=== PATIENT | male | born 1950 | race Hispanic/Latino ===

== ENCOUNTER 2017-01-07 20:58 | Inpatient (IN) | payer MEDICAID ==
[~2017-01-07] VITALS: Ht 177.8 cm; Wt 89.4 kg
[~2017-01-07 20:58] MED LIST: ASPIRIN81 MG ORAL; LISINOPRIL20 MG ORAL; MILK OF MA400 MG/51 ORAL; MYLANTA30 M1 GT; PROTONIX40 M2 PO; TYLENOL325 MG ORAL; ZOCOR40 MG ORAL; ZOFRAN4 M1 ORAL
--- NOTE | 2017-01-07 21:03 | Emergency Room Report ---
History of Present Illness General Source: Patient, EMS Present Illness HPI Patient is a 66-year-old male brought in by ambulance after increased chest pain and difficulty breathing. Patient was noted to have prior history of CHF as well as pacemaker placement. Patient was sent from [facility]. The patient was noted to have prior history hypertension. He had been nauseated and vomiting. Allergies: Coded Allergies: LACTOSE (Verified Allergy, Unknown, 08/30/15) METHOTREXATE (Verified Allergy, Unknown, 08/30/15) NSAIDS (NON-STEROIDAL ANTI-INFLAMMA (Unverified Allergy, Unknown, 11/14/15) Patient History Past Medical History: see triage record Reviewed Nursing Documentation: PMH: Agreed, PSxH: Agreed Nursing Documentation-PMH Hx Cardiac Problems: Yes Hx Hypertension: Yes Hx Diabetes: Yes Hx Cancer: No Hx Gastrointestinal Problems: Yes Hx Neurological Problems: No Review of Systems All Other Systems: negative except mentioned in HPI Physical Exam Sp02 EP Interpretation: reviewed, normal General Appearance: normal inspection, well appearing, no apparent distress, alert, GCS 15 Head: atraumatic ENT: normal ENT inspection, hearing grossly normal, normal voice Neck: normal inspection, full range of motion, supple, no bony tend Respiratory: normal inspection, lungs clear, normal breath sounds, no respiratory distress, no retraction, no wheezing Cardiovascular #1: regular rate, rhythm, no edema Gastrointestinal: normal inspection, normal bowel sounds, non tender, soft, no guarding, no hernia Genitourinary: no CVA tenderness Musculoskeletal: normal inspection, back normal, normal range of motion Neurologic: normal inspection, alert, responsive, speech normal Psychiatric: normal inspection, judgement/insight normal, mood/affect normal Skin: normal inspection, normal color, no rash Medical Decision Making Diagnostic Impression: Primary Impression: Congestive heart failure ER Course Patient presented for chest pain.Differential diagnosis included but was not limited to acute coronary syndrome, pulmonary embolism, pneumonia, aortic dissection, shingles, pneumothorax, aortic dissection, esophageal rupture, pericarditis. Because of complexity of patient's case laboratory testing and imaging studies were ordered.The patient was given IV Lasix. He is given nitroglycerin for shortness of breath. Patient noted have improvement in his oxygen saturation. Patient was discussed with Dr. durbin for inpatient management. Laboratory studies showed elevated BNP peptide. Patient was noted to have negative troponin Labs Test 01/07/17 21:15 White Blood Count 13.0 K/UL (4.8-10.8) Red Blood Count 4.10 M/UL (4.70-6.10) Hemoglobin 11.3 G/DL (14.2-18.0) Hematocrit 37.1 % (42.0-52.0) Mean Corpuscular Volume 91 FL (80-99) Mean Corpuscular Hemoglobin 27.7 PG (27.0-31.0) Mean Corpuscular Hemoglobin Concent 30.6 G/DL (32.0-36.0) Red Cell Distribution Width 15.4 % (11.6-14.8) Platelet Count 277 K/UL (150-450) Mean Platelet Volume 5.9 FL (6.5-10.1) Neutrophils (%) (Auto) 84.0 % (45.0-75.0) Lymphocytes (%) (Auto) 9.1 % (20.0-45.0) Monocytes (%) (Auto) 4.4 % (1.0-10.0) Eosinophils (%) (Auto) 1.5 % (0.0-3.0) Basophils (%) (Auto) 0.9 % (0.0-2.0) Sodium Level 135 mEQ/L (135-145) Potassium Level 4.3 mEQ/L (3.4-4.9) Chloride Level 93 mEQ/L (98-107) Carbon Dioxide Level 26 mEQ/L (20-30) Anion Gap 16 (5-15) Blood Urea Nitrogen 9 mg/dL (7-23) Creatinine 0.8 mg/dL (0.7-1.2) Estimat Glomerular Filtration Rate > 60 mL/min (>60) Glucose Level 191 mg/dL (74-106) Calcium Level 9.2 mg/dL (8.6-10.2) Total Bilirubin 0.7 mg/dL (0.0-1.2) Aspartate Amino Transf (AST/SGOT) 16 U/L (5-40) Alanine Aminotransferase (ALT/SGPT) 9 U/L (3-41) Alkaline Phosphatase 112 U/L (40-129) Total Creatine Kinase 65 U/L (38-174) Creatine Kinase MB 2.6 ng/mL (< 6.7) Creatine Kinase MB Relative Index 4.0 Troponin I < 0.30 ng/mL (<=0.30) Pro-B-Type Natriuretic Peptide 6297 pg/mL (0-125) Total Protein 8.2 g/dL (6.6-8.7) Albumin 3.6 g/dL (3.5-5.2) Globulin 4.6 g/dL Albumin/Globulin Ratio 0.7 (1.0-2.7) EKG Diagnostic Results Rate: normal - 72 Rhythm: other - paced ST Segments: no acute changes Rhythm Strip Diag. Results EP Interpretation: yes Rhythm: no PVC's, no ectopy, other - paced rhythm Chest X-Ray Diagnostic Results EP Interpretation: Yes Findings: no effusion, no pneumothorax, other - vascular congestion, fluid in fissure Number of Views: 1 Status: improved Disposition: ADMITTED INPATIENT Condition: Serious Sam Saavedra Jan 07, 2017 21:03
[2017-01-07 21:25] LABS: BASOPHILS % (AUTO) 0.9 % (0.0-2.0); EOSINOPHILS % (AUTO) 1.5 % (0.0-3.0); LYMPHOCYTES % (AUTO) 9.1 % (20.0-45.0); MEAN CORPUSCULAR HEMOGLOBIN 27.7 PG (27.0-31.0); MEAN CORPUSCULAR HGB CONC 30.6 G/DL (32.0-36.0); MEAN CORPUSCULAR VOLUME 91 FL (80-99); MEAN PLATELET VOLUME 5.9 FL (6.5-10.1); MONOCYTES % (AUTO) 4.4 % (1.0-10.0); PLATELET COUNT 277 K/UL (150-450); RED CELL DISTRIBUTION WIDTH 15.4 % (11.6-14.8)
[2017-01-07 21:43] LABS: ALANINE AMINOTRANSFERASE 9 U/L (3-41); ALBUMIN/GLOBULIN RATIO 0.7 (1.0-2.7); ASPARTATE AMINO TRANSFERASE 16 U/L (5-40); CALCIUM 9.2 mg/dL (8.6-10.2); CARBON DIOXIDE 26 mEQ/L (20-30); CHLORIDE 93 mEQ/L (98-107); CREATININE 0.8 mg/dL (0.7-1.2); GLOMERULAR FILTRATION RATE > 60 mL/min (>60); HEMOLYSIS 7; POTASSIUM 4.3 mEQ/L (3.4-4.9); SODIUM 135 mEQ/L (135-145); TOTAL PROTEIN 8.2 g/dL (6.6-8.7); TROPONIN I < 0.30 ng/mL (<=0.30)
[2017-01-07 21:44] LABS: ANION GAP 16 (5-15)
[2017-01-07 21:54] LABS: CKMB 2.6 ng/mL (< 6.7)
[2017-01-07] MEDS ORDERED: Nitroglycerin Subl 0.4mg tab (Bottle Of 25) SL PRN (23:00)
[2017-01-07 23:10] VITALS: BP 151/104
[2017-01-08] VITALS (7 sets, daily range): BP systolic 113–148; BP diastolic 52–97
[2017-01-08] MEDS ORDERED: DULCOLAX10 MG RC (00:03)
[2017-01-08] MEDS ORDERED: ATORVASTATIN CA80 MG ORAL (00:03)
[2017-01-08] MEDS ORDERED: COLACE100 MG ORAL (00:03)
[2017-01-08] MEDS ORDERED: LISINOPRIL40 MG ORAL (00:03)
[2017-01-08] MEDS ORDERED: PLAVIX75 MG ORAL (00:06)
[2017-01-08] MEDS ORDERED: TRAMADOL HCL50 MG ORAL (00:06)
[2017-01-08] MEDS ORDERED: Enalaprilat 2.5mg/2ml Inj IV PRN (00:15)
[2017-01-08] MEDS ORDERED: Nitroglycerin Subl 0.4mg tab (Bottle Of 25) SL PRN (00:15)
[2017-01-08] MEDS ORDERED: Ketorolac 30mg Inj IV PRN (00:15)
[2017-01-08] MEDS ORDERED: Miralax 17gm pkt ORAL PRN (00:15)
[2017-01-08] MEDS ORDERED: DuoNeb 0.5-3(2.5)mg/3ml neb HHN PRN (00:15)
[2017-01-08] MEDS ORDERED: Diltiazem 25mg/5ml IV PRN (00:15)
[2017-01-08] MEDS ORDERED: NORCO 5-325 TA1 EAC1 ORAL (01:38)
[2017-01-08] MEDS ORDERED: NITROGLYCERIN0.4 MG SL (01:38)
[2017-01-08] MEDS ORDERED: VITAMIN D35000 UNI2 PO (01:44)
[2017-01-08] MEDS ORDERED: METOPROLOL TART25 MG ORAL (01:44)
[2017-01-08] MEDS ORDERED: NOVOLOG100 UNITS1 (01:44)
[2017-01-08] MEDS: NovoLOG Insulin Flexpen SUBQ SCH ×4 (06:42→22:28)
[2017-01-08 07:26] LABS: TROPONIN I < 0.30 ng/mL (<=0.30)
[2017-01-08] MEDS: Lisinopril 20mg tab ORAL SCH (09:16)
[2017-01-08] MEDS: Aspirin Baby 81mg ORAL SCH (09:16)
[2017-01-08] MEDS: Heparin 5000 units/ml inj SUBQ SCH ×2 (09:18→22:28)
--- NOTE | 2017-01-08 12:00 | Diagnostic Imaging Report ---
Indication: SOB Technique: One view of the chest Comparison: 08/29/2015 Findings: Better inspiration currently. Again demonstrated is diffuse bilateral interstitial disease, left greater than right. No focal airspace consolidation. Heart size borderline enlarged. Left chest pacemaker is again demonstrated. Impression: Bilateral left greater than right diffuse interstitial disease. Suspect on the basis of pulmonary edema. However, similarity to prior study raises the possibility that there could be a significant chronic component. Correlation with clinical findings is recommended. This agrees with the preliminary interpretation provided by the emergency room physician
--- NOTE | 2017-01-08 12:24 | History and Physical ---
History of Present Illness General Date patient seen: Jan 08, 2017 Reason for Hospitalization: Chest Pain Present Illness HPI 66-year-old male with hx of DM,CHF, pacemaker, severe debilitating rheumatoid arthritis, bed bound prison resident. brought in by ambulance with CC of chest pain and difficulty breathing. He was diagnosed to have acute exacerbation of CHF and respiratory insufficiency and admitted for further management. Allergies: Coded Allergies: LACTOSE (Verified Allergy, Unknown, 08/30/15) METHOTREXATE (Verified Allergy, Unknown, 08/30/15) NSAIDS (NON-STEROIDAL ANTI-INFLAMMA (Unverified Allergy, Unknown, 11/14/15) Medication History Scheduled Al Hydroxide/mg Hydroxide (Mag-Al Liquid), 30 ML GT Q6HR, (Reported) Aspirin* (Aspirin*), 81 MG ORAL DAILY, (Reported) Atorvastatin Calcium* (Lipitor*), 80 MG ORAL BEDTIME, (Reported) Cholecalciferol (Vitamin D3) (Vitamin D3), 5,000 UNIT PO DAILY, (Reported) Clopidogrel Bisulfate* (Plavix*), 75 MG ORAL DAILY, (Reported) Docusate Sodium* (Colace*), 100 MG ORAL DAILY, (Reported) Lisinopril (Lisinopril*), 20 MG ORAL DAILY, (Reported) Metoprolol Tartrate* (Metoprolol Tartrate*), 25 MG ORAL EVERY 12 HOURS, ( Reported) Pantoprazole Sodium (Protonix), 40 MG PO DAILY, (Reported) Simvastatin (Zocor), 40 MG ORAL BEDTIME, (Reported) Scheduled PRN Acetaminophen (Tylenol), 650 MG ORAL Q4HR PRN for For Pain, (Reported) Bisacodyl (Dulcolax), 10 MG RC for Constipation, (Reported) Hydrocodone Bit/Acetaminophen 5-325* (Bland 5-325 Tablet*), 2 TAB ORAL Q8HR PRN for For Pain, (Reported) Magnesium Hydroxide* (Milk Of Magnesia*), 30 ML ORAL QHS PRN for Constipation, ( Reported) Ondansetron (Zofran), 4 MG ORAL Q4HR PRN for Nausea & Vomiting, (Reported) Tramadol Hcl* (Ultram*), 50 MG ORAL Q6H PRN for For Pain, (Reported) Miscellaneous Medications Insulin Aspart (Novolog Flexpen), (Reported) Nitroglycerin (Nitroglycerin), 0.4 MG SL, (Reported) Discontinued Medications Lisinopril* (Lisinopril*), 40 MG ORAL DAILY, (Reported) Discontinued Reason: Medication dose changed Patient History Healthcare decision maker Resuscitation status Full Code Advanced Directive on File No Past Medical/Surgical History Past Medical/Surgical History: (1) Congestive heart failure (2) Diabetes mellitus (3) Arrhythmia Review of Systems All Other Systems: negative except mentioned in HPI Physical Exam General Appearance: WD/WN, no apparent distress Lines, tubes and drains: peripheral, central line HEENT: normocephalic, atraumatic Neck: non-tender, normal alignment Respiratory/Chest: chest wall non-tender, lungs clear Cardiovascular/Chest: normal peripheral pulses, normal rate Abdomen: normal bowel sounds, hyperactive bowel sounds Extremities: normal range of motion, non-tender Skin Exam: normal pigmentation 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 Last 24 Hour Vital Signs Date Time Temp Pulse Resp B/P Pulse Ox O2 Delivery O2 Flow Rate FiO2 01/08/17 11:22 97.8 86 20 115/57 99 Room Air 01/08/17 09:16 148/97 01/08/17 08:00 77 01/08/17 07:58 98.9 87 20 148/97 98 Room Air 01/08/17 06:34 87 16 Room Air 01/08/17 04:00 97.9 77 20 113/52 95 Room Air 01/08/17 04:00 75 01/08/17 00:30 98.1 75 20 134/80 96 Room Air 01/08/17 00:30 98.1 75 20 134/80 96 Room Air 01/08/17 00:00 97.2 75 20 139/85 95 Room Air 01/07/17 23:10 98.4 85 16 151/104 100 Room Air 01/07/17 23:08 151/104 01/07/17 21:00 85 15 Room Air 01/07/17 20:58 98.2 81 16 171/94 97 Room Air Intake and Output 01/07/17 01/08/17 19:00 07:00 Output Total 2100 ml Balance -2100 ml Output Urine Total 2100 ml Laboratory Tests Test 01/07/17 21:15 01/08/17 05:50 White Blood Count 13.0 K/UL (4.8-10.8) H Red Blood Count 4.10 M/UL (4.70-6.10) L Hemoglobin 11.3 G/DL (14.2-18.0) L Hematocrit 37.1 % (42.0-52.0) L Mean Corpuscular Volume 91 FL (80-99) Mean Corpuscular Hemoglobin 27.7 PG (27.0-31.0) Mean Corpuscular Hemoglobin Concent 30.6 G/DL (32.0-36.0) L Red Cell Distribution Width 15.4 % (11.6-14.8) H Platelet Count 277 K/UL (150-450) Mean Platelet Volume 5.9 FL (6.5-10.1) L Neutrophils (%) (Auto) 84.0 % (45.0-75.0) H Lymphocytes (%) (Auto) 9.1 % (20.0-45.0) L Monocytes (%) (Auto) 4.4 % (1.0-10.0) Eosinophils (%) (Auto) 1.5 % (0.0-3.0) Basophils (%) (Auto) 0.9 % (0.0-2.0) Sodium Level 135 mEQ/L (135-145) Potassium Level 4.3 mEQ/L (3.4-4.9) Chloride Level 93 mEQ/L (98-107) L Carbon Dioxide Level 26 mEQ/L (20-30) Anion Gap 16 (5-15) H Blood Urea Nitrogen 9 mg/dL (7-23) Creatinine 0.8 mg/dL (0.7-1.2) Estimat Glomerular Filtration Rate > 60 mL/min (>60) Glucose Level 191 mg/dL (74-106) H Calcium Level 9.2 mg/dL (8.6-10.2) Total Bilirubin 0.7 mg/dL (0.0-1.2) Aspartate Amino Transf (AST/SGOT) 16 U/L (5-40) Alanine Aminotransferase (ALT/SGPT) 9 U/L (3-41) Alkaline Phosphatase 112 U/L (40-129) Total Creatine Kinase 65 U/L (38-174) Creatine Kinase MB 2.6 ng/mL (< 6.7) Creatine Kinase MB Relative Index 4.0 Troponin I < 0.30 ng/mL (<=0.30) < 0.30 ng/mL (<=0.30) Pro-B-Type Natriuretic Peptide 6297 pg/mL (0-125) H Total Protein 8.2 g/dL (6.6-8.7) Albumin 3.6 g/dL (3.5-5.2) Globulin 4.6 g/dL Albumin/Globulin Ratio 0.7 (1.0-2.7) L Height (Feet): 5 Height (Inches): 10.00 Weight (Pounds): 197 Medications Current Medications Medications (Trade) Dose Ordered Sig/Paola Route PRN Reason Start Time Stop Time Status Last Admin Dose Admin Acetaminophen (Tylenol) 650 mg Q4H PRN ORAL FEVER 01/08/17 00:15 02/07/17 00:14 Acetaminophen (Tylenol) 650 mg Q4HR PRN ORAL For Pain 01/08/17 00:15 02/07/17 00:14 Albuterol/ Ipratropium (DuoNeb 0.5-3(2.5)mg/3ml) 3 ml EVERY 4 HOURS PRN HHN Shortness of Breath 01/08/17 00:15 01/13/17 00:14 Aspirin (ASA) 162 mg DAILY ORAL 01/08/17 09:00 02/07/17 08:59 01/08/17 09:16 Clopidogrel Bisulfate (Plavix) 75 mg DAILY ORAL 01/08/17 09:00 02/07/17 08:59 01/08/17 09:16 Dextrose (Dextrose 50%) STAT PRN IV Hypoglycemia 01/08/17 03:45 02/07/17 03:44 Diltiazem HCl (Cardizem) 10 mg EVERY HOUR PRN IV heart rate more than 120, 01/08/17 00:15 02/07/17 00:14 Enalaprilat (Vasotec) 2.5 mg EVERY 6 HOURS PRN IV sbp more than 160 01/08/17 00:15 02/07/17 00:14 Heparin Sodium (Porcine) (Heparin 5000 units/ml) 5,000 units EVERY 12 HOURS SUBQ 01/08/17 09:00 02/07/17 08:59 01/08/17 09:18 Insulin Aspart (NovoLOG) BEFORE MEALS AND HS SUBQ 01/08/17 06:30 02/07/17 06:29 01/08/17 11:40 Ketorolac Tromethamine (Toradol 30mg) 30 mg Q6HR PRN IV moderate pain ( 4-6) 01/08/17 00:15 01/13/17 00:14 Lisinopril (Prinivil) 20 mg DAILY ORAL 01/08/17 09:00 02/07/17 08:59 01/08/17 09:16 Morphine Sulfate (Morphine Sulfate) 2 mg EVERY 4 HOURS PRN IVP severe Pain (Pain Scale 7-10) 01/08/17 00:15 01/15/17 00:14 Nitroglycerin (Ntg) 0.4 mg every 5 minutes PRN SL Prn Chest Pain 01/08/17 00:15 02/07/17 00:14 Ondansetron HCl (Zofran) 4 mg Q6H PRN IVP Nausea & Vomiting 01/08/17 00:15 02/07/17 00:14 01/08/17 09:18 Pantoprazole (Protonix) 40 mg DAILY ORAL 01/08/17 09:00 02/07/17 08:59 01/08/17 09:16 Polyethylene Glycol (Miralax) 17 gm DAILYPRN PRN ORAL Constipation 01/08/17 00:15 02/07/17 00:14 Temazepam (Restoril) 15 mg HSPRN PRN ORAL Insomnia 01/08/17 00:15 01/15/17 00:14 Assessment/Plan Problem List: (1) Acute on chronic heart failure ICD Codes: I50.9 - Heart failure, unspecified SNOMED: 846907761 (2) S/P CABG (coronary artery bypass graft) ICD Codes: Z95.1 - Presence of aortocoronary bypass graft SNOMED: 875740093, 306996069 (3) Limited mobility ICD Codes: Z74.09 - Other reduced mobility SNOMED: 1589742 (4) Diabetes mellitus ICD Codes: E11.9 - Type 2 diabetes mellitus without complications SNOMED: 29295215 Assessment/Plan diuretics check sputum f/u on increased WBC check electrolytes. KEKE CHE Jan 08, 2017 12:24
[2017-01-08 12:40] LABS: APPEARANCE,URINE CLEAR; KETONES,URINE NEGATIVE (NEGATIVE); LEUKOCYTE ESTERASE ,URINE 1+ (NEGATIVE); NITRITE,URINE NEGATIVE (NEGATIVE); PH,URINE 8 (4.5-8.0); PROTEIN,URINE 2+ (NEGATIVE); UROBILINOGEN,URINE 1 MG/DL (0.0-1.0)
[2017-01-08 13:11] LABS: BACTERIA,URINE FEW /HPF; SQUAMOUS EPITHELIAL CELL,UR OCCASIONAL /LPF (NONE/OCC)
[2017-01-08] MEDS: Morphine Sulfate 2mg/ml Inj IVP PRN ×2 (16:11→22:24)
--- NOTE | 2017-01-08 23:08 | Cardiology Report ---
APPROVED REPORT EKG Measurement Heart [id number] NM [id number] [id number] Demand ventricular pacing Abnormal ECG
[2017-01-09] VITALS (7 sets, daily range): BP systolic 104–126; BP diastolic 61–87
[2017-01-09] MEDS: Morphine Sulfate 2mg/ml Inj IVP PRN ×5 (03:07→22:45)
[2017-01-09] MEDS: NovoLOG Insulin Flexpen SUBQ SCH ×4 (06:30→20:39)
[2017-01-09 06:42] LABS: INR 1.2 (0.9-1.1); PROTHROMBIN TIME 12.3 SEC (9.30-11.50)
[2017-01-09 06:51] LABS: TROPONIN I < 0.30 ng/mL (<=0.30)
[2017-01-09 06:53] LABS: ALANINE AMINOTRANSFERASE 11 U/L (3-41); ALBUMIN/GLOBULIN RATIO 0.8 (1.0-2.7); ANION GAP 19 (5-15); ASPARTATE AMINO TRANSFERASE 20 U/L (5-40); CALCIUM 8.8 mg/dL (8.6-10.2); CARBON DIOXIDE 25 mEQ/L (20-30); CHLORIDE 92 mEQ/L (98-107); CHOLESTEROL 114 mg/dL (< 200); CHOLESTEROL/HDL RATIO 2.2 (3.3-4.4); CREATININE 0.9 mg/dL (0.7-1.2); CRP QUANT 6.8 mg/dL (< 0.5); GLOMERULAR FILTRATION RATE > 60 mL/min (>60); HEMOLYSIS 0; LDL CHOLESTEROL (CALC.) 43 mg/dL (60-99); POTASSIUM 3.8 mEQ/L (3.4-4.9); SODIUM 136 mEQ/L (135-145); TOTAL PROTEIN 7.8 g/dL (6.6-8.7)
[2017-01-09 06:57] LABS: BASOPHILS % (AUTO) 1.1 % (0.0-2.0); EOSINOPHILS % (AUTO) 3.8 % (0.0-3.0); LYMPHOCYTES % (AUTO) 14.4 % (20.0-45.0); MEAN CORPUSCULAR HEMOGLOBIN 27.9 PG (27.0-31.0); MEAN CORPUSCULAR HGB CONC 31.7 G/DL (32.0-36.0); MEAN CORPUSCULAR VOLUME 88 FL (80-99); MEAN PLATELET VOLUME 5.8 FL (6.5-10.1); MONOCYTES % (AUTO) 12.7 % (1.0-10.0); PLATELET COUNT 322 K/UL (150-450); RED BLOOD COUNT 4.04 M/UL (4.70-6.10); RED CELL DISTRIBUTION WIDTH 15.2 % (11.6-14.8); WHITE BLOOD COUNT 6.3 K/UL (4.8-10.8)
[2017-01-09 06:59] LABS: THYROID STIMULATING HORMONE 0.254 uIU/mL (0.300-4.500)
[2017-01-09] MEDS: Heparin 5000 units/ml inj SUBQ SCH ×2 (08:23→20:39)
[2017-01-09] MEDS: Lisinopril 20mg tab ORAL SCH (08:24)
[2017-01-09] MEDS: Aspirin Baby 81mg ORAL SCH (08:25)
--- NOTE | 2017-01-09 11:05 | Cardiology Report ---
APPROVED REPORT EXAM: Two-dimensional and M-mode echocardiogram with Doppler and color Doppler. INDICATION LV function M-Mode DIMENSIONS IVSd1.3 (0.7-1.1cm)Left Atrium (MM)4.2 (1.6-4.0cm) LVDd5.7 (3.5-5.6cm)Aortic Root3.6 (2.0-3.7cm) PWd1.4 (0.7-1.1cm)Aortic Cusp Exc.2.1 (1.5-2.0cm) LVDs4.5 (2.5-4.0cm) PWs1.6 cm Technically difficult study due to poor acoustical windows. Left ventricular enlargement. Global left ventricular hypokinesis. Mid to distal segments and apical akinesis. Left ventricular ejection fraction estimated to be 25 %. Study quality precludes accurate assessment of regional wall motion. Mild left ventricular hypertrophy. Anterior Echo-free space, may be due to pericardial fat or effusion. Mild left atrial enlargement. Right cardiac chamber sizes are within normal limits. Focal aortic valve sclerosis with adequate cusp excursion. Thickened mitral valve leaflets with normal excursion. Mitral annulus and aortic root calcification. Pulmonic valve not well visualized. Normal tricuspid valve structure. IVC at normal size with physiologic collapse. Pacemaker wire present in the right side chambers. A color flow and spectral Doppler study was performed and revealed: Mild aortic regurgitation. Mild mitral regurgitation. Mitral diastolic velocities suggest reduced left ventricular relaxation c/w mild LV diastolic dysfunction. Mild tricuspid regurgitation. Tricuspid systolic velocities suggests peak right ventricular systolic pressure of 42 mmHg, consistent with mild pulmonary hypertension. Trace pulmonic regurgitation present.
--- NOTE | 2017-01-09 14:50 | Diagnostic Imaging Report ---
Indication: DYSPNEA Technique: One view of the chest Comparison: 01/07/2017 Findings: Interim partial clearing of previously demonstrated interstitial edema, only minimal residual. Left chest pacemaker, inferior vena cava filter are demonstrated. The heart is borderline enlarged. Pleural spaces are clear Impression: Improved interstitial edema, with minimal residual, over 2 days
--- NOTE | 2017-01-09 15:28 | Pulmonology Progress Note ---
Assessment/Plan Problems: (1) Acute on chronic heart failure (2) S/P CABG (coronary artery bypass graft) (3) Limited mobility (4) Diabetes mellitus Assessment/Plan add antibioitics because of purulent sputum awaiting cardiology evaluation check echo Subjective ROS Limited/Unobtainable: No Interval Events: still coughing Respiratory: Reports: shortness of breath, sputum Allergies: Coded Allergies: LACTOSE (Verified Allergy, Unknown, 08/30/15) METHOTREXATE (Verified Allergy, Unknown, 08/30/15) NSAIDS (NON-STEROIDAL ANTI-INFLAMMA (Unverified Allergy, Unknown, 11/14/15) Objective Last 24 Hour Vital Signs Date Time Temp Pulse Resp B/P Pulse Ox O2 Delivery O2 Flow Rate FiO2 01/09/17 13:36 98.2 01/09/17 12:00 97.5 82 17 125/61 98 Room Air 01/09/17 11:52 101 01/09/17 08:24 126/67 01/09/17 08:00 97.5 89 18 125/87 96 Room Air 01/09/17 07:44 93 01/09/17 06:54 90 18 Room Air 01/09/17 05:36 98.2 93 20 122/72 97 Room Air 01/09/17 04:00 86 01/09/17 04:00 98.0 93 20 122/73 96 Room Air 01/09/17 00:21 98.0 87 20 126/61 96 Room Air 01/09/17 00:00 100 01/08/17 20:00 77 01/08/17 20:00 98.4 81 20 128/75 94 Room Air 01/08/17 19:43 75 20 Room Air 01/08/17 16:00 76 01/08/17 16:00 99.1 77 21 131/67 90 Room Air Intake and Output 01/08/17 01/09/17 19:00 07:00 Intake Total 75 ml 240 ml Output Total 300 ml 300 ml Balance -225 ml -60 ml Intake Oral 75 ml 240 ml Output Urine Total 300 ml 300 ml General Appearance: WD/WN HEENT: normocephalic, anicteric Respiratory/Chest: chest wall non-tender, normal breath sounds Cardiovascular: normal peripheral pulses, normal rate Abdomen: normal bowel sounds, soft, non tender, no organomegaly Laboratory Tests 01/09/17 06:00: White Blood Count 6.3#, Red Blood Count 4.04L, Hemoglobin 11.3L, Hematocrit 35.5L, Mean Corpuscular Volume 88, Mean Corpuscular Hemoglobin 27.9, Mean Corpuscular Hemoglobin Concent 31.7L, Red Cell Distribution Width 15.2H, Platelet Count 322, Mean Platelet Volume 5.8L, Neutrophils (%) (Auto) 68.0, Lymphocytes (%) (Auto) 14.4L, Monocytes (%) (Auto) 12.7H, Eosinophils (%) (Auto ) 3.8H, Basophils (%) (Auto) 1.1, Prothrombin Time 12.3H, Prothromb Time International Ratio 1.2H, Activated Partial Thromboplast Time 45H, Sodium Level 136, Potassium Level 3.8, Chloride Level 92L, Carbon Dioxide Level 25, Anion Gap 19H, Blood Urea Nitrogen 13, Creatinine 0.9, Estimat Glomerular Filtration Rate > 60, Glucose Level 92#, Calcium Level 8.8, Total Bilirubin 0.6, Aspartate Amino Transf (AST/SGOT) 20, Alanine Aminotransferase (ALT/SGPT) 11, Alkaline Phosphatase 101, Troponin I < 0.30, C-Reactive Protein, Quantitative 6.8H, Pro-B -Type Natriuretic Peptide 3172H, Total Protein 7.8, Albumin 3.5, Globulin 4.3, Albumin/Globulin Ratio 0.8L, Triglycerides Level 96, Cholesterol Level 114, LDL Cholesterol 43L, HDL Cholesterol 52, Cholesterol/HDL Ratio 2.2L, Thyroid Stimulating Hormone (TSH) 0.254L Current Medications Medications (Trade) Dose Ordered Sig/Paola Route PRN Reason Start Time Stop Time Status Last Admin Dose Admin Acetaminophen (Tylenol) 650 mg Q4H PRN ORAL FEVER 01/08/17 00:15 02/07/17 00:14 Acetaminophen (Tylenol) 650 mg Q4HR PRN ORAL For Pain 01/08/17 00:15 02/07/17 00:14 Albuterol/ Ipratropium (DuoNeb 0.5-3(2.5)mg/3ml) 3 ml EVERY 4 HOURS PRN HHN Shortness of Breath 01/08/17 00:15 01/13/17 00:14 Aspirin (ASA) 162 mg DAILY ORAL 01/08/17 09:00 5/5/17 08:59 01/09/17 08:25 Clopidogrel Bisulfate (Plavix) 75 mg DAILY ORAL 01/08/17 09:00 02/07/17 08:59 01/09/17 08:21 Dextrose (Dextrose 50%) STAT PRN IV Hypoglycemia 01/08/17 03:45 02/07/17 03:44 Diltiazem HCl (Cardizem) 10 mg EVERY HOUR PRN IV heart rate more than 120, 01/08/17 00:15 02/07/17 00:14 Enalaprilat (Vasotec) 2.5 mg EVERY 6 HOURS PRN IV sbp more than 160 01/08/17 00:15 02/07/17 00:14 Furosemide (Lasix) 20 mg EVERY 12 HOURS IV 01/08/17 21:00 02/07/17 20:59 01/09/17 08:24 Heparin Sodium (Porcine) (Heparin 5000 units/ml) 5,000 units EVERY 12 HOURS SUBQ 01/08/17 09:00 02/07/17 08:59 01/09/17 08:23 Insulin Aspart (NovoLOG) BEFORE MEALS AND HS SUBQ 01/08/17 06:30 02/07/17 06:29 01/08/17 22:28 Lisinopril (Prinivil) 20 mg DAILY ORAL 01/08/17 09:00 02/07/17 08:59 01/09/17 08:24 Morphine Sulfate (Morphine Sulfate) 2 mg EVERY 4 HOURS PRN IVP severe Pain (Pain Scale 7-10) 01/08/17 00:15 01/15/17 00:14 01/09/17 13:06 Nitroglycerin (Ntg) 0.4 mg every 5 minutes PRN SL Prn Chest Pain 01/08/17 00:15 02/07/17 00:14 Ondansetron HCl (Zofran) 4 mg Q6H PRN IVP Nausea & Vomiting 01/08/17 00:15 02/07/17 00:14 01/08/17 22:24 Pantoprazole (Protonix) 40 mg DAILY ORAL 01/08/17 09:00 02/07/17 08:59 01/09/17 08:21 Polyethylene Glycol (Miralax) 17 gm DAILYPRN PRN ORAL Constipation 01/08/17 00:15 02/07/17 00:14 Temazepam (Restoril) 15 mg HSPRN PRN ORAL Insomnia 01/08/17 00:15 01/15/17 00:14 KEKE CHE Jan 09, 2017 15:28
[2017-01-09] MEDS ORDERED: Promethazine/Codeine 5ml UD ORAL PRN (15:30)
[2017-01-09] MEDS: Piperacillin/Tazobactam 3.375 GM in NS 110 ML IVPB SCH (16:42)
--- NOTE | 2017-01-09 17:32 | Cardiology Progress Note ---
Assessment/Plan Assessment/Plan chest pain acute systolic heart failrue icm cad s/p pci to lad adn cx with cad in rca not yet treated bradycardia s/p PPM, DVT s/p IVC filter in 2010, HTN, HLD, DM2, PUD w/ prior UGIB nto abn trop ekg paced cxr chf imporoving conteinu rxn for chf dapt will need to fu at [facility] for pci of rca if has any abn cariac enzyme and clinical sx of acs for his rca disease : Mid RCA was noted to have 60% to 70% stenosis. Distal RCA was noted to have 80% stenosis. The posterolateral segment was noted to have 90% stenosis. [id number] Objective Last 24 Hour Vital Signs Date Time Temp Pulse Resp B/P Pulse Ox O2 Delivery O2 Flow Rate FiO2 01/09/17 16:00 96.9 83 19 104/67 100 Room Air 01/09/17 13:36 98.2 01/09/17 12:00 97.5 82 17 125/61 98 Room Air 01/09/17 11:52 101 01/09/17 08:24 126/67 01/09/17 08:00 97.5 89 18 125/87 96 Room Air 01/09/17 07:44 93 01/09/17 06:54 90 18 Room Air 01/09/17 05:36 98.2 93 20 122/72 97 Room Air 01/09/17 04:00 86 01/09/17 04:00 98.0 93 20 122/73 96 Room Air 01/09/17 00:21 98.0 87 20 126/61 96 Room Air 01/09/17 00:00 100 01/08/17 20:00 77 01/08/17 20:00 98.4 81 20 128/75 94 Room Air 01/08/17 19:43 75 20 Room Air Intake and Output 01/08/17 01/09/17 19:00 07:00 Intake Total 75 ml 240 ml Output Total 300 ml 300 ml Balance -225 ml -60 ml Intake Oral 75 ml 240 ml Output Urine Total 300 ml 300 ml Laboratory Tests Test 01/09/17 06:00 White Blood Count 6.3 K/UL (4.8-10.8) # Red Blood Count 4.04 M/UL (4.70-6.10) L Hemoglobin 11.3 G/DL (14.2-18.0) L Hematocrit 35.5 % (42.0-52.0) L Mean Corpuscular Volume 88 FL (80-99) Mean Corpuscular Hemoglobin 27.9 PG (27.0-31.0) Mean Corpuscular Hemoglobin Concent 31.7 G/DL (32.0-36.0) L Red Cell Distribution Width 15.2 % (11.6-14.8) H Platelet Count 322 K/UL (150-450) Mean Platelet Volume 5.8 FL (6.5-10.1) L Neutrophils (%) (Auto) 68.0 % (45.0-75.0) Lymphocytes (%) (Auto) 14.4 % (20.0-45.0) L Monocytes (%) (Auto) 12.7 % (1.0-10.0) H Eosinophils (%) (Auto) 3.8 % (0.0-3.0) H Basophils (%) (Auto) 1.1 % (0.0-2.0) Prothrombin Time 12.3 SEC (9.30-11.50) H Prothromb Time International Ratio 1.2 (0.9-1.1) H Activated Partial Thromboplast Time 45 SEC (23-33) H Sodium Level 136 mEQ/L (135-145) Potassium Level 3.8 mEQ/L (3.4-4.9) Chloride Level 92 mEQ/L (98-107) L Carbon Dioxide Level 25 mEQ/L (20-30) Anion Gap 19 (5-15) H Blood Urea Nitrogen 13 mg/dL (7-23) Creatinine 0.9 mg/dL (0.7-1.2) Estimat Glomerular Filtration Rate > 60 mL/min (>60) Glucose Level 92 mg/dL (74-106) # Calcium Level 8.8 mg/dL (8.6-10.2) Total Bilirubin 0.6 mg/dL (0.0-1.2) Aspartate Amino Transf (AST/SGOT) 20 U/L (5-40) Alanine Aminotransferase (ALT/SGPT) 11 U/L (3-41) Alkaline Phosphatase 101 U/L (40-129) Troponin I < 0.30 ng/mL (<=0.30) C-Reactive Protein, Quantitative 6.8 mg/dL (< 0.5) H Pro-B-Type Natriuretic Peptide 3172 pg/mL (0-125) H Total Protein 7.8 g/dL (6.6-8.7) Albumin 3.5 g/dL (3.5-5.2) Globulin 4.3 g/dL Albumin/Globulin Ratio 0.8 (1.0-2.7) L Triglycerides Level 96 mg/dL (< 150) Cholesterol Level 114 mg/dL (< 200) LDL Cholesterol 43 mg/dL (60-99) L HDL Cholesterol 52 mg/dL (> 60) Cholesterol/HDL Ratio 2.2 (3.3-4.4) L Thyroid Stimulating Hormone (TSH) 0.254 uIU/mL (0.300-4.500) LEONARD CHING Jan 09, 2017 17:32
[2017-01-09] MEDS: Atorvastatin 80mg tab ORAL SCH (20:36)
--- NOTE | 2017-01-09 23:47 | Consultation ---
DATE OF CONSULTATION: 01/09/2017 CARDIOLOGY CONSULTATION CONSULTING PHYSICIAN: Pierre Zuñiga M.D. REFERRING PHYSICIAN: Pretty Sweet M.D. REASON FOR EVALUATION: Management of chest pain and shortness of breath. HISTORY OF PRESENT ILLNESS: This is an elderly gentleman, who is a resident of convalescent facility. The patient presented to the hospital because of coughing and sputum production and subsequent development of chest pain. He was initially taken to a different hospital, where he was evaluated and subsequently transferred to [facility] for further care because of insurance reasons. He tells me that he has had coughing and shortness of breath for few weeks and subsequent episodes of pain in the center of the chest that radiates to the left shoulder and this one has lasted approximately one hour. So, he was taken to as mentioned where he had evaluation and subsequently was noted to have low sodium of 126 and a white count of 13.4 with hemoglobin 9.7 and platelet count of 208,000. He was subsequently transferred to [facility]. He does not have any chest pain at the present time. He does not have any PND. No orthopnea. He does not walk. He gets around with a wheelchair, some palpitations, no dizziness or lightheadedness on standing. PAST MEDICAL HISTORY: Positive for history of coronary artery disease, status post ST-elevation myocardial infarction in 2006, which he did not have PCI or the bradycardia status post permanent pacemaker implantation, deep venous thrombosis status post IVC filter in 2010, high blood pressure, hyperlipidemia, diabetes mellitus, peptic ulcer with prior upper gastrointestinal bleeding with recent hospitalization at [facility] with ejection fraction dropping from 65% previously down to 35%. The nuclear perfusion imaging showed 22% reversible defect. Heart catheterization showed an extensive three vessel coronary disease with 100% mid LAD, 90% first diagonal, 95% proximal circumflex, 90% distal RCA. He was not felt to be operative candidate. He underwent multistage PCI with RODERICK x3 in the left anterior descending on December , he underwent PCI with ablation and drug-eluting stent placement x2 to the circumflex artery on 12/09/2016. His right coronary artery was not intervened, to be evaluated and treated in the future depending on his symptoms. [facility] a [facility] at the present time. FAMILY HISTORY: Stomach cancer in his mother and stroke in his father. SOCIAL HISTORY: He has never smoked. Does not have any smokeless tobacco use. He does not drink alcoholic beverages. He lives in a convalescent facility. MEDICATIONS: His medications unfortunately are not completely clear what he was getting although at [facility] it was documented in the last month that he was given Zofran 4 mg every 4 hours as needed, Lipitor 80 mg at bedtime, Toprol-XL 25 mg, Plavix 75 mg, Atrovent inhaler, insulin sliding scale, lisinopril 40 mg daily, [place] on a p.r.n. basis, tramadol on p.r.n. basis, aspirin 81 mg, magnesium, and Protonix 40 mg daily as well. REVIEW OF SYSTEMS: Gastrointestinal: He does not have nausea, vomiting, diarrhea, or constipation. Genitourinary: Negative. Pulmonary: Positive for coughing or wheezing. Constitutional: Negative. Neurological: Negative. PHYSICAL EXAMINATION: GENERAL: Shows to be obese middle-aged male, in no apparent respiratory distress. NECK: Supple. LUNGS: There are crackles noted on the left side of the lungs and the right side appear to be clear. CARDIAC: Regular rate and rhythm. No heaves, thrills, or gallops noted. ABDOMEN: Soft and nontender. Positive bowel sounds. EXTREMITIES: There is no clubbing, cyanosis, nor is there any significant edema. NEUROLOGIC: He is awake, alert, responsive, and in no apparent respiratory distress. LABORATORY DATA: White count 13,000 down to 6.3, hemoglobin 11.3, and platelet count of 322,000. Three sets of cardiac enzymes here have been negative. ProBNP 3100. Sodium 136, potassium 3.8, chloride 92, bicarbonate 25, BUN 13, creatinine 0.9, and glucose of 92. CRP is 6.8. Total cholesterol is 114 with a LDL of 43 and HDL of 52. TSH is 0.254. INR is 1.2 and PTT of 45. The urinalysis shows 2 to 4 RBCs. IMAGING STUDIES: The patient had a chest x-ray that showed improved interstitial edema with minimal residual over two days and an echocardiogram that was performed showed ejection fraction of 25% and technically difficult study with mild mitral and aortic regurgitation, mild diastolic relaxation abnormalities, and pulmonary artery systolic pressure in the 40s and pacemaker wire on the right side. The patient's EKG shows sinus rhythm with ventricular pacing. ASSESSMENT: 1. Chest pain. 2. Acute systolic heart failure. 3. Ischemic cardiomyopathy, chronic. 4. Coronary artery disease status post percutaneous coronary intervention to left anterior descending and circumflex with coronary artery disease involving the right coronary artery not yet treated. 5. Bradycardia status post permanent pacemaker implantation. 6. Deep venous thrombosis. 7. History of status post inferior vena cava in 2010. 8. Hypertension. 9. Hyperlipidemia. 10. Diabetes mellitus. 11. Peptic ulcer disease with history of gastrointestinal bleed. PLAN: Dr. Sweet, this patient was seen in cardiac consultation. The patient appears to be doing well at the present time. His chest x-ray shows improvement of his congestive heart failure findings compared to prior based on testing that was performed earlier. He is feeling better. He does have a cough but not significant sputum production. He describes it as white so likely related to acute congestive heart failure. His symptoms with coughing and shortness of breath apparently started way before the episode of chest pain that he sustained and that chest pain lasted for one hour. He did not have any nitroglycerin to relieve. He does not have any evidence of cardiac enzyme abnormality. I would continue treatment for the congestive heart failure, at the present time should be back on his dual antiplatelet therapy. We will need to follow up at [facility] for his PCI to the right coronary artery. If any abnormality of cardiac enzyme or clinical symptoms of acute coronary syndromes for his right coronary disease that have showed a mid lesion of 60% to 70% with distal RCA noted to have 80% stenosis in the posterolateral segment was noted to have 90% stenosis during his cardiac catheterization in November 2016. I will follow the patient along with you. Pierre Zuñiga M.D. DR: Gerard JOB#: [id number] CC:
[2017-01-10] MEDS: Piperacillin/Tazobactam 3.375 GM in NS 110 ML IVPB SCH ×3 (00:51→16:12)
[2017-01-10] MEDS: Morphine Sulfate 2mg/ml Inj IVP PRN ×4 (02:51→16:42)
[2017-01-10 04:00] VITALS: BP 110/63
[2017-01-10] MEDS: NovoLOG Insulin Flexpen SUBQ SCH ×4 (06:30→21:41)
[2017-01-10 06:43] LABS: TROPONIN I < 0.30 ng/mL (<=0.30)
[2017-01-10 08:00] VITALS: BP 108/58
[2017-01-10] MEDS: Aspirin Baby 81mg ORAL SCH (08:28)
[2017-01-10] MEDS: Lisinopril 20mg tab ORAL SCH (08:29)
[2017-01-10] MEDS: Heparin 5000 units/ml inj SUBQ SCH ×2 (08:31→21:39)
[2017-01-10 12:00] VITALS: BP 116/63
[2017-01-10 16:00] VITALS: BP 108/61
[2017-01-10] MEDS: Miralax 17gm pkt ORAL SCH (16:12)
[2017-01-10 19:00] VITALS: BP 125/68
[2017-01-10] MEDS ORDERED: Fleet's Enema 133ml RECTAL PRN ×2 (20:30→21:30)
--- NOTE | 2017-01-10 20:32 | Pulmonology Progress Note ---
Assessment/Plan Problems: (1) Intractable abdominal pain (2) Acute on chronic heart failure (3) S/P CABG (coronary artery bypass graft) (4) Limited mobility (5) Diabetes mellitus Assessment/Plan add antibioitics because of purulent sputum ( improving) cardiology evaluation appreciated npo abdominal US Subjective ROS Limited/Unobtainable: No Interval Events: c/o abdominal pain, dyspnea better Allergies: Coded Allergies: LACTOSE (Verified Allergy, Unknown, 08/30/15) METHOTREXATE (Verified Allergy, Unknown, 08/30/15) NSAIDS (NON-STEROIDAL ANTI-INFLAMMA (Unverified Allergy, Unknown, 11/14/15) Objective Last 24 Hour Vital Signs Date Time Temp Pulse Resp B/P Pulse Ox O2 Delivery O2 Flow Rate FiO2 01/10/17 19:52 Room Air 01/10/17 19:51 Room Air 01/10/17 16:00 80 01/10/17 16:00 97.7 74 20 108/61 94 Room Air 01/10/17 15:22 Room Air 01/10/17 15:22 Room Air 01/10/17 13:10 97.9 01/10/17 12:00 78 01/10/17 12:00 98.1 76 20 116/63 97 Room Air 01/10/17 11:17 Room Air 01/10/17 11:17 Room Air 01/10/17 08:29 80 108/58 01/10/17 08:29 108/58 01/10/17 08:21 80 01/10/17 08:00 97.5 80 26 108/58 93 01/10/17 07:23 Room Air 01/10/17 07:23 Room Air 01/10/17 04:00 97.9 67 18 110/63 96 Room Air 01/10/17 04:00 73 01/10/17 03:05 Room Air 01/10/17 03:05 Room Air 01/10/17 00:00 74 01/09/17 23:42 92 18 96 Room Air 01/09/17 23:39 91 18 96 Room Air Intake and Output 01/09/17 01/10/17 19:00 07:00 Intake Total 655.0 ml 295.0 ml Output Total 650 ml Balance 655.0 ml -355.0 ml Intake Oral 600 ml 240 ml IV Total 55.0 ml 55.0 ml Output Urine Total 650 ml # Voids 3 3 General Appearance: WD/WN HEENT: normocephalic, atraumatic Respiratory/Chest: chest wall non-tender, lungs clear Cardiovascular: normal peripheral pulses, normal rate Abdomen: normal bowel sounds, soft, non tender Neurologic/Psychiatric: founder and chief executive officer II-XII grossly normal, no motor/sensory deficits Microbiology Date/Time Source Procedure Growth Status 01/07/17 23:55 Nasal Aspirate MRSA Culture - Final Staphylococcus Aureus - Mrsa Complete 01/07/17 23:55 Rectal Mucosa VRE Culture - Final NO VANCOMYCIN RESISTANT ENTEROCOCCUS ... Complete Laboratory Tests 01/10/17 05:10: Troponin I < 0.30 Current Medications Medications (Trade) Dose Ordered Sig/Paola Route PRN Reason Start Time Stop Time Status Last Admin Dose Admin Acetaminophen (Tylenol) 650 mg Q4H PRN ORAL FEVER 01/08/17 00:15 02/07/17 00:14 Acetaminophen (Tylenol) 650 mg Q4HR PRN ORAL For Pain 01/08/17 00:15 02/07/17 00:14 Albuterol/ Ipratropium (DuoNeb 0.5-3(2.5)mg/3ml) 3 ml EVERY 4 HOURS PRN HHN Shortness of Breath 01/08/17 00:15 01/13/17 00:14 Aspirin (ASA) 162 mg DAILY ORAL 01/08/17 09:00 02/07/17 08:59 01/10/17 08:28 Atorvastatin Calcium (Lipitor) 80 mg BEDTIME ORAL 01/09/17 21:00 02/08/17 20:59 01/09/17 20:36 Clopidogrel Bisulfate (Plavix) 75 mg DAILY ORAL 01/08/17 09:00 02/07/17 08:59 01/10/17 08:28 Dextrose (Dextrose 50%) STAT PRN IV Hypoglycemia 01/08/17 03:45 02/07/17 03:44 Diltiazem HCl (Cardizem) 10 mg EVERY HOUR PRN IV heart rate more than 120, 01/08/17 00:15 02/07/17 00:14 Enalaprilat (Vasotec) 2.5 mg EVERY 6 HOURS PRN IV sbp more than 160 01/08/17 00:15 02/07/17 00:14 Furosemide (Lasix) 20 mg EVERY 12 HOURS IV 01/08/17 21:00 02/07/17 20:59 01/10/17 08:28 Heparin Sodium (Porcine) (Heparin 5000 units/ml) 5,000 units EVERY 12 HOURS SUBQ 01/08/17 09:00 02/07/17 08:59 01/10/17 08:31 Insulin Aspart (NovoLOG) BEFORE MEALS AND HS SUBQ 01/08/17 06:30 02/07/17 06:29 01/10/17 16:14 Lisinopril (Prinivil) 20 mg DAILY ORAL 01/08/17 09:00 02/07/17 08:59 01/10/17 08:29 Metoprolol Succinate (Toprol XL) 25 mg DAILY ORAL 01/10/17 09:00 02/09/17 08:59 01/10/17 08:29 Morphine Sulfate (Morphine Sulfate) 2 mg EVERY 4 HOURS PRN IVP severe Pain (Pain Scale 7-10) 01/08/17 00:15 01/15/17 00:14 01/10/17 16:42 Nitroglycerin (Ntg) 0.4 mg every 5 minutes PRN SL Prn Chest Pain 01/08/17 00:15 02/07/17 00:14 Ondansetron HCl (Zofran) 4 mg Q6H PRN IVP Nausea & Vomiting 01/08/17 00:15 02/07/17 00:14 01/08/17 22:24 Pantoprazole (Protonix) 40 mg DAILY ORAL 01/08/17 09:00 02/07/17 08:59 01/10/17 08:28 Piperacillin Sod/ Tazobactam Sod/ Sodium Chloride (Zosyn/Sodium Chloride) 110 ml @ 27.5 mls/hr Q8HR@0100,0900,1700 IVPB 01/09/17 17:00 01/16/17 16:59 01/10/17 16:12 Polyethylene Glycol (Miralax) 17 gm DAILY ORAL 01/10/17 16:00 02/09/17 15:59 01/10/17 16:12 Polyethylene Glycol (Miralax) 17 gm DAILYPRN PRN ORAL Constipation 01/08/17 00:15 02/07/17 00:14 Promethazine HCl/ Codeine 5 ml 5 ml Q4H PRN ORAL For Cough 01/09/17 15:30 02/08/17 15:29 Sodium Chloride (0.45% NS 1000ml) 1,000 ml @ 50 mls/hr Q20H IV 01/10/17 21:00 02/09/17 20:59 Sodium Phosphate 133 ml 133 ml PRN PRN RECTAL Constipation 01/10/17 20:30 02/09/17 20:29 UNV Temazepam (Restoril) 15 mg HSPRN PRN ORAL Insomnia 01/08/17 00:15 01/15/17 00:14 KEKE CHE Jan 10, 2017 20:32
[2017-01-10] MEDS: Atorvastatin 80mg tab ORAL SCH (21:37)
[2017-01-11] VITALS: BP 122/64
[2017-01-11] MEDS: Piperacillin/Tazobactam 3.375 GM in NS 110 ML IVPB SCH ×2 (01:22→10:00)
[2017-01-11] MEDS: Morphine Sulfate 2mg/ml Inj IVP PRN ×4 (01:43→14:38)
[2017-01-11 04:00] VITALS: BP 136/75
[2017-01-11] MEDS: NovoLOG Insulin Flexpen SUBQ SCH ×2 (06:35→11:30)
[2017-01-11 07:35] LABS: BASOPHILS % (AUTO) 0.4 % (0.0-2.0); EOSINOPHILS % (AUTO) 0.5 % (0.0-3.0); LYMPHOCYTES % (AUTO) 10.7 % (20.0-45.0); MEAN CORPUSCULAR HEMOGLOBIN 27.6 PG (27.0-31.0); MEAN CORPUSCULAR HGB CONC 31.5 G/DL (32.0-36.0); MEAN CORPUSCULAR VOLUME 87 FL (80-99); MEAN PLATELET VOLUME 5.6 FL (6.5-10.1); NEUTROPHILS % (AUTO) 81.4 % (45.0-75.0); PLATELET COUNT 340 K/UL (150-450); RED BLOOD COUNT 3.99 M/UL (4.70-6.10); RED CELL DISTRIBUTION WIDTH 15.1 % (11.6-14.8); WHITE BLOOD COUNT 13.7 K/UL (4.8-10.8)
[2017-01-11 07:56] LABS: ALANINE AMINOTRANSFERASE 17 U/L (3-41); ALBUMIN/GLOBULIN RATIO 0.8 (1.0-2.7); ANION GAP 16 (5-15); ASPARTATE AMINO TRANSFERASE 24 U/L (5-40); CALCIUM 8.3 mg/dL (8.6-10.2); CARBON DIOXIDE 26 mEQ/L (20-30); CHLORIDE 95 mEQ/L (98-107); CREATININE 0.9 mg/dL (0.7-1.2); CRP QUANT 5.7 mg/dL (< 0.5); GLOMERULAR FILTRATION RATE > 60 mL/min (>60); HEMOLYSIS 0; MAGNESIUM 2.2 mg/dL (1.7-2.5); PHOSPHORUS 4.2 mg/dL (2.5-4.8); POTASSIUM 3.6 mEQ/L (3.4-4.9); SODIUM 137 mEQ/L (135-145); TOTAL PROTEIN 7.6 g/dL (6.6-8.7)
[2017-01-11 07:57] VITALS: BP 119/64
[2017-01-11] MEDS: Lisinopril 20mg tab ORAL SCH (08:48)
[2017-01-11] MEDS: Miralax 17gm pkt ORAL SCH (08:48)
[2017-01-11] MEDS: Aspirin Baby 81mg ORAL SCH (08:48)
[2017-01-11] MEDS: Heparin 5000 units/ml inj SUBQ SCH (08:50)
[2017-01-11 09:08] LABS: ERYTHROCYTE SEDIMENTATION RATE 110 MM/HR (0-20)
--- NOTE | 2017-01-11 11:42 | Diagnostic Imaging Report ---
Indication: Abdominal pain Technique: Ultrasound of the abdomen. Comparison: 08/29/15 Findings: Pancreas is not well-visualized. Liver measures 18.6 cm and demonstrates normal echogenicity. No focal liver lesions are identified. Visualized portions of the main portal vein and the hepatic veins are grossly unremarkable although incompletely evaluated. Gallstones are present. Gallbladder wall thickness is within normal limits. Sonographic Myers's is negative. Common bile duct measures 4 mm. Bilateral kidneys demonstrate normal echogenicity. No focal renal lesions are seen. There is no hydronephrosis. No echogenic renal stones are identified. The spleen is normal in size and echogenicity. The visualized aorta is normal in caliber. IVC is not well seen. Impression: Cholelithiasis without sonographic evidence of acute cholecystitis. Clinical correlation recommended.
[2017-01-11 12:10] VITALS: BP 117/69
--- NOTE | 2017-01-11 12:46 | Pulmonology Progress Note ---
Assessment/Plan Problems: (1) Intractable abdominal pain (2) Acute on chronic heart failure (3) S/P CABG (coronary artery bypass graft) (4) Limited mobility (5) Diabetes mellitus Assessment/Plan antibioitics because of purulent sputum ( improving) cardiology evaluation appreciated start on laxative abdominal US reviewed dc home Subjective ROS Limited/Unobtainable: No Interval Events: abdominal pain better, constipated Allergies: Coded Allergies: LACTOSE (Verified Allergy, Unknown, 08/30/15) METHOTREXATE (Verified Allergy, Unknown, 08/30/15) NSAIDS (NON-STEROIDAL ANTI-INFLAMMA (Unverified Allergy, Unknown, 11/14/15) Objective Last 24 Hour Vital Signs Date Time Temp Pulse Resp B/P Pulse Ox O2 Delivery O2 Flow Rate FiO2 01/11/17 12:10 97.0 69 20 117/69 97 Room Air 01/11/17 10:28 97.7 01/11/17 08:48 80 119/64 01/11/17 08:48 119/64 01/11/17 08:00 82 01/11/17 07:57 97.7 80 18 119/64 98 Room Air 01/11/17 04:00 98.0 85 24 136/75 98 Room Air 01/11/17 04:00 82 01/11/17 03:15 Room Air 01/11/17 03:15 Room Air 01/11/17 00:00 92 01/11/17 00:00 98.0 93 20 122/64 96 Room Air 01/10/17 23:07 Room Air 01/10/17 23:07 Room Air 01/10/17 20:00 83 01/10/17 19:52 Room Air 01/10/17 19:51 Room Air 01/10/17 19:00 97.5 74 20 125/68 96 Room Air 01/10/17 16:00 80 01/10/17 16:00 97.7 74 20 108/61 94 Room Air 01/10/17 15:22 Room Air 01/10/17 15:22 Room Air Intake and Output 01/10/17 01/11/17 19:00 07:00 Intake Total 165.0 ml 605.0 ml Output Total 600 ml 700 ml Balance -435.0 ml -95.0 ml IV Total 165.0 ml 605.0 ml Output Urine Total 600 ml 700 ml # Voids 2 # Bowel Movements 6 3 General Appearance: WD/WN HEENT: normocephalic, atraumatic Respiratory/Chest: chest wall non-tender, lungs clear Cardiovascular: normal peripheral pulses, normal rate Abdomen: normal bowel sounds, soft, non tender Genitourinary: normal external genitalia Extremities: no cyanosis Skin: no rash, no lesions Laboratory Tests 01/10/17 19:59: Stool Occult Blood Negative 01/11/17 06:20: White Blood Count 13.7H, Red Blood Count 3.99L, Hemoglobin 11.0L, Hematocrit 34.9L, Mean Corpuscular Volume 87, Mean Corpuscular Hemoglobin 27.6, Mean Corpuscular Hemoglobin Concent 31.5L, Red Cell Distribution Width 15.1H, Platelet Count 340, Mean Platelet Volume 5.6L, Neutrophils (%) (Auto) 81.4H, Lymphocytes (%) (Auto) 10.7L, Monocytes (%) (Auto) 7.0, Eosinophils (%) (Auto) 0.5, Basophils (%) (Auto) 0.4, Erythrocyte Sedimentation Rate 110H, Sodium Level 137, Potassium Level 3.6, Chloride Level 95L, Carbon Dioxide Level 26, Anion Gap 16H, Blood Urea Nitrogen 19, Creatinine 0.9, Estimat Glomerular Filtration Rate > 60, Glucose Level 118H, Calcium Level 8.3L, Phosphorus Level 4.2, Magnesium Level 2.2, Total Bilirubin 0.5, Aspartate Amino Transf (AST/SGOT ) 24, Alanine Aminotransferase (ALT/SGPT) 17, Alkaline Phosphatase 88, C- Reactive Protein, Quantitative 5.7H, Total Protein 7.6, Albumin 3.4L, Globulin 4.2, Albumin/Globulin Ratio 0.8L Current Medications Medications (Trade) Dose Ordered Sig/Paola Route PRN Reason Start Time Stop Time Status Last Admin Dose Admin Acetaminophen (Tylenol) 650 mg Q4H PRN ORAL FEVER 01/08/17 00:15 02/07/17 00:14 Acetaminophen (Tylenol) 650 mg Q4HR PRN ORAL For Pain 01/08/17 00:15 02/07/17 00:14 Albuterol/ Ipratropium (DuoNeb 0.5-3(2.5)mg/3ml) 3 ml EVERY 4 HOURS PRN HHN Shortness of Breath 01/08/17 00:15 01/13/17 00:14 Aspirin (ASA) 162 mg DAILY ORAL 01/08/17 09:00 02/07/17 08:59 01/11/17 08:48 Atorvastatin Calcium (Lipitor) 80 mg BEDTIME ORAL 01/09/17 21:00 02/08/17 20:59 01/10/17 21:37 Clopidogrel Bisulfate (Plavix) 75 mg DAILY ORAL 01/08/17 09:00 02/07/17 08:59 01/11/17 08:48 Dextrose (Dextrose 50%) STAT PRN IV Hypoglycemia 01/08/17 03:45 02/07/17 03:44 Diltiazem HCl (Cardizem) 10 mg EVERY HOUR PRN IV heart rate more than 120, 01/08/17 00:15 02/07/17 00:14 Enalaprilat (Vasotec) 2.5 mg EVERY 6 HOURS PRN IV sbp more than 160 01/08/17 00:15 02/07/17 00:14 Furosemide (Lasix) 20 mg EVERY 12 HOURS IV 01/08/17 21:00 02/07/17 20:59 01/11/17 09:58 Heparin Sodium (Porcine) (Heparin 5000 units/ml) 5,000 units EVERY 12 HOURS SUBQ 01/08/17 09:00 02/07/17 08:59 01/11/17 08:50 Insulin Aspart (NovoLOG) BEFORE MEALS AND HS SUBQ 01/08/17 06:30 02/07/17 06:29 01/11/17 06:35 Lisinopril (Prinivil) 20 mg DAILY ORAL 01/08/17 09:00 02/07/17 08:59 01/11/17 08:48 Metoprolol Succinate (Toprol XL) 25 mg DAILY ORAL 01/10/17 09:00 02/09/17 08:59 01/11/17 08:48 Morphine Sulfate (Morphine Sulfate) 2 mg EVERY 4 HOURS PRN IVP severe Pain (Pain Scale 7-10) 01/08/17 00:15 01/15/17 00:14 01/11/17 09:58 Nitroglycerin (Ntg) 0.4 mg every 5 minutes PRN SL Prn Chest Pain 01/08/17 00:15 02/07/17 00:14 Ondansetron HCl (Zofran) 4 mg Q6H PRN IVP Nausea & Vomiting 01/08/17 00:15 02/07/17 00:14 01/08/17 22:24 Pantoprazole (Protonix) 40 mg DAILY ORAL 01/08/17 09:00 02/07/17 08:59 01/11/17 08:48 Piperacillin Sod/ Tazobactam Sod/ Sodium Chloride (Zosyn/Sodium Chloride) 110 ml @ 27.5 mls/hr Q8HR@0100,0900,1700 IVPB 01/09/17 17:00 01/16/17 16:59 01/11/17 10:00 Polyethylene Glycol (Miralax) 17 gm DAILYPRN PRN ORAL Constipation 01/08/17 00:15 02/07/17 00:14 Polyethylene Glycol 17 gm 17 gm DAILY ORAL 01/10/17 16:00 02/09/17 15:59 01/11/17 08:48 Promethazine HCl/ Codeine 5 ml 5 ml Q4H PRN ORAL For Cough 01/09/17 15:30 02/08/17 15:29 Sodium Chloride (0.45% NS 1000ml) 1,000 ml @ 50 mls/hr Q20H IV 01/10/17 21:00 02/09/17 20:59 01/10/17 21:37 Sodium Phosphate (Fleet's Sodium Phosl Enema) 133 ml DAILYPRN PRN RECTAL Constipation 01/10/17 21:30 02/09/17 21:29 01/10/17 21:41 Temazepam (Restoril) 15 mg HSPRN PRN ORAL Insomnia 01/08/17 00:15 01/15/17 00:14 KEKE CHE Jan 11, 2017 12:46
[2017-01-11] MEDS ORDERED: Sorbitol Solution UD 30ml ORAL ONE (14:00)
[2017-01-11] MEDS ORDERED: AUGMENTIN 875-1 EAC1 ORAL (14:14)
[2017-01-11] MEDS ORDERED: MIRALAX17 G2 ORAL (14:15)
[2017-01-11] MEDS ORDERED: SENNA8.6 M2 PO (14:16)
[2017-01-11 16:00] VITALS: BP 104/57
[2017-01-11] MEDS ORDERED: 1/2 NS 1000ml IV ONE (17:18)
[2017-01-13] MEDS ORDERED: LASIX20 M1 ORAL (13:33)
--- NOTE | 2017-01-13 13:44 | Discharge Summary ---
Discharge Summary Hospital Course Date of Admission Jan 07, 2017 at 22:18 Date of Discharge Jan 11, 2017 at 17:30 Admitting Diagnosis congestive heart failure HPI Salvatore Davenport is a 66 year old male who was admitted on Jan 07, 2017 at 22:18 for Congestive Heart Failure Hospital Course dc summary #[id number] Discharge Medications New Medications: Furosemide* (Lasix*) 20 Mg Tablet 20 MG ORAL DAILY, #30 TAB Continued Medications: Acetaminophen (Tylenol) 325 Mg Tab 650 MG ORAL Q4HR PRN for For Pain, #30 TAB 0 Refills Al Hydroxide/mg Hydroxide (Mag-Al Liquid) 30 Ml Susp 30 ML GT Q6HR Amoxicillin/Potassium Clav 875-125* (Augmentin 875-125 Tablet*) 1 Each Tablet 1 TAB ORAL TWICE A DAY for 3 Days, TAB Aspirin* (Aspirin*) 81 Mg Tab.chew 81 MG ORAL DAILY, TAB Atorvastatin Calcium* (Lipitor*) 80 Mg Tablet 80 MG ORAL BEDTIME, TAB Bisacodyl (Dulcolax) 10 Mg Supp.rect 10 MG RC PRN for Constipation, SUPP Cholecalciferol (Vitamin D3) (Vitamin D3) 5,000 Unit Tablet 5000 UNIT PO DAILY, TAB Clopidogrel Bisulfate* (Plavix*) 75 Mg Tablet 75 MG ORAL DAILY, TAB Docusate Sodium* (Colace*) 100 Mg Capsule 100 MG ORAL DAILY, CAP Hydrocodone Bit/Acetaminophen 5-325* ([place] 5-325 Tablet*) 1 Each Tablet 2 TAB ORAL Q8HR PRN for For Pain, TAB Insulin Aspart (Novolog Flexpen) 100 Unit/1 Ml Insuln.pen Lisinopril (Lisinopril*) 20 Mg Tablet 20 MG ORAL DAILY, TAB Magnesium Hydroxide* (Milk Of Magnesia*) 400 Mg/5 Ml Oral.susp 30 ML ORAL QHS PRN for Constipation, ML Metoprolol Tartrate* (Metoprolol Tartrate*) 25 Mg Tablet 25 MG ORAL EVERY 12 HOURS, TAB Nitroglycerin (Nitroglycerin) 0.4 Mg Tab.subl 0.4 MG SL, TAB Ondansetron (Zofran) 4 Mg Tab 4 MG ORAL Q4HR PRN for Nausea & Vomiting, TAB Pantoprazole Sodium (Protonix) 40 Mg Suspdr.pkt 40 MG PO DAILY, PKT Polyethylene Glycol 3350* (Miralax*) 17 Gm Powd.pack 17 GM ORAL DAILY, PACKET Sennosides (Senna) 8.6 Mg Tablet 8.6 MG PO DAILY, TAB Tramadol Hcl* (Ultram*) 50 Mg Tablet 50 MG ORAL Q6H PRN for For Pain, #30 TAB 0 Refills Discharge Condition Upon Discharge: stable Discharge Disposition Patient was discharged to SNF/Subacute Facility(03) Discharge Diagnoses: Discharge Instructions Discharge Instructions Special Instructions I have been assigned to complete a D/C Summary on this account. I was not involved in the patient management Darlin Woodward NP ([place]) Jan 13, 2017 13:44
--- NOTE | 2017-01-14 00:18 | Discharge Summary 2 SIG ---
DATE OF ADMISSION: 01/07/2017 DATE OF DISCHARGE: 01/11/2017 REASON FOR ADMISSION: 66-year-old male, resident of [facility], presented with chest pain and difficulty breathing. The patient had a prior history of congestive heart failure as well as a pacemaker. The patient had an underlying history of hypertension, diabetes, as well as percutaneous transluminal coronary angioplasty and coronary artery disease. Workup in the emergency room revealed leukocytosis, white blood count -13; and mild anemia with hemoglobin -11.3 and hematocrit - 37.1. Troponin was negative. Electrolytes were stable. LFTs were stable. ProBNP - 6237. EKG revealed paced rhythm with heart rate of 72. No acute changes. Chest x-ray initially revealed bilateral, left greater than right diffuse interstitial disease. ADMITTING DIAGNOSES: 1. Chest pain 2. Rule out acute coronary syndrome. 3. Acute on chronic congestive heart failure 4. Pacemaker. HOSPITAL STAY: The patient was admitted to telemetry floor. The patient was started on diuretic. Intake and output, renal parameters, and electrolytes were closely monitored. Pro BNP and chest x-ray were trending. Echocardiogram revealed ejection fraction of 25% and right ventricular systolic pressure of 42 consistent with mild pulmonary hypertension as well as evidence of mild mitral regurgitation. The patient had a known history of chronic cardiomyopathy. Pro BNP trending down from 6297 to 3172. Followup chest x-ray revealed improvement in vascular congestion. The patient was started initially on empiric antibiotics due to the purulent sputum and leukocytosis. Sputum culture revealed Morganella and Strep group G. Continue antibiotics for additional 3 days at the facility. Cardiology consult was requested. Cardiology seen the patient. With serial troponin being negative and no ischemic changes of EKG, the patient was ruled out for acute myocardial infarction. Per Cardiology, the patient had chronic ischemic cardiomyopathy and has a coronary artery disease, status post percutaneous coronary intervention to left anterior descending and circumflex. The patient also has a coronary artery disease involving right coronary artery, not yet treated. According to fishing tackle repairer, chest pain only lasted for hour, and all symptoms of cough and shortness of breath started before the episodes of chest pain. He did not have any nitroglycerin to take to relieve the pain. Belt And Link Assembly Supervisor recommended continue medical treatment of congestive heart failure and place him back on dual antiplatelet therapy, such as aspirin and Plavix. The patient needs to follow up at [facility] for percutaneous coronary intervention for right coronary artery. The patient noted in November 2016 during cardiac catheterization to have severe stenosis in right coronary artery which require percutaneous coronary intervention to be done soon. Lipid panel was checked and was stable. Abdominal ultrasound was done due to intractable abdominal pain. It revealed cholelithiasis, but no evidence of acute cholecystitis. GI prophylaxis provided. Stool OB negative. The patient was stable to be discharged. DISCHARGE DIAGNOSES: 1. Chest pain likely related to congestive heart failure exacerbation. 2. Acute on chronic systolic congestive heart failure. 3. Chronic ischemic cardiomyopathy. 4. Coronary artery disease with history of percutaneous transluminal coronary angioplasty. 5. Diabetes mellitus. 6. Mild pulmonary hypertension. 7. Bradycardia, status post permanent pacemaker. 8. Hyperlipidemia. 9. Hypertension. 10. Diabetes. 11. History of deep venous thrombosis with IVC filter placement in 2010. 12. Peptic ulcer disease with a history of gastrointestinal bleeding. 13. Cholelithiasis. DISCHARGE MEDICATIONS: See medication reconciliation list. Lasix changed to oral daily, continue beta-ilya and SILVER inhibitor for congestive heart failure, continue dual antiplatelet therapy and statin, continue antibiotics for 2 more days. DISCHARGE INSTRUCTIONS: The patient was discharged to senior care facility. Follow up with medical doctor at the facility. Noted low TSH. The patient has no known history of thyroid disease. Please recheck thyroid panel as outpatient in 3 weeks. Pretty Sweet M.D. I have been assigned to dictate discharge summary on this account and I was not involved in the patient's management. Darlin Woodward (Vanchtein) N.PSherri DR: APPLE JOB#: [id number] CC: SABINO
== END 2017-01-11 17:30 | DRG 194 ==
LOC: EDBD 20:58 → EMR 21:28 → 2E 22:18 → EDBEDREQ 22:47 → 2E 23:44
DX: I50.23 Acute on chronic systolic (congestive) heart failure (principal); I27.2 Other secondary pulmonary hypertension; Z95.0 Presence of cardiac pacemaker; M06.9 Rheumatoid arthritis, unspecified; I25.5 Ischemic cardiomyopathy; I25.10 Atherosclerotic heart disease of native coronary artery without angina pectoris; Z95.5 Presence of coronary angioplasty implant and graft; E11.9 Type 2 diabetes mellitus without complications; Z86.718 Personal history of other venous thrombosis and embolism; K27.9 Peptic ulcer, site unspecified, unspecified as acute or chronic, without hemorrhage or perforation; K80.20 Calculus of gallbladder without cholecystitis without obstruction; E78.5 Hyperlipidemia, unspecified; I10 Essential (primary) hypertension; I25.2 Old myocardial infarction; Z79.02 Long term (current) use of antithrombotics/antiplatelets; Z79.4 Long term (current) use of insulin; I34.0 Nonrheumatic mitral (valve) insufficiency
CPT/HCPCS: 36415; 71010; 76700; 80053; 80061; 81001; 82270; 82550; 82553; 82962; 83735; 83880; 84100; 84443; 84484; 85025; 85610; 85651; 85730; 86140; 87070; 87081; 87181; 87205; 93005; 93306; 94664; J1815; J2405

== ENCOUNTER 2017-03-04 00:52 | Inpatient (IN) | payer MEDICAID ==
[2017-03-04] VITALS (8 sets, daily range): BP systolic 104–139; BP diastolic 43–90
[~2017-03-04] VITALS: Ht 175.3 cm; Wt 88.9 kg
[~2017-03-04 00:52] MED LIST changes: +ATORVASTATIN CA80 MG ORAL; +AUGMENTIN 875-1 EAC1 ORAL; +COLACE100 MG ORAL; +DULCOLAX10 MG RC; +LASIX20 M1 ORAL; +LISINOPRIL40 MG ORAL; +METOPROLOL TART25 MG ORAL; +MIRALAX17 G2 ORAL; +NITROGLYCERIN0.4 MG SL; +NORCO 5-325 TA1 EAC1 ORAL; +NOVOLOG100 UNITS1; +PLAVIX75 MG ORAL; +SENNA8.6 M2 PO; +TRAMADOL HCL50 MG ORAL; +VITAMIN D35000 UNI2 PO
--- NOTE | 2017-03-04 00:56 | Emergency Room Report ---
History of Present Illness General Source: Patient, Medical Record, EMS Present Illness HPI 67YOM BIBEMS From [facility] with chest pain for 2 days. Radiating to left shoulder. No assoc fever/chills, cough, SOB. Got Nitro from EMS. Took ASA and Plavix today. Has NOT followed up at [facility] for PCI of RCA (see below) since last admission. Recent admission 01/07 to 01/11 for chest pain. DC with dual antiplatelet therapy, aspirin and plavix. Echocardiogram revealed EF 25% and right ventricular systolic pressure of 42 consistent with mild pulmonary hypertension as well as evidence of mild mitral regurgitation. Sputum culture revealed Morganella and Strep group G. Continue antibiotics for additional 3 days at the facility. Per Cardiology consult - acute systolic heart failure; known CAD s/p PCI to LAD; known CAD to RCA not treated - Ischemic cardiomyopahty - Had bradycardia, s/p pacemaker - DVT s/p IVC filter 2010 PMHx: HTN, HLD, DM2, PUD Rec was followup at [facility] for cath and possibly PCI of RCA Per cath: "Mid RCA was noted to have 60% to 70% stenosis. Distal RCA was noted to have 80% stenosis. The posterolateral segment was noted to have 90% stenosis. " Allergies: Coded Allergies: LACTOSE (Verified Allergy, Unknown, 08/30/15) METHOTREXATE (Verified Allergy, Unknown, 08/30/15) NSAIDS (NON-STEROIDAL ANTI-INFLAMMA (Unverified Allergy, Unknown, 11/14/15) Patient History Past Medical History: other - see HPI Past Surgical History: other - See HPI Pertinent Family History: none Social History: Denies: alcohol use, drug use, smoking Immunizations: UTD Reviewed Nursing Documentation: PMH: Agreed, PSxH: Agreed Nursing Documentation-PMH Hx Cardiac Problems: Yes Hx Hypertension: Yes Hx Pacemaker: Yes - A-fib; V-paced Hx Diabetes: Yes Hx Cancer: No Hx Gastrointestinal Problems: Yes Hx Neurological Problems: Yes Hx Cerebrovascular Accident: Yes - Right sided hemiparesis Hx Peripheral Neuropathy: Yes - diabetic peripheral neuropathy Hx Neurologic Surgery: No Review of Systems All Other Systems: negative except mentioned in HPI Physical Exam Sp02 EP Interpretation: reviewed, abnormal General Appearance: normal inspection, well appearing, alert, GCS 15, non-toxic , mild distress Head: normocephalic, atraumatic Eyes: bilateral eye EOMI, bilateral eye PERRL ENT: normal ENT inspection, hearing grossly normal, normal voice Neck: normal inspection, full range of motion, supple, no bony tend Respiratory: normal inspection, lungs clear, normal breath sounds, no respiratory distress, no retraction, no wheezing Cardiovascular #1: regular rate, rhythm, no edema Gastrointestinal: normal inspection, normal bowel sounds, non tender, soft, no guarding, no hernia Genitourinary: no CVA tenderness Musculoskeletal: normal inspection, back normal, normal range of motion, Naida' s Sign negative Neurologic: normal inspection, alert, oriented x3, responsive, change booth attendant III-XII nml as tested, motor strength/tone normal, speech normal Psychiatric: normal inspection, judgement/insight normal, mood/affect normal Skin: normal inspection, normal color, no rash Medical Decision Making Medicare Attestation I Dipak Robles MD hereby attest that the medical record entry for date of service, 09/09/16 accurately reflects signatures/notations that I made in my capacity as MD when I treated/diagnosed the above listed Medicare beneficiary. I attest that this information is true, accurate and complete to the best of my knowledge. I understand that any falsification, omission, or concealment of material fact may subject me to administrative, civil, or criminal liability. This patient warrants hospital admission for extreme of age and has a condition that cannot be treated as outpatient. Diagnostic Impression: Primary Impression: Chest pain Qualified Codes: R07.9 - Chest pain, unspecified ER Course Chest pain - VSS. Afebrile. - ECG is Ventricular paced. No acute changes vs previous. - Troponin 0. - No associated cough, SOB, fever/chills or leuks to suggest PNA - Elevated pro-BNP but O2 sat 100%, no acute respir distress. Known CHF. IV Lasix given in ED - Additional 1 SL nitro given in ED with resolution of pain - Known RCA stenosis. Known CAD or LAD with Plavix/ASA. Known poor EF. - Tele admission to Dr Sweet for ACS rule out at 3am. EKG Diagnostic Results Rate: other - Ventricular paced ST Segments: no acute changes ASA given to the pt in ED: No Rhythm Strip Diag. Results EP Interpretation: yes Rate: 63 Rhythm: NSR, other - Multiple PVCs Chest X-Ray Diagnostic Results EP Interpretation: Yes Findings: other - bilateral pulm congestion. + pacemaker Number of Views: 1 Status: improved Disposition: ADMITTED INPATIENT Condition: Serious DIPAK ROBLES M.D. March 04, 2017 00:56
[2017-03-04] MEDS ORDERED: MINERAL OIL EN133 ML RC (01:09)
[2017-03-04] MEDS ORDERED: SENNA8.6 M2 PO ×2 (01:09→04:21)
[2017-03-04 01:19] LABS: BASOPHILS % (AUTO) 1.1 % (0.0-2.0); EOSINOPHILS % (AUTO) 4.2 % (0.0-3.0); LYMPHOCYTES % (AUTO) 27.7 % (20.0-45.0); MEAN CORPUSCULAR HEMOGLOBIN 27.3 PG (27.0-31.0); MEAN CORPUSCULAR HGB CONC 32.1 G/DL (32.0-36.0); MEAN CORPUSCULAR VOLUME 85 FL (80-99); MEAN PLATELET VOLUME 6.3 FL (6.5-10.1); MONOCYTES % (AUTO) 8.6 % (1.0-10.0); NEUTROPHILS % (AUTO) 58.4 % (45.0-75.0); PLATELET COUNT 285 K/UL (150-450); RED BLOOD COUNT 4.31 M/UL (4.70-6.10); WHITE BLOOD COUNT 7.1 K/UL (4.8-10.8)
[2017-03-04 01:34] LABS: ALANINE AMINOTRANSFERASE 13 U/L (3-41); ALBUMIN/GLOBULIN RATIO 0.8 (1.0-2.7); ANION GAP 14 (5-15); ASPARTATE AMINO TRANSFERASE 18 U/L (5-40); CALCIUM 9.2 mg/dL (8.6-10.2); CARBON DIOXIDE 26 mEQ/L (20-30); CHLORIDE 98 mEQ/L (98-107); GLOMERULAR FILTRATION RATE > 60 mL/min (>60); HEMOLYSIS 5; POTASSIUM 4.3 mEQ/L (3.4-4.9); SODIUM 138 mEQ/L (135-145); TOTAL PROTEIN 8.1 g/dL (6.6-8.7)
[2017-03-04 01:54] LABS: TROPONIN I < 0.30 ng/mL (<=0.30)
[2017-03-04 02:04] LABS: CKMB 2.1 ng/mL (< 6.7)
[2017-03-04] MEDS ORDERED: Nitroglycerin Subl 0.4mg tab (Bottle Of 25) SL PRN ×3 (02:30→19:30)
[2017-03-04] MEDS ORDERED: MILK OF MA400 MG/51 ORAL (04:12)
[2017-03-04] MEDS ORDERED: HYDROCODON-ACE1 EA16 ORAL (04:21)
[2017-03-04] MEDS ORDERED: NITROGLYCERIN0.4 MG SL (04:21)
[2017-03-04] MEDS ORDERED: HYDROCODON-ACE1 EA13 ORAL (04:21)
[2017-03-04] MEDS ORDERED: VITAMIN D1000 UNI1 ORAL (04:24)
[2017-03-04] MEDS ORDERED: DuoNeb 0.5-3(2.5)mg/3ml neb HHN PRN (07:15)
[2017-03-04] MEDS ORDERED: Enalaprilat 2.5mg/2ml Inj IV PRN (07:15)
[2017-03-04] MEDS ORDERED: Miralax 17gm pkt ORAL PRN (07:15)
[2017-03-04] MEDS ORDERED: traMADol 50mg tab ORAL PRN (07:15)
[2017-03-04] MEDS ORDERED: Diltiazem 25mg/5ml IV PRN (07:15)
[2017-03-04] MEDS: Heparin 5000 units/ml inj SUBQ SCH ×2 (08:36→21:14)
[2017-03-04] MEDS: Morphine Sulfate 2mg/ml Inj IVP PRN ×4 (08:38→22:35)
[2017-03-04] MEDS ORDERED: Metoprolol 25mg tab ORAL SCH (09:00)
[2017-03-04] MEDS ORDERED: Lisinopril 20mg tab ORAL SCH (09:00)
[2017-03-04 09:21] LABS: TROPONIN I < 0.30 ng/mL (<=0.30)
--- NOTE | 2017-03-04 11:50 | Diagnostic Imaging Report ---
Indication: Chest pain Technique: One view of the chest Comparison: 01/09/2017 Findings: Generalized mild interstitial prominence persists. There is some scarring or atelectasis in the right midlung, versus thickening of the minor fissure. The heart is borderline enlarged. Aorta is tortuous calcified and ectatic. There is a left chest bifocal pacemaker. There is an inferior vena cava filter Impression: Generalized mild interstitial prominence, may be chronic or may indicate mild interstitial congestion. Correlate with clinical findings Borderline cardiomegaly Other findings as noted
--- NOTE | 2017-03-04 12:36 | History and Physical ---
History of Present Illness General Date patient seen: March 04, 2017 Reason for Hospitalization: Chest Pain Present Illness HPI 66-year-old male with hx of DM,CHF, pacemaker, severe debilitating rheumatoid arthritis, bed bound longterm resident. brought in by ambulance with CC of chest pain and difficulty breathing. He has multiple general complains, including abdominal pain, chest pain. He answers to every question about any type of complains with "yes". Allergies: Coded Allergies: LACTOSE (Verified Allergy, Unknown, 08/30/15) METHOTREXATE (Verified Allergy, Unknown, 08/30/15) NSAIDS (NON-STEROIDAL ANTI-INFLAMMA (Unverified Allergy, Unknown, 11/14/15) Medication History Scheduled Aspirin* (Aspirin*), 81 MG ORAL DAILY, (Reported) Atorvastatin Calcium* (Lipitor*), 80 MG ORAL BEDTIME, (Reported) Cholecalciferol (Vitamin D3) (Vitamin D3), 5,000 UNIT PO DAILY, (Reported) Clopidogrel Bisulfate* (Plavix*), 75 MG ORAL DAILY, (Reported) Docusate Sodium* (Colace*), 100 MG ORAL DAILY, (Reported) Lisinopril (Lisinopril*), 20 MG ORAL DAILY, (Reported) Metoprolol Tartrate* (Metoprolol Tartrate*), 25 MG ORAL EVERY 12 HOURS, ( Reported) Pantoprazole Sodium (Protonix), 40 MG PO DAILY, (Reported) Sennosides (Senna), 17.2 MG PO QHS, (Reported) Scheduled PRN Acetaminophen (Tylenol), 650 MG ORAL Q4HR PRN for For Pain, (Reported) Bisacodyl (Dulcolax), 10 MG RC for Constipation, (Reported) Hydrocodone Bit/Acetaminophen 10-325* (Hydrocodon-Acetaminophn 10-325*), 1 TAB ORAL Q8H PRN for Moderate Pain (Pain Scale 4-6), (Reported) Hydrocodone/Acetaminophen 7.5-325* (Hydrocodon-Acetaminoph 7.5-325*), 2 TAB ORAL Q8H PRN for Severe Pain (Pain Scale 7-10), (Reported) Magnesium Hydroxide* (Milk Of Magnesia*), 30 ML ORAL QHS PRN for Constipation, ( Reported) Mineral Oil (Mineral Oil Enema), 133 ML RC for Constipation, (Reported) Ondansetron (Zofran), 4 MG ORAL Q4HR PRN for Nausea & Vomiting, (Reported) Tramadol Hcl* (Ultram*), 50 MG ORAL Q6H PRN for For Pain, (Reported) Miscellaneous Medications Nitroglycerin (Nitroglycerin), 0.4 MG SL, (Reported) Discontinued Medications Al Hydroxide/mg Hydroxide (Mag-Al Liquid), 30 ML GT Q6HR, (Reported) Discontinued Reason: Pt stopped taking med Amoxicillin/Potassium Clav 875-125* (Augmentin 875-125 Tablet*), 1 TAB ORAL TWICE A DAY, (Reported) Discontinued Reason: Therapy completed Cholecalciferol (Vitamin D3)* (Vitamin D*), 5,000 UNIT ORAL DAILY, (Reported) Discontinued Reason: Medication dose changed Furosemide* (Lasix*), 20 MG ORAL DAILY Discontinued Reason: Pt stopped taking med Hydrocodone Bit/Acetaminophen 5-325* ([place] 5-325 Tablet*), 2 TAB ORAL Q8HR PRN for For Pain, (Reported) Discontinued Reason: Medication dose changed Insulin Aspart (Novolog Flexpen), (Reported) Discontinued Reason: MD discontinued med Magnesium Hydroxide* (Milk Of Magnesia*), 30 ML ORAL QHS PRN for Constipation, ( Reported) Discontinued Reason: Medication dose changed Nitroglycerin (Nitroglycerin), 0.4 MG SL, (Reported) Discontinued Reason: Medication dose changed Polyethylene Glycol 3350* (Miralax*), 17 GM ORAL DAILY, (Reported) Discontinued Reason: MD discontinued med Sennosides (Senna), 8.6 MG PO DAILY, (Reported) Discontinued Reason: Medication dose changed Sennosides (Senna), Unknown Dose PO, (Reported) Discontinued Reason: Medication dose changed Patient History Healthcare decision maker Resuscitation status Full Code Advanced Directive on File Past Medical/Surgical History Past Medical/Surgical History: (1) S/P CABG (coronary artery bypass graft) (2) Diabetes mellitus Review of Systems All Other Systems: negative except mentioned in HPI Physical Exam General Appearance: WD/WN, no apparent distress Lines, tubes and drains: peripheral, central line HEENT: normocephalic, atraumatic Neck: non-tender, normal alignment Respiratory/Chest: chest wall non-tender, lungs clear Breasts: no masses Cardiovascular/Chest: normal peripheral pulses Abdomen: normal bowel sounds, non tender Last 24 Hour Vital Signs Date Time Temp Pulse Resp B/P Pulse Ox O2 Delivery O2 Flow Rate FiO2 03/04/17 11:58 97.2 74 18 118/61 98 Room Air 03/04/17 09:45 74 18 Room Air 21 03/04/17 08:33 139/76 03/04/17 08:32 69 139/76 03/04/17 08:20 97.0 69 18 139/76 98 Room Air 03/04/17 04:42 108/68 03/04/17 04:42 97.5 58 19 104/43 97 Room Air 03/04/17 04:00 80 03/04/17 03:33 97.5 67 18 119/90 100 Room Air 03/04/17 03:12 97.5 67 18 119/90 100 Room Air 03/04/17 02:52 143/73 03/04/17 01:22 67 18 Room Air 03/04/17 01:22 97.5 67 18 123/69 100 Room Air 03/04/17 00:53 97.5 87 18 151/86 100 Room Air Intake and Output 03/03/17 03/04/17 19:00 07:00 Intake Total 0 ml Output Total 1320 ml Balance -1320 ml Intake Oral 0 ml Output Urine Total 1320 ml # Voids 3 Laboratory Tests Test 03/04/17 01:00 03/04/17 08:35 White Blood Count 7.1 K/UL (4.8-10.8) Red Blood Count 4.31 M/UL (4.70-6.10) L Hemoglobin 11.8 G/DL (14.2-18.0) L Hematocrit 36.6 % (42.0-52.0) L Mean Corpuscular Volume 85 FL (80-99) Mean Corpuscular Hemoglobin 27.3 PG (27.0-31.0) Mean Corpuscular Hemoglobin Concent 32.1 G/DL (32.0-36.0) Red Cell Distribution Width 14.0 % (11.6-14.8) Platelet Count 285 K/UL (150-450) Mean Platelet Volume 6.3 FL (6.5-10.1) L Neutrophils (%) (Auto) 58.4 % (45.0-75.0) Lymphocytes (%) (Auto) 27.7 % (20.0-45.0) Monocytes (%) (Auto) 8.6 % (1.0-10.0) Eosinophils (%) (Auto) 4.2 % (0.0-3.0) H Basophils (%) (Auto) 1.1 % (0.0-2.0) Sodium Level 138 mEQ/L (135-145) Potassium Level 4.3 mEQ/L (3.4-4.9) Chloride Level 98 mEQ/L (98-107) Carbon Dioxide Level 26 mEQ/L (20-30) Anion Gap 14 (5-15) Blood Urea Nitrogen 14 mg/dL (7-23) Creatinine 1.0 mg/dL (0.7-1.2) Estimat Glomerular Filtration Rate > 60 mL/min (>60) Glucose Level 152 mg/dL (74-106) H Calcium Level 9.2 mg/dL (8.6-10.2) Total Bilirubin 0.4 mg/dL (0.0-1.2) Aspartate Amino Transf (AST/SGOT) 18 U/L (5-40) Alanine Aminotransferase (ALT/SGPT) 13 U/L (3-41) Alkaline Phosphatase 93 U/L (40-129) Total Creatine Kinase 62 U/L (38-174) Creatine Kinase MB 2.1 ng/mL (< 6.7) Creatine Kinase MB Relative Index 3.3 Troponin I < 0.30 ng/mL (<=0.30) < 0.30 ng/mL (<=0.30) Pro-B-Type Natriuretic Peptide 3489 pg/mL (0-125) H Total Protein 8.1 g/dL (6.6-8.7) Albumin 3.7 g/dL (3.5-5.2) Globulin 4.4 g/dL Albumin/Globulin Ratio 0.8 (1.0-2.7) L Height (Feet): 5 Height (Inches): 9.00 Weight (Pounds): 196 Medications Current Medications Medications (Trade) Dose Ordered Sig/Paola Route PRN Reason Start Time Stop Time Status Last Admin Dose Admin Acetaminophen (Tylenol) 650 mg Q4HR PRN ORAL Mild Pain / T>100.5F 03/04/17 07:15 04/03/17 07:14 Albuterol/ Ipratropium (DuoNeb 0.5-3(2.5)mg/3ml) 3 ml Q4H PRN HHN Shortness of Breath 03/04/17 07:15 03/09/17 07:14 Atorvastatin Calcium (Lipitor) 80 mg BEDTIME ORAL 03/04/17 21:00 04/03/17 20:59 Clopidogrel Bisulfate (Plavix) 75 mg DAILY ORAL 03/04/17 09:00 04/03/17 08:59 03/04/17 08:33 Diltiazem HCl (Cardizem) 10 mg EVERY HOUR PRN IV HR>120 BPM 03/04/17 07:15 04/03/17 07:14 Enalaprilat (Vasotec) 2.5 mg Q6H PRN IV sbp more than 160 03/04/17 07:15 04/03/17 07:14 Heparin Sodium (Porcine) (Heparin 5000 units/ml) 5,000 units EVERY 12 HOURS SUBQ 03/04/17 09:00 04/03/17 08:59 03/04/17 08:36 Lisinopril (Prinivil) 20 mg DAILY ORAL 03/04/17 09:00 04/03/17 08:59 03/04/17 08:33 Metoprolol Tartrate (Lopressor) 25 mg EVERY 12 HOURS ORAL 03/04/17 09:00 04/03/17 08:59 03/04/17 08:32 Morphine Sulfate (Morphine Sulfate) 2 mg Q4H PRN IVP Severe Pain (Pain Scale 7-10) 03/04/17 07:15 03/11/17 07:14 03/04/17 08:38 Nitroglycerin (Ntg) 0.4 mg Q5MIN X 3 DOSES PRN SL Prn Chest Pain 03/04/17 07:15 04/03/17 07:14 Ondansetron HCl (Zofran) 4 mg Q6H PRN IVP Nausea & Vomiting 03/04/17 07:15 04/03/17 07:14 Pantoprazole (Protonix) 40 mg DAILY ORAL 03/04/17 09:00 04/03/17 08:59 03/04/17 08:34 Polyethylene Glycol (Miralax) 17 gm DAILYPRN PRN ORAL Constipation 03/04/17 07:15 04/03/17 07:14 Temazepam (Restoril) 15 mg HSPRN PRN ORAL Insomnia 03/04/17 21:00 03/11/17 20:59 Tramadol HCl (Ultram) 50 mg Q6H PRN ORAL Moderate Pain (Pain Scale 4-6) 03/04/17 07:15 03/11/17 07:14 Assessment/Plan Problem List: (1) Acute coronary syndrome ICD Codes: I24.9 - Acute ischemic heart disease, unspecified SNOMED: 303589047 (2) Coronary heart disease ICD Codes: I25.10 - Atherosclerotic heart disease of [place] coronary artery without angina pectoris SNOMED: 99176249 (3) Diabetes mellitus ICD Codes: E11.9 - Type 2 diabetes mellitus without complications SNOMED: 79151597 (4) S/P CABG (coronary artery bypass graft) ICD Codes: Z95.1 - Presence of aortocoronary bypass graft SNOMED: 650667147, 958999367 (5) Pacemaker ICD Codes: Z95.0 - Presence of cardiac pacemaker SNOMED: 285843134, 725261737 Assessment/Plan serial ekg, troponing, echo cardio to see sliding scale, insulin KEKE CHE March 04, 2017 12:36
[2017-03-04] MEDS: NovoLOG Insulin Flexpen SUBQ SCH ×2 (16:30→21:14)
--- NOTE | 2017-03-04 19:27 | Cardiology Progress Note ---
Assessment/Plan Assessment/Plan cp cad chf icm htn pacer hx repeat trop adn ekg ntp acie diuretic dapt bb statin [id number] Subjective Cardiovascular: Reports: chest pain, edema, irregular heart rate, lightheadedness, no symptoms, other, palpitations, syncope Objective Last 24 Hour Vital Signs Date Time Temp Pulse Resp B/P Pulse Ox O2 Delivery O2 Flow Rate FiO2 03/04/17 16:00 70 03/04/17 15:45 97.0 68 18 127/64 99 Room Air 03/04/17 12:00 70 03/04/17 11:58 97.2 74 18 118/61 98 Room Air 03/04/17 09:45 74 18 Room Air 21 03/04/17 08:33 139/76 03/04/17 08:32 69 139/76 03/04/17 08:20 97.0 69 18 139/76 98 Room Air 03/04/17 08:00 67 03/04/17 04:42 108/68 03/04/17 04:42 97.5 58 19 104/43 97 Room Air 03/04/17 04:00 80 03/04/17 03:33 97.5 67 18 119/90 100 Room Air 03/04/17 03:12 97.5 67 18 119/90 100 Room Air 03/04/17 02:52 143/73 03/04/17 01:22 67 18 Room Air 03/04/17 01:22 97.5 67 18 123/69 100 Room Air 03/04/17 00:53 97.5 87 18 151/86 100 Room Air Intake and Output 03/03/17 03/04/17 19:00 07:00 Intake Total 0 ml Output Total 1320 ml Balance -1320 ml Intake Oral 0 ml Output Urine Total 1320 ml # Voids 3 Laboratory Tests Test 03/04/17 01:00 03/04/17 08:35 White Blood Count 7.1 K/UL (4.8-10.8) Red Blood Count 4.31 M/UL (4.70-6.10) L Hemoglobin 11.8 G/DL (14.2-18.0) L Hematocrit 36.6 % (42.0-52.0) L Mean Corpuscular Volume 85 FL (80-99) Mean Corpuscular Hemoglobin 27.3 PG (27.0-31.0) Mean Corpuscular Hemoglobin Concent 32.1 G/DL (32.0-36.0) Red Cell Distribution Width 14.0 % (11.6-14.8) Platelet Count 285 K/UL (150-450) Mean Platelet Volume 6.3 FL (6.5-10.1) L Neutrophils (%) (Auto) 58.4 % (45.0-75.0) Lymphocytes (%) (Auto) 27.7 % (20.0-45.0) Monocytes (%) (Auto) 8.6 % (1.0-10.0) Eosinophils (%) (Auto) 4.2 % (0.0-3.0) H Basophils (%) (Auto) 1.1 % (0.0-2.0) Sodium Level 138 mEQ/L (135-145) Potassium Level 4.3 mEQ/L (3.4-4.9) Chloride Level 98 mEQ/L (98-107) Carbon Dioxide Level 26 mEQ/L (20-30) Anion Gap 14 (5-15) Blood Urea Nitrogen 14 mg/dL (7-23) Creatinine 1.0 mg/dL (0.7-1.2) Estimat Glomerular Filtration Rate > 60 mL/min (>60) Glucose Level 152 mg/dL (74-106) H Calcium Level 9.2 mg/dL (8.6-10.2) Total Bilirubin 0.4 mg/dL (0.0-1.2) Aspartate Amino Transf (AST/SGOT) 18 U/L (5-40) Alanine Aminotransferase (ALT/SGPT) 13 U/L (3-41) Alkaline Phosphatase 93 U/L (40-129) Total Creatine Kinase 62 U/L (38-174) Creatine Kinase MB 2.1 ng/mL (< 6.7) Creatine Kinase MB Relative Index 3.3 Troponin I < 0.30 ng/mL (<=0.30) < 0.30 ng/mL (<=0.30) Pro-B-Type Natriuretic Peptide 3489 pg/mL (0-125) H Total Protein 8.1 g/dL (6.6-8.7) Albumin 3.7 g/dL (3.5-5.2) Globulin 4.4 g/dL Albumin/Globulin Ratio 0.8 (1.0-2.7) LEONARD DHALIWAL March 04, 2017 19:27
[2017-03-04] MEDS: Atorvastatin 80mg tab ORAL SCH (21:11)
[2017-03-04] MEDS: Metoprolol Tartrate 12.5mg TAB ORAL SCH (21:16)
[2017-03-05 03:52] VITALS: BP 124/79
--- NOTE | 2017-03-05 04:30 | Consultation ---
DATE OF CONSULTATION: 03/04/2017 CARDIOLOGY CONSULTATION CONSULTING PHYSICIAN: Pierre Zuñiga M.D. REFERRING PHYSICIAN: Pretty Sweet M.D. REASON FOR REFERRAL: Chest pain and shortness of breath. HISTORY OF PRESENT ILLNESS: The patient is a 67-year-old gentleman with a history of multiple medical problems, who presented to the hospital because of chest pain and shortness of breath and heaviness in the left side of the chest radiating to the left shoulder. He had it yesterday. He has had it a few days ago and he had it again today, pain is intermittent in nature. He presented to the [facility]. He took some nitroglycerin and improved initially and the pain has been ongoing since prior to admission. He has had a similar hospitalization back in January and ruled out for myocardial infarction as he is ruled out for myocardial infarction again at this time. He does have PND, orthopnea, and dyspnea on exertion. No dizziness, but occasional palpitations. PAST MEDICAL HISTORY: Extensive and documented in my previous notes as having ST elevation myocardial infarction in 2006, did not have PCI, has a history of tachycardia, status post permanent pacemaker, deep venous thrombosis, status post IVC filter in 2010, hypertension, hyperlipidemia, diabetes mellitus, peptic ulcer, prior upper gastrointestinal bleeding with recent hospitalization at [facility], showing ejection fraction dropping from 55% to 35%, with 22% reversible defect, had a cardiac catheterization that showed extensive 100%, mid LAD 90%, first diagonal 95%, proximal RCA 90%, and distal LAD . He underwent multistaged PCI in the LAD region in December. He underwent PCI with drug-eluting stent placement to the circumflex in December of 2016 and right coronary artery and evaluated, which will be treated in the future depending on his symptoms. He is a resident at convalescent facility. FAMILY HISTORY: Stomach cancer in his mother. Stroke in his father. SOCIAL HISTORY: He never smoked. Does not have any smokeless tobacco. He does not drink alcoholic beverages. He lives in a convalescent facility. REVIEW OF SYSTEMS: Gastrointestinal: He has had some nausea and some constipation. Genitourinary: Negative. Pulmonary: Occasional coughing and wheezing. Constitutional: Negative. Neurological: Negative. PHYSICAL EXAMINATION: GENERAL: Shows to be elderly gentleman, in no respiratory distress. HEENT: Unremarkable. NECK: Supple. No jugular venous distention. LUNGS: Clear to auscultation and percussion. CARDIAC: S1 is normal. S2 is normal. Regular rate and rhythm. No heaves, thrills, or gallops noted. ABDOMEN: Soft and nontender. Positive bowel sounds. EXTREMITIES: Without cyanosis or edema. LABORATORY AND DIAGNOSTIC DATA: Troponins are negative on two separate occasions. Sodium 138, potassium 4.3, chloride 98, bicarbonate 26, BUN 14, chloride 1.0, and glucose of 152. His liver function tests are all normal. ProBNP currently 489, down from January peak of 6200. His coags, INR 1.2. His white count is 7.1, hemoglobin 11.8, and platelet count of 285,000. His chest x-ray performed in the emergency room shows cardiomegaly, interstitial prominence. His electrocardiogram performed showed left bundle-branch conduction defect, pacing artifact is not noted. Trial EKG shows sinus rhythm with clear evidence of atrial pacing with a widened QRS complex related to the pacing artifact. ASSESSMENT: 1. Atypical chest pain. 2. Congestive heart failure. 3. Cardiomyopathy. 4. Coronary artery disease, status post multiple percutaneous coronary interventions. PLAN: Dr. Sweet, this patient was seen in cardiac consultation. The patient does have a right coronary artery that was previously in the future. His two sets of cardiac enzymes so far are negative. He should be continued with diuretics and he should be on afterload reduction. Beta-blockers, dual antiplatelet therapy, and statins for the time being as well as diuretics. Further enzymes and EKGs will be ordered and based on those results, further recommendation will be made. Pierre Zuñiga M.D. DR: CHAVEZ JOB#: [id number] CC:
[2017-03-05] MEDS: Morphine Sulfate 2mg/ml Inj IVP PRN ×4 (04:48→22:32)
[2017-03-05] MEDS: Nitroglycerin 2% oint pkt TOPIC SCH ×3 (05:43→17:12)
[2017-03-05] MEDS: NovoLOG Insulin Flexpen SUBQ SCH ×4 (05:47→21:25)
[2017-03-05 06:18] LABS: BASOPHILS % (AUTO) 0.6 % (0.0-2.0); LYMPHOCYTES % (AUTO) 28.4 % (20.0-45.0); MEAN CORPUSCULAR HEMOGLOBIN 27.7 PG (27.0-31.0); MEAN CORPUSCULAR HGB CONC 32.5 G/DL (32.0-36.0); MEAN CORPUSCULAR VOLUME 85 FL (80-99); MEAN PLATELET VOLUME 6.7 FL (6.5-10.1); MONOCYTES % (AUTO) 7.2 % (1.0-10.0); NEUTROPHILS % (AUTO) 60.8 % (45.0-75.0); PLATELET COUNT 274 K/UL (150-450); RED BLOOD COUNT 4.38 M/UL (4.70-6.10); RED CELL DISTRIBUTION WIDTH 14.1 % (11.6-14.8); WHITE BLOOD COUNT 8.1 K/UL (4.8-10.8)
[2017-03-05 06:29] LABS: INR 1.1 (0.9-1.1); PROTHROMBIN TIME 11.4 SEC (9.30-11.50)
[2017-03-05 06:31] LABS: TROPONIN I < 0.30 ng/mL (<=0.30)
[2017-03-05 06:35] LABS: CRP QUANT 0.9 mg/dL (< 0.5)
[2017-03-05 06:39] LABS: THYROID STIMULATING HORMONE 0.438 uIU/mL (0.300-4.500)
[2017-03-05 08:08] VITALS: BP 116/66
[2017-03-05] MEDS: Metoprolol Tartrate 12.5mg TAB ORAL SCH ×2 (09:44→21:00)
[2017-03-05] MEDS: Aspirin Baby 81mg ORAL SCH (09:45)
[2017-03-05] MEDS: Lisinopril 10mg tab ORAL SCH (09:45)
[2017-03-05] MEDS: Heparin 5000 units/ml inj SUBQ SCH ×2 (09:48→21:26)
[2017-03-05 11:28] VITALS: BP 111/60
--- NOTE | 2017-03-05 11:59 | Pulmonology Progress Note ---
Assessment/Plan Problems: (1) Acute coronary syndrome (2) Coronary heart disease (3) Diabetes mellitus (4) S/P CABG (coronary artery bypass graft) (5) Pacemaker Assessment/Plan check enzymes symptomatic treatment awaiting cardio recommendation Subjective ROS Limited/Unobtainable: No Constitutional: Reports: no symptoms Respiratory: Reports: no symptoms Allergies: Coded Allergies: LACTOSE (Verified Allergy, Unknown, 08/30/15) METHOTREXATE (Verified Allergy, Unknown, 08/30/15) NSAIDS (NON-STEROIDAL ANTI-INFLAMMA (Unverified Allergy, Unknown, 11/14/15) Objective Last 24 Hour Vital Signs Date Time Temp Pulse Resp B/P Pulse Ox O2 Delivery O2 Flow Rate FiO2 03/05/17 11:28 98.1 73 20 111/60 99 Room Air 03/05/17 09:45 116/66 03/05/17 09:44 76 116/66 03/05/17 08:08 97.9 76 20 116/66 98 Room Air 03/05/17 08:00 79 03/05/17 07:36 77 18 Room Air 21 03/05/17 05:43 124/79 03/05/17 04:00 74 03/05/17 03:52 98.3 80 19 124/79 98 Room Air 03/05/17 00:00 70 03/04/17 23:58 98.7 78 20 122/75 95 Room Air 03/04/17 21:16 70 127/64 03/04/17 20:00 70 03/04/17 20:00 98.8 72 19 119/69 99 Room Air 03/04/17 19:30 70 18 Room Air 21 03/04/17 16:00 70 03/04/17 15:45 97.0 68 18 127/64 99 Room Air 03/04/17 12:00 70 03/04/17 11:58 97.2 74 18 118/61 98 Room Air Intake and Output 03/04/17 03/05/17 19:00 07:00 Intake Total 360 ml Output Total 400 ml 1000 ml Balance -40 ml -1000 ml Intake Oral 360 ml Output Urine Total 400 ml 1000 ml Objective no new complains General Appearance: WD/WN HEENT: normocephalic, atraumatic Respiratory/Chest: chest wall non-tender, lungs clear Cardiovascular: normal peripheral pulses, normal rate Abdomen: normal bowel sounds, soft, non tender Genitourinary: normal external genitalia Laboratory Tests 03/05/17 05:10: White Blood Count 8.1, Red Blood Count 4.38L, Hemoglobin 12.1L, Hematocrit 37.3L , Mean Corpuscular Volume 85, Mean Corpuscular Hemoglobin 27.7, Mean Corpuscular Hemoglobin Concent 32.5, Red Cell Distribution Width 14.1, Platelet Count 274, Mean Platelet Volume 6.7, Neutrophils (%) (Auto) 60.8, Lymphocytes (% ) (Auto) 28.4, Monocytes (%) (Auto) 7.2, Eosinophils (%) (Auto) 3.0, Basophils ( %) (Auto) 0.6, Prothrombin Time 11.4, Prothromb Time International Ratio 1.1, Activated Partial Thromboplast Time 45H, Troponin I < 0.30, C-Reactive Protein, Quantitative 0.9H, Triglycerides Level 105, Cholesterol Level 120, LDL Cholesterol 40L, HDL Cholesterol 59, Cholesterol/HDL Ratio 2.0L, Thyroid Stimulating Hormone (TSH) 0.438 Current Medications Medications (Trade) Dose Ordered Sig/Paola Route PRN Reason Start Time Stop Time Status Last Admin Dose Admin Acetaminophen (Tylenol) 650 mg Q4HR PRN ORAL Mild Pain / T>100.5F 03/04/17 07:15 04/03/17 07:14 Albuterol/ Ipratropium (DuoNeb 0.5-3(2.5)mg/3ml) 3 ml Q4H PRN HHN Shortness of Breath 03/04/17 07:15 03/09/17 07:14 Aspirin (ASA) 81 mg DAILY ORAL 03/05/17 09:00 04/04/17 08:59 03/05/17 09:45 Atorvastatin Calcium (Lipitor) 80 mg BEDTIME ORAL 03/04/17 21:00 04/03/17 20:59 03/04/17 21:11 Clopidogrel Bisulfate (Plavix) 75 mg DAILY ORAL 03/05/17 09:00 04/04/17 08:59 03/05/17 09:45 Dextrose (Dextrose 50%) STAT PRN IV Hypoglycemia 03/04/17 12:45 04/03/17 12:44 Diltiazem HCl (Cardizem) 10 mg EVERY HOUR PRN IV HR>120 BPM 03/04/17 07:15 04/03/17 07:14 Enalaprilat (Vasotec) 2.5 mg Q6H PRN IV sbp more than 160 03/04/17 07:15 04/03/17 07:14 Furosemide (Lasix) 20 mg EVERY 12 HOURS IV 03/04/17 21:00 04/03/17 20:59 03/05/17 09:46 Heparin Sodium (Porcine) (Heparin 5000 units/ml) 5,000 units EVERY 12 HOURS SUBQ 03/04/17 09:00 04/03/17 08:59 03/05/17 09:48 Insulin Aspart (NovoLOG) BEFORE MEALS AND HS SUBQ 03/04/17 16:30 04/03/17 16:29 03/04/17 21:14 Lisinopril (Zestril) 10 mg DAILY ORAL 03/05/17 09:00 04/04/17 08:59 03/05/17 09:45 Metoprolol Tartrate (Lopressor) 12.5 mg Q12HR ORAL 03/04/17 21:00 04/03/17 20:59 03/05/17 09:44 Morphine Sulfate (Morphine Sulfate) 2 mg Q4H PRN IVP Severe Pain (Pain Scale 7-10) 03/04/17 07:15 03/11/17 07:14 03/05/17 09:56 Nitroglycerin (Nitro-Bid) 0.5 inch TID@0600,1200,1800 TOPIC 03/05/17 06:00 04/04/17 05:59 03/05/17 05:43 Nitroglycerin (Ntg) 0.4 mg Q5MIN X 3 DOSES PRN SL CHEST PAIN 03/04/17 19:30 04/03/17 19:29 Ondansetron HCl (Zofran) 4 mg Q6H PRN IVP Nausea & Vomiting 03/04/17 07:15 04/03/17 07:14 Pantoprazole (Protonix) 40 mg DAILY ORAL 03/04/17 09:00 04/03/17 08:59 03/05/17 09:43 Polyethylene Glycol (Miralax) 17 gm DAILYPRN PRN ORAL Constipation 03/04/17 07:15 04/03/17 07:14 03/05/17 09:47 Temazepam (Restoril) 15 mg HSPRN PRN ORAL Insomnia 03/04/17 21:00 03/11/17 20:59 Tramadol HCl (Ultram) 50 mg Q6H PRN ORAL Moderate Pain (Pain Scale 4-6) 03/04/17 07:15 03/11/17 07:14 KEKE CHE March 05, 2017 11:59
[2017-03-05 15:24] VITALS: BP 102/57
--- NOTE | 2017-03-05 15:56 | Cardiology Report ---
APPROVED REPORT EXAM: Two-dimensional and M-mode echocardiogram with Doppler and color Doppler. INDICATION Left Ventricular Function M-Mode DIMENSIONS IVSd1.1 (0.7-1.1cm)Left Atrium (MM)3.4 (1.6-4.0cm) LVDd6.6 (3.5-5.6cm)Aortic Root2.9 (2.0-3.7cm) PWd0.8 (0.7-1.1cm)Aortic Cusp Exc.2.0 (1.5-2.0cm) LVDs6.1 (2.5-4.0cm) PWs1.2 cm Mild left ventricular enlargement. Global left ventricular hypokinesis. Apical akinesis. No evidence of ventricular hypertrophy. Anterior Echo-free space, may be due to pericardial fat or effusion. All other cardiac chamber sizes are within normal limits. Mild focal aortic valve sclerosis with adequate cusp excursion. Mildly thickened mitral valve leaflets with normal excursion. Mild mitral annulus and aortic root calcification. Normal pulmonic valve structure. Normal tricuspid valve structure. IVC dilated at 2.0 cm with physiologic collapse. A color flow and spectral Doppler study was performed and revealed: Mild aortic regurgitation. Mild to moderate mitral regurgitation. Mitral diastolic velocities suggest reduced left ventricular relaxation (Grade I). Mild tricuspid regurgitation. Tricuspid systolic velocities suggests peak right ventricular systolic pressure of 38 mmHg, consistent with mild pulmonary hypertension. No pulmonic regurgitation present.
--- NOTE | 2017-03-05 16:56 | Cardiology Report ---
APPROVED REPORT EKG Measurement Heart [id number] VT P92 [id number] Abnormal ECG Electronic pacemaker
[2017-03-05 20:00] VITALS: BP 97/57
--- NOTE | 2017-03-05 20:35 | Cardiology Progress Note ---
Assessment/Plan Assessment/Plan 1. Atypical chest pain. 2. Congestive heart failure. 3. Cardiomyopathy. 4. Coronary artery disease, status post multiple percutaneous coronary interventions. 5. Hx opf ppi repeat trop adn ekg all normal echo normla wall motion ntp acie diuretic dapt bb statin since all trop and ekg neg despite prolong pain will not prusuit at this time Objective Last 24 Hour Vital Signs Date Time Temp Pulse Resp B/P Pulse Ox O2 Delivery O2 Flow Rate FiO2 03/05/17 19:53 71 18 Room Air 21 03/05/17 17:12 102/57 03/05/17 16:00 72 03/05/17 15:24 97.7 68 18 102/57 97 Room Air 03/05/17 12:00 75 03/05/17 11:54 111/60 03/05/17 11:28 98.1 73 20 111/60 99 Room Air 03/05/17 09:45 116/66 03/05/17 09:44 76 116/66 03/05/17 08:08 97.9 76 20 116/66 98 Room Air 03/05/17 08:00 79 03/05/17 07:36 77 18 Room Air 21 03/05/17 05:43 124/79 03/05/17 04:00 74 03/05/17 03:52 98.3 80 19 124/79 98 Room Air 03/05/17 00:00 70 03/04/17 23:58 98.7 78 20 122/75 95 Room Air 03/04/17 21:16 70 127/64 Intake and Output 03/04/17 03/05/17 19:00 07:00 Intake Total 360 ml Output Total 400 ml 1000 ml Balance -40 ml -1000 ml Intake Oral 360 ml Output Urine Total 400 ml 1000 ml Laboratory Tests Test 03/05/17 05:10 White Blood Count 8.1 K/UL (4.8-10.8) Red Blood Count 4.38 M/UL (4.70-6.10) L Hemoglobin 12.1 G/DL (14.2-18.0) L Hematocrit 37.3 % (42.0-52.0) L Mean Corpuscular Volume 85 FL (80-99) Mean Corpuscular Hemoglobin 27.7 PG (27.0-31.0) Mean Corpuscular Hemoglobin Concent 32.5 G/DL (32.0-36.0) Red Cell Distribution Width 14.1 % (11.6-14.8) Platelet Count 274 K/UL (150-450) Mean Platelet Volume 6.7 FL (6.5-10.1) Neutrophils (%) (Auto) 60.8 % (45.0-75.0) Lymphocytes (%) (Auto) 28.4 % (20.0-45.0) Monocytes (%) (Auto) 7.2 % (1.0-10.0) Eosinophils (%) (Auto) 3.0 % (0.0-3.0) Basophils (%) (Auto) 0.6 % (0.0-2.0) Prothrombin Time 11.4 SEC (9.30-11.50) Prothromb Time International Ratio 1.1 (0.9-1.1) Activated Partial Thromboplast Time 45 SEC (23-33) H Troponin I < 0.30 ng/mL (<=0.30) C-Reactive Protein, Quantitative 0.9 mg/dL (< 0.5) H Triglycerides Level 105 mg/dL (< 150) Cholesterol Level 120 mg/dL (< 200) LDL Cholesterol 40 mg/dL (60-99) L HDL Cholesterol 59 mg/dL (> 60) Cholesterol/HDL Ratio 2.0 (3.3-4.4) L Thyroid Stimulating Hormone (TSH) 0.438 uIU/mL (0.300-4.500) LEONARD CHING March 05, 2017 20:35
[2017-03-05] MEDS: Atorvastatin 80mg tab ORAL SCH (21:23)
[2017-03-06] VITALS: BP 107/59
[2017-03-06] MEDS: Morphine Sulfate 2mg/ml Inj IVP PRN ×4 (02:47→15:59)
[2017-03-06 04:00] VITALS: BP 113/98
[2017-03-06] MEDS: Nitroglycerin 2% oint pkt TOPIC SCH ×2 (05:28→11:50)
[2017-03-06] MEDS: NovoLOG Insulin Flexpen SUBQ SCH ×2 (05:29→11:30)
[2017-03-06 08:00] VITALS: BP 103/62
[2017-03-06] MEDS: Aspirin Baby 81mg ORAL SCH (08:30)
[2017-03-06] MEDS: Metoprolol Tartrate 12.5mg TAB ORAL SCH (08:30)
[2017-03-06] MEDS: Lisinopril 10mg tab ORAL SCH (08:31)
[2017-03-06] MEDS: Heparin 5000 units/ml inj SUBQ SCH (08:35)
[2017-03-06 09:06] LABS: TROPONIN I < 0.30 ng/mL (<=0.30)
[2017-03-06 12:00] VITALS: BP 125/69
--- NOTE | 2017-03-06 13:04 | Pulmonology Progress Note ---
Assessment/Plan Problems: (1) Acute coronary syndrome (2) Coronary heart disease (3) Diabetes mellitus (4) S/P CABG (coronary artery bypass graft) (5) Pacemaker Assessment/Plan cardio note reviewed symptomatic treatment [facility] Subjective ROS Limited/Unobtainable: No Constitutional: Reports: no symptoms HEENT: Repors: no symptoms Respiratory: Reports: no symptoms Cardiovascular: Reports: no symptoms Allergies: Coded Allergies: LACTOSE (Verified Allergy, Unknown, 08/30/15) METHOTREXATE (Verified Allergy, Unknown, 08/30/15) NSAIDS (NON-STEROIDAL ANTI-INFLAMMA (Unverified Allergy, Unknown, 11/14/15) Objective Last 24 Hour Vital Signs Date Time Temp Pulse Resp B/P Pulse Ox O2 Delivery O2 Flow Rate FiO2 03/06/17 12:00 97.5 78 18 125/69 96 Room Air 03/06/17 11:50 125/69 03/06/17 08:31 103/62 03/06/17 08:30 75 103/62 03/06/17 08:00 97.2 75 18 103/62 95 Room Air 03/06/17 08:00 82 03/06/17 07:56 77 18 Room Air 03/06/17 05:28 113/98 03/06/17 04:00 97.9 76 20 113/98 98 Room Air 03/06/17 04:00 70 03/06/17 00:00 73 03/06/17 00:00 97.7 77 19 107/59 99 Room Air 03/05/17 21:00 75 97/57 03/05/17 20:00 72 03/05/17 20:00 97.9 75 20 97/57 99 Room Air 03/05/17 19:53 71 18 Room Air 21 03/05/17 17:12 102/57 03/05/17 16:00 72 03/05/17 15:24 97.7 68 18 102/57 97 Room Air Intake and Output 03/05/17 03/06/17 19:00 07:00 Intake Total 730 ml Output Total 650 ml 300 ml Balance 80 ml -300 ml Intake Oral 730 ml Output Urine Total 650 ml 300 ml # Bowel Movements 1 Objective no new complains General Appearance: WD/WN Respiratory/Chest: chest wall non-tender, lungs clear Cardiovascular: normal peripheral pulses, normal rate Abdomen: normal bowel sounds, soft, non tender Genitourinary: normal external genitalia Extremities: no clubbing Neurologic/Psychiatric: blender / cook II-XII grossly normal Microbiology Date/Time Source Procedure Growth Status 03/04/17 01:32 Rectum VRE Culture - Final NO VANCOMYCIN RESISTANT ENTEROCOCCUS ... Complete Laboratory Tests 03/06/17 07:00: Troponin I < 0.30 Current Medications Medications (Trade) Dose Ordered Sig/Paola Route PRN Reason Start Time Stop Time Status Last Admin Dose Admin Acetaminophen (Tylenol) 650 mg Q4HR PRN ORAL Mild Pain / T>100.5F 03/04/17 07:15 04/03/17 07:14 Albuterol/ Ipratropium (DuoNeb 0.5-3(2.5)mg/3ml) 3 ml Q4H PRN HHN Shortness of Breath 03/04/17 07:15 03/09/17 07:14 Aspirin (ASA) 81 mg DAILY ORAL 03/05/17 09:00 04/04/17 08:59 03/06/17 08:30 Atorvastatin Calcium (Lipitor) 80 mg BEDTIME ORAL 03/04/17 21:00 04/03/17 20:59 03/05/17 21:23 Clopidogrel Bisulfate (Plavix) 75 mg DAILY ORAL 03/05/17 09:00 04/04/17 08:59 03/06/17 08:30 Dextrose (Dextrose 50%) STAT PRN IV Hypoglycemia 03/04/17 12:45 04/03/17 12:44 Diltiazem HCl (Cardizem) 10 mg EVERY HOUR PRN IV HR>120 BPM 03/04/17 07:15 04/03/17 07:14 Enalaprilat (Vasotec) 2.5 mg Q6H PRN IV sbp more than 160 03/04/17 07:15 04/03/17 07:14 Furosemide (Lasix) 40 mg DAILY ORAL 03/06/17 09:00 04/05/17 08:59 03/06/17 08:30 Heparin Sodium (Porcine) (Heparin 5000 units/ml) 5,000 units EVERY 12 HOURS SUBQ 03/04/17 09:00 04/03/17 08:59 03/06/17 08:35 Insulin Aspart (NovoLOG) BEFORE MEALS AND HS SUBQ 03/04/17 16:30 04/03/17 16:29 03/05/17 21:25 Lisinopril (Zestril) 10 mg DAILY ORAL 03/05/17 09:00 04/04/17 08:59 03/06/17 08:31 Metoprolol Tartrate (Lopressor) 12.5 mg Q12HR ORAL 03/04/17 21:00 04/03/17 20:59 03/06/17 08:30 Morphine Sulfate (Morphine Sulfate) 2 mg Q4H PRN IVP Severe Pain (Pain Scale 7-10) 03/04/17 07:15 03/11/17 07:14 03/06/17 11:50 Nitroglycerin (Nitro-Bid) 0.5 inch TID@0600,1200,1800 TOPIC 03/05/17 06:00 04/04/17 05:59 03/06/17 11:50 Nitroglycerin (Ntg) 0.4 mg Q5MIN X 3 DOSES PRN SL CHEST PAIN 03/04/17 19:30 04/03/17 19:29 Ondansetron HCl (Zofran) 4 mg Q6H PRN IVP Nausea & Vomiting 03/04/17 07:15 04/03/17 07:14 Pantoprazole (Protonix) 40 mg DAILY ORAL 03/04/17 09:00 04/03/17 08:59 03/06/17 08:30 Polyethylene Glycol (Miralax) 17 gm DAILYPRN PRN ORAL Constipation 03/04/17 07:15 04/03/17 07:14 03/05/17 09:47 Temazepam (Restoril) 15 mg HSPRN PRN ORAL Insomnia 03/04/17 21:00 03/11/17 20:59 Tramadol HCl (Ultram) 50 mg Q6H PRN ORAL Moderate Pain (Pain Scale 4-6) 03/04/17 07:15 03/11/17 07:14 KEKE CHE Mar 06, 2017 13:04
[2017-03-06 16:00] VITALS: BP 113/69
--- NOTE | 2017-03-07 11:39 | Discharge Summary ---
Discharge Summary Hospital Course Date of Admission March 04, 2017 at 02:36 Date of Discharge Mar 06, 2017 at 17:55 Admitting Diagnosis CHEST PAIN HPI Salvatore Davenport is a 67 year old male who was admitted on March 04, 2017 at 02:36 for Chest Pain Hospital Course [id number] Discharge Discharge Disposition Patient was discharged to [facility] (04) Discharge Diagnoses: Bibiana Pressley NP Mar 07, 2017 11:39
--- NOTE | 2017-03-08 00:31 | Discharge Summary 2 SIG ---
DATE OF ADMISSION: 03/04/2017 DATE OF DISCHARGE: 03/06/2017 [facility] DIRECTOR: Pierre Zuñiga M.D. BRIEF HOSPITAL COURSE: The patient is a 67-year-old male with history of diabetes, CHF, pacemaker, and severe debilitating rheumatoid arthritis, bed-bound, half-way resident, was brought in by the ambulance due to chest pain and difficulty breathing. On evaluation at ED, EKG was ventricularly paced. Troponin was negative. ProBNP was elevated and was given IV Lasix and sublingual nitroglycerin. The patient has a known right coronary artery stenosis and known CAD with poor ejection fraction. The patient was admitted to telemetry for further cardiac evaluation. Chest x-ray done showed pacemaker and bilateral pulmonary congestion. The patient was seen by Dr. Zuñiga. Cardiac enzymes have been negative. He was continued on diuretics, beta-blockers, and statins. Repeat troponin and EKGs were normal. Echocardiogram showed normal wall motion. Due to troponin being negative and EKG negative, despite prolonged pain, we will not pursue further evaluation at this time. The patient was given symptomatic treatment and was discharged back to half-way. FINAL DIAGNOSES: 1. Coronary artery disease. 2. Diabetes mellitus. 3. Status post coronary artery bypass graft. 4. Pacemaker. 5. Cardiomyopathy 6. Acute on chronic systolic congestive heart failure. 7. Hyperlipidemia. 8. Hypertension. Pretty Sweet M.D. I have been assigned to dictate discharge summary on this account and I was not involved in the patient's management. Bibiana Pressley N.P. DR: Dione JOB#: [id number] CC:
== END 2017-03-06 17:55 | DRG 194 ==
LOC: ENRESERVDT → ENRESERVTM → EDBD 00:52 → EMR 00:58 → 2E 02:36 → EDBEDREQ 02:48
DX: I50.23 Acute on chronic systolic (congestive) heart failure (principal); I27.2 Other secondary pulmonary hypertension; I42.9 Cardiomyopathy, unspecified; Z95.1 Presence of aortocoronary bypass graft; Z95.0 Presence of cardiac pacemaker; M06.9 Rheumatoid arthritis, unspecified; E11.9 Type 2 diabetes mellitus without complications; E78.5 Hyperlipidemia, unspecified; Z86.718 Personal history of other venous thrombosis and embolism; I25.10 Atherosclerotic heart disease of native coronary artery without angina pectoris; Z74.01 Bed confinement status; I10 Essential (primary) hypertension; I25.2 Old myocardial infarction
CPT/HCPCS: 36415; 71010; 80053; 80061; 82550; 82553; 82962; 83880; 84443; 84484; 85025; 85610; 85730; 86140; 87081; 93005; 93306; 94664; J1815

== ENCOUNTER 2017-09-25 16:35 | Inpatient (IN) | payer MEDICAID ==
[~2017-09-25] VITALS: Ht 177.8 cm; Wt 89.8 kg
[~2017-09-25 16:35] MED LIST changes: +HYDROCODON-ACE1 EA13 ORAL; +HYDROCODON-ACE1 EA16 ORAL; +MINERAL OIL EN133 ML RC; +VITAMIN D1000 UNI1 ORAL
[2017-09-25 16:40] VITALS: BP 157/71
[2017-09-25 17:36] VITALS: BP 132/77
[2017-09-25 17:42] LABS: BASOPHILS % (AUTO) 0.8 % (0.0-2.0); EOSINOPHILS % (AUTO) 2.4 % (0.0-3.0); HEMATOCRIT 40.1 % (42.0-52.0); HEMOGLOBIN 12.4 G/DL (14.2-18.0); LYMPHOCYTES % (AUTO) 19.8 % (20.0-45.0); MEAN CORPUSCULAR VOLUME 92 FL (80-99); MONOCYTES % (AUTO) 6.3 % (1.0-10.0); NEUTROPHILS % (AUTO) 70.7 % (45.0-75.0); PLATELET COUNT 229 K/UL (150-450); RED BLOOD COUNT 4.34 M/UL (4.70-6.10); RED CELL DISTRIBUTION WIDTH 13.3 % (11.6-14.8); WHITE BLOOD COUNT 7.9 K/UL (4.8-10.8)
[2017-09-25] MEDS ORDERED: HYDROCODON-ACE1 EA15 ORAL (17:54)
[2017-09-25] MEDS ORDERED: TRAMADOL HCL50 MG ORAL (17:54)
[2017-09-25] MEDS ORDERED: GLUCAGON HCL1 MG IJ (17:54)
[2017-09-25] MEDS ORDERED: IPRATROPIU0.2 MG/1 M HHN (17:54)
[2017-09-25] MEDS ORDERED: PANTOPRAZOLE SO40 MG ORAL (17:54)
[2017-09-25 17:58] LABS: ANION GAP 7 mmol/L (5-15); BLOOD UREA NITROGEN 16 mg/dL (7-18); CALCIUM 7.7 MG/DL (8.5-10.1); CARBON DIOXIDE 30 MMOL/L (21-32); CHLORIDE 100 MMOL/L (98-107); CREATININE 0.9 MG/DL (0.55-1.30); POTASSIUM 3.5 MMOL/L (3.5-5.1); SODIUM 137 MMOL/L (136-145)
[2017-09-25 18:13] LABS: ALANINE AMINOTRANSFERASE 17 U/L (12-78); ALBUMIN 3.4 G/DL (3.4-5.0); ALBUMIN/GLOBULIN RATIO 0.8 (1.0-2.7); ALKALINE PHOSPHATASE 104 U/L (46-116); ASPARTATE AMINO TRANSFERASE 22 U/L (15-37); BILIRUBIN,TOTAL 0.6 MG/DL (0.2-1.0); CKMB 2.4 NG/ML (0.0-3.6); CREATINE KINASE 64 U/L (26-308)
[2017-09-25 18:49] VITALS: BP 133/72
[2017-09-25 19:15] VITALS: BP 175/94
[2017-09-25 21:15] VITALS: BP 118/65
[2017-09-25] MEDS ORDERED: Morphine Sulfate 4mg/ml Inj IVP ONE (21:30)
--- NOTE | 2017-09-25 21:41 | Emergency Room Report ---
History of Present Illness General Chief Complaint: Chest Pain Source: Patient Present Illness HPI 67-year-old male presents to ED complaining of chest pain. Per EMS chest pain started approximately 90 minutes ago at rest. Patient resides in intermediate. Patient was given aspirin and nitroglycerin and states chest pain is resolved. Patient was initially pressure-like, midsternal, nonradiating, 8/10. Denies any shortness of breath. Denies cough. Denies fevers chills. No other aggravating factors. Denies any other associated symptoms Allergies: Coded Allergies: LACTOSE (Verified Allergy, Unknown, 08/30/15) METHOTREXATE (Verified Allergy, Unknown, 08/30/15) NSAIDS (NON-STEROIDAL ANTI-INFLAMMA (Unverified Allergy, Unknown, 11/14/15) Patient History Past Medical History: DM, HTN, CVA/TIA Past Surgical History: pacemaker Pertinent Family History: none Social History: Denies: smoking, alcohol use, drug use Immunizations: UTD Reviewed Nursing Documentation: PMH: Agreed, PSxH: Agreed Nursing Documentation-PMH Hx Cardiac Problems: Yes - STEMI 2006, Hx Hypertension: Yes Hx Pacemaker: Yes - 12/15/2015 s/p bradycardia Hx Diabetes: Yes Hx Cancer: No Hx Gastrointestinal Problems: Yes Hx Neurological Problems: Yes Hx Cerebrovascular Accident: Yes - Rt. side weakness, Hemiparesis, Hemiplegia Hx Peripheral Neuropathy: Yes - diabetic peripheral neuropathy, Chronic pain syndrom Hx Neurologic Surgery: No Review of Systems All Other Systems: negative except mentioned in HPI Physical Exam Vital Signs Date Time Temp Pulse Resp B/P (MAP) Pulse Ox O2 Delivery O2 Flow Rate FiO2 09/25/17 16:32 96.8 94 20 153/90 97 Room Air 2.0 Sp02 EP Interpretation: reviewed, normal General Appearance: no apparent distress, alert, GCS 15, non-toxic Head: normocephalic, atraumatic Eyes: bilateral eye normal inspection, bilateral eye PERRL ENT: hearing grossly normal, normal pharynx, no angioedema, normal voice Neck: full range of motion, supple/symm/no masses Respiratory: chest non-tender, lungs clear, normal breath sounds, speaking full sentences Cardiovascular #1: regular rate, rhythm, no edema Cardiovascular #2: 2+ carotid (R), 2+ carotid (L), 2+ radial (R), 2+ radial (L) , 2+ dorsalis pedis (R), 2+ dorsalis pedis (L) Gastrointestinal: normal bowel sounds, non tender, soft, non-distended, no guarding, no rebound Rectal: deferred Genitourinary: normal inspection, no CVA tenderness Musculoskeletal: back normal, gait/station normal, normal range of motion, non- tender Neurologic: alert, oriented x3, responsive, motor strength/tone normal, sensory intact, speech normal Psychiatric: judgement/insight normal, memory normal, mood/affect normal, no suicidal/homicidal ideation Reflexes: 3+ bicep (R), 3+ bicep (L), 3+ tricep (R), 3+ tricep (L), 3+ knee (R) , 3+ knee (L) Skin: normal color, no rash, warm/dry, well hydrated Lymphatic: no adenopathy Medical Decision Making Diagnostic Impression: Primary Impression: Acute coronary syndrome Additional Impressions: Pulmonary congestion Pacemaker ER Course Hospital Course 67-year-old male presents ED complaining of chest pain. Resolved after aspirin and nitroglycerin Differential diagnoses include: NV/unstable angina, contusion, muscle strain, PTX, rib fracture Clinical course Patient placed on stretcher. on cat operator. After initial history and physical I ordered labs, EKG, chest x-ray, morphine labs reviewed- no leukocytosis, hemoglobin/hematocrit stable, elect lites okay, troponin x1 negative, BNP elevated EKG-ventricular paced rhythm, PVCs, no acute ischemic changes Chest x-ray- cardiomegaly, coronary congestion Case discussed with PMD Dr Iris Herzog and he agreed to accept the patient to his service for further care and support I. I feel this is a highly complex case requiring extensive working including EKG/Rhythm strip, Xray/CT/US, Blood/urine lab work, repeat exams while in ED, and administration of strong opiates/narcotics for pain control, admission to hospital or close patient follow up. Diagnosis - ACS, pulmonary congestion, pacemaker admitted to telemetry in serious condition Labs Test 09/25/17 17:30 White Blood Count 7.9 K/UL (4.8-10.8) Red Blood Count 4.34 M/UL (4.70-6.10) Hemoglobin 12.4 G/DL (14.2-18.0) Hematocrit 40.1 % (42.0-52.0) Mean Corpuscular Volume 92 FL (80-99) Mean Corpuscular Hemoglobin 28.6 PG (27.0-31.0) Mean Corpuscular Hemoglobin Concent 30.9 G/DL (32.0-36.0) Red Cell Distribution Width 13.3 % (11.6-14.8) Platelet Count 229 K/UL (150-450) Mean Platelet Volume 5.8 FL (6.5-10.1) Neutrophils (%) (Auto) 70.7 % (45.0-75.0) Lymphocytes (%) (Auto) 19.8 % (20.0-45.0) Monocytes (%) (Auto) 6.3 % (1.0-10.0) Eosinophils (%) (Auto) 2.4 % (0.0-3.0) Basophils (%) (Auto) 0.8 % (0.0-2.0) Sodium Level 137 MMOL/L (136-145) Potassium Level 3.5 MMOL/L (3.5-5.1) Chloride Level 100 MMOL/L (98-107) Carbon Dioxide Level 30 MMOL/L (21-32) Anion Gap 7 mmol/L (5-15) Blood Urea Nitrogen 16 mg/dL (7-18) Creatinine 0.9 MG/DL (0.55-1.30) Estimat Glomerular Filtration Rate > 60 mL/min (>60) Glucose Level 170 MG/DL (74-106) Calcium Level 7.7 MG/DL (8.5-10.1) Total Bilirubin 0.6 MG/DL (0.2-1.0) Aspartate Amino Transf (AST/SGOT) 22 U/L (15-37) Alanine Aminotransferase (ALT/SGPT) 17 U/L (12-78) Alkaline Phosphatase 104 U/L (46-116) Total Creatine Kinase 64 U/L (26-308) Creatine Kinase MB 2.4 NG/ML (0.0-3.6) Creatine Kinase MB Relative Index 3.7 Troponin I 0.019 ng/mL (0.000-0.056) Pro-B-Type Natriuretic Peptide 4671 pg/mL (0-125) Total Protein 7.7 G/DL (6.4-8.2) Albumin 3.4 G/DL (3.4-5.0) Globulin 4.3 g/dL Albumin/Globulin Ratio 0.8 (1.0-2.7) EKG Diagnostic Results Rate: normal Rhythm: other - ventrcular paced ST Segments: other ASA given to the pt in ED: No - given by ems Rhythm Strip Diag. Results EP Interpretation: yes Rhythm: no ectopy Chest X-Ray Diagnostic Results Chest X-Ray Diagnostic Results : Chest X-Ray Ordered: Yes # of Views/Limited/Complete: 1 View Indication: Chest Pain EP Interpretation: Yes Interpretation: no consolidation, no pneumothorax, no acute cardiopulmonary disease, other - cardiomegaly. pulmonary congestion Impression: Other - chf Electronically Signed by: Electronically signed by Bhaskar Mendez MD Last Vital Signs Date Time Temp Pulse Resp B/P (MAP) Pulse Ox O2 Delivery O2 Flow Rate FiO2 09/25/17 19:15 97.5 63 10 175/94 100 Nasal Cannula 2.0 Status: improved Disposition: ADMITTED INPATIENT Condition: Serious Referrals: IRIS HERZOG (PCP) BHASKAR MENDEZ M.D. Sep 25, 2017 21:41
[2017-09-25] MEDS ORDERED: Milk of Magnesia 30ml Ud ORAL PRN (22:30)
[2017-09-25] MEDS ORDERED: Albuterol/Ipratropium 3ml neb HHN SCH (23:00)
[2017-09-25] MEDS ORDERED: Albuterol/Ipratropium 3ml neb HHN PRN (23:15)
[2017-09-26] MEDS: Nitroglycerin 2% oint pkt TOPIC SCH ×5 (00:44→23:48)
[2017-09-26 00:53] VITALS: BP 142/77
[2017-09-26 00:55] LABS: APPEARANCE,URINE CLEAR; BILIRUBIN, URINE NEGATIVE (NEGATIVE); GLUCOSE, URINE (UA) NEGATIVE (NEGATIVE); KETONES,URINE NEGATIVE (NEGATIVE); LEUKOCYTE ESTERASE ,URINE NEGATIVE (NEGATIVE); NITRITE,URINE NEGATIVE (NEGATIVE); PH,URINE 6.5 (4.5-8.0); PROTEIN,URINE NEGATIVE (NEGATIVE); UROBILINOGEN,URINE NORMAL MG/DL (0.0-1.0)
[2017-09-26 01:06] LABS: COLOR,URINE YELLOW
[2017-09-26 04:27] VITALS: BP 118/64
[2017-09-26] MEDS: HYDROcodone/Acetamin 10/325 tab ORAL PRN ×3 (04:42→21:07)
--- NOTE | 2017-09-26 05:46 | History and Physical Report ---
DATE OF ADMISSION: 09/25/2017 NOTE: INCOMPLETE DICTATION REASON FOR ADMISSION: This is a 67-year-old patient complaining of unstable angina. HISTORY OF PRESENT ILLNESS: The patient is a resident of an extended care facility where he has been in stable condition. Over the last several months, he is known to have chronic medical syndrome, but has been stable on current medication. One day prior to the present admission, he developed chest pain and shortness of breath. He came to to [facility] ER where he was assessed Ignacio Worley M.D. DR: INNA JOB#: [id number] CC:
[2017-09-26] MEDS: NovoLOG Insulin Flexpen SUBQ SCH ×5 (06:11→20:47)
[2017-09-26 08:00] VITALS: BP 115/54
[2017-09-26] MEDS: Metoprolol Tartrate 50mg tab ORAL SCH ×2 (08:00→11:53)
[2017-09-26 08:19] LABS: BASOPHILS % (AUTO) 0.8 % (0.0-2.0); EOSINOPHILS % (AUTO) 3.8 % (0.0-3.0); HEMATOCRIT 35.6 % (42.0-52.0); HEMOGLOBIN 11.7 G/DL (14.2-18.0); LYMPHOCYTES % (AUTO) 26.9 % (20.0-45.0); MEAN CORPUSCULAR VOLUME 92 FL (80-99); MONOCYTES % (AUTO) 6.4 % (1.0-10.0); NEUTROPHILS % (AUTO) 62.1 % (45.0-75.0); PLATELET COUNT 234 K/UL (150-450); RED BLOOD COUNT 3.88 M/UL (4.70-6.10); RED CELL DISTRIBUTION WIDTH 13.3 % (11.6-14.8); WHITE BLOOD COUNT 6.4 K/UL (4.8-10.8)
[2017-09-26] MEDS ORDERED: Enoxaparin Sodium 300mg/3ml vial SUBQ SCH (08:30)
[2017-09-26 08:47] LABS: ALANINE AMINOTRANSFERASE 16 U/L (12-78); ANION GAP 7 mmol/L (5-15); ASPARTATE AMINO TRANSFERASE 21 U/L (15-37); BLOOD UREA NITROGEN 13 mg/dL (7-18); CALCIUM 7.5 MG/DL (8.5-10.1); CARBON DIOXIDE 29 MMOL/L (21-32); CHLORIDE 104 MMOL/L (98-107); CHOLESTEROL 117 MG/DL (< 200); CREATININE 0.8 MG/DL (0.55-1.30); HDL CHOLESTEROL 59 MG/DL (40-60); POTASSIUM 3.8 MMOL/L (3.5-5.1); SODIUM 140 MMOL/L (136-145); TRIGLYCERIDES 64 MG/DL (30-150)
[2017-09-26] MEDS: Docusate 100mg cap ORAL SCH (09:44)
[2017-09-26] MEDS: Aspirin Baby 81mg ORAL SCH (09:44)
[2017-09-26] MEDS: Enoxaparin Sodium 300mg/3ml vial SUBQ SCH ×2 (09:47→20:46)
--- NOTE | 2017-09-26 11:02 | History and Physical Report ---
DATE OF ADMISSION: 09/25/2017 NOTE: Poor Audio REASON FOR ADMISSION: This is one of the several admissions to [facility] of this 67-year-old patient because of unstable angina. HISTORY OF PRESENT ILLNESS: The patient is a resident of a [facility] facility where he has been in stable condition for the last several months. He is known to have several chronic medical syndrome, but has been stable on his current medication. One day prior to the present admission, he had progressively increased shortness of breath, palpitation, and he was transferred to [facility] ER where he was suspected to have unstable angina. The patient was transferred to cardiac observation unit and was admitted. He is known to have hyperlipidemia for the last 5 years and diabetes mellitus for the last 10 years and coronary artery disease for the last 3 years. PAST MEDICAL HISTORY: The patient had several episodes of in the past for which he was admitted to this and other hospital. The patient noted to have coronary artery disease for which he is taking aspirin 81 mg daily and atorvastatin 10 mg daily. He for which he is taking ondansetron. He has diabetes mellitus type 2 for which he is taking sliding scale aspart insulin associated with metformin and Januvia. [place] 10/325 mg every 12 hours p.r.n. ALLERGIES: No known drug allergies. MEDICATIONS: FAMILY HISTORY: Noncontributory and by the patient. SOCIAL HISTORY: He is single. He was born in [place] and has been on SSI for many years. Prior to the appearance of his total disability, he was not on job. He smokes one pack a day for the last 15 years. He denied drinking. He denied the use of illicit drugs. REVIEW OF SYSTEMS: CARDIOVASCULAR: The patient has intermittent chest pain related to exertion. He has no palpitation. No dizziness. PULMONARY: The patient denies chronic cough, chronic wheezing, and chronic expectoration. GASTROINTESTINAL: His appetite is moderate. His weight is stable. He has no dysphagia or dyspepsia. No bowel movement disorder. GENITOURINARY: The patient denied dysuria stress incontinence. Nocturia is 2 to 3. JOINTS: The patient denies any pain, swelling, stiffness, cold extremities, photosensitivity, dry eyes, or alopecia. CENTRAL NERVOUS SYSTEM: His sleep is of good quality and no numbness, tingling, or seizure disorder, and has no headache. PHYSICAL EXAMINATION: VITAL SIGNS: Blood pressure is 118/65, pulse is 66, respirations were 15, and temperature 97.6. HEENT: Eyes were normal. Pupils were round, equal, and reacting to light. Sclerae were white. Conjunctivae were pink. Extraocular movements were normal. Temporal arteries were palpable bilaterally. There was bilateral temporal wasting. Visual pompa to confrontation were normal. Neglect sign was negative. ENT, mucous membranes were not dehydrated. Auditory canals were clear and tympanic membranes could not be visualized. Nasal cavity was not congested. Nasal septum was intact. Soft palate was free of ulceration. Pharynx was clear from exudate . Uvula jenifer to phonation. Tongue was moist, midline, and normally papillated. NECK: Supple. There was no goiter. No mass. No lymphadenopathy. There was no JVD. No bruit. Carotid upstroke was 2+. LUNGS: Clear. HEART: PMI was in the fourth left intercostal space in midclavicular line. There was normal S1 and normal S2. There was no murmur. No arrhythmia. No S3. No S4. No pericardial rub. ABDOMEN: Soft, nontender without organomegaly. There were no masses palpable. Normal bowel sounds without bruits. There was no guarding. No rebound tenderness. No ascites. No hernia. No CVA tenderness. Liver span was 8 cm, mostly nontender. EXTREMITIES: There were no cyanosis, clubbing, or edema. Extremities were warm. NEUROLOGICAL: Reflexes in biceps, triceps, and brachioradialis were symmetric and equal. Patellar retinacula were symmetric and equal. Plantar were in flexion. Cranial nerves from II through XII were symmetric and equal. Cerebellar function, gait, [id number] and rapid alternating movements were not performed by the patient. There was no tremor. No nystagmus. No extrapyramidal rigidity. Sensory exam to pinprick, cotton touch, and position are grossly normal. Motor strength was 5/5 against resistance in upper and lower extremities in proximal and distal muscles. LABORATORY DATA: Hemoglobin is 12.4, hematocrit 40.1, MCV of 92, WBC of 4.3, and platelets 239. His BUN and creatinine is 16 and 0.9 respectively. Sodium was 137, potassium 3.5, chloride 100, and CO2 is 20. His calcium was 7.7. SGOT and SGPT were normal . Troponin was 0.019. ProBNP was 4631. Albumin was 3.4. Total protein was 7.7. IMPRESSION AND PLAN: The patient had unstable angina multiple times. Cardiology consult was called to assist in the management of this case. Repeat laboratory tests will be done in the morning. Ignacio Worley M.D. DR: INNA JOB#: [id number] CC:
[2017-09-26 12:00] VITALS: BP 146/77
--- NOTE | 2017-09-26 13:05 | Cardiology Report ---
APPROVED REPORT EXAM: Two-dimensional and M-mode echocardiogram with Doppler and color Doppler. INDICATION Chest Pain M-Mode DIMENSIONS IVSd1.6 (0.7-1.1cm)Left Atrium (MM)3.8 (1.6-4.0cm) LVDd5.5 (3.5-5.6cm)Aortic Root3.9 (2.0-3.7cm) PWd1.4 (0.7-1.1cm)Aortic Cusp Exc.2.2 (1.5-2.0cm) IVSs1.9 cm LVDs5.0 (2.5-4.0cm) PWs1.6 cm Global left ventricular hypokinesis with [place] akinesis. Mild LV enlargement. Left ventricular ejection fraction estimated to be 20-25 %. No evidence of left ventricular hypertrophy. Possible echo density at the LV apex, cannot r/o LV thrombus No evidence of pericardial effusion. Left atrial enlargement. Right cardiac chamber sizes are within normal limits. Focal aortic valve sclerosis with adequate cusp excursion. Thickened mitral valve leaflets with normal excursion. Mitral annulus and aortic root calcification. Normal pulmonic valve structure. Normal tricuspid valve structure. IVC at 1.6 cm with physiologic collapse . Pacemaker wire present in the right side chambers. A color flow and spectral Doppler study was performed and revealed: Mild aortic regurgitation. Mild mitral regurgitation. Mitral inflow velocities indicates possible pseudo normalization pattern implying moderately elevated left atrial pressure (Grade II ). Mild tricuspid regurgitation. Tricuspid systolic velocities suggests peak right ventricular systolic pressure of 37 mmHg. No Pulmonic regurgitation present.
[2017-09-26 16:00] VITALS: BP 124/63
--- NOTE | 2017-09-26 16:02 | Diagnostic Imaging Report ---
Indication: Chest pain Technique: XRAY Chest 1v Comparison: 03/04/2017 Findings: Borderline cardiomegaly with interstitial opacification and streaky bilateral airspace opacities. No large pleural effusion. No pneumothorax. No acute osseous abnormality seen. Left-sided pacemaker unchanged in position. Impression: Borderline cardiomegaly with bilateral interstitial opacification/edema.
[2017-09-26 20:00] VITALS: BP 117/67
[2017-09-26] MEDS: Atorvastatin 80mg tab ORAL SCH (20:45)
[2017-09-27] VITALS: BP 106/57
--- NOTE | 2017-09-27 05:00 | Progress Note ---
DATE: 09/26/2017 NOTE: POOR AUDIO QUALITY SUBJECTIVE: The patient is awake, alert, afebrile, and hemodynamically stable. His chest pain resolved. His last chest pain was eight hours ago. PHYSICAL EXAMINATION: VITAL SIGNS: Blood pressure is 124/63, his pulse is 55, respirations 20, and temperature 97.5. HEENT: Eyes were normal. ENT, mucous membranes were moist and intact. NECK: Supple with no JVD without lymph nodes. LUNGS: Clear. HEART: Normal sounds with regular beat. There is no S3, S4, or pericardial rub. ABDOMEN: Soft and nontender with normal bowel sounds. EXTREMITIES: Warm without cyanosis, clubbing, or edema. LABORATORY AND DIAGNOSTIC DATA: His hemoglobin is 11.7, hematocrit 35.6 with MCV of 92, WBC of 6.4, and platelets 234,000. His BUN and creatinine are 13 and 0.8 respectively. Sodium is 140, potassium 3.8, chloride 104, and CO2 is 29. His glucose is 99. His A1c is 6.2. His calcium is 7.5. SGOT and SGPT are normal. His last set of troponin was 0.019, 0.028, and 0.024, all of them are negative. His lipid panel showed a total cholesterol of 117, LDL of 53, HDL of 59, and triglyceride of 64. Thyroid function tests are normal. His urinalysis was clean. His chest x-ray showed borderline cardiomegaly with bilateral interstitial opacities. His 2D echo revealed left ventricular ejection fraction of 20 to 25%, , left ventricular hypertrophy. The patient has a possibility of LV thrombus. Color flow Doppler study was performed and revealed bilateral regurgitation elevated grade 2 tricuspid velocity suggests right ventricular pressure of 37. IMPRESSION AND PLAN: The patient has negative troponin. A 2D echo, which has been chronic now for several years. telecom sales consultant was called to assist in the management of this case. However, the patient is now asymptomatic with normal sleep. No shortness of breath, palpitation, or dizziness. Repeat laboratory tests will be done in the morning. Ignacio Worley M.D. DR: LYNDA JOB#: [id number] CC:
[2017-09-27] MEDS: HYDROcodone/Acetamin 10/325 tab ORAL PRN ×3 (06:00→22:03)
[2017-09-27] MEDS: Nitroglycerin 2% oint pkt TOPIC SCH ×4 (06:00→23:12)
[2017-09-27] MEDS: NovoLOG Insulin Flexpen SUBQ SCH ×4 (06:00→21:00)
[2017-09-27 08:00] VITALS: BP 134/67
[2017-09-27] MEDS: Metoprolol Tartrate 50mg tab ORAL SCH ×2 (08:41→22:04)
[2017-09-27] MEDS: Aspirin Baby 81mg ORAL SCH (08:42)
[2017-09-27] MEDS: Docusate 100mg cap ORAL SCH (08:43)
[2017-09-27] MEDS: Enoxaparin Sodium 300mg/3ml vial SUBQ SCH ×2 (08:50→22:02)
[2017-09-27 10:38] LABS: BASOPHILS % (AUTO) 0.7 % (0.0-2.0); EOSINOPHILS % (AUTO) 3.5 % (0.0-3.0); HEMATOCRIT 33.9 % (42.0-52.0); HEMOGLOBIN 11.1 G/DL (14.2-18.0); LYMPHOCYTES % (AUTO) 22.1 % (20.0-45.0); MEAN CORPUSCULAR VOLUME 93 FL (80-99); MONOCYTES % (AUTO) 7.4 % (1.0-10.0); NEUTROPHILS % (AUTO) 66.2 % (45.0-75.0); PLATELET COUNT 211 K/UL (150-450); RED BLOOD COUNT 3.66 M/UL (4.70-6.10); RED CELL DISTRIBUTION WIDTH 13.5 % (11.6-14.8)
[2017-09-27 10:46] LABS: ANION GAP 7 mmol/L (5-15); BLOOD UREA NITROGEN 19 mg/dL (7-18); CALCIUM 7.6 MG/DL (8.5-10.1); CARBON DIOXIDE 29 MMOL/L (21-32); CHLORIDE 102 MMOL/L (98-107); CREATININE 0.9 MG/DL (0.55-1.30); POTASSIUM 3.6 MMOL/L (3.5-5.1); SODIUM 138 MMOL/L (136-145)
[2017-09-27 12:00] VITALS: BP 111/61
[2017-09-27 16:00] VITALS: BP 130/69
[2017-09-27] MEDS ORDERED: NS 500ML ONE (17:38)
[2017-09-27 20:00] VITALS: BP 137/74
[2017-09-27] MEDS: Atorvastatin 80mg tab ORAL SCH (22:05)
[2017-09-28] VITALS: BP 130/79
[2017-09-28 04:00] VITALS: BP 99/56
[2017-09-28] MEDS: Nitroglycerin 2% oint pkt TOPIC SCH ×2 (05:51→12:26)
[2017-09-28] MEDS: HYDROcodone/Acetamin 10/325 tab ORAL PRN ×2 (05:53→14:25)
[2017-09-28] MEDS: NovoLOG Insulin Flexpen SUBQ SCH ×3 (06:30→16:30)
[2017-09-28 08:00] VITALS: BP 142/77
[2017-09-28] MEDS: Aspirin Baby 81mg ORAL SCH (09:53)
[2017-09-28] MEDS: Metoprolol Tartrate 50mg tab ORAL SCH (09:54)
[2017-09-28] MEDS: Docusate 100mg cap ORAL SCH (09:54)
[2017-09-28] MEDS: Enoxaparin Sodium 300mg/3ml vial SUBQ SCH (09:58)
[2017-09-28 12:00] VITALS: BP 102/52
[2017-09-28 16:00] VITALS: BP 134/76
--- NOTE | 2017-09-29 01:00 | Progress Note ---
DATE: 09/27/2017 SUBJECTIVE: The patient is awake, alert, afebrile, and hemodynamically stable. He denied any chest pain, shortness of breath, palpitations, or dizziness. PHYSICAL EXAMINATION: VITAL SIGNS: Blood pressure 137/74, his pulse is 76, respirations 18, and temperature 98.1. HEENT: Eyes were normal. ENT, mucous membranes were moist and intact. NECK: Supple with no JVD without lymph nodes. LUNGS: Clear. HEART: Normal sounds with regular beats. ABDOMEN: Soft and nontender with normal bowel sounds. EXTREMITIES: Warm without cyanosis, clubbing, or edema. LABORATORY DATA: Hemoglobin is 11.1, hematocrit 33.9 with MCV of 93, WBC of 8.0 and platelets are 211. His BUN and creatinine is 19 and 0.9 respectively. His sodium is 138, potassium 3.6, chloride 102, and CO2 is 23. His glucose is 176. His troponin is 0.024. IMPRESSION AND PLAN: The patient did not have myocardial injury and probably did not have unstable angina. He has an uncontrolled diabetes mellitus. He refused to get any insulin injection and diet. I have discussed the case with the patient including the benefits and risks of his management and he does not seem to be convincing. In any event, the patient will be discharged back to the extended care facility in the morning. Ignacio Worley M.D. DR: INNA JOB#: [id number] CC:
--- NOTE | 2017-10-02 13:24 | Discharge Summary ---
Discharge Summary Hospital Course Date of Admission Sep 25, 2017 at 17:35 Date of Discharge Sep 28, 2017 at 18:30 Admitting Diagnosis ACS RUSTY Davenport is a 67 year old male who was admitted on Sep 25, 2017 at 17:35 for Acute Coronary Syndrome Hospital Course dc summary #[id number] Discharge Medications Continued Medications: Acetaminophen (Tylenol) 325 Mg Tab 650 MG ORAL Q8HR PRN for For Pain, #30 TAB 0 Refills Aspirin* (Aspirin*) 81 Mg Tab.chew 81 MG ORAL DAILY, TAB Atorvastatin Calcium* (Lipitor*) 80 Mg Tablet 80 MG ORAL BEDTIME, TAB Clopidogrel Bisulfate* (Plavix*) 75 Mg Tablet 75 MG ORAL DAILY, TAB Docusate Sodium* (Colace*) 100 Mg Capsule 100 MG ORAL DAILY, CAP Glucagon HCl (Glucagon HCl) 1 Mg Vial 1 MG IJ PRN for Hypoglycemia, VIAL Hydrocodone/Acetaminophen 5-325* (Hydrocodone/Acetaminophen 5-325*) 1 Each Tablet 2 TAB ORAL Q8H PRN for For Pain Ipratropium [place] 0.5MG/2.5ML (Ipratropium [place] 0.5MG/2.5ML) 0.2 Mg/1 Ml Solution 0.5 MG HHN Q4HR PRN for Shortness of Breath Magnesium Hydroxide* (Milk Of Magnesia*) 400 Mg/5 Ml Oral.susp 30 ML ORAL QHS PRN for Constipation, ML Metoprolol Tartrate* (Metoprolol Tartrate*) 25 Mg Tablet 25 MG ORAL EVERY 12 HOURS, TAB Nitroglycerin (Nitroglycerin) 0.4 Mg Tab.subl 0.4 MG SL, TAB Ondansetron (Zofran) 4 Mg Tab 4 MG ORAL Q4HR PRN for Nausea & Vomiting, TAB Pantoprazole* (Pantoprazole*) 40 Mg Tablet.dr 40 MG ORAL BEFORE BREAKFAST Tramadol Hcl* (Ultram*) 50 Mg Tablet 50 MG ORAL Q12HR Discharge Discharge Disposition Patient was discharged to SNF/Subacute Facility(03) Discharge Diagnoses: Discharge Instructions Discharge Instructions Special Instructions I have been assigned to complete a D/C Summary on this account. I was not involved in the patient management Darlin Woodward NP (Vanchtein) Oct 02, 2017 13:24
--- NOTE | 2017-10-02 20:15 | Discharge Summary 2 SIG ---
DATE OF ADMISSION: 09/25/2017 DATE OF DISCHARGE: 09/28/2017 REASON FOR ADMISSION: 67-year-old male, [facility] with past medical history of diabetes, hypertension, pacemaker in 2016, STEMI in 2006, CVA with right-sided hemiparesis, chronic pain syndrome, and diabetic neuropathy presented to emergency department with complaint of chest pain. Pain described as pressure-like, midsternal, nonradiating, 8/10 on a scale 1 to 10. He denied shortness of breath. Denied cough , palpitations. No fever. No chills. The patient was given aspirin and nitroglycerin by paramedics with resolution of pain. EKG revealed normal sinus rhythm. No acute ischemic changes. Troponin was negative. Chest x-ray revealed pulmonary congestion and cardiomegaly. No leukocytosis. Stable hemoglobin and hematocrit. Stable electrolytes and renal parameters. Pro BNP elevated -4671. The patient was admitted with diagnosis of chest pain, rule out acute coronary syndrome, pacemaker and diabetes. HOSPITAL COURSE: The patient was admitted to telemetry floor. Serial troponin x4 were negative. EKG revealed sinus rhythm. Therefore, the patient was ruled out for acute myocardial infarction. Echocardiogram revealed ejection fraction of 20% to 25%, right ventricular systolic pressure of 37, that findings were chronic. Medical management for congestive heart failure included beta-ilya. The patient was on aspirin, statin and Plavix. Low-dose of SILVER was considered, but not started due to the low blood pressure. Chest pain was noncardiac.Lipid panel was within normal limits. TSH was stable. Blood sugar was managed with sliding scale of insulin. The patient declined insulin. Hemoglobin A1c -6.2 at goal. N recurrence of chest pain since admission. The patient was stable for discharge to [facility] facility. FOLLOWUP: Follow up with medical doctor at the facility. FINAL DIAGNOSES: 1. Noncardiac chest pain. 2. Pacemaker. 3. History of ST elevation myocardial infarction in 2006. 4. Diabetes mellitus. 5. Pulmonary congestion. DISCHARGE MEDICATIONS: See medication reconciliation list. DISCHARGE INSTRUCTIONS: The patient was discharged to [facility] facility. Follow up with medical doctor at the facility. Ignacio Worley M.D. I have been assigned to dictate discharge summary on this account and I was not involved in the patient's management. Darlin Woodward (Vanchtein) N.PSherri DR: MARCEL JOB#: [id number] CC: SABINO
== END 2017-09-28 18:30 | DRG 198 ==
LOC: EDBD 16:35 → EMR 17:29 → 2E 17:35 → EDBEDREQ 20:56
DX: R07.89 Other chest pain (principal); I25.2 Old myocardial infarction; E11.40 Type 2 diabetes mellitus with diabetic neuropathy, unspecified; I69.351 Hemiplegia and hemiparesis following cerebral infarction affecting right dominant side; E11.65 Type 2 diabetes mellitus with hyperglycemia; E11.9 Type 2 diabetes mellitus without complications; E78.5 Hyperlipidemia, unspecified; Z95.0 Presence of cardiac pacemaker; Z79.4 Long term (current) use of insulin; F17.200 Nicotine dependence, unspecified, uncomplicated; I25.10 Atherosclerotic heart disease of native coronary artery without angina pectoris; Z79.02 Long term (current) use of antithrombotics/antiplatelets; Z91.14 Patient's other noncompliance with medication regimen
CPT/HCPCS: 36415; 71010; 80048; 80053; 80061; 81001; 82550; 82553; 82962; 83036; 83880; 84439; 84443; 84450; 84460; 84484; 85025; 87081; 93005; 93306; 99285; J1815; J2405

== ENCOUNTER 2018-01-17 10:07 | Inpatient (IN) | payer MEDICAID ==
[~2018-01-17] VITALS: Ht 175.3 cm; Wt 90.7 kg
[2018-01-17 09:56] VITALS: BP 129/75
[~2018-01-17 10:07] MED LIST changes: +GLUCAGON HCL1 MG IJ; +HYDROCODON-ACE1 EA15 ORAL; +IPRATROPIU0.2 MG/1 M HHN; +PANTOPRAZOLE SO40 MG ORAL
--- NOTE | 2018-01-17 10:20 | Emergency Room Report ---
History of Present Illness General Chief Complaint: Abdominal Pain Source: Patient, EMS Present Illness HPI Patient presents with vomiting and abdominal pain since last night. He denies fever or chills. He denies dysuria or hematuria. He denies diarrhea. He has no other complaints. Allergies: Coded Allergies: LACTOSE (Verified Allergy, Unknown, 08/30/15) LISINOPRIL (Unverified Allergy, Unknown, 01/17/18) METHOTREXATE (Verified Allergy, Unknown, 08/30/15) NSAIDS (NON-STEROIDAL ANTI-INFLAMMA (Unverified Allergy, Unknown, 11/14/15) Patient History Past Medical History: see triage record, DM, HTN, MT, CAD, CHF, CVA/TIA, other - Rhematoid arthritis Past Surgical History: pacemaker, other - Toe amputations Social History: Denies: smoking, alcohol use, drug use Reviewed Nursing Documentation: PMH: Agreed; PSxH: Agreed Nursing Documentation-PMH Past Medical History: No History, Except For Hx Cardiac Problems: Yes - CHF, PVD, MT, CAD Hx Hypertension: Yes - CKD Hx Pacemaker: Yes Hx Diabetes: Yes Hx Cancer: No Hx Gastrointestinal Problems: Yes Hx Neurological Problems: Yes Hx Cerebrovascular Accident: Yes - right side weakness Hx Peripheral Neuropathy: Yes - diabetic peripheral neuropathy, Chronic pain syndrom Hx Neurologic Surgery: No Review of Systems All Other Systems: negative except mentioned in HPI Physical Exam Vital Signs Date Time Temp Pulse Resp B/P (MAP) Pulse Ox O2 Delivery O2 Flow Rate FiO2 01/17/18 09:50 98.8 81 18 129/75 97 Room Air 98.8 Sp02 EP Interpretation: reviewed, normal General Appearance: no apparent distress, alert, GCS 15, non-toxic Head: normocephalic, atraumatic Eyes: bilateral eye normal inspection, bilateral eye PERRL ENT: hearing grossly normal, normal pharynx, no angioedema, normal voice Neck: full range of motion, supple/symm/no masses Respiratory: chest non-tender, lungs clear, normal breath sounds, no respiratory distress, no retraction, no accessory muscle use, speaking full sentences Cardiovascular #1: regular rate, rhythm, no edema Gastrointestinal: normal bowel sounds, soft, non-distended, no guarding, no rebound, tenderness - TTP mid abdomen and epigastrium Rectal: deferred Musculoskeletal: back normal, non-tender, other - Limited ROM at baseline. Unable to straighten legs. Neurologic: alert, oriented x3, responsive, motor strength/tone normal, sensory intact, speech normal Psychiatric: judgement/insight normal, memory normal, mood/affect normal, no suicidal/homicidal ideation Skin: normal color, no rash, warm/dry, well hydrated Medical Decision Making Diagnostic Impression: Primary Impression: Acute gastritis Additional Impression: Intractable vomiting with nausea ER Course This patient presents with gastritis and intractable vomiting. The patient did improve here in the emergency department but continued to have nausea and vomiting. He was given IV Pepcid and Zofran. He was also given IV fluids. CT of the abdomen and pelvis showed no surgical findings. See official report. He will be admitted for further evaluation and treatment. Laboratory Tests Test 01/17/18 10:10 01/17/18 10:49 White Blood Count 13.1 K/UL (4.8-10.8) H Red Blood Count 4.62 M/UL (4.70-6.10) L Hemoglobin 14.2 G/DL (14.2-18.0) Hematocrit 41.1 % (42.0-52.0) L Mean Corpuscular Volume 89 FL (80-99) Mean Corpuscular Hemoglobin 30.8 PG (27.0-31.0) Mean Corpuscular Hemoglobin Concent 34.6 G/DL (32.0-36.0) Red Cell Distribution Width 13.1 % (11.6-14.8) Platelet Count 263 K/UL (150-450) Mean Platelet Volume 6.2 FL (6.5-10.1) L Neutrophils (%) (Auto) 69.1 % (45.0-75.0) Lymphocytes (%) (Auto) 21.1 % (20.0-45.0) Monocytes (%) (Auto) 6.7 % (1.0-10.0) Eosinophils (%) (Auto) 2.4 % (0.0-3.0) Basophils (%) (Auto) 0.7 % (0.0-2.0) Sodium Level 134 MMOL/L (136-145) L Potassium Level 4.4 MMOL/L (3.5-5.1) Chloride Level 98 MMOL/L (98-107) Carbon Dioxide Level 30 MMOL/L (21-32) Anion Gap 6 mmol/L (5-15) Blood Urea Nitrogen 22 mg/dL (7-18) H Creatinine 1.0 MG/DL (0.55-1.30) Estimate Glomerular Filtration Rate > 60 mL/min (>60) Glucose Level 158 MG/DL (74-106) H Calcium Level 9.6 MG/DL (8.5-10.1) Total Bilirubin 0.6 MG/DL (0.2-1.0) Aspartate Amino Transferase (AST) 27 U/L (15-37) Alanine Aminotransferase (ALT) 33 U/L (12-78) Alkaline Phosphatase 104 U/L (46-116) Troponin I 0.000 ng/mL (0.000-0.056) Total Protein 8.4 G/DL (6.4-8.2) H Albumin 3.6 G/DL (3.4-5.0) Globulin 4.8 g/dL Albumin/Globulin Ratio 0.8 (1.0-2.7) L Lipase 86 U/L (73-393) Urine Color Pale yellow Urine Appearance Clear Urine pH 8 (4.5-8.0) Urine Specific [place] 1.010 (1.005-1.035) Urine Protein Negative (NEGATIVE) Urine Glucose (UA) Negative (NEGATIVE) Urine Ketones Negative (NEGATIVE) Urine Occult Blood Negative (NEGATIVE) Urine Nitrite Negative (NEGATIVE) Urine Bilirubin Negative (NEGATIVE) Urine Urobilinogen Normal MG/DL (0.0-1.0) Urine Leukocyte Esterase Negative (NEGATIVE) CT/MRI/US Diagnostic Results CT/MRI/US Diagnostic Results : Imaging Test Ordered: CT abd/pelvis Impression Mild thickening of the stomach possibly reflective of a gastritis. Correlate clinically. Additional etiologies of gastric thickening including neoplasm not excluded. Endoscopy recommended. No evidence of bowel obstruction or free intraperitoneal air. 5 mm lung nodule in the right lower lobe. Per 2017 Fleischner Society criteria guidelines, no routine imaging follow-up is recommended if patient is considered low risk for lung cancer. If considered high risk, consider follow-up scan in 12 months Coronary artery disease. Pacemaker partially visualized. Degenerative change of the spine and chronic vertebral compression fractures. No acute osseous abnormality. Prostatomegaly. Additional findings as above. The CT scanner at [facility] is accredited by the [employer] and the scans are performed using protocols designed to limit radiation exposure to as low as reasonably achievable to attain images of sufficient resolution adequate for diagnostic evaluation. Last Vital Signs Date Time Temp Pulse Resp B/P (MAP) Pulse Ox O2 Delivery O2 Flow Rate FiO2 01/17/18 09:56 98.8 83 18 129/75 97 Room Air 98.8 Disposition: ADMITTED INPATIENT Condition: Stable EMILY AVITIA D.O. Jan 17, 2018 10:20
[2018-01-17 10:30] LABS: BASOPHILS % (AUTO) 0.7 % (0.0-2.0); EOSINOPHILS % (AUTO) 2.4 % (0.0-3.0); HEMATOCRIT 41.1 % (42.0-52.0); HEMOGLOBIN 14.2 G/DL (14.2-18.0); LYMPHOCYTES % (AUTO) 21.1 % (20.0-45.0); MEAN CORPUSCULAR VOLUME 89 FL (80-99); MONOCYTES % (AUTO) 6.7 % (1.0-10.0); NEUTROPHILS % (AUTO) 69.1 % (45.0-75.0); PLATELET COUNT 263 K/UL (150-450); RED BLOOD COUNT 4.62 M/UL (4.70-6.10); RED CELL DISTRIBUTION WIDTH 13.1 % (11.6-14.8); WHITE BLOOD COUNT 13.1 K/UL (4.8-10.8)
[2018-01-17 10:38] LABS: ANION GAP 6 mmol/L (5-15); BLOOD UREA NITROGEN 22 mg/dL (7-18); CALCIUM 9.6 MG/DL (8.5-10.1); CARBON DIOXIDE 30 MMOL/L (21-32); CHLORIDE 98 MMOL/L (98-107); POTASSIUM 4.4 MMOL/L (3.5-5.1); SODIUM 134 MMOL/L (136-145)
[2018-01-17 10:43] LABS: ALANINE AMINOTRANSFERASE 33 U/L (12-78); ALBUMIN 3.6 G/DL (3.4-5.0); ALBUMIN/GLOBULIN RATIO 0.8 (1.0-2.7); ALKALINE PHOSPHATASE 104 U/L (46-116); ASPARTATE AMINO TRANSFERASE 27 U/L (15-37); BILIRUBIN,TOTAL 0.6 MG/DL (0.2-1.0)
[2018-01-17 11:05] LABS: APPEARANCE,URINE CLEAR; BILIRUBIN, URINE NEGATIVE (NEGATIVE); COLOR,URINE PALE YELLOW; GLUCOSE, URINE (UA) NEGATIVE (NEGATIVE); KETONES,URINE NEGATIVE (NEGATIVE); LEUKOCYTE ESTERASE ,URINE NEGATIVE (NEGATIVE); NITRITE,URINE NEGATIVE (NEGATIVE); PH,URINE 8 (4.5-8.0); PROTEIN,URINE NEGATIVE (NEGATIVE); UROBILINOGEN,URINE NORMAL MG/DL (0.0-1.0)
--- NOTE | 2018-01-17 11:51 | Diagnostic Imaging Report ---
Indication: Dominant pain Technique: CT of the abdomen and pelvis utilizing automated exposure control with intravenous contrast. Venous scanning performed. CT dose: Total DLP 1031.18 mGycm; CTDI vol 17.93 mGy Comparison: 08/29/2015 Findings: Dependent atelectasis noted in the lung bases. There is a 5 mm nodule in the right lower lobe (series 7 image 1). Portions of the pacemaker partially visualized. There are extensive coronary arterial calcifications. Heart size within the upper limits for normal. There is interposition of the colon anterior to the liver. Hepatic contour is smooth. No focal hepatic mass lesion is appreciated on this single phase study. Hepatic veins and portal veins appear patent. Gallbladder normal limits. No appreciable biliary ductal dilatation. Spleen and adrenal glands are unremarkable in appearance. There is mild pancreatic atrophy, possibly related to age. Kidneys enhance symmetrically. There is no urinary tract stone or hydronephrosis bilaterally. The bladder is unremarkable in appearance. Prostate is mildly enlarged. There is no free intraperitoneal air. No evidence of bowel obstruction. There is fluid within the stomach and some thickening of the stomach wall. These findings may suggest a gastritis in the appropriate clinical setting. No additional focal bowel wall thickening is appreciated however evaluation limited without the use of oral contrast. The appendix is not definitively visualized however there are no focal inflammatory changes in the right lower quadrant to suggest an acute appendicitis. Moderate atherosclerotic vascular calcifications of the abdominal aorta and its main branches. No evidence of abdominal aortic aneurysm. There is an infrarenal IVC filter is in place. No pathologically enlarged lymphadenopathy is appreciated. There are chronic vertebral compression deformities. No acute osseous abnormality is appreciated. There are unchanged gluteal soft tissue calcifications. IMPRESSION: Mild thickening of the stomach possibly reflective of a gastritis. Correlate clinically. Additional etiologies of gastric thickening including neoplasm not excluded. Endoscopy recommended. No evidence of bowel obstruction or free intraperitoneal air. 5 mm lung nodule in the right lower lobe. Per 2017 Fleischner Society criteria guidelines, no routine imaging follow-up is recommended if patient is considered low risk for lung cancer. If considered high risk, consider follow-up scan in 12 months Coronary artery disease. Pacemaker partially visualized. Degenerative change of the spine and chronic vertebral compression fractures. No acute osseous abnormality. Prostatomegaly. Additional findings as above. The CT scanner at [facility] is accredited by the [employer] and the scans are performed using protocols designed to limit radiation exposure to as low as reasonably achievable to attain images of sufficient resolution adequate for diagnostic evaluation.
[2018-01-17 12:34] VITALS: BP 134/77
[2018-01-17] MEDS ORDERED: Mylanta II UD 30ml ORAL PRN (14:45)
[2018-01-17] MEDS ORDERED: Nitroglycerin Subl 0.4mg tab SL PRN (14:45)
[2018-01-17] MEDS ORDERED: traMADol 50mg tab ORAL PRN (15:00)
[2018-01-17 15:30] VITALS: BP 134/73
[2018-01-17 15:35] VITALS: BP 127/69
[2018-01-17] MEDS: Morphine Sulfate 4mg/ml Inj IVP PRN ×2 (15:46→20:29)
[2018-01-17] MEDS: NovoLOG Insulin Flexpen SUBQ SCH ×2 (16:58→20:34)
[2018-01-17] MEDS: Heparin 5000 units/ml inj SUBQ SCH (20:33)
[2018-01-17 20:35] VITALS: BP 139/75
--- NOTE | 2018-01-17 21:34 | History and Physical ---
History of Present Illness General Reason for Hospitalization: Abdominal Pain Present Illness Allergies: Coded Allergies: LACTOSE (Verified Allergy, Unknown, 08/30/15) LISINOPRIL (Unverified Allergy, Unknown, 01/17/18) METHOTREXATE (Verified Allergy, Unknown, 08/30/15) NSAIDS (NON-STEROIDAL ANTI-INFLAMMA (Unverified Allergy, Unknown, 11/14/15) Medication History Scheduled Aspirin* (Aspirin*), 81 MG ORAL DAILY, (Reported) Atorvastatin Calcium* (Lipitor*), 80 MG ORAL BEDTIME, (Reported) Clopidogrel Bisulfate* (Plavix*), 75 MG ORAL DAILY, (Reported) Docusate Sodium* (Colace*), 100 MG ORAL DAILY, (Reported) Metoprolol Tartrate* (Metoprolol Tartrate*), 25 MG ORAL EVERY 12 HOURS, ( Reported) Pantoprazole* (Pantoprazole*), 40 MG ORAL BEFORE BREAKFAST, (Reported) Tramadol Hcl* (Ultram*), 50 MG ORAL Q12HR, (Reported) Scheduled PRN Acetaminophen (Tylenol), 650 MG ORAL Q8HR PRN for For Pain, (Reported) Glucagon HCl (Glucagon HCl), 1 MG IJ for Hypoglycemia, (Reported) Hydrocodone/Acetaminophen 5-325* (Hydrocodone/Acetaminophen 5-325*), 2 TAB ORAL Q8H PRN for For Pain, (Reported) Ipratropium [place] 0.5MG/2.5ML (Ipratropium [place] 0.5MG/2.5ML), 0.5 MG HHN Q4HR PRN for Shortness of Breath, (Reported) Magnesium Hydroxide* (Milk Of Magnesia*), 30 ML ORAL QHS PRN for Constipation, ( Reported) Ondansetron (Zofran), 4 MG ORAL Q4HR PRN for Nausea & Vomiting, (Reported) Miscellaneous Medications Nitroglycerin (Nitroglycerin), 0.4 MG SL, (Reported) Patient History Healthcare decision maker Resuscitation status Advanced Directive on File No Physical Exam Last 24 Hour Vital Signs Date Time Temp Pulse Resp B/P (MAP) Pulse Ox O2 Delivery O2 Flow Rate FiO2 01/17/18 20:35 97.0 95 22 139/75 99 Room Air 97.0 01/17/18 15:35 78 11 127/69 92 Room Air 01/17/18 15:35 78 11 127/69 92 Room Air 01/17/18 15:30 98.0 85 20 134/73 100 Room Air 98.0 01/17/18 12:34 74 18 134/77 100 Room Air 01/17/18 09:56 98.8 83 18 129/75 97 Room Air 98.8 01/17/18 09:50 98.8 81 18 129/75 97 Room Air 98.8 Laboratory Tests Test 01/17/18 10:10 01/17/18 10:49 White Blood Count 13.1 K/UL (4.8-10.8) H Red Blood Count 4.62 M/UL (4.70-6.10) L Hemoglobin 14.2 G/DL (14.2-18.0) Hematocrit 41.1 % (42.0-52.0) L Mean Corpuscular Volume 89 FL (80-99) Mean Corpuscular Hemoglobin 30.8 PG (27.0-31.0) Mean Corpuscular Hemoglobin Concent 34.6 G/DL (32.0-36.0) Red Cell Distribution Width 13.1 % (11.6-14.8) Platelet Count 263 K/UL (150-450) Mean Platelet Volume 6.2 FL (6.5-10.1) L Neutrophils (%) (Auto) 69.1 % (45.0-75.0) Lymphocytes (%) (Auto) 21.1 % (20.0-45.0) Monocytes (%) (Auto) 6.7 % (1.0-10.0) Eosinophils (%) (Auto) 2.4 % (0.0-3.0) Basophils (%) (Auto) 0.7 % (0.0-2.0) Sodium Level 134 MMOL/L (136-145) L Potassium Level 4.4 MMOL/L (3.5-5.1) Chloride Level 98 MMOL/L (98-107) Carbon Dioxide Level 30 MMOL/L (21-32) Anion Gap 6 mmol/L (5-15) Blood Urea Nitrogen 22 mg/dL (7-18) H Creatinine 1.0 MG/DL (0.55-1.30) Estimat Glomerular Filtration Rate > 60 mL/min (>60) Glucose Level 158 MG/DL (74-106) H Calcium Level 9.6 MG/DL (8.5-10.1) Total Bilirubin 0.6 MG/DL (0.2-1.0) Aspartate Amino Transf (AST/SGOT) 27 U/L (15-37) Alanine Aminotransferase (ALT/SGPT) 33 U/L (12-78) Alkaline Phosphatase 104 U/L (46-116) Troponin I 0.000 ng/mL (0.000-0.056) Total Protein 8.4 G/DL (6.4-8.2) H Albumin 3.6 G/DL (3.4-5.0) Globulin 4.8 g/dL Albumin/Globulin Ratio 0.8 (1.0-2.7) L Lipase 86 U/L (73-393) Urine Color Pale yellow Urine Appearance Clear Urine pH 8 (4.5-8.0) Urine Specific [place] 1.010 (1.005-1.035) Urine Protein Negative (NEGATIVE) Urine Glucose (UA) Negative (NEGATIVE) Urine Ketones Negative (NEGATIVE) Urine Occult Blood Negative (NEGATIVE) Urine Nitrite Negative (NEGATIVE) Urine Bilirubin Negative (NEGATIVE) Urine Urobilinogen Normal MG/DL (0.0-1.0) Urine Leukocyte Esterase Negative (NEGATIVE) Height (Feet): 5 Height (Inches): 9.00 Weight (Pounds): 200 Medications Current Medications Medications (Trade) Dose Ordered Sig/Paola Route PRN Reason Start Time Stop Time Status Last Admin Dose Admin Acetaminophen (Tylenol) 650 mg Q4H PRN ORAL T>100.5 01/17/18 14:45 02/16/18 14:44 Al Hydroxide/Mg Hydroxide (Mylanta II) 30 ml Q6H PRN ORAL dyspepsia 01/17/18 14:45 02/16/18 14:44 Clopidogrel Bisulfate (Plavix) 75 mg DAILY ORAL 01/18/18 09:00 02/17/18 08:59 Dextrose (Dextrose 50%) 25 ml STAT PRN IV Hypoglycemia 01/17/18 14:45 02/16/18 14:44 Dextrose (Dextrose 50%) 50 ml STAT PRN IV Hypoglycemia 01/17/18 14:45 02/16/18 14:44 Diphenhydramine HCl (Benadryl) 25 mg Q6H PRN ORAL Itching/Pruritis 01/17/18 14:45 02/16/18 14:44 Heparin Sodium (Porcine) (Heparin 5000 units/ml) 5,000 units EVERY 12 HOURS SUBQ 01/17/18 21:00 02/16/18 20:59 01/17/18 20:33 Insulin Aspart (NovoLOG) BEFORE MEALS AND HS SUBQ 01/17/18 16:30 02/16/18 16:29 01/17/18 20:34 Morphine Sulfate (Morphine Sulfate) 2 mg Q4H PRN IVP Severe Pain (Pain Scale 7-10) 01/17/18 14:45 01/24/18 14:44 01/17/18 20:29 Nitroglycerin (Ntg) 0.4 mg Q5MIN X 3 DOSES PRN SL Prn Chest Pain 01/17/18 14:45 02/16/18 14:44 Ondansetron HCl (Zofran) 4 mg Q6H PRN IVP Nausea & Vomiting 01/17/18 14:45 02/16/18 14:44 01/17/18 17:23 Polyethylene Glycol (Miralax) 17 gm HSPRN PRN ORAL Constipation 01/17/18 21:00 02/16/18 20:59 Sodium Chloride 1,000 ml @ 50 mls/hr Q20H IV 01/17/18 15:30 02/16/18 15:29 01/17/18 15:44 Temazepam (Restoril) 15 mg HSPRN PRN ORAL Insomnia 01/17/18 21:00 01/24/18 20:59 Tramadol HCl (Ultram) 50 mg Q12H PRN ORAL Moderate Pain (Pain Scale 4-6) 01/17/18 15:00 01/24/18 14:59 Pretty Sweet MD Jan 17, 2018 21:34
[2018-01-18] VITALS: BP 124/76
[2018-01-18 04:00] VITALS: BP 138/81
[2018-01-18] MEDS: Morphine Sulfate 4mg/ml Inj IVP PRN ×4 (04:05→21:51)
[2018-01-18] MEDS: NovoLOG Insulin Flexpen SUBQ SCH ×4 (06:25→21:00)
--- NOTE | 2018-01-18 07:25 | General Progress Note ---
Assessment/Plan Problem List: (1) Cholelithiasis ICD Codes: K80.20 - Calculus of gallbladder without cholecystitis without obstruction SNOMED: 880653112 (2) Iron deficiency anemia ICD Codes: D50.9 - Iron deficiency anemia, unspecified SNOMED: 28588929 (3) S/P CABG (coronary artery bypass graft) ICD Codes: Z95.1 - Presence of aortocoronary bypass graft SNOMED: 540631564, 601490910 (4) Acute gastritis ICD Codes: K29.00 - Acute gastritis without bleeding SNOMED: 80513004 (5) Intractable vomiting with nausea ICD Codes: R11.2 - Nausea with vomiting, unspecified SNOMED: 721779554 (6) Pacemaker ICD Codes: Z95.0 - Presence of cardiac pacemaker SNOMED: 430682804, 310752314 (7) Coronary heart disease ICD Codes: I25.10 - Atherosclerotic heart disease of [place] coronary artery without angina pectoris SNOMED: 52118407 (8) Diabetes mellitus ICD Codes: E11.9 - Type 2 diabetes mellitus without complications SNOMED: 92380671 Assessment/Plan ppi IV tumor markers EGD in AM reglan DM control Subjective ROS Limited/Unobtainable: Yes Allergies: Coded Allergies: LACTOSE (Verified Allergy, Unknown, 08/30/15) LISINOPRIL (Unverified Allergy, Unknown, 01/17/18) METHOTREXATE (Verified Allergy, Unknown, 08/30/15) NSAIDS (NON-STEROIDAL ANTI-INFLAMMA (Unverified Allergy, Unknown, 11/14/15) Subjective vomiting Objective Last 24 Hour Vital Signs Date Time Temp Pulse Resp B/P (MAP) Pulse Ox O2 Delivery O2 Flow Rate FiO2 01/18/18 04:00 98.1 94 20 138/81 98 98.1 01/18/18 00:00 97.7 86 20 124/76 96 97.7 01/17/18 20:35 97.0 95 22 139/75 99 Room Air 97.0 01/17/18 15:35 78 11 127/69 92 Room Air 01/17/18 15:35 78 11 127/69 92 Room Air 01/17/18 15:30 98.0 85 20 134/73 100 Room Air 98.0 01/17/18 12:34 74 18 134/77 100 Room Air 4/14/18 09:56 98.8 83 18 129/75 97 Room Air 98.8 01/17/18 09:50 98.8 81 18 129/75 97 Room Air 98.8 Intake and Output 01/17/18 01/18/18 19:00 07:00 Intake Total 1000 ml Output Total 500 ml 600 ml Balance 500 ml -600 ml Intake Oral 0 ml IV Total 1000 ml Output Urine Total 500 ml 600 ml # Voids 4 # Bowel Movements 1 Laboratory Tests 01/17/18 10:10: White Blood Count 13.1H, Red Blood Count 4.62L, Hemoglobin 14.2, Hematocrit 41.1L, Mean Corpuscular Volume 89, Mean Corpuscular Hemoglobin 30.8, Mean Corpuscular Hemoglobin Concent 34.6, Red Cell Distribution Width 13.1, Platelet Count 263, Mean Platelet Volume 6.2L, Neutrophils (%) (Auto) 69.1, Lymphocytes ( %) (Auto) 21.1, Monocytes (%) (Auto) 6.7, Eosinophils (%) (Auto) 2.4, Basophils (%) (Auto) 0.7, Sodium Level 134L, Potassium Level 4.4, Chloride Level 98, Carbon Dioxide Level 30, Anion Gap 6, Blood Urea Nitrogen 22H, Creatinine 1.0, Estimat Glomerular Filtration Rate > 60, Glucose Level 158H, Calcium Level 9.6, Total Bilirubin 0.6, Aspartate Amino Transf (AST/SGOT) 27, Alanine Aminotransferase (ALT/SGPT) 33, Alkaline Phosphatase 104, Troponin I 0.000, Total Protein 8.4H, Albumin 3.6, Globulin 4.8, Albumin/Globulin Ratio 0.8L, Lipase 86 01/17/18 10:49: Urine Color Pale yellow, Urine Appearance Clear, Urine pH 8, Urine Specific [place] 1.010, Urine Protein Negative, Urine Glucose (UA) Negative, Urine Ketones Negative, Urine Occult Blood Negative, Urine Nitrite Negative, Urine Bilirubin Negative, Urine Urobilinogen Normal, Urine Leukocyte Esterase Negative Height (Feet): 5 Height (Inches): 9.00 Weight (Pounds): 200 General Appearance: moderate distress EENT: normal ENT inspection Neck: supple Cardiovascular: normal rate Respiratory/Chest: decreased breath sounds Abdomen: normal bowel sounds, non tender, soft Extremities: non-tender ARMINDA MARR Jan 18, 2018 07:25
[2018-01-18 07:39] LABS: BASOPHILS % (AUTO) 0.6 % (0.0-2.0); EOSINOPHILS % (AUTO) 1.8 % (0.0-3.0); HEMATOCRIT 36.7 % (42.0-52.0); HEMOGLOBIN 12.9 G/DL (14.2-18.0); LYMPHOCYTES % (AUTO) 17.6 % (20.0-45.0); MEAN CORPUSCULAR VOLUME 90 FL (80-99); MONOCYTES % (AUTO) 6.8 % (1.0-10.0); NEUTROPHILS % (AUTO) 73.2 % (45.0-75.0); PLATELET COUNT 243 K/UL (150-450); RED BLOOD COUNT 4.09 M/UL (4.70-6.10); WHITE BLOOD COUNT 8.7 K/UL (4.8-10.8)
[2018-01-18 08:01] VITALS: BP 144/69
[2018-01-18 08:23] LABS: ALANINE AMINOTRANSFERASE 35 U/L (12-78); ALBUMIN 3.3 G/DL (3.4-5.0); ALBUMIN/GLOBULIN RATIO 0.7 (1.0-2.7); ALKALINE PHOSPHATASE 97 U/L (46-116); AMYLASE 154 U/L (25-115); ANION GAP 9 mmol/L (5-15); ASPARTATE AMINO TRANSFERASE 28 U/L (15-37); BILIRUBIN,TOTAL 0.7 MG/DL (0.2-1.0); BLOOD UREA NITROGEN 14 mg/dL (7-18); CALCIUM 9.2 MG/DL (8.5-10.1); CARBON DIOXIDE 27 MMOL/L (21-32); CHLORIDE 104 MMOL/L (98-107); CREATININE 0.9 MG/DL (0.55-1.30); POTASSIUM 3.6 MMOL/L (3.5-5.1); SODIUM 140 MMOL/L (136-145)
[2018-01-18] MEDS: Heparin 5000 units/ml inj SUBQ SCH ×2 (08:48→22:00)
[2018-01-18] MEDS: Pantoprazole Inj IVP SCH ×2 (08:48→21:38)
[2018-01-18 11:50] VITALS: BP 151/91
--- NOTE | 2018-01-18 14:17 | Pulmonology Progress Note ---
Assessment/Plan Problems: (1) Acute gastritis (2) Intractable abdominal pain (3) Pacemaker (4) Diabetes mellitus (5) S/P CABG (coronary artery bypass graft) Assessment/Plan less nauseous symptomatic treatment f/u GI recommendations check labs Subjective Interval Events: still nauseous Allergies: Coded Allergies: LACTOSE (Verified Allergy, Unknown, 08/30/15) LISINOPRIL (Unverified Allergy, Unknown, 01/17/18) METHOTREXATE (Verified Allergy, Unknown, 08/30/15) NSAIDS (NON-STEROIDAL ANTI-INFLAMMA (Unverified Allergy, Unknown, 11/14/15) Objective Last 24 Hour Vital Signs Date Time Temp Pulse Resp B/P (MAP) Pulse Ox O2 Delivery O2 Flow Rate FiO2 01/18/18 11:50 96.6 95 20 151/91 99 96.6 01/18/18 08:01 98.2 93 20 144/69 99 98.2 01/18/18 04:00 98.1 94 20 138/81 98 98.1 01/18/18 00:00 97.7 86 20 124/76 96 97.7 01/17/18 20:35 97.0 95 22 139/75 99 Room Air 97.0 01/17/18 15:35 78 11 127/69 92 Room Air 01/17/18 15:35 78 11 127/69 92 Room Air 01/17/18 15:30 98.0 85 20 134/73 100 Room Air 98.0 Intake and Output 01/17/18 01/18/18 19:00 07:00 Intake Total 1000 ml Output Total 500 ml 600 ml Balance 500 ml -600 ml Intake Oral 0 ml IV Total 1000 ml Output Urine Total 500 ml 600 ml # Voids 4 # Bowel Movements 1 General Appearance: WD/WN HEENT: normocephalic, atraumatic Respiratory/Chest: chest wall non-tender, lungs clear Cardiovascular: normal peripheral pulses, regular rhythm Abdomen: normal bowel sounds, soft, non tender Skin: no rash Neurologic/Psychiatric: supervisor whipped topping II-XII grossly normal, no motor/sensory deficits Laboratory Tests 01/18/18 05:30: White Blood Count 8.7, Red Blood Count 4.09L, Hemoglobin 12.9L, Hematocrit 36.7L , Mean Corpuscular Volume 90, Mean Corpuscular Hemoglobin 31.5H, Mean Corpuscular Hemoglobin Concent 35.1, Red Cell Distribution Width 13.0, Platelet Count 243, Mean Platelet Volume 6.1L, Neutrophils (%) (Auto) 73.2, Lymphocytes ( %) (Auto) 17.6L, Monocytes (%) (Auto) 6.8, Eosinophils (%) (Auto) 1.8, Basophils (%) (Auto) 0.6, Prothrombin Time 10.3, Prothromb Time International Ratio 1.0, Activated Partial Thromboplast Time 41H, Sodium Level 140, Potassium Level 3.6, Chloride Level 104, Carbon Dioxide Level 27, Anion Gap 9, Blood Urea Nitrogen 14, Creatinine 0.9, Estimat Glomerular Filtration Rate > 60, Glucose Level 143H, Hemoglobin A1c 7.2H, Calcium Level 9.2, Total Bilirubin 0.7, Aspartate Amino Transf (AST/SGOT) 28, Alanine Aminotransferase (ALT/SGPT) 35, Alkaline Phosphatase 97, Total Protein 8.0, Albumin 3.3L, Globulin 4.7, Albumin/ Globulin Ratio 0.7L, Amylase Level 154H, Lipase 77, Thyroid Stimulating Hormone (TSH) 0.585 Current Medications Medications (Trade) Dose Ordered Sig/Paola Route PRN Reason Start Time Stop Time Status Last Admin Dose Admin Acetaminophen (Tylenol) 650 mg Q4H PRN ORAL T>100.5 01/17/18 14:45 02/16/18 14:44 Al Hydroxide/Mg Hydroxide (Mylanta II) 30 ml Q6H PRN ORAL dyspepsia 01/17/18 14:45 02/16/18 14:44 Clopidogrel Bisulfate (Plavix) 75 mg DAILY ORAL 01/18/18 09:00 02/17/18 08:59 01/18/18 08:48 Dextrose (Dextrose 50%) 25 ml STAT PRN IV Hypoglycemia 01/17/18 14:45 02/16/18 14:44 Dextrose (Dextrose 50%) 50 ml STAT PRN IV Hypoglycemia 01/17/18 14:45 02/16/18 14:44 Diphenhydramine HCl (Benadryl) 25 mg Q6H PRN ORAL Itching/Pruritis 01/17/18 14:45 02/16/18 14:44 Heparin Sodium (Porcine) (Heparin 5000 units/ml) 5,000 units EVERY 12 HOURS SUBQ 01/17/18 21:00 02/16/18 20:59 01/18/18 08:48 Insulin Aspart (NovoLOG) BEFORE MEALS AND HS SUBQ 01/17/18 16:30 02/16/18 16:29 01/18/18 06:25 Metoclopramide HCl (Reglan) 10 mg THREE TIMES A DAY ORAL 01/18/18 09:00 02/17/18 08:59 01/18/18 12:38 Morphine Sulfate (Morphine Sulfate) 2 mg Q4H PRN IVP Severe Pain (Pain Scale 7-10) 01/17/18 14:45 01/24/18 14:44 01/18/18 09:25 Nitroglycerin (Ntg) 0.4 mg Q5MIN X 3 DOSES PRN SL Prn Chest Pain 01/17/18 14:45 02/16/18 14:44 Ondansetron HCl (Zofran) 4 mg Q6H PRN IVP Nausea & Vomiting 01/17/18 14:45 02/16/18 14:44 01/18/18 06:27 Pantoprazole (Protonix) 40 mg EVERY 12 HOURS IVP 01/18/18 09:00 02/17/18 08:59 01/18/18 08:48 Polyethylene Glycol (Miralax) 17 gm HSPRN PRN ORAL Constipation 01/17/18 21:00 02/16/18 20:59 Promethazine HCl 25 mg/Sodium Chloride 56 ml @ 112 mls/hr Q4H PRN IV Refractory N/V 01/18/18 12:00 02/17/18 11:59 Sodium Chloride 1,000 ml @ 50 mls/hr Q20H IV 01/17/18 15:30 02/16/18 15:29 01/18/18 06:35 Temazepam (Restoril) 15 mg HSPRN PRN ORAL Insomnia 01/17/18 21:00 01/24/18 20:59 Tramadol HCl (Ultram) 50 mg Q12H PRN ORAL Moderate Pain (Pain Scale 4-6) 01/17/18 15:00 01/24/18 14:59 Pretty Sweet MD Jan 18, 2018 14:17
[2018-01-18] MEDS: Promethazine HCl 25 MG in NS 55 ML IV PRN ×2 (14:47→21:37)
[2018-01-18 15:46] VITALS: BP 146/78
[2018-01-18 20:00] VITALS: BP 139/77
[2018-01-18] MEDS ORDERED: Tubing IV Secondary IV ONE (22:48)
[2018-01-19] VITALS (11 sets, daily range): BP systolic 95–139; BP diastolic 49–74
[2018-01-19] MEDS: Morphine Sulfate 4mg/ml Inj IVP PRN ×3 (03:18→21:59)
[2018-01-19] MEDS: Miralax 17gm pkt ORAL PRN ×2 (03:18→15:56)
[2018-01-19] MEDS: Promethazine HCl 25 MG in NS 55 ML IV PRN ×2 (03:45→14:01)
[2018-01-19] MEDS: NovoLOG Insulin Flexpen SUBQ SCH ×4 (06:30→21:20)
[2018-01-19 07:34] LABS: ALANINE AMINOTRANSFERASE 54 U/L (12-78); ALBUMIN 3.3 G/DL (3.4-5.0); ALBUMIN/GLOBULIN RATIO 0.8 (1.0-2.7); ALKALINE PHOSPHATASE 99 U/L (46-116); ANION GAP 9 mmol/L (5-15); ASPARTATE AMINO TRANSFERASE 51 U/L (15-37); BILIRUBIN,TOTAL 0.7 MG/DL (0.2-1.0); BLOOD UREA NITROGEN 12 mg/dL (7-18); CARBON DIOXIDE 25 MMOL/L (21-32); CHLORIDE 107 MMOL/L (98-107); CREATININE 0.8 MG/DL (0.55-1.30); SODIUM 141 MMOL/L (136-145)
[2018-01-19 07:43] LABS: BASOPHILS % (AUTO) 0.9 % (0.0-2.0); EOSINOPHILS % (AUTO) 1.4 % (0.0-3.0); HEMATOCRIT 35.9 % (42.0-52.0); HEMOGLOBIN 12.4 G/DL (14.2-18.0); LYMPHOCYTES % (AUTO) 16.3 % (20.0-45.0); MEAN CORPUSCULAR VOLUME 90 FL (80-99); MONOCYTES % (AUTO) 7.2 % (1.0-10.0); NEUTROPHILS % (AUTO) 74.2 % (45.0-75.0); PLATELET COUNT 241 K/UL (150-450); RED BLOOD COUNT 3.99 M/UL (4.70-6.10); RED CELL DISTRIBUTION WIDTH 13.4 % (11.6-14.8); WHITE BLOOD COUNT 8.9 K/UL (4.8-10.8)
[2018-01-19 07:51] LABS: PHOSPHORUS 2.9 MG/DL (2.5-4.9)
[2018-01-19] MEDS: Pantoprazole Inj IVP SCH ×2 (09:08→21:17)
[2018-01-19] MEDS: Heparin 5000 units/ml inj SUBQ SCH ×2 (09:13→21:19)
--- NOTE | 2018-01-19 10:30 | History and Physical Report ---
DATE OF ADMISSION: 01/17/2018 REASON FOR ADMISSION: This is one of multiple admissions to [facility] of this 68-year-old patient because of gastroenteritis. HISTORY OF PRESENT ILLNESS: The patient is a resident of an extended care facility where he has been in stable condition for the last several weeks. Over the last six months, the patient has been admitted to multiple hospitals including [facility] and [facility] for different reasons. The reason for admission at [facility] was his pacemaker was changed from unipolar to bipolar. However, the patient remained in critical condition. He is known to have multiple chronic medical syndrome, but has been stable on current medications until one day prior to the present admission when he developed having umbilical abdominal pain and nausea. He was transferred to [facility] ER and he was admitted. PAST MEDICAL HISTORY: The patient had insertion of pacemaker that was switched to bipolar approximately two months ago. He underwent coronary artery bypass grafting in 2008. 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 MEDICATIONS: The patient is on clopidogrel 75 mg daily. He is on Benadryl 25 mg at bedtime, heparin 1000 units subcutaneously q.12 h., aspart insulin sliding scale, regular insulin, he was on [place] 10/325 mg every four hours p.r.n., and ondansetron 4 mg q.4 h. p.r.n. He is on polyethylene glycol 17 g dissolved in water for motility disorder. ALLERGIES: No known drug allergies. SOCIAL HISTORY: He is single. He was born in [place]. He has been on SSI for many years prior to the appearance of total disability. 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 HABITS: The patient did smoke one pack a day, but he smoked more than 20 years ago. He denies drinking. He denies any use of illicit drugs. FAMILY HISTORY: Noncontributory. REVIEW OF SYSTEMS: CARDIOVASCULAR: The patient denies any chest pain, shortness of breath, palpitations, or dizziness. PULMONARY: The patient denied any cough, wheezing, or expectoration. GASTROINTESTINAL: His appetite is moderate. His weight is stable. He has no dysphagia. No dyspepsia. No bowel movement disorder. However, he did develop nausea and abdominal pain in the last 48 hours. GENITOURINARY: The patient denies dysuria or frequency. His nocturia is 3 to 4. JOINTS: The patient has diffuse articular pain secondary to rheumatoid arthritis, for which he cannot take and methotrexate. LOAN OFFICER: Sleep is of good quality provided he is using benzodiazepine. He has no numbness, tingling, or seizure disorder and has no headaches. PHYSICAL EXAMINATION: VITAL SIGNS: Blood pressure 134/77, pulse is 74, respirations were 18, and temperature 98.8 degrees. HEENT: Eyes were normal. Pupils were round, equal, and reactive to light. Sclerae were white. Conjunctivae were pink. Extraocular movements were normal. Temporal arteries were palpable bilaterally. There was no bilateral temporal wasting. Visual pompa to confrontation were normal. Neglect sign was negative. ENT, mucous membranes were not dehydrated. Auditory canals were clear and tympanic membranes could not be visualized. Nasal cavity was not congested. Nasal septum was intact. Soft palate was free of ulcerations. Pharynx was clear from exudate or tonsillar hypertrophy. Uvula jenifer to phonation. Tongue was moist, midline, and normally papillated. NECK: Supple. There was no goiter. No mass. No lymphadenopathy. No JVD. No bruit. Carotid upstroke was 2+. LUNGS: Clear. HEART: PMI was at fifth left intercostal space in midclavicular line. There was normal S1 and normal S2. There was no murmur. No arrhythmia. No S3. No S4. No pericardial rub. ABDOMEN: Soft and nontender without organomegaly. There were no masses palpable. Normal bowel sounds without bruits. There was no guarding. No rebound tenderness. No ascites. No hernia. No CVA tenderness. Liver span was 8 cm, mostly nontender. EXTREMITIES: No cyanosis, no clubbing, and no edema. Extremities were warm. NEUROLOGICAL: Reflexes in biceps, triceps, and brachioradialis were present. Patellar retinaculum was present. Plantars were in flexion. The cranial nerves from II through XII were symmetric and equal. Cerebellar function, there was no tremor. No nystagmus. No extrapyramidal rigidity. Sensory exam to pinprick, cotton touch, and position are grossly normal. Motor strength was 5/5 against resistance in upper and lower extremities, proximal and distal muscles. LABORATORY AND DIAGNOSTIC DATA: Hemoglobin is 14.2, hematocrit 41.1 with MCV of 89, WBC of 13.1, and platelets are 263,000. His BUN and creatinine are 22 and 1.0 respectively. Sodium is 134, potassium 4.4, chloride 98, and CO2 is 30. His calcium is 9.6. His troponins are not detected. His albumin is 3.3 and his total protein is 8.4. are normal . Abdomen and pelvic ultrasound revealed evidence of bowel obstruction, 5 mm , coronary artery disease with pacemaker, degenerative changes of the spine, prostatomegaly. Pan Cleaner was called to assist in the management of this case. Pulmonary nutrition consultant was called to assist in the management of this case. Ignacio Worley M.D. DR: Javan JOB#: [id number] CC:
--- NOTE | 2018-01-19 10:47 | Diagnostic Imaging Report ---
Indication: Abdominal pain Technique: Curtis-scale and duplex images of the upper abdomen were obtained Comparison: January 11, 2017 Findings: Exam is limited due to patient body habitus, as well as patient experiencing nausea and vomiting during the exam Gallbladder demonstrates gallstones. The gallbladder wall is thickened, measuring 5 mm thick. Sonographic Myers sign is negative. Common bile duct measures 3 mm in diameter. No intrahepatic biliary ductal dilatation. Liver is enlarged. No gross focal abnormality Portal vein and hepatic veins are patent. Pancreas is incompletely visualized due to overlying bowel gas, visualized portions are unremarkable. Spleen is unremarkable. Left kidney measures 11 cm in length. Right kidney measures 10.9 cm length. Both kidneys demonstrate normal echogenicity. There is no hydronephrosis. No focal abnormality . Abdominal aorta is obscured by bowel gas . Impression: Limited exam as described. Note nonvisualization of the abdominal aorta, poor visualization of the pancreas and left hepatic lobe Cholelithiasis. Negative for dilated ducts Hepatomegaly
--- NOTE | 2018-01-19 12:25 | Anethesia Preoperative Eval ---
Anesthesia Pre-op PMH/ROS General Date of Evaluation: Jan 19, 2018 Time of Evaluation: 12:21 Anesthesiologist: Shahana ASA Score: ASA 3 Mallampati Score Class I : Soft palate, uvula, fauces, pillars visible Class II: Soft palate, uvula, fauces visible Class III: Soft palate, base of uvula visible Class IV: Only hard plate visible Mallampati Classification: Class II Surgeon: Shiva Diagnosis: Abdominal pain Surgical Procedure: EGD Anesthesia History: none Family History: no anesthesia problems Allergies: Coded Allergies: LACTOSE (Verified Allergy, Unknown, 08/30/15) LISINOPRIL (Unverified Allergy, Unknown, 01/17/18) METHOTREXATE (Verified Allergy, Unknown, 08/30/15) NSAIDS (NON-STEROIDAL ANTI-INFLAMMA (Unverified Allergy, Unknown, 11/14/15) Past Medical History Cardiovascular: Reports: HTN, arrhythmia - pacer in placer Pulmonary: Denies: asthma, COPD, COLLIN, other Gastrointestinal/Genitourinary: Reports: GERD; Denies: CRI, ESRD, other Neurologic/Psychiatric: Reports: depression/anxiety; Denies: dementia, CVA, TIA, other Endocrine: Denies: DM, hypothyroidism, steroids, other HEENT: Denies: cataract (L), cataract (R), glaucoma, [place] (L), [place] (R), other Hematology/Immune: Reports: anemia Musculoskeletal/Integumentary: Denies: OA, RA, DJD, DDD, edema, other PMH Narrative: as above PSxH Narrative: See H&P Anesthesia Pre-op Phys. Exam Physician Exam Last Vital Signs Date Time Temp Pulse Resp B/P (MAP) Pulse Ox O2 Delivery O2 Flow Rate FiO2 01/19/18 11:48 98.1 82 17 100 Room Air 98.1 Constitutional: NAD Neurologic: CN 2-12 intact Cardiovascular: RRR, no M/R/G Respiratory: CTA Gastrointestinal: S/NT/ND Airway Exam Mallampati Score: Class II MO: limited Neck: stiff ROM: limited Teeth: missing Dentures: no upper, no lower Anesthesia Pre-op A/P Labs Hematology Test 01/19/18 05:25 White Blood Count 8.9 K/UL (4.8-10.8) Red Blood Count 3.99 M/UL (4.70-6.10) L Hemoglobin 12.4 G/DL (14.2-18.0) L Hematocrit 35.9 % (42.0-52.0) L Mean Corpuscular Volume 90 FL (80-99) Mean Corpuscular Hemoglobin 31.2 PG (27.0-31.0) H Mean Corpuscular Hemoglobin Concent 34.7 G/DL (32.0-36.0) Red Cell Distribution Width 13.4 % (11.6-14.8) Platelet Count 241 K/UL (150-450) Mean Platelet Volume 6.2 FL (6.5-10.1) L Neutrophils (%) (Auto) 74.2 % (45.0-75.0) Lymphocytes (%) (Auto) 16.3 % (20.0-45.0) L Monocytes (%) (Auto) 7.2 % (1.0-10.0) Eosinophils (%) (Auto) 1.4 % (0.0-3.0) Basophils (%) (Auto) 0.9 % (0.0-2.0) Erythrocyte Sedimentation Rate 99 MM/HR (0-20) H Chemistry Test 01/19/18 05:25 Sodium Level 141 MMOL/L (136-145) Potassium Level 4.0 MMOL/L (3.5-5.1) Chloride Level 107 MMOL/L (98-107) Carbon Dioxide Level 25 MMOL/L (21-32) Anion Gap 9 mmol/L (5-15) Blood Urea Nitrogen 12 mg/dL (7-18) Creatinine 0.8 MG/DL (0.55-1.30) Estimat Glomerular Filtration Rate > 60 mL/min (>60) Glucose Level 111 MG/DL (74-106) H Calcium Level 9.0 MG/DL (8.5-10.1) Phosphorus Level 2.9 MG/DL (2.5-4.9) Magnesium Level 2.6 MG/DL (1.8-2.4) H Total Bilirubin 0.7 MG/DL (0.2-1.0) Aspartate Amino Transf (AST/SGOT) 51 U/L (15-37) H Alanine Aminotransferase (ALT/SGPT) 54 U/L (12-78) Alkaline Phosphatase 99 U/L (46-116) Total Protein 7.6 G/DL (6.4-8.2) Albumin 3.3 G/DL (3.4-5.0) L Globulin 4.3 g/dL Albumin/Globulin Ratio 0.8 (1.0-2.7) L Risk Assessment & Plan Assessment: ASA 3 Plan: HARLAN PEREZ M.D. Jan 19, 2018 12:24
--- NOTE | 2018-01-19 12:38 | Pre-Procedure Note/Attestation ---
Pre-Procedure Note/Attestation Complete Prior to Procedure Planned Procedure: not applicable Procedure Narrative: EGD Indications for Procedure Pre-Operative Diagnosis: N/V Attestation I attest that I discussed the nature of the procedure; its benefits; risks and complications; and alternatives (and the risks and benefits of such alternatives ), prior to the procedure, with the patient (or the patient's legal unit support representative). I attest that, if there was a reasonable possibility of needing a blood transfusion, the patient (or the patient's legal unit support representative) was given the [facility] standardized written summary, pursuant to the Calvin [place]ah Blood Safety Act ([place] Health and Safety Code # 1645, as amended). I attest that I re-evaluated the patient just prior to the surgery and that there has been no change in the patient's H&P, except as documented below: ARMINDA MARR Jan 19, 2018 12:38
[2018-01-19] MEDS ORDERED: NS 500ML IV ONE (12:51)
--- NOTE | 2018-01-19 13:03 | Endoscopy Procedure Note ---
Endoscopy Procedure Note General Indication for Procedure: VOMITING Procedures Performed: EGD Operative Findings/Diagnosis: GASTRITIS Specimen: yes Pt Tolerated Procedure Well: Yes Estimated Blood Loss: none Anesthesia Anesthesiologist: DESTINY Anesthesia: MAC Inserted Devices Implant(s) used?: No GI Core Measures 50 yrs or older w/o bx or poly: Not Applicable 10yrs. F/U not recommended: Not Applicable ARMINDA MARR Jan 19, 2018 13:03
--- NOTE | 2018-01-19 13:11 | Immediate Post-Op Evaluation ---
Immediate Post-Op Evalulation Immediate Post-Op Evalulation Procedure: EGD with Bx Date of Evaluation: Jan 19, 2018 Time of Evaluation: 13:11 IV Fluids: 300 Blood Products: none Estimated Blood Loss: none Urinary Output: none Blood Pressure Systolic: 121 Blood Pressure Diastolic: 62 Pulse Rate: 78 Respiratory Rate: 20 O2 Sat by Pulse Oximetry: 99 Temperature (Fahrenheit): 97.8 Pain Score (1-10): 1 Nausea: No Vomiting: No Complications nonbe Patient Status: reacts, patent, none HARLAN ROOT M.D. Jan 19, 2018 13:11
--- NOTE | 2018-01-19 15:11 | Pulmonology Progress Note ---
Assessment/Plan Problems: (1) Acute gastritis (2) Intractable abdominal pain (3) Pacemaker (4) Diabetes mellitus (5) S/P CABG (coronary artery bypass graft) Assessment/Plan less nauseous symptomatic treatment f/u GI recommendations check labs dc home when ok with GI Subjective ROS Limited/Unobtainable: No Constitutional: Reports: no symptoms Respiratory: Reports: no symptoms Allergies: Coded Allergies: LACTOSE (Verified Allergy, Unknown, 08/30/15) LISINOPRIL (Unverified Allergy, Unknown, 01/17/18) METHOTREXATE (Verified Allergy, Unknown, 08/30/15) NSAIDS (NON-STEROIDAL ANTI-INFLAMMA (Unverified Allergy, Unknown, 11/14/15) Objective Last 24 Hour Vital Signs Date Time Temp Pulse Resp B/P (MAP) Pulse Ox O2 Delivery O2 Flow Rate FiO2 01/19/18 13:30 98.5 88 22 139/74 99 Nasal Cannula 3.0 98.5 01/19/18 13:16 77 18 125/72 99 Nasal Cannula 3.0 01/19/18 13:11 78 19 118/68 99 Nasal Cannula 3.0 01/19/18 13:11 208.0 78 20 99 01/19/18 13:06 98.2 80 20 121/62 99 Nasal Cannula 3.0 98.2 01/19/18 12:50 97.5 78 18 136/73 97 Room Air 97.5 01/19/18 11:48 98.1 82 17 100 Room Air 98.1 01/19/18 08:15 97.5 78 18 136/73 Room Air 97.5 01/19/18 04:00 97.5 79 16 132/60 91 97.5 01/19/18 00:00 97.7 77 15 132/66 97 97.7 01/18/18 20:00 97.0 83 15 139/77 98 97.0 01/18/18 15:46 96.8 98 20 146/78 100 96.8 Intake and Output 01/18/18 01/19/18 19:00 07:00 Intake Total 656 ml 662 ml Output Total 850 ml 700 ml Balance -194 ml -38 ml IV Total 656 ml 662 ml Output Urine Total 850 ml 700 ml # Bowel Movements 1 1 Objective General Appearance: cachetic HEENT: normocephalic, atraumatic Respiratory/Chest: chest wall non-tender, lungs clear Cardiovascular: normal rate, regular rhythm Abdomen: normal bowel sounds, soft, non tender, non distended Genitourinary: normal external genitalia Extremities: no Microbiology Date/Time Source Procedure Growth Status 01/17/18 13:03 Nasal Nares MRSA Culture - Final NO METHICILLIN RESISTANT STAPH AUREUS... Complete 01/17/18 13:03 Rectum VRE Culture - Final NO VANCOMYCIN RESISTANT ENTEROCOCCUS ... Complete Laboratory Tests 01/19/18 05:25: White Blood Count 8.9, Red Blood Count 3.99L, Hemoglobin 12.4L, Hematocrit 35.9L , Mean Corpuscular Volume 90, Mean Corpuscular Hemoglobin 31.2H, Mean Corpuscular Hemoglobin Concent 34.7, Red Cell Distribution Width 13.4, Platelet Count 241, Mean Platelet Volume 6.2L, Neutrophils (%) (Auto) 74.2, Lymphocytes ( %) (Auto) 16.3L, Monocytes (%) (Auto) 7.2, Eosinophils (%) (Auto) 1.4, Basophils (%) (Auto) 0.9, Erythrocyte Sedimentation Rate 99H, Sodium Level 141, Potassium Level 4.0, Chloride Level 107, Carbon Dioxide Level 25, Anion Gap 9, Blood Urea Nitrogen 12, Creatinine 0.8, Estimat Glomerular Filtration Rate > 60 , Glucose Level 111H, Calcium Level 9.0, Phosphorus Level 2.9, Magnesium Level 2.6H, Total Bilirubin 0.7, Aspartate Amino Transf (AST/SGOT) 51H, Alanine Aminotransferase (ALT/SGPT) 54, Alkaline Phosphatase 99, Total Protein 7.6, Albumin 3.3L, Globulin 4.3, Albumin/Globulin Ratio 0.8L Current Medications Medications (Trade) Dose Ordered Sig/Paola Route PRN Reason Start Time Stop Time Status Last Admin Dose Admin Acetaminophen (Tylenol) 650 mg Q4H PRN ORAL T>100.5 01/17/18 14:45 02/16/18 14:44 Al Hydroxide/Mg Hydroxide (Mylanta II) 30 ml Q6H PRN ORAL dyspepsia 01/17/18 14:45 02/16/18 14:44 Clopidogrel Bisulfate (Plavix) 75 mg DAILY ORAL 01/18/18 09:00 02/17/18 08:59 01/19/18 09:07 Dextrose (Dextrose 50%) 25 ml STAT PRN IV Hypoglycemia 01/17/18 14:45 02/16/18 14:44 Dextrose (Dextrose 50%) 50 ml STAT PRN IV Hypoglycemia 01/17/18 14:45 02/16/18 14:44 Diphenhydramine HCl (Benadryl) 25 mg Q6H PRN ORAL Itching/Pruritis 01/17/18 14:45 02/16/18 14:44 Heparin Sodium (Porcine) (Heparin 5000 units/ml) 5,000 units EVERY 12 HOURS SUBQ 01/17/18 21:00 02/16/18 20:59 01/19/18 09:13 Insulin Aspart (NovoLOG) BEFORE MEALS AND HS SUBQ 01/17/18 16:30 02/16/18 16:29 01/19/18 11:45 Metoclopramide HCl (Reglan) 5 mg EVERY 6 HOURS NG 01/19/18 18:00 02/18/18 17:59 Morphine Sulfate (Morphine Sulfate) 2 mg Q4H PRN IVP Severe Pain (Pain Scale 7-10) 01/17/18 14:45 01/24/18 14:44 01/19/18 03:18 Nitroglycerin (Ntg) 0.4 mg Q5MIN X 3 DOSES PRN SL Prn Chest Pain 01/17/18 14:45 02/16/18 14:44 Ondansetron HCl (Zofran) 4 mg Q6H PRN IVP Nausea & Vomiting 01/17/18 14:45 02/16/18 14:44 01/19/18 09:08 Pantoprazole (Protonix) 40 mg EVERY 12 HOURS IVP 01/18/18 09:00 02/17/18 08:59 01/19/18 09:08 Polyethylene Glycol (Miralax) 17 gm HSPRN PRN ORAL Constipation 01/17/18 21:00 02/16/18 20:59 01/19/18 03:18 Promethazine HCl 25 mg/Sodium Chloride 56 ml @ 112 mls/hr Q4H PRN IV Refractory N/V 01/18/18 12:00 02/17/18 11:59 01/19/18 14:01 Sodium Chloride 1,000 ml @ 50 mls/hr Q20H IV 01/17/18 15:30 02/16/18 15:29 01/19/18 03:53 Temazepam (Restoril) 15 mg HSPRN PRN ORAL Insomnia 01/17/18 21:00 01/24/18 20:59 01/18/18 23:37 Tramadol HCl (Ultram) 50 mg Q12H PRN ORAL Moderate Pain (Pain Scale 4-6) 01/17/18 15:00 01/24/18 14:59 Pretty Sweet MD Jan 19, 2018 15:11
--- NOTE | 2018-01-19 17:15 | Procedure Note ---
DATE OF PROCEDURE: 01/19/2018 SURGEON: Med Shannon M.D. ANESTHESIOLOGIST: Norris Fox M.D. REFERRING PHYSICIAN: Pretty Sweet M.D. PROCEDURE: Upper endoscopy with biopsy. ANESTHESIA: Per Dr. Fox. INSTRUMENT: Olympus adult flexible upper endoscope. INDICATION: Nausea, vomiting, abdominal pain. The procedure, risks, benefits, and possible consequences, including hemorrhage, aspiration, perforation and infection, and alternative treatments, were explained to the patient/legal guardian by Dr. Med Shannon and the patient/legal guardian understood and accepted these risks. DESCRIPTION OF PROCEDURE: After informed consent was obtained and the patient was adequately sedated, Olympus upper endoscope was advanced from mouth into second portion of duodenum and retroflexion was performed in the stomach. The patient had evidence of unusual severe gastritis only in one part of the stomach. It likely seemed that it started from GE junction along the lesser curvature and expanded all the way down to the peripyloric region, only on one side of the stomach. This area was biopsied. There was no active bleeding at this time nor was retained food material in the stomach and no evidence of any severe esophagitis. At this time, the scope was retrieved. The procedure was terminated. SUMMARY OF FINDINGS: Gastritis only in one part of the body along the lesser curvature, status post biopsy, otherwise normal upper endoscopic examination. RECOMMENDATIONS: Follow up biopsies and treat accordingly. I want to thank Dr. Sweet for this kind referral. Med Shannon M.D. DR: Judah JOB#: [id number] CC: Pretty Sweet M.D.; Fax#: [phone]
[2018-01-19] MEDS: Metoclopramide 10mg/10ml Liq NG SCH (17:29)
--- NOTE | 2018-01-19 23:50 | Consultation ---
History of Present Illness General Date patient seen: Jan 18, 2018 Chief Complaint: Abdominal Pain Present Illness HPI the pt with hx of depression and substance use d/o pw anxiety irritable mood. the pt endorses med seeking behavior. the pt has no insight into his medical condition. no si/hi Allergies: Coded Allergies: LACTOSE (Verified Allergy, Unknown, 08/30/15) LISINOPRIL (Unverified Allergy, Unknown, 01/17/18) METHOTREXATE (Verified Allergy, Unknown, 08/30/15) NSAIDS (NON-STEROIDAL ANTI-INFLAMMA (Unverified Allergy, Unknown, 11/14/15) Medication History Scheduled Aspirin* (Aspirin*), 81 MG ORAL DAILY, (Reported) Atorvastatin Calcium* (Lipitor*), 80 MG ORAL BEDTIME, (Reported) Clopidogrel Bisulfate* (Plavix*), 75 MG ORAL DAILY, (Reported) Docusate Sodium* (Colace*), 100 MG ORAL DAILY, (Reported) Metoprolol Tartrate* (Metoprolol Tartrate*), 25 MG ORAL EVERY 12 HOURS, ( Reported) Pantoprazole* (Pantoprazole*), 40 MG ORAL BEFORE BREAKFAST, (Reported) Tramadol Hcl* (Ultram*), 50 MG ORAL Q12HR, (Reported) Scheduled PRN Acetaminophen (Tylenol), 650 MG ORAL Q8HR PRN for For Pain, (Reported) Glucagon HCl (Glucagon HCl), 1 MG IJ for Hypoglycemia, (Reported) Hydrocodone/Acetaminophen 5-325* (Hydrocodone/Acetaminophen 5-325*), 2 TAB ORAL Q8H PRN for For Pain, (Reported) Ipratropium [place] 0.5MG/2.5ML (Ipratropium [place] 0.5MG/2.5ML), 0.5 MG HHN Q4HR PRN for Shortness of Breath, (Reported) Magnesium Hydroxide* (Milk Of Magnesia*), 30 ML ORAL QHS PRN for Constipation, ( Reported) Ondansetron (Zofran), 4 MG ORAL Q4HR PRN for Nausea & Vomiting, (Reported) Miscellaneous Medications Nitroglycerin (Nitroglycerin), 0.4 MG SL, (Reported) Patient History History Provided By: Patient, Medical Record, PMD Healthcare decision maker Resuscitation status Advanced Directive on File No Past Medical/Surgical History Past Medical/Surgical History: (1) Arrhythmia (2) Acute on chronic heart failure (3) Limited mobility (4) Chest pain (5) Pulmonary congestion (6) Acute coronary syndrome (7) Cholelithiasis (8) Diabetes mellitus (9) Coronary heart disease (10) Iron deficiency anemia (11) Pacemaker (12) Intractable abdominal pain (13) Chronic pain (14) Drug-seeking behavior (15) Acute thromboembolism of both tibial veins Review of Systems Psychiatric: Reports: anxiety, depressed feelings, emotional problems Physical Exam General Appearance: no apparent distress, alert Neurologic: oriented x 3, responsive, depressed affect Last 24 Hour Vital Signs Date Time Temp Pulse Resp B/P (MAP) Pulse Ox O2 Delivery O2 Flow Rate FiO2 01/19/18 21:00 89 132/70 01/19/18 20:00 98.4 89 18 95/49 97 Room Air 98.4 01/19/18 16:28 98.6 01/19/18 16:05 98.6 80 18 115/56 98 Room Air 98.6 01/19/18 15:58 98.5 01/19/18 13:30 98.5 88 22 139/74 99 Nasal Cannula 3.0 98.5 01/19/18 13:16 77 18 125/72 99 Nasal Cannula 3.0 01/19/18 13:11 78 19 118/68 99 Nasal Cannula 3.0 01/19/18 13:11 208.0 78 20 99 01/19/18 13:06 98.2 80 20 121/62 99 Nasal Cannula 3.0 98.2 01/19/18 12:50 97.5 78 18 136/73 97 Room Air 97.5 01/19/18 11:48 98.1 82 17 100 Room Air 98.1 01/19/18 08:15 97.5 78 18 136/73 Room Air 97.5 01/19/18 04:00 97.5 79 16 132/60 91 97.5 01/19/18 00:00 97.7 77 15 132/66 97 97.7 Intake and Output 01/18/18 01/19/18 19:00 07:00 Intake Total 656 ml 662 ml Output Total 850 ml 700 ml Balance -194 ml -38 ml IV Total 656 ml 662 ml Output Urine Total 850 ml 700 ml # Bowel Movements 1 1 Laboratory Tests Test 01/19/18 05:25 White Blood Count 8.9 K/UL (4.8-10.8) Red Blood Count 3.99 M/UL (4.70-6.10) L Hemoglobin 12.4 G/DL (14.2-18.0) L Hematocrit 35.9 % (42.0-52.0) L Mean Corpuscular Volume 90 FL (80-99) Mean Corpuscular Hemoglobin 31.2 PG (27.0-31.0) H Mean Corpuscular Hemoglobin Concent 34.7 G/DL (32.0-36.0) Red Cell Distribution Width 13.4 % (11.6-14.8) Platelet Count 241 K/UL (150-450) Mean Platelet Volume 6.2 FL (6.5-10.1) L Neutrophils (%) (Auto) 74.2 % (45.0-75.0) Lymphocytes (%) (Auto) 16.3 % (20.0-45.0) L Monocytes (%) (Auto) 7.2 % (1.0-10.0) Eosinophils (%) (Auto) 1.4 % (0.0-3.0) Basophils (%) (Auto) 0.9 % (0.0-2.0) Erythrocyte Sedimentation Rate 99 MM/HR (0-20) H Sodium Level 141 MMOL/L (136-145) Potassium Level 4.0 MMOL/L (3.5-5.1) Chloride Level 107 MMOL/L (98-107) Carbon Dioxide Level 25 MMOL/L (21-32) Anion Gap 9 mmol/L (5-15) Blood Urea Nitrogen 12 mg/dL (7-18) Creatinine 0.8 MG/DL (0.55-1.30) Estimat Glomerular Filtration Rate > 60 mL/min (>60) Glucose Level 111 MG/DL (74-106) H Calcium Level 9.0 MG/DL (8.5-10.1) Phosphorus Level 2.9 MG/DL (2.5-4.9) Magnesium Level 2.6 MG/DL (1.8-2.4) H Total Bilirubin 0.7 MG/DL (0.2-1.0) Aspartate Amino Transf (AST/SGOT) 51 U/L (15-37) H Alanine Aminotransferase (ALT/SGPT) 54 U/L (12-78) Alkaline Phosphatase 99 U/L (46-116) Total Protein 7.6 G/DL (6.4-8.2) Albumin 3.3 G/DL (3.4-5.0) L Globulin 4.3 g/dL Albumin/Globulin Ratio 0.8 (1.0-2.7) L Height (Feet): 5 Height (Inches): 9.00 Weight (Pounds): 200 Medications Current Medications Medications (Trade) Dose Ordered Sig/[place] Route PRN Reason Start Time Stop Time Status Last Admin Dose Admin Acetaminophen (Tylenol) 650 mg Q4H PRN ORAL T>100.5 01/17/18 14:45 02/16/18 14:44 Al Hydroxide/Mg Hydroxide (Mylanta II) 30 ml Q6H PRN ORAL dyspepsia 01/17/18 14:45 02/16/18 14:44 Clopidogrel Bisulfate (Plavix) 75 mg DAILY ORAL 01/18/18 09:00 02/17/18 08:59 01/19/18 09:07 Dextrose (Dextrose 50%) 25 ml STAT PRN IV Hypoglycemia 01/17/18 14:45 02/16/18 14:44 Dextrose (Dextrose 50%) 50 ml STAT PRN IV Hypoglycemia 01/17/18 14:45 02/16/18 14:44 Diphenhydramine HCl (Benadryl) 25 mg Q6H PRN ORAL Itching/Pruritis 01/17/18 14:45 02/16/18 14:44 Heparin Sodium (Porcine) (Heparin 5000 units/ml) 5,000 units EVERY 12 HOURS SUBQ 01/17/18 21:00 02/16/18 20:59 01/19/18 21:19 Insulin Aspart (NovoLOG) BEFORE MEALS AND HS SUBQ 01/17/18 16:30 02/16/18 16:29 01/19/18 21:20 Metoclopramide HCl (Reglan) 5 mg EVERY 6 HOURS NG 01/19/18 18:00 02/18/18 17:59 01/19/18 17:29 Morphine Sulfate (Morphine Sulfate) 2 mg Q4H PRN IVP Severe Pain (Pain Scale 7-10) 01/17/18 14:45 01/24/18 14:44 01/19/18 21:59 Nitroglycerin (Ntg) 0.4 mg Q5MIN X 3 DOSES PRN SL Prn Chest Pain 01/17/18 14:45 02/16/18 14:44 Ondansetron HCl (Zofran) 4 mg Q6H PRN IVP Nausea & Vomiting 01/17/18 14:45 02/16/18 14:44 01/19/18 15:56 Pantoprazole (Protonix) 40 mg EVERY 12 HOURS IVP 01/18/18 09:00 02/17/18 08:59 01/19/18 21:17 Polyethylene Glycol (Miralax) 17 gm HSPRN PRN ORAL Constipation 01/17/18 21:00 02/16/18 20:59 01/19/18 15:56 Promethazine HCl 25 mg/Sodium Chloride 56 ml @ 112 mls/hr Q4H PRN IV Refractory N/V 01/18/18 12:00 02/17/18 11:59 01/19/18 14:01 Sodium Chloride 1,000 ml @ 50 mls/hr Q20H IV 01/17/18 15:30 02/16/18 15:29 01/19/18 03:53 Temazepam (Restoril) 15 mg HSPRN PRN ORAL Insomnia 01/17/18 21:00 01/24/18 20:59 01/18/18 23:37 Tramadol HCl (Ultram) 50 mg Q12H PRN ORAL Moderate Pain (Pain Scale 4-6) 01/17/18 15:00 01/24/18 14:59 Assessment/Plan Assessment/Plan substance use d/o mdd change to long acting meds Aiyana Mott M.D. Jan 19, 2018 23:50
--- NOTE | 2018-01-19 23:50 | General Progress Note ---
Assessment/Plan Status: stable, progressing Assessment/Plan substance use d/o anxiety d/o cont current meds Subjective Date patient seen: Jan 19, 2018 Neurologic/Psychiatric: Reports: anxiety, depressed, emotional problems Allergies: Coded Allergies: LACTOSE (Verified Allergy, Unknown, 08/30/15) LISINOPRIL (Unverified Allergy, Unknown, 01/17/18) METHOTREXATE (Verified Allergy, Unknown, 08/30/15) NSAIDS (NON-STEROIDAL ANTI-INFLAMMA (Unverified Allergy, Unknown, 11/14/15) Objective Last 24 Hour Vital Signs Date Time Temp Pulse Resp B/P (MAP) Pulse Ox O2 Delivery O2 Flow Rate FiO2 01/19/18 21:00 89 132/70 01/19/18 20:00 98.4 89 18 95/49 97 Room Air 98.4 01/19/18 16:28 98.6 01/19/18 16:05 98.6 80 18 115/56 98 Room Air 98.6 01/19/18 15:58 98.5 01/19/18 13:30 98.5 88 22 139/74 99 Nasal Cannula 3.0 98.5 01/19/18 13:16 77 18 125/72 99 Nasal Cannula 3.0 01/19/18 13:11 78 19 118/68 99 Nasal Cannula 3.0 01/19/18 13:11 208.0 78 20 99 01/19/18 13:06 98.2 80 20 121/62 99 Nasal Cannula 3.0 98.2 01/19/18 12:50 97.5 78 18 136/73 97 Room Air 97.5 01/19/18 11:48 98.1 82 17 100 Room Air 98.1 01/19/18 08:15 97.5 78 18 136/73 Room Air 97.5 01/19/18 04:00 97.5 79 16 132/60 91 97.5 01/19/18 00:00 97.7 77 15 132/66 97 97.7 Intake and Output 01/18/18 01/19/18 19:00 07:00 Intake Total 656 ml 662 ml Output Total 850 ml 700 ml Balance -194 ml -38 ml IV Total 656 ml 662 ml Output Urine Total 850 ml 700 ml # Bowel Movements 1 1 Laboratory Tests 01/19/18 05:25: White Blood Count 8.9, Red Blood Count 3.99L, Hemoglobin 12.4L, Hematocrit 35.9L , Mean Corpuscular Volume 90, Mean Corpuscular Hemoglobin 31.2H, Mean Corpuscular Hemoglobin Concent 34.7, Red Cell Distribution Width 13.4, Platelet Count 241, Mean Platelet Volume 6.2L, Neutrophils (%) (Auto) 74.2, Lymphocytes ( %) (Auto) 16.3L, Monocytes (%) (Auto) 7.2, Eosinophils (%) (Auto) 1.4, Basophils (%) (Auto) 0.9, Erythrocyte Sedimentation Rate 99H, Sodium Level 141, Potassium Level 4.0, Chloride Level 107, Carbon Dioxide Level 25, Anion Gap 9, Blood Urea Nitrogen 12, Creatinine 0.8, Estimat Glomerular Filtration Rate > 60 , Glucose Level 111H, Calcium Level 9.0, Phosphorus Level 2.9, Magnesium Level 2.6H, Total Bilirubin 0.7, Aspartate Amino Transf (AST/SGOT) 51H, Alanine Aminotransferase (ALT/SGPT) 54, Alkaline Phosphatase 99, Total Protein 7.6, Albumin 3.3L, Globulin 4.3, Albumin/Globulin Ratio 0.8L Height (Feet): 5 Height (Inches): 9.00 Weight (Pounds): 200 General Appearance: no apparent distress, alert Neurologic: oriented x 3, responsive, depressed affect Aiyana Mott M.D. Jan 19, 2018 23:50
[2018-01-20] VITALS: BP 141/84
[2018-01-20] MEDS: Metoclopramide 10mg/10ml Liq NG SCH (00:14)
--- NOTE | 2018-01-20 00:45 | Progress Note ---
DATE: 01/19/2018 SUBJECTIVE: The patient is awake alert, afebrile, hemodynamically stable, intermittently hypotensive. PHYSICAL EXAMINATION: VITAL SIGNS: Blood pressure 95/49, his pulse is 89, respirations 18, temperature 98.4. HEENT: Eyes were normal. ENT, mucous membranes were moist and intact. NECK: Supple with no JVD without lymph nodes. LUNGS: Clear. HEART: Normal sounds with regular beats. ABDOMEN: Soft and nontender with normal bowel sounds. EXTREMITIES: Warm without cyanosis, clubbing, or edema. The patient underwent today upper gastrointestinal endoscopy. Procedure was uneventful. The patient tolerated the procedure well. LABORATORY AND DIAGNOSTIC DATA: His hemoglobin is 12.4, hematocrit 35.9 with MCV of 90, WBC 8.9, and platelets is 241. His BUN and creatinine is 12 and 0.8 respectively. His sodium is 141, potassium 4.0, chloride 107, CO2 is 25. His SGOT is 51 and SGPT is 54. His albumin is 3.3 and total protein is 7.6. Imaging studies were done yesterday. His abdomen and pelvic ultrasound revealed negative for common bile duct and positive for the presence of gallstone. CT scan of the abdomen and pelvis did not require any followup imaging study, coronary artery disease and pacemaker was visualized and prostatomegaly. IMPRESSION: upper gastrointestinal endoscopy and biopsy. He is in stable condition. Ignacio Worley M.D. DR: Justice JOB#: [id number] CC:
[2018-01-20 04:00] VITALS: BP 128/69
[2018-01-20] MEDS: Morphine Sulfate 4mg/ml Inj IVP PRN ×4 (04:12→23:37)
[2018-01-20 06:17] LABS: BASOPHILS % (AUTO) 0.3 % (0.0-2.0); EOSINOPHILS % (AUTO) 0.6 % (0.0-3.0); HEMATOCRIT 35.7 % (42.0-52.0); HEMOGLOBIN 12.7 G/DL (14.2-18.0); LYMPHOCYTES % (AUTO) 10.3 % (20.0-45.0); MEAN CORPUSCULAR VOLUME 89 FL (80-99); MONOCYTES % (AUTO) 7.5 % (1.0-10.0); NEUTROPHILS % (AUTO) 81.4 % (45.0-75.0); PLATELET COUNT 248 K/UL (150-450); RED BLOOD COUNT 4.03 M/UL (4.70-6.10); RED CELL DISTRIBUTION WIDTH 12.7 % (11.6-14.8); WHITE BLOOD COUNT 14.2 K/UL (4.8-10.8)
[2018-01-20] MEDS: Metoclopramide 10mg/10ml Liq ORAL SCH ×5 (06:27→23:36)
[2018-01-20] MEDS: NovoLOG Insulin Flexpen SUBQ SCH ×4 (06:28→20:44)
[2018-01-20 06:45] LABS: ANION GAP 9 mmol/L (5-15); BLOOD UREA NITROGEN 9 mg/dL (7-18); CALCIUM 8.5 MG/DL (8.5-10.1); CARBON DIOXIDE 25 MMOL/L (21-32); CHLORIDE 103 MMOL/L (98-107); CREATININE 0.7 MG/DL (0.55-1.30); POTASSIUM 3.3 MMOL/L (3.5-5.1); SODIUM 137 MMOL/L (136-145)
--- NOTE | 2018-01-20 07:51 | 48 Hour Post Anesthesia Eval ---
Post Anesthesia Evaluation Procedure: EGD with Bx Date of Evaluation: Jan 20, 2018 Time of Evaluation: 07:50 Blood Pressure Systolic: 128 0: 74 Pulse Rate: 76 Respiratory Rate: 22 Temperature (Fahrenheit): 97.6 O2 Sat by Pulse Oximetry: 98 Airway: patent Nausea: No Vomiting: No Pain Intensity: 3 Hydration Status: adequate Cardiopulmonary Status: stable Mental Status/LOC: patient returned to baseline Follow-up Care/Observations: n/a Post-Anesthesia Complications: none Follow-up care needed: N/A HARLAN ROOT M.D. Jan 20, 2018 07:51
[2018-01-20 08:00] VITALS: BP 95/49
[2018-01-20] MEDS: Pantoprazole Inj IVP SCH ×2 (08:41→20:44)
[2018-01-20] MEDS: Heparin 5000 units/ml inj SUBQ SCH ×2 (08:43→20:45)
[2018-01-20 12:00] VITALS: BP 116/62
[2018-01-20] MEDS ORDERED: Fleet's Enema 133ml RECTAL ONE (13:50)
--- NOTE | 2018-01-20 14:47 | GI Progress Note ---
Assessment/Plan Problems: (1) Iron deficiency anemia ICD Codes: D50.9 - Iron deficiency anemia, unspecified SNOMED: 16601300 (2) Drug-seeking behavior ICD Codes: Z72.89 - Other problems related to lifestyle SNOMED: 128591570 (3) Chronic pain ICD Codes: G89.29 - Other chronic pain SNOMED: 54832963 Status: stable Status Narrative Discussed with Dr. Shannon. Assessment/Plan SUMMARY OF FINDINGS: Gastritis only in one part of the body along the lesser curvature, status post biopsy, otherwise normal upper endoscopic examination. RECOMMENDATIONS: Follow up biopsies and treat accordingly. ppi IV tumor markers reglan DM control fu KUB fu labs The patient was seen and examined at bedside and all new and available data was reviewed in the patients chart. I agree with the above findings, impression and plan. (Patient seen earlier today. Signature stamp does not reflect patient encounter time.). - Richar Shannon MD Subjective Subjective multiple water BM feels like something stuck in his rectum Objective Last 24 Hour Vital Signs Date Time Temp Pulse Resp B/P (MAP) Pulse Ox O2 Delivery O2 Flow Rate FiO2 01/20/18 12:00 99.1 84 20 116/62 Room Air 99.1 01/20/18 08:00 98.4 89 18 95/49 97 Room Air 98.4 01/20/18 07:51 207.7 76 22 98 01/20/18 04:00 97.9 85 18 128/69 97 Room Air 97.9 01/20/18 00:00 98.2 80 18 141/84 99 Room Air 98.2 01/19/18 21:00 89 132/70 01/19/18 20:00 98.4 89 18 95/49 97 Room Air 98.4 01/19/18 16:28 98.6 01/19/18 16:05 98.6 80 18 115/56 98 Room Air 98.6 01/19/18 15:58 98.5 Intake and Output 01/19/18 01/20/18 19:00 07:00 Intake Total 1490 ml 686 ml Output Total 250 ml 400 ml Balance 1240 ml 286 ml Intake Oral 360 ml 120 ml IV Total 500 ml 566 ml Other 630 ml Output Urine Total 200 ml 400 ml Emesis 50 ml Estimated Blood Loss 0 ml # Voids 6 # Bowel Movements 4 6 Laboratory Tests Test 4/17/18 05:15 White Blood Count 14.2 K/UL (4.8-10.8) #H Red Blood Count 4.03 M/UL (4.70-6.10) L Hemoglobin 12.7 G/DL (14.2-18.0) L Hematocrit 35.7 % (42.0-52.0) L Mean Corpuscular Volume 89 FL (80-99) Mean Corpuscular Hemoglobin 31.6 PG (27.0-31.0) H Mean Corpuscular Hemoglobin Concent 35.7 G/DL (32.0-36.0) Red Cell Distribution Width 12.7 % (11.6-14.8) Platelet Count 248 K/UL (150-450) Mean Platelet Volume 6.0 FL (6.5-10.1) L Neutrophils (%) (Auto) 81.4 % (45.0-75.0) H Lymphocytes (%) (Auto) 10.3 % (20.0-45.0) L Monocytes (%) (Auto) 7.5 % (1.0-10.0) Eosinophils (%) (Auto) 0.6 % (0.0-3.0) Basophils (%) (Auto) 0.3 % (0.0-2.0) Sodium Level 137 MMOL/L (136-145) Potassium Level 3.3 MMOL/L (3.5-5.1) L Chloride Level 103 MMOL/L (98-107) Carbon Dioxide Level 25 MMOL/L (21-32) Anion Gap 9 mmol/L (5-15) Blood Urea Nitrogen 9 mg/dL (7-18) Creatinine 0.7 MG/DL (0.55-1.30) Estimat Glomerular Filtration Rate > 60 mL/min (>60) Glucose Level 117 MG/DL (74-106) H Calcium Level 8.5 MG/DL (8.5-10.1) Height (Feet): 5 Height (Inches): 9.00 Weight (Pounds): 200 General Appearance: WD/WN, no apparent distress, alert Cardiovascular: normal rate Respiratory/Chest: normal breath sounds, no respiratory distress Abdominal Exam: normal bowel sounds, non tender, soft Extremities: non-tender Katina Amanda N.PSherri Jan 20, 2018 14:47 ARMINDA SHANNON Jan 23, 2018 11:52
[2018-01-20 16:00] VITALS: BP 133/78
--- NOTE | 2018-01-20 16:17 | Pulmonology Progress Note ---
Assessment/Plan Problems: (1) Acute gastritis (2) Intractable abdominal pain (3) Pacemaker (4) Diabetes mellitus (5) S/P CABG (coronary artery bypass graft) Assessment/Plan less nauseous symptomatic treatment f/u GI recommendations check labs egd done, showing gastritis. Subjective ROS Limited/Unobtainable: No Constitutional: Reports: no symptoms HEENT: Repors: no symptoms Respiratory: Reports: no symptoms Allergies: Coded Allergies: LACTOSE (Verified Allergy, Unknown, 08/30/15) LISINOPRIL (Unverified Allergy, Unknown, 01/17/18) METHOTREXATE (Verified Allergy, Unknown, 08/30/15) NSAIDS (NON-STEROIDAL ANTI-INFLAMMA (Unverified Allergy, Unknown, 11/14/15) Objective Last 24 Hour Vital Signs Date Time Temp Pulse Resp B/P (MAP) Pulse Ox O2 Delivery O2 Flow Rate FiO2 01/20/18 12:00 99.1 84 20 116/62 Room Air 99.1 01/20/18 08:00 98.4 89 18 95/49 97 Room Air 98.4 01/20/18 07:51 207.7 76 22 98 01/20/18 04:00 97.9 85 18 128/69 97 Room Air 97.9 01/20/18 00:00 98.2 80 18 141/84 99 Room Air 98.2 01/19/18 21:00 89 132/70 01/19/18 20:00 98.4 89 18 95/49 97 Room Air 98.4 01/19/18 16:28 98.6 Intake and Output 01/19/18 01/20/18 19:00 07:00 Intake Total 1490 ml 686 ml Output Total 250 ml 400 ml Balance 1240 ml 286 ml Intake Oral 360 ml 120 ml IV Total 500 ml 566 ml Other 630 ml Output Urine Total 200 ml 400 ml Emesis 50 ml Estimated Blood Loss 0 ml # Voids 6 # Bowel Movements 4 6 Objective General Appearance: cachetic HEENT: normocephalic, atraumatic Respiratory/Chest: chest wall non-tender, lungs clear Cardiovascular: normal rate, regular rhythm Abdomen: normal bowel sounds, soft, non tender, non distended Genitourinary: normal external genitalia Extremities: no Laboratory Tests 01/20/18 05:15: White Blood Count 14.2#H, Red Blood Count 4.03L, Hemoglobin 12.7L, Hematocrit 35.7L, Mean Corpuscular Volume 89, Mean Corpuscular Hemoglobin 31.6H, Mean Corpuscular Hemoglobin Concent 35.7, Red Cell Distribution Width 12.7, Platelet Count 248, Mean Platelet Volume 6.0L, Neutrophils (%) (Auto) 81.4H, Lymphocytes (%) (Auto) 10.3L, Monocytes (%) (Auto) 7.5, Eosinophils (%) (Auto) 0.6, Basophils (%) (Auto) 0.3, Sodium Level 137, Potassium Level 3.3L, Chloride Level 103, Carbon Dioxide Level 25, Anion Gap 9, Blood Urea Nitrogen 9, Creatinine 0.7, Estimat Glomerular Filtration Rate > 60, Glucose Level 117H, Calcium Level 8.5 Current Medications Medications (Trade) Dose Ordered Sig/[place] Route PRN Reason Start Time Stop Time Status Last Admin Dose Admin Acetaminophen (Tylenol) 650 mg Q4H PRN ORAL T>100.5 01/17/18 14:45 02/16/18 14:44 Al Hydroxide/Mg Hydroxide (Mylanta II) 30 ml Q6H PRN ORAL dyspepsia 01/17/18 14:45 02/16/18 14:44 Clopidogrel Bisulfate (Plavix) 75 mg DAILY ORAL 01/18/18 09:00 02/17/18 08:59 01/20/18 08:42 Dextrose (Dextrose 50%) 25 ml STAT PRN IV Hypoglycemia 01/17/18 14:45 02/16/18 14:44 Dextrose (Dextrose 50%) 50 ml STAT PRN IV Hypoglycemia 01/17/18 14:45 02/16/18 14:44 Diphenhydramine HCl (Benadryl) 25 mg Q6H PRN ORAL Itching/Pruritis 01/17/18 14:45 02/16/18 14:44 Heparin Sodium (Porcine) (Heparin 5000 units/ml) 5,000 units EVERY 12 HOURS SUBQ 01/17/18 21:00 02/16/18 20:59 01/20/18 08:43 Insulin Aspart (NovoLOG) BEFORE MEALS AND HS SUBQ 01/17/18 16:30 02/16/18 16:29 01/20/18 11:59 Metoclopramide HCl (Reglan) 5 mg EVERY 6 HOURS ORAL 01/20/18 06:00 02/18/18 17:59 01/20/18 11:56 Morphine Sulfate (Morphine Sulfate) 2 mg Q4H PRN IVP Severe Pain (Pain Scale 7-10) 01/17/18 14:45 01/24/18 14:44 01/20/18 08:42 Nitroglycerin (Ntg) 0.4 mg Q5MIN X 3 DOSES PRN SL Prn Chest Pain 01/17/18 14:45 02/16/18 14:44 Ondansetron HCl (Zofran) 4 mg Q6H PRN IVP Nausea & Vomiting 01/17/18 14:45 02/16/18 14:44 01/19/18 15:56 Pantoprazole (Protonix) 40 mg EVERY 12 HOURS IVP 01/18/18 09:00 02/17/18 08:59 01/20/18 08:41 Polyethylene Glycol (Miralax) 17 gm HSPRN PRN ORAL Constipation 01/17/18 21:00 02/16/18 20:59 01/19/18 15:56 Promethazine HCl 25 mg/Sodium Chloride 56 ml @ 112 mls/hr Q4H PRN IV Refractory N/V 01/18/18 12:00 02/17/18 11:59 01/19/18 14:01 Sodium Chloride 1,000 ml @ 50 mls/hr Q20H IV 01/17/18 15:30 02/16/18 15:29 01/20/18 01:22 Temazepam (Restoril) 15 mg HSPRN PRN ORAL Insomnia 01/17/18 21:00 01/24/18 20:59 01/20/18 01:22 Tramadol HCl (Ultram) 50 mg Q12H PRN ORAL Moderate Pain (Pain Scale 4-6) 01/17/18 15:00 01/24/18 14:59 Pretty Sweet MD Jan 20, 2018 16:17
[2018-01-20 19:44] VITALS: BP 107/60
[2018-01-20] MEDS ORDERED: Promethazine HCl 25 MG in NS 55 ML IV PRN (20:30)
[2018-01-21 00:33] VITALS: BP 100/58
--- NOTE | 2018-01-21 00:45 | Progress Note ---
DATE: 01/20/2018 SUBJECTIVE: The patient is somnolent, but arousable, afebrile and hemodynamically stable. PHYSICAL EXAMINATION: VITAL SIGNS: Blood pressure is 107/68, pulse is 77, respirations of 20, and temperature 97.3 degrees. HEENT: Eyes were normal. ENT, mucous membranes were moist and intact. NECK: Supple with no JVD without lymph nodes. LUNGS: Clear. HEART: Normal sounds with regular beat. ABDOMEN: Soft and nontender with normal bowel sounds. EXTREMITIES: Warm without cyanosis, clubbing, or edema. LABORATORY AND DIAGNOSTIC DATA: Hemoglobin is 12.7, hematocrit 35.7, MCV of 89, WBC of 14.2 and platelets of 248. BUN and creatinine is 9 and 0.7 respectively. Sodium is 137, potassium 3.6, chloride 103, and CO2 is 25. IMPRESSION: The patient is progressively improving in regard to his chest pain and abdominal pain, his diarrhea is resolving, and he has noted tachycardia. Repeat laboratory tests will be done in the morning. . X-ray negative. Ignacio Worley M.D. DR: SUE JOB#: [id number] CC:
[2018-01-21 04:35] VITALS: BP 115/63
[2018-01-21] MEDS: NovoLOG Insulin Flexpen SUBQ SCH ×2 (06:08→11:46)
[2018-01-21] MEDS: Metoclopramide 10mg/10ml Liq ORAL SCH ×2 (06:16→11:51)
[2018-01-21 06:55] LABS: ANION GAP 7 mmol/L (5-15); BLOOD UREA NITROGEN 7 mg/dL (7-18); CALCIUM 8.1 MG/DL (8.5-10.1); CARBON DIOXIDE 27 MMOL/L (21-32); CHLORIDE 105 MMOL/L (98-107); CREATININE 0.8 MG/DL (0.55-1.30); POTASSIUM 3.4 MMOL/L (3.5-5.1); SODIUM 139 MMOL/L (136-145)
[2018-01-21 07:10] LABS: BASOPHILS % (AUTO) 0.6 % (0.0-2.0); EOSINOPHILS % (AUTO) 2.6 % (0.0-3.0); HEMATOCRIT 33.3 % (42.0-52.0); HEMOGLOBIN 11.7 G/DL (14.2-18.0); MEAN CORPUSCULAR VOLUME 89 FL (80-99); MONOCYTES % (AUTO) 7.9 % (1.0-10.0); NEUTROPHILS % (AUTO) 69.9 % (45.0-75.0); PLATELET COUNT 206 K/UL (150-450); RED BLOOD COUNT 3.75 M/UL (4.70-6.10); WHITE BLOOD COUNT 10.3 K/UL (4.8-10.8)
[2018-01-21 08:00] VITALS: BP 105/50
[2018-01-21] MEDS: Morphine Sulfate 4mg/ml Inj IVP PRN (08:09)
[2018-01-21] MEDS: Pantoprazole Inj IVP SCH (09:05)
--- NOTE | 2018-01-21 09:17 | Diagnostic Imaging Report ---
Indication: Abdominal pain Technique: Supine view of the abdomen Comparison: [employer] image from abdomen CT dated 01/17/2018 Findings: Bowel gas pattern is unremarkable. Bowel gas is overall decreased on the previous study There is an inferior vena cava filter noted. Compression fracture deformities of T12 and L5 are also demonstrated on recent CT scan Impression: No acute process. Findings as noted
[2018-01-21] MEDS: Heparin 5000 units/ml inj SUBQ SCH (10:04)
--- NOTE | 2018-01-21 10:44 | GI Progress Note ---
Assessment/Plan Problems: (1) Iron deficiency anemia ICD Codes: D50.9 - Iron deficiency anemia, unspecified SNOMED: 83964976 (2) Drug-seeking behavior ICD Codes: Z72.89 - Other problems related to lifestyle SNOMED: 208340827 (3) Chronic pain ICD Codes: G89.29 - Other chronic pain SNOMED: 77870204 Status: stable Status Narrative Discussed with Dr. Shannon. Assessment/Plan SUMMARY OF FINDINGS: Gastritis only in one part of the body along the lesser curvature, status post biopsy, otherwise normal upper endoscopic examination. KUB negative >> most likely had fecal impaction as noted by multiple amounts of watery diarrhea and large formed BM yesterday RECOMMENDATIONS: Follow up biopsies and treat accordingly. ppi PO tumor markers reglan DM control fu labs dc planning Subjective Subjective had formed BM yesterday feels better Objective Last 24 Hour Vital Signs Date Time Temp Pulse Resp B/P (MAP) Pulse Ox O2 Delivery O2 Flow Rate FiO2 01/21/18 08:00 98.2 82 14 105/50 94 98.2 01/21/18 04:35 98.4 72 20 115/63 96 Room Air 98.4 01/21/18 00:33 98.2 83 20 100/58 93 Room Air 98.2 01/20/18 19:44 97.3 77 20 107/60 96 Room Air 97.3 01/20/18 16:00 97.7 86 18 133/78 100 Room Air 97.7 01/20/18 12:00 99.1 84 20 116/62 Room Air 99.1 Intake and Output 01/20/18 01/21/18 19:00 07:00 Intake Total 650 ml 400 ml Output Total 705 ml 750 ml Balance -55 ml -350 ml IV Total 650 ml 400 ml Output Urine Total 705 ml 750 ml # Voids 3 2 # Bowel Movements 11 1 Laboratory Tests Test 01/21/18 05:30 White Blood Count 10.3 K/UL (4.8-10.8) Red Blood Count 3.75 M/UL (4.70-6.10) L Hemoglobin 11.7 G/DL (14.2-18.0) L Hematocrit 33.3 % (42.0-52.0) L Mean Corpuscular Volume 89 FL (80-99) Mean Corpuscular Hemoglobin 31.1 PG (27.0-31.0) H Mean Corpuscular Hemoglobin Concent 35.1 G/DL (32.0-36.0) Red Cell Distribution Width 13.0 % (11.6-14.8) Platelet Count 206 K/UL (150-450) Mean Platelet Volume 6.0 FL (6.5-10.1) L Neutrophils (%) (Auto) 69.9 % (45.0-75.0) Lymphocytes (%) (Auto) 19.0 % (20.0-45.0) L Monocytes (%) (Auto) 7.9 % (1.0-10.0) Eosinophils (%) (Auto) 2.6 % (0.0-3.0) Basophils (%) (Auto) 0.6 % (0.0-2.0) Sodium Level 139 MMOL/L (136-145) Potassium Level 3.4 MMOL/L (3.5-5.1) L Chloride Level 105 MMOL/L (98-107) Carbon Dioxide Level 27 MMOL/L (21-32) Anion Gap 7 mmol/L (5-15) Blood Urea Nitrogen 7 mg/dL (7-18) Creatinine 0.8 MG/DL (0.55-1.30) Estimat Glomerular Filtration Rate > 60 mL/min (>60) Glucose Level 110 MG/DL (74-106) H Calcium Level 8.1 MG/DL (8.5-10.1) L Microbiology Date/Time Source Procedure Growth Status 01/20/18 14:20 Stool Clostridium difficile Toxin Assay - Final Complete Height (Feet): 5 Height (Inches): 9.00 Weight (Pounds): 200 General Appearance: WD/WN, no apparent distress, alert Cardiovascular: normal rate Respiratory/Chest: normal breath sounds, no respiratory distress Abdominal Exam: normal bowel sounds, non tender, soft Extremities: normal range of motion, non-tender Katina Amanda N.P. Jan 21, 2018 10:44
[2018-01-21 12:00] VITALS: BP 140/68
--- NOTE | 2018-01-21 19:56 | Pulmonology Progress Note ---
Assessment/Plan Problems: (1) Acute gastritis (2) Intractable abdominal pain (3) Pacemaker (4) Diabetes mellitus (5) S/P CABG (coronary artery bypass graft) Assessment/Plan eating better symptomatic treatment f/u GI recommendations check labs egd done, showing gastritis. dc to longterm was seen earlier prior to departure Subjective ROS Limited/Unobtainable: No Constitutional: Reports: no symptoms HEENT: Repors: no symptoms Respiratory: Reports: no symptoms Allergies: Coded Allergies: LACTOSE (Verified Allergy, Unknown, 08/30/15) LISINOPRIL (Unverified Allergy, Unknown, 01/17/18) METHOTREXATE (Verified Allergy, Unknown, 08/30/15) NSAIDS (NON-STEROIDAL ANTI-INFLAMMA (Unverified Allergy, Unknown, 11/14/15) Objective Last 24 Hour Vital Signs Date Time Temp Pulse Resp B/P (MAP) Pulse Ox O2 Delivery O2 Flow Rate FiO2 01/21/18 12:00 97.2 79 21 140/68 95 97.2 01/21/18 08:00 98.2 82 14 105/50 94 98.2 01/21/18 04:35 98.4 72 20 115/63 96 Room Air 98.4 01/21/18 00:33 98.2 83 20 100/58 93 Room Air 98.2 Intake and Output 01/20/18 01/21/18 19:00 07:00 Intake Total 650 ml 400 ml Output Total 705 ml 750 ml Balance -55 ml -350 ml IV Total 650 ml 400 ml Output Urine Total 705 ml 750 ml # Voids 3 2 # Bowel Movements 11 1 Objective General Appearance: cachetic HEENT: normocephalic, atraumatic Respiratory/Chest: chest wall non-tender, lungs clear Cardiovascular: normal rate, regular rhythm Abdomen: normal bowel sounds, soft, non tender, non distended Genitourinary: normal external genitalia Extremities: no Microbiology Date/Time Source Procedure Growth Status 01/20/18 14:20 Stool Clostridium difficile Toxin Assay - Final Complete Laboratory Tests 01/21/18 05:30: White Blood Count 10.3, Red Blood Count 3.75L, Hemoglobin 11.7L, Hematocrit 33.3L, Mean Corpuscular Volume 89, Mean Corpuscular Hemoglobin 31.1H, Mean Corpuscular Hemoglobin Concent 35.1, Red Cell Distribution Width 13.0, Platelet Count 206, Mean Platelet Volume 6.0L, Neutrophils (%) (Auto) 69.9, Lymphocytes ( %) (Auto) 19.0L, Monocytes (%) (Auto) 7.9, Eosinophils (%) (Auto) 2.6, Basophils (%) (Auto) 0.6, Sodium Level 139, Potassium Level 3.4L, Chloride Level 105, Carbon Dioxide Level 27, Anion Gap 7, Blood Urea Nitrogen 7, Creatinine 0.8, Estimat Glomerular Filtration Rate > 60, Glucose Level 110H, Calcium Level 8.1L Pretty Sweet MD Jan 21, 2018 19:56
--- NOTE | 2018-01-21 23:43 | General Progress Note ---
Assessment/Plan Problem List: (1) Cholelithiasis ICD Codes: K80.20 - Calculus of gallbladder without cholecystitis without obstruction SNOMED: 906809257 (2) Diabetes mellitus ICD Codes: E11.9 - Type 2 diabetes mellitus without complications SNOMED: 37006156 (3) Coronary heart disease ICD Codes: I25.10 - Atherosclerotic heart disease of [place] coronary artery without angina pectoris SNOMED: 31350572 (4) Iron deficiency anemia ICD Codes: D50.9 - Iron deficiency anemia, unspecified SNOMED: 55358588 (5) Pacemaker ICD Codes: Z95.0 - Presence of cardiac pacemaker SNOMED: 238850688, 517788118 (6) Intractable abdominal pain ICD Codes: R10.9 - Unspecified abdominal pain SNOMED: 80311885, 457491433 (7) Chronic pain ICD Codes: G89.29 - Other chronic pain SNOMED: 18311839 (8) Drug-seeking behavior ICD Codes: Z72.89 - Other problems related to lifestyle SNOMED: 065445085 (9) Pulmonary congestion Assessment & Plan: mdd education ICD Codes: R09.89 - Other specified symptoms and signs involving the circulatory and respiratory systems SNOMED: 40562532 (10) Arrhythmia ICD Codes: I49.9 - Cardiac arrhythmia, unspecified SNOMED: 36382753 (11) Chest pain ICD Codes: R07.9 - Chest pain, unspecified SNOMED: 96298732 (12) Acute coronary syndrome ICD Codes: I24.9 - Acute ischemic heart disease, unspecified SNOMED: 037967407 (13) Acute on chronic heart failure ICD Codes: I50.9 - Heart failure, unspecified SNOMED: 239802618 (14) Acute thromboembolism of both tibial veins ICD Codes: I82.443 - Acute embolism and thrombosis of tibial vein, bilateral SNOMED: 662817881, 606302393 (15) Limited mobility ICD Codes: Z74.09 - Other reduced mobility SNOMED: 7013633 Assessment/Plan substance use d/o anxiety d/o cont current meds Subjective Date patient seen: Jan 20, 2018 Neurologic/Psychiatric: Reports: anxiety, depressed, emotional problems Allergies: Coded Allergies: LACTOSE (Verified Allergy, Unknown, 08/30/15) LISINOPRIL (Unverified Allergy, Unknown, 01/17/18) METHOTREXATE (Verified Allergy, Unknown, 08/30/15) NSAIDS (NON-STEROIDAL ANTI-INFLAMMA (Unverified Allergy, Unknown, 11/14/15) Objective Last 24 Hour Vital Signs Date Time Temp Pulse Resp B/P (MAP) Pulse Ox O2 Delivery O2 Flow Rate FiO2 01/21/18 12:00 97.2 79 21 140/68 95 97.2 01/21/18 08:00 98.2 82 14 105/50 94 98.2 01/21/18 04:35 98.4 72 20 115/63 96 Room Air 98.4 01/21/18 00:33 98.2 83 20 100/58 93 Room Air 98.2 Intake and Output 01/20/18 01/21/18 19:00 07:00 Intake Total 650 ml 400 ml Output Total 705 ml 750 ml Balance -55 ml -350 ml IV Total 650 ml 400 ml Output Urine Total 705 ml 750 ml # Voids 3 2 # Bowel Movements 11 1 Laboratory Tests 01/21/18 05:30: White Blood Count 10.3, Red Blood Count 3.75L, Hemoglobin 11.7L, Hematocrit 33.3L, Mean Corpuscular Volume 89, Mean Corpuscular Hemoglobin 31.1H, Mean Corpuscular Hemoglobin Concent 35.1, Red Cell Distribution Width 13.0, Platelet Count 206, Mean Platelet Volume 6.0L, Neutrophils (%) (Auto) 69.9, Lymphocytes ( %) (Auto) 19.0L, Monocytes (%) (Auto) 7.9, Eosinophils (%) (Auto) 2.6, Basophils (%) (Auto) 0.6, Sodium Level 139, Potassium Level 3.4L, Chloride Level 105, Carbon Dioxide Level 27, Anion Gap 7, Blood Urea Nitrogen 7, Creatinine 0.8, Estimat Glomerular Filtration Rate > 60, Glucose Level 110H, Calcium Level 8.1L Height (Feet): 5 Height (Inches): 9.00 Weight (Pounds): 200 Aiyana Mott M.D. Jan 21, 2018 23:43
--- NOTE | 2018-01-21 23:43 | General Progress Note ---
Assessment/Plan Problem List: (1) Cholelithiasis ICD Codes: K80.20 - Calculus of gallbladder without cholecystitis without obstruction SNOMED: 563412790 (2) Diabetes mellitus ICD Codes: E11.9 - Type 2 diabetes mellitus without complications SNOMED: 58319646 (3) Coronary heart disease ICD Codes: I25.10 - Atherosclerotic heart disease of [place] coronary artery without angina pectoris SNOMED: 68547399 (4) Iron deficiency anemia ICD Codes: D50.9 - Iron deficiency anemia, unspecified SNOMED: 86098104 (5) Pacemaker ICD Codes: Z95.0 - Presence of cardiac pacemaker SNOMED: 411509985, 175464060 (6) Intractable abdominal pain ICD Codes: R10.9 - Unspecified abdominal pain SNOMED: 98128706, 968841005 (7) Chronic pain ICD Codes: G89.29 - Other chronic pain SNOMED: 64151117 (8) Drug-seeking behavior ICD Codes: Z72.89 - Other problems related to lifestyle SNOMED: 033675356 (9) Pulmonary congestion Assessment & Plan: mdd education ICD Codes: R09.89 - Other specified symptoms and signs involving the circulatory and respiratory systems SNOMED: 20858076 (10) Arrhythmia ICD Codes: I49.9 - Cardiac arrhythmia, unspecified SNOMED: 82239055 (11) Chest pain ICD Codes: R07.9 - Chest pain, unspecified SNOMED: 23473258 (12) Acute coronary syndrome ICD Codes: I24.9 - Acute ischemic heart disease, unspecified SNOMED: 976842829 (13) Acute on chronic heart failure ICD Codes: I50.9 - Heart failure, unspecified SNOMED: 926952056 (14) Acute thromboembolism of both tibial veins ICD Codes: I82.443 - Acute embolism and thrombosis of tibial vein, bilateral SNOMED: 875767529, 759509558 (15) Limited mobility ICD Codes: Z74.09 - Other reduced mobility SNOMED: 1309569 Status: stable, progressing Assessment/Plan substance use d/o anxiety d/o cont current meds Subjective Date patient seen: Jan 21, 2018 Neurologic/Psychiatric: Reports: anxiety, depressed, emotional problems Allergies: Coded Allergies: LACTOSE (Verified Allergy, Unknown, 08/30/15) LISINOPRIL (Unverified Allergy, Unknown, 01/17/18) METHOTREXATE (Verified Allergy, Unknown, 08/30/15) NSAIDS (NON-STEROIDAL ANTI-INFLAMMA (Unverified Allergy, Unknown, 11/14/15) Objective Last 24 Hour Vital Signs Date Time Temp Pulse Resp B/P (MAP) Pulse Ox O2 Delivery O2 Flow Rate FiO2 01/21/18 12:00 97.2 79 21 140/68 95 97.2 01/21/18 08:00 98.2 82 14 105/50 94 98.2 01/21/18 04:35 98.4 72 20 115/63 96 Room Air 98.4 01/21/18 00:33 98.2 83 20 100/58 93 Room Air 98.2 Intake and Output 01/20/18 01/21/18 19:00 07:00 Intake Total 650 ml 400 ml Output Total 705 ml 750 ml Balance -55 ml -350 ml IV Total 650 ml 400 ml Output Urine Total 705 ml 750 ml # Voids 3 2 # Bowel Movements 11 1 Laboratory Tests 01/21/18 05:30: White Blood Count 10.3, Red Blood Count 3.75L, Hemoglobin 11.7L, Hematocrit 33.3L, Mean Corpuscular Volume 89, Mean Corpuscular Hemoglobin 31.1H, Mean Corpuscular Hemoglobin Concent 35.1, Red Cell Distribution Width 13.0, Platelet Count 206, Mean Platelet Volume 6.0L, Neutrophils (%) (Auto) 69.9, Lymphocytes ( %) (Auto) 19.0L, Monocytes (%) (Auto) 7.9, Eosinophils (%) (Auto) 2.6, Basophils (%) (Auto) 0.6, Sodium Level 139, Potassium Level 3.4L, Chloride Level 105, Carbon Dioxide Level 27, Anion Gap 7, Blood Urea Nitrogen 7, Creatinine 0.8, Estimat Glomerular Filtration Rate > 60, Glucose Level 110H, Calcium Level 8.1L Height (Feet): 5 Height (Inches): 9.00 Weight (Pounds): 200 Aiyana Mott M.D. Jan 21, 2018 23:43
--- NOTE | 2018-01-22 14:26 | Discharge Summary ---
Discharge Summary Hospital Course Date of Admission Jan 17, 2018 at 13:20 Date of Discharge Jan 21, 2018 at 15:02 Admitting Diagnosis Gastritis/intractable vomiting RUSTY Davenport is a 68 year old male who was admitted on Jan 17, 2018 at 13:20 for Gastritis,Intractable Vomiting Hospital Course [id number] Discharge Discharge Disposition Patient was discharged to SNF/Subacute Facility(03) Bibiana Pressley NP Jan 22, 2018 14:25
--- NOTE | 2018-01-23 00:08 | Diagnostic Imaging Report ---
APPROVED REPORT CPT Code: 42095 Present Symptoms Lower Extremity Pain: Bilateral RIGHT LEG: Venous imaging reveals acute thrombus in one of the paired posterior tibial vein. Imaging also reveals patency of the common femoral, popliteal and calf veins (anterior tibial and peroneal tibial). Greater saphenous vein also within normal limits. LEFT LEG: Venous imaging reveals acute thrombus in one of the paired posterior tibial vein. Imaging also reveals patency of the common femoral, popliteal and calf veins (anterior tibial and peroneal tibial). Greater saphenous vein also within normal limits. FRANCO Alberto notified of abnormal results at 16:44 hours.
--- NOTE | 2018-01-23 03:30 | Discharge Summary 2 SIG ---
DATE OF ADMISSION: 01/17/2018 DATE OF DISCHARGE: 01/21/2018 CONSULTANTS: 1. Aiyana Mott M.D. 2. Med Shannon M.D. 3. Ignacio Worley M.D. BRIEF HOSPITAL COURSE: The patient is a 68-year-old male, who is a resident of an extended care facility where he has been in stable condition over the last several weeks. Over the past 6 months, he was admitted to multiple hospitals including [facility] and [facility] for different reasons. His [facility] admission was secondary to change in his pacemaker from a unipolar to a bipolar pacemaker. He is known to have multiple chronic medical syndrome, but has been stable on current medications until 1 day prior to admission when he developed umbilical abdominal pain and nausea. He has medical history of high blood pressure, hyperlipidemia, diabetes mellitus, narcotic dependency, and had a pacemaker, which was switched to bipolar leads 2 months ago. On evaluation at ED, blood work showed leukocytosis. WBC was 13. He had intractable vomiting in the emergency department. He continued to have nausea and vomiting. He was given Pepcid and Zofran. He was started on IV fluids. CT of the abdomen and pelvis showed no surgical findings. There was mild thickening of the stomach possibly reflective of gastritis. Troponin was negative. Urinalysis was negative. He was then admitted for evaluation of acute gastritis with nausea and vomiting. He was followed by GI and underwent esophagogastroduodenoscopy on 01/19/2018. Findings showed gastritis in one part of the body of the stomach along the lesser curvature. The patient was with anxiety and irritable mood and endorsed med seeking behavior. He had no significant insight into his medical condition. He was diagnosed to have substance use disorder. He was given morphine p.r.n. pain. He was placed on proton pump inhibitors and Reglan. KUB done was negative. Most likely had fecal impaction. He was given bowel regimen with Fleet enema. He had a big bowel movement. C. difficile was negative. He was eventually discharged back to half-way. FINAL DIAGNOSES: 1. Acute gastritis. 2. Pacemaker. 3. Diabetes mellitus. 4. Status post coronary artery bypass graft. 5. Major depressive disorder. 6. Substance use disorder. 7. Anxiety disorder. 8. Drug-seeking behavior. 9. Iron deficiency anemia. 10. Fecal impaction. 11. Hypokalemia. DISPOSITION: The patient was discharged to [facility]. DISCHARGE MEDICATIONS: Refer to medication list. Pretty Sweet M.D. I have been assigned to dictate discharge summary on this account and I was not involved in the patient's management. Bibiana Pressley N.P. DR: ENMANUEL JOB#: [id number] CC: SABINO
== END 2018-01-21 15:02 | DRG 241 ==
LOC: EDBD 10:07 → EMR 10:48 → 4W 13:20 → EDBEDREQ 14:19 → 4W 01-20 09:58
PROC: 0DB68ZX Excision of Stomach, Via Natural or Artificial Opening Endoscopic, Diagnostic (ICD-10-PCS; principal; 2018-01-19 12:55)
DX: K29.00 Acute gastritis without bleeding (principal); I82.443 Acute embolism and thrombosis of tibial vein, bilateral; E11.9 Type 2 diabetes mellitus without complications; D50.9 Iron deficiency anemia, unspecified; F32.9 Major depressive disorder, single episode, unspecified; E87.6 Hypokalemia; F41.8 Other specified anxiety disorders; G89.29 Other chronic pain; I25.10 Atherosclerotic heart disease of native coronary artery without angina pectoris; K80.20 Calculus of gallbladder without cholecystitis without obstruction; M06.9 Rheumatoid arthritis, unspecified; R11.2 Nausea with vomiting, unspecified; Z95.1 Presence of aortocoronary bypass graft; Z95.0 Presence of cardiac pacemaker; R10.9 Unspecified abdominal pain; Z88.6 Allergy status to analgesic agent; Z88.8 Allergy status to other drugs, medicaments and biological substances; Z87.891 Personal history of nicotine dependence; Z76.5 Malingerer [conscious simulation]; I49.9 Cardiac arrhythmia, unspecified; K56.41 Fecal impaction
CPT/HCPCS: 36415; 74018; 74177; 76700; 80048; 80053; 81003; 82150; 82962; 83036; 83690; 83735; 84100; 84443; 84484; 85025; 85610; 85651; 85730; 87081; 87324; 93970; 94003; 94150; 99285; J1815; J2405

== ENCOUNTER 2018-01-23 16:13 | Emergency (ER) | payer MEDICAID ==
[~2018-01-23] VITALS: Ht 177.8 cm; Wt 79.4 kg
[2018-01-23 16:27] VITALS: BP 141/71
[2018-01-23 17:28] LABS: APPEARANCE,URINE CLEAR; BILIRUBIN, URINE NEGATIVE (NEGATIVE); COLOR,URINE PALE YELLOW; GLUCOSE, URINE (UA) NEGATIVE (NEGATIVE); KETONES,URINE NEGATIVE (NEGATIVE); LEUKOCYTE ESTERASE ,URINE 3+ (NEGATIVE); NITRITE,URINE NEGATIVE (NEGATIVE); PH,URINE 8 (4.5-8.0); PROTEIN,URINE 2+ (NEGATIVE); UROBILINOGEN,URINE NORMAL MG/DL (0.0-1.0)
[2018-01-23 17:33] LABS: ANION GAP 11 mmol/L (5-15); BLOOD UREA NITROGEN 5 mg/dL (7-18); CALCIUM 9.1 MG/DL (8.5-10.1); CARBON DIOXIDE 27 MMOL/L (21-32); CHLORIDE 104 MMOL/L (98-107); CREATININE 0.7 MG/DL (0.55-1.30); POTASSIUM 3.7 MMOL/L (3.5-5.1); SODIUM 142 MMOL/L (136-145)
[2018-01-23 17:37] LABS: ALANINE AMINOTRANSFERASE 30 U/L (12-78); ALBUMIN 3.3 G/DL (3.4-5.0); ALBUMIN/GLOBULIN RATIO 0.7 (1.0-2.7); ALKALINE PHOSPHATASE 82 U/L (46-116); ASPARTATE AMINO TRANSFERASE 37 U/L (15-37); BILIRUBIN,TOTAL 0.7 MG/DL (0.2-1.0)
--- NOTE | 2018-01-23 17:37 | Emergency Room Report ---
History of Present Illness General Chief Complaint: Nausea, Vomiting, and Diarrhea Source: Patient Present Illness HPI 68-year-old male presents ED for evaluation. Patient brought in by EMS from senior care. Patient c/o abdominal pain with vomiting and diarrhea. Pain is sharp, 8 out of 10, nonradiating. Denies chest pain or shortness of breath. Denies fevers or chills. Per nursing staff patient was recently admitted here and discharged 2 days ago for similar complaint. No other aggravating relieving factors. Denies any other associated symptoms Allergies: Coded Allergies: LACTOSE (Verified Allergy, Unknown, 08/30/15) LISINOPRIL (Unverified Allergy, Unknown, 01/17/18) METHOTREXATE (Verified Allergy, Unknown, 08/30/15) NSAIDS (NON-STEROIDAL ANTI-INFLAMMA (Unverified Allergy, Unknown, 11/14/15) Patient History Past Medical History: DM, [place], CHF, CVA/TIA, renal disease Past Surgical History: pacemaker Pertinent Family History: none Social History: Denies: smoking, alcohol use, drug use Immunizations: UTD Reviewed Nursing Documentation: PMH: Agreed; PSxH: Agreed Nursing Documentation-PMH Hx Cardiac Problems: Yes - CHF, PVD, [place], CAD Hx Hypertension: Yes - CKD Hx Pacemaker: Yes Hx Diabetes: Yes Hx Cancer: No Hx Gastrointestinal Problems: Yes Hx Neurological Problems: Yes Hx Cerebrovascular Accident: Yes - right side weakness Hx Peripheral Neuropathy: Yes - diabetic peripheral neuropathy, Chronic pain syndrom Hx Neurologic Surgery: No Review of Systems All Other Systems: negative except mentioned in HPI Physical Exam Vital Signs Date Time Temp Pulse Resp B/P (MAP) Pulse Ox O2 Delivery O2 Flow Rate FiO2 01/23/18 16:14 98.2 84 20 141/71 97 Room Air 98.2 Sp02 EP Interpretation: reviewed, normal General Appearance: no apparent distress, alert, GCS 15, non-toxic Head: normocephalic, atraumatic Eyes: bilateral eye normal inspection, bilateral eye PERRL ENT: hearing grossly normal, normal pharynx, no angioedema, normal voice Neck: full range of motion, supple/symm/no masses Respiratory: chest non-tender, lungs clear, normal breath sounds, speaking full sentences Cardiovascular #1: regular rate, rhythm, no edema Cardiovascular #2: 2+ carotid (R), 2+ carotid (L), 2+ radial (R), 2+ radial (L) , 2+ dorsalis pedis (R), 2+ dorsalis pedis (L) Gastrointestinal: normal bowel sounds, soft, non-distended, no guarding, no rebound, tenderness Rectal: deferred Genitourinary: normal inspection, no CVA tenderness Musculoskeletal: back normal, gait/station normal, normal range of motion, non- tender Neurologic: alert, oriented x3, responsive, motor strength/tone normal, sensory intact, speech normal Psychiatric: judgement/insight normal, memory normal, mood/affect normal, no suicidal/homicidal ideation Reflexes: 3+ bicep (R), 3+ bicep (L), 3+ tricep (R), 3+ tricep (L), 3+ knee (R) , 3+ knee (L) Skin: normal color, no rash, warm/dry, well hydrated Lymphatic: no adenopathy Medical Decision Making Diagnostic Impression: Primary Impression: Gastroenteritis Additional Impression: Drug-seeking behavior ER Course Hospital Course 68-year-old M presents to ED with cramping abdominal pain with vomiting, diarrhea differential diagnosis: gastritis, SBO, cholecystits, gastroenteritis Clinical course Patient placed on stretcher. On quality assurance monitor final. After initial history and physical I ordered labs, IV fluids, Zofran and pepcid Labs - minimal leukocytosis, electrolytes ok, LFTs normal Reviewed EMR. Patient was discharged 2 days ago for similar presentation. Patient had GI evaluation with endoscopy which showed some evidence of gastritis. C. difficile negative. Patient showed behavior of opioid dependence during hospital course I spoke to PMD Dr. Worley; he agrees that patient does not require admission and can be likely safely discharged to SNF I feel this is a highly complex case requiring extensive working including EKG/ Rhythm strip, Xray/CT/US, Blood/urine lab work, repeat exams while in ED, and administration of strong opiates/narcotics for pain control, admission to hospital or close patient follow up. Diagnosis - gastroenteritis, drug-seeking behavior Stable and discharged to SNF. Followup with PMD. Return to ED if symptoms recur or worsen Labs Test 01/23/18 17:05 White Blood Count 11.5 K/UL (4.8-10.8) Red Blood Count 4.15 M/UL (4.70-6.10) Hemoglobin 12.7 G/DL (14.2-18.0) Hematocrit 36.4 % (42.0-52.0) Mean Corpuscular Volume 88 FL (80-99) Mean Corpuscular Hemoglobin 30.6 PG (27.0-31.0) Mean Corpuscular Hemoglobin Concent 34.9 G/DL (32.0-36.0) Red Cell Distribution Width 13.2 % (11.6-14.8) Platelet Count 279 K/UL (150-450) Mean Platelet Volume 5.4 FL (6.5-10.1) Neutrophils (%) (Auto) 70.2 % (45.0-75.0) Lymphocytes (%) (Auto) 19.6 % (20.0-45.0) Monocytes (%) (Auto) 7.3 % (1.0-10.0) Eosinophils (%) (Auto) 2.0 % (0.0-3.0) Basophils (%) (Auto) 1.0 % (0.0-2.0) Urine Color Pale yellow Urine Appearance Clear Urine pH 8 (4.5-8.0) Urine Specific [place] 1.010 (1.005-1.035) Urine Protein 2+ (NEGATIVE) Urine Glucose (UA) Negative (NEGATIVE) Urine Ketones Negative (NEGATIVE) Urine Occult Blood 4+ (NEGATIVE) Urine Nitrite Negative (NEGATIVE) Urine Bilirubin Negative (NEGATIVE) Urine Urobilinogen Normal MG/DL (0.0-1.0) Urine Leukocyte Esterase 3+ (NEGATIVE) Urine RBC 5-10 /HPF (0 - 0) Urine WBC 2-4 /HPF (0 - 0) Urine Squamous Epithelial Cells None /LPF (NONE/OCC) Urine Bacteria Few /HPF (NONE) Sodium Level 142 MMOL/L (136-145) Potassium Level 3.7 MMOL/L (3.5-5.1) Chloride Level 104 MMOL/L (98-107) Carbon Dioxide Level 27 MMOL/L (21-32) Anion Gap 11 mmol/L (5-15) Blood Urea Nitrogen 5 mg/dL (7-18) Creatinine 0.7 MG/DL (0.55-1.30) Estimat Glomerular Filtration Rate > 60 mL/min (>60) Glucose Level 143 MG/DL (74-106) Calcium Level 9.1 MG/DL (8.5-10.1) Total Bilirubin 0.7 MG/DL (0.2-1.0) Aspartate Amino Transf (AST/SGOT) 37 U/L (15-37) Alanine Aminotransferase (ALT/SGPT) 30 U/L (12-78) Alkaline Phosphatase 82 U/L (46-116) Total Protein 8.0 G/DL (6.4-8.2) Albumin 3.3 G/DL (3.4-5.0) Globulin 4.7 g/dL Albumin/Globulin Ratio 0.7 (1.0-2.7) Lipase 90 U/L (73-393) Last Vital Signs Date Time Temp Pulse Resp B/P (MAP) Pulse Ox O2 Delivery O2 Flow Rate FiO2 01/23/18 16:27 98.2 20 141/71 97 Room Air 98.2 01/23/18 16:14 84 Status: improved Disposition: XFER SNF Condition: Stable Referrals: Ignacio Worley MD (PCP) Bhaskar Mendez MD Jan 23, 2018 17:37
[2018-01-23 17:40] LABS: HEMATOCRIT 36.4 % (42.0-52.0); HEMOGLOBIN 12.7 G/DL (14.2-18.0); LYMPHOCYTES % (AUTO) 19.6 % (20.0-45.0); MEAN CORPUSCULAR VOLUME 88 FL (80-99); MONOCYTES % (AUTO) 7.3 % (1.0-10.0); NEUTROPHILS % (AUTO) 70.2 % (45.0-75.0); PLATELET COUNT 279 K/UL (150-450); RED BLOOD COUNT 4.15 M/UL (4.70-6.10); RED CELL DISTRIBUTION WIDTH 13.2 % (11.6-14.8); WHITE BLOOD COUNT 11.5 K/UL (4.8-10.8)
[2018-01-23 18:04] VITALS: BP 131/57
[2018-01-23] MEDS ORDERED: Morphine Sulfate 4mg/ml Inj IVP ONE (18:30)
[2018-01-23 20:00] VITALS: BP 125/78
[2018-01-23 22:40] VITALS: BP 142/71
[2018-01-24 00:40] VITALS: BP 121/53
== END 2018-01-24 00:43 ==
LOC: EDBD 16:13 → EMR 16:53
DX: K52.9 Noninfective gastroenteritis and colitis, unspecified (principal); Z76.5 Malingerer [conscious simulation]; I12.9 Hypertensive chronic kidney disease with stage 1 through stage 4 chronic kidney disease, or unspecified chronic kidney disease; N18.9 Chronic kidney disease, unspecified; E11.42 Type 2 diabetes mellitus with diabetic polyneuropathy; Z95.0 Presence of cardiac pacemaker; I25.10 Atherosclerotic heart disease of native coronary artery without angina pectoris; I25.2 Old myocardial infarction; I69.351 Hemiplegia and hemiparesis following cerebral infarction affecting right dominant side; I13.0 Hypertensive heart and chronic kidney disease with heart failure and stage 1 through stage 4 chronic kidney disease, or unspecified chronic kidney disease; I50.9 Heart failure, unspecified; Z88.6 Allergy status to analgesic agent; Z88.8 Allergy status to other drugs, medicaments and biological substances
CPT/HCPCS: 36415; 80053; 81003; 83690; 85025; 96374; 96375; 99284; J2270; J2405; S0028

== ENCOUNTER 2018-02-23 14:34 | Inpatient (IN) | payer MEDICAID ==
[~2018-02-23] VITALS: Ht 177.8 cm; Wt 87.6 kg
[~2018-02-23 14:34] MED LIST changes: -GLUCAGON HCL1 MG IJ; +GLUCAGON HCL1 MG IM
[2018-02-23] MEDS ORDERED: BISACODYL5 MG RECTAL (14:45)
[2018-02-23] MEDS ORDERED: CARAFATE1 G1 ORAL (14:45)
[2018-02-23] MEDS ORDERED: NORCO 5-325 TA1 EACH ORAL ×2 (14:45→20:28)
[2018-02-23] MEDS ORDERED: ALUM-MAG HYDRO360 ML PO ×2 (14:45→20:28)
[2018-02-23] MEDS ORDERED: SENNA8.6 M2 PO ×2 (14:45→20:28)
[2018-02-23] MEDS ORDERED: ENEMA133 M1 RC (14:45)
[2018-02-23] MEDS ORDERED: PROTONIX40 MG ORAL (14:45)
[2018-02-23] MEDS ORDERED: MULTIVITAMINS1 EAC2 ORAL (14:45)
[2018-02-23 14:59] VITALS: BP 160/95
[2018-02-23] MEDS ORDERED: Isovue-300 100ml vial INJ PRN (15:00)
[2018-02-23] MEDS ORDERED: Morphine Sulfate 4mg/ml Inj IVP ONE (15:00)
[2018-02-23] MEDS ORDERED: Sodium Chloride 500ML 500 ML IV ONE (15:00)
[2018-02-23 15:49] LABS: APPEARANCE,URINE SLIGHTLY CLOUDY; BILIRUBIN, URINE NEGATIVE (NEGATIVE); COLOR,URINE PALE YELLOW; GLUCOSE, URINE (UA) NEGATIVE (NEGATIVE); KETONES,URINE NEGATIVE (NEGATIVE); LEUKOCYTE ESTERASE ,URINE NEGATIVE (NEGATIVE); NITRITE,URINE NEGATIVE (NEGATIVE); PH,URINE 8 (4.5-8.0); PROTEIN,URINE 1+ (NEGATIVE); UROBILINOGEN,URINE NORMAL MG/DL (0.0-1.0)
[2018-02-23 16:28] LABS: BASOPHILS % (AUTO) 0.7 % (0.0-2.0); EOSINOPHILS % (AUTO) 1.5 % (0.0-3.0); HEMATOCRIT 37.9 % (42.0-52.0); HEMOGLOBIN 12.4 G/DL (14.2-18.0); LYMPHOCYTES % (AUTO) 15.6 % (20.0-45.0); MEAN CORPUSCULAR VOLUME 89 FL (80-99); MONOCYTES % (AUTO) 7.5 % (1.0-10.0); NEUTROPHILS % (AUTO) 74.7 % (45.0-75.0); PLATELET COUNT 343 K/UL (150-450); RED BLOOD COUNT 4.25 M/UL (4.70-6.10); RED CELL DISTRIBUTION WIDTH 12.4 % (11.6-14.8); WHITE BLOOD COUNT 9.7 K/UL (4.8-10.8)
[2018-02-23] MEDS ORDERED: Aspirin Baby 81mg ORAL ONE (16:30)
[2018-02-23 16:33] LABS: ANION GAP 8 mmol/L (5-15); BLOOD UREA NITROGEN 9 mg/dL (7-18); CALCIUM 8.8 MG/DL (8.5-10.1); CARBON DIOXIDE 29 MMOL/L (21-32); CHLORIDE 101 MMOL/L (98-107); CREATININE 0.8 MG/DL (0.55-1.30); POTASSIUM 3.2 MMOL/L (3.5-5.1); SODIUM 138 MMOL/L (136-145)
[2018-02-23 16:38] LABS: ALANINE AMINOTRANSFERASE 24 U/L (12-78); ALBUMIN 3.2 G/DL (3.4-5.0); ALBUMIN/GLOBULIN RATIO 0.7 (1.0-2.7); ALKALINE PHOSPHATASE 87 U/L (46-116); ASPARTATE AMINO TRANSFERASE 22 U/L (15-37); BILIRUBIN,TOTAL 0.7 MG/DL (0.2-1.0)
--- NOTE | 2018-02-23 18:17 | Emergency Room Report ---
History of Present Illness General Chief Complaint: Abdominal Pain Source: Patient, EMS Present Illness HPI This patient complains of allover abdominal pain and nausea for the past 3 days. He denies vomiting. He denies fever or chills. He denies chest pain or shortness of breath. He denies dysuria or hematuria. He denies diarrhea. He has no other complaints. Allergies: Coded Allergies: LACTOSE (Verified Allergy, Unknown, 08/30/15) LISINOPRIL (Unverified Allergy, Unknown, 01/17/18) METHOTREXATE (Verified Allergy, Unknown, 08/30/15) NSAIDS (NON-STEROIDAL ANTI-INFLAMMA (Unverified Allergy, Unknown, 11/14/15) Patient History Past Medical History: see triage record, DM, HTN, ND, CAD, CHF Past Surgical History: CABG, pacemaker Social History: Denies: smoking, alcohol use, drug use Reviewed Nursing Documentation: PMH: Agreed; PSxH: Agreed Nursing Documentation-PMH Hx Cardiac Problems: Yes - CHF, PVD, ND, CAD Hx Hypertension: Yes - CKD Hx Pacemaker: Yes Hx Diabetes: Yes Hx Cancer: No Hx Gastrointestinal Problems: Yes Hx Neurological Problems: Yes Hx Cerebrovascular Accident: Yes - right side weakness Hx Peripheral Neuropathy: Yes - diabetic peripheral neuropathy, Chronic pain syndrom Hx Neurologic Surgery: No Review of Systems All Other Systems: negative except mentioned in HPI Physical Exam Vital Signs Date Time Temp Pulse Resp B/P (MAP) Pulse Ox O2 Delivery O2 Flow Rate FiO2 02/23/18 14:29 97.4 85 20 160/95 99 Nasal Cannula 2.0 97.3 Sp02 EP Interpretation: reviewed, normal General Appearance: no apparent distress, alert, GCS 15, non-toxic Head: normocephalic, atraumatic Eyes: bilateral eye normal inspection, bilateral eye PERRL ENT: hearing grossly normal, normal pharynx, no angioedema, normal voice Neck: full range of motion, supple/symm/no masses Respiratory: chest non-tender, lungs clear, normal breath sounds, speaking full sentences Cardiovascular #1: regular rate, rhythm, no edema Gastrointestinal: normal bowel sounds, soft, non-distended, no guarding, no rebound, tenderness - mild ttp epigastrium Rectal: deferred Musculoskeletal: back normal, gait/station normal, normal range of motion, non- tender Neurologic: alert, oriented x3, responsive, motor strength/tone normal, sensory intact, speech normal Psychiatric: judgement/insight normal, memory normal, mood/affect normal, no suicidal/homicidal ideation Skin: normal color, no rash, warm/dry, well hydrated Medical Decision Making Diagnostic Impression: Primary Impression: NSTEMI (non-ST elevated myocardial infarction) ER Course This patient was found to have an elevated troponin. He has known extensive coronary artery disease. This patient has an NSTEMI. He did have stable vital signs in the emergency department. However given his chronic medical conditions and extensive cardiac history, I felt that this patient could deteriorate rapidly. He is admitted to the ICU step down. This patient is critically ill. This patient required complex medical decision- making, aggressive intervention, extensive laboratory workup and monitoring. Critical care time: 40 minutes. Laboratory Tests Test 02/23/18 15:26 White Blood Count 9.7 K/UL (4.8-10.8) Red Blood Count 4.25 M/UL (4.70-6.10) L Hemoglobin 12.4 G/DL (14.2-18.0) L Hematocrit 37.9 % (42.0-52.0) L Mean Corpuscular Volume 89 FL (80-99) Mean Corpuscular Hemoglobin 29.1 PG (27.0-31.0) Mean Corpuscular Hemoglobin Concent 32.6 G/DL (32.0-36.0) Red Cell Distribution Width 12.4 % (11.6-14.8) Platelet Count 343 K/UL (150-450) Mean Platelet Volume 6.0 FL (6.5-10.1) L Neutrophils (%) (Auto) 74.7 % (45.0-75.0) Lymphocytes (%) (Auto) 15.6 % (20.0-45.0) L Monocytes (%) (Auto) 7.5 % (1.0-10.0) Eosinophils (%) (Auto) 1.5 % (0.0-3.0) Basophils (%) (Auto) 0.7 % (0.0-2.0) Prothrombin Time 10.9 SEC (9.30-11.50) Prothrombin Time INR 1.0 (0.9-1.1) PTT 41 SEC (23-33) H Urine Color Pale yellow Urine Appearance Slightly cloudy Urine pH 8 (4.5-8.0) Urine Specific [place] 1.010 (1.005-1.035) Urine Protein 1+ (NEGATIVE) H Urine Glucose (UA) Negative (NEGATIVE) Urine Ketones Negative (NEGATIVE) Urine Occult Blood Negative (NEGATIVE) Urine Nitrite Negative (NEGATIVE) Urine Bilirubin Negative (NEGATIVE) Urine Urobilinogen Normal MG/DL (0.0-1.0) Urine Leukocyte Esterase Negative (NEGATIVE) Urine RBC 0-2 /HPF (0 - 0) H Urine WBC 0-2 /HPF (0 - 0) Urine Squamous Epithelial Cells None /LPF (NONE/OCC) Urine Amorphous Sediment Moderate /LPF (NONE) H Urine Bacteria Few /HPF (NONE) Sodium Level 138 MMOL/L (136-145) Potassium Level 3.2 MMOL/L (3.5-5.1) L Chloride Level 101 MMOL/L (98-107) Carbon Dioxide Level 29 MMOL/L (21-32) Anion Gap 8 mmol/L (5-15) Blood Urea Nitrogen 9 mg/dL (7-18) Creatinine 0.8 MG/DL (0.55-1.30) Estimate Glomerular Filtration Rate > 60 mL/min (>60) Glucose Level 154 MG/DL (74-106) H Calcium Level 8.8 MG/DL (8.5-10.1) Total Bilirubin 0.7 MG/DL (0.2-1.0) Aspartate Amino Transferase (AST) 22 U/L (15-37) Alanine Aminotransferase (ALT) 24 U/L (12-78) Alkaline Phosphatase 87 U/L (46-116) Troponin I 0.184 ng/mL (0.000-0.056) Total Protein 8.0 G/DL (6.4-8.2) Albumin 3.2 G/DL (3.4-5.0) L Globulin 4.8 g/dL Albumin/Globulin Ratio 0.7 (1.0-2.7) L Lipase 64 U/L (73-393) L EKG Diagnostic Results Rate: normal Rhythm: other - Paced ST Segments: no acute changes Rhythm Strip Diag. Results EP Interpretation: yes Rate: 80 Rhythm: no PVC's, no ectopy, other - Paced Chest X-Ray Diagnostic Results Chest X-Ray Diagnostic Results : Chest X-Ray Ordered: Yes # of Views/Limited/Complete: 1 View Indication: Other - abd pain EP Interpretation: Yes Interpretation: other - Diffuse patchy opacities Impression: Other - pulmonary edema CT/MRI/US Diagnostic Results CT/MRI/US Diagnostic Results : Imaging Test Ordered: US Abdomen Impression cholelithiasis Last Vital Signs Date Time Temp Pulse Resp B/P (MAP) Pulse Ox O2 Delivery O2 Flow Rate FiO2 02/23/18 15:33 97.3 02/23/18 14:59 20 160/95 99 Nasal Cannula 2.0 02/23/18 14:29 85 Disposition: ADMITTED INPATIENT Condition: Critical Referrals: Ignacio Worley MD (PCP) EMILY AVITIA D.O. February 23, 2018 18:17
[2018-02-23 18:40] VITALS: BP 157/93
[2018-02-23 20:00] VITALS: BP 149/97
[2018-02-23] MEDS ORDERED: ZOFRAN ODT8 MG ORAL (20:28)
[2018-02-23] MEDS ORDERED: ACETAMINOPHEN325 M1 ORAL (20:28)
[2018-02-23] MEDS ORDERED: MULTIVITAMINS1 EA13 ORAL (20:28)
[2018-02-23] MEDS ORDERED: DULCOLAX10 MG RC (20:28)
[2018-02-23] MEDS ORDERED: Miralax 17gm pkt ORAL PRN (21:30)
[2018-02-23] MEDS ORDERED: Metoclopramide 10mg/2ml Inj IVP PRN (21:30)
[2018-02-23] MEDS ORDERED: LORazepam Inj 2mg/ml 1ml IV PRN (21:30)
[2018-02-23] MEDS ORDERED: Promethazine HCl 12.5 MG in NS 55 ML IV PRN (21:30)
[2018-02-23] MEDS ORDERED: Mylanta II UD 30ml ORAL PRN (21:30)
[2018-02-23] MEDS ORDERED: Nitroglycerin Subl 0.4mg tab SL PRN (21:30)
[2018-02-23] MEDS ORDERED: Promethazine HCl 25 MG in NS 55 ML IV PRN (21:30)
[2018-02-23] MEDS ORDERED: Metoprolol 25mg tab ORAL SCH (21:31)
[2018-02-23] MEDS ORDERED: Norco 5mg/325mg tab ORAL PRN ×2 (22:00)
[2018-02-23] MEDS: D5 1/2NS 1,000 ML IV SCH (23:19)
[2018-02-24] VITALS: BP 144/93
[2018-02-24] MEDS: Norco 5mg/325mg tab ORAL PRN ×4 (00:12→23:41)
--- NOTE | 2018-02-24 01:00 | Consultation ---
DATE OF CONSULTATION: 02/23/2018 CARDIOLOGY CONSULTATION CONSULTING PHYSICIAN: Art George MD. REQUESTING PHYSICIAN: Ignacio Worley M.D. REASON FOR CONSULTATION: Elevated troponin level suggestive of non-ST elevation myocardial infarction. HISTORY OF PRESENT ILLNESS: This is a 68-year-old male, who resides at a [facility] facility. He presented to the emergency room with abdominal pain. He has had previous such presentations, concern was an abnormal troponin level prompting Cardiology consultation. The patient has not complained of chest pain. He is known to have multiple risk factors for accelerated coronary disease, however and has had prior coronary bypass graft surgery in 2008. PAST MEDICAL HISTORY: Permanent pacemaker with [employer] device dual-chamber inserted in 2016, hypertension with hypertensive heart disease, insulin-requiring diabetes mellitus, hyperlipidemia, narcotic analgesic dependency, gastroparesis, coronary artery disease status post CABG in 2008, cerebrovascular disease with history of cerebrovascular accident, peripheral artery disease, chronic kidney disease. MEDICATIONS: Prior to admission, reviewed and reconciled. ALLERGIES: None. SOCIAL HISTORY: He has a 20-pack year smoking history. No alcohol or substance abuse. FAMILY HISTORY: Noncontributory. REVIEW OF SYSTEMS: No chest pain. No leg swelling. No history of blood clotting. No history of seizures. He does have a history of irregular heartbeats and does have a dual-chamber permanent pacemaker implanted in 2016. PHYSICAL EXAMINATION: VITAL SIGNS: Blood pressure 160/95, heart rate 85, respiratory rate 20. HEENT: Conjunctiva pink. Sclerae are anicteric. Oropharynx clear. Mucous membranes moist. NECK: Supple. Jugular venous pressure normal. LUNGS: Clear. CARDIAC: Irregularly irregular rhythm with normal S1. Paradoxically split S2. A 1/6 systolic apical murmur. ABDOMEN: Soft, nontender. No guarding or rebound. EXTREMITIES: Good pulses. No edema. NEUROLOGIC: With minimal left-sided weakness. LABORATORY DATA: White count 9.7, hemoglobin 12.4. Sodium 138, potassium 3.2, bicarbonate 29, BUN 9, creatinine 0.8, glucose 154. Troponin 0.184. Albumin 3.2. EKG reveals AV sequential pacing with ectopic beats. Chest x-ray revealed cardiomegaly with no acute process. IMPRESSION: 1. Acute myocardial infarction. 2. Permanent pacemaker. 3. Hypertensive heart disease with elevated blood pressure. 4. Insulin-requiring diabetes mellitus. 5. Abdominal pain with no signs of acute abdominal pathology at this time. 6. Chronic kidney disease. PLAN: 1. Cardiac monitoring. 2. Serial troponin. 3. Antiplatelet therapy. 4. Topical nitrates. 5. Cautious hydration. 6. Full anticoagulation. 7. Beta-blockade. 8. We will consider myocardial perfusion scan. 9. Depending on clinical course, further recommendations will follow. Art George M.D. DR: Darya JOB#: [id number] CC:
[2018-02-24 04:00] VITALS: BP 150/98
[2018-02-24 04:45] LABS: BASOPHILS % (AUTO) 0.7 % (0.0-2.0); EOSINOPHILS % (AUTO) 1.7 % (0.0-3.0); HEMATOCRIT 34.3 % (42.0-52.0); HEMOGLOBIN 11.7 G/DL (14.2-18.0); LYMPHOCYTES % (AUTO) 18.3 % (20.0-45.0); MEAN CORPUSCULAR VOLUME 89 FL (80-99); MONOCYTES % (AUTO) 6.9 % (1.0-10.0); NEUTROPHILS % (AUTO) 72.4 % (45.0-75.0); PLATELET COUNT 355 K/UL (150-450); RED BLOOD COUNT 3.86 M/UL (4.70-6.10); RED CELL DISTRIBUTION WIDTH 12.7 % (11.6-14.8); WHITE BLOOD COUNT 10.5 K/UL (4.8-10.8)
[2018-02-24 06:14] LABS: ALANINE AMINOTRANSFERASE 19 U/L (12-78); ALBUMIN/GLOBULIN RATIO 0.7 (1.0-2.7); ALKALINE PHOSPHATASE 81 U/L (46-116); AMYLASE 117 U/L (25-115); ANION GAP 10 mmol/L (5-15); ASPARTATE AMINO TRANSFERASE 18 U/L (15-37); BILIRUBIN,TOTAL 0.7 MG/DL (0.2-1.0); BLOOD UREA NITROGEN 10 mg/dL (7-18); CALCIUM 8.4 MG/DL (8.5-10.1); CARBON DIOXIDE 26 MMOL/L (21-32); CHLORIDE 102 MMOL/L (98-107); CHOLESTEROL 177 MG/DL (< 200); CREATININE 0.8 MG/DL (0.55-1.30); HDL CHOLESTEROL 60 MG/DL (40-60); POTASSIUM 3.5 MMOL/L (3.5-5.1); SODIUM 138 MMOL/L (136-145); TRIGLYCERIDES 99 MG/DL (30-150)
[2018-02-24] MEDS: NovoLOG Insulin Flexpen SUBQ SCH ×4 (06:30→21:00)
[2018-02-24] MEDS ORDERED: Metoclopramide 10mg/2ml Inj IVP PRN (07:15)
[2018-02-24 08:00] VITALS: BP 149/93
[2018-02-24 08:03] LABS: BILIRUBIN, URINE NEGATIVE (NEGATIVE); GLUCOSE, URINE (UA) NEGATIVE (NEGATIVE); KETONES,URINE NEGATIVE (NEGATIVE); LEUKOCYTE ESTERASE ,URINE 2+ (NEGATIVE); NITRITE,URINE NEGATIVE (NEGATIVE); PH,URINE 7 (4.5-8.0); PROTEIN,URINE 2+ (NEGATIVE); UROBILINOGEN,URINE NORMAL MG/DL (0.0-1.0)
[2018-02-24 08:04] LABS: APPEARANCE,URINE SLIGHTLY CLOUDY; COLOR,URINE YELLOW
--- NOTE | 2018-02-24 08:57 | Diagnostic Imaging Report ---
Clinical Indication: Abdominal pain, nausea x3 days Technique: No oral contrast utilized, per emergency room physician request IV administration nonionic contrast. Venous phase spiral acquisition obtained through the abdomen and pelvis. Multiplanar reconstructions were generated. Total dose length product 982.11 mGycm. CTDIvol(s) 19.51 mGy. Dose reduction achieved using automated exposure control Comparison: 01/17/2018 Findings: The appendix is not definitely identified, but no findings to suggest acute appendicitis are evident. No evidence of diverticulosis or diverticulitis. No small bowel distention. No free or loculated intraperitoneal air or fluid is evident. There is a small fat-containing left inguinal hernia again demonstrated. The distal esophagus, stomach, duodenum are unremarkable. There is an inferior vena cava filter again demonstrated. The liver, gallbladder, bile ducts are unremarkable. The pancreas is atrophic. The spleen, adrenals, kidneys are unremarkable. No retroperitoneal or mesenteric mass or adenopathy. No pelvic mass or adenopathy. The included lung bases demonstrate extensive reticular interstitial as well as groundglass airspace opacities. The heart is mildly enlarged. There is a pacemaker. Previously demonstrated right lower lobe lung nodule is not visualized, likely not included in the current imaging volume The bones demonstrate degenerative spondylosis changes. There are fairly extensive bilateral buttock injection granulomata demonstrated. There is a vertebra plana burst/compression fracture deformity of the L5 vertebral body again demonstrated. 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 The CT scanner at [facility] is accredited by the [employer] and the scans are performed using protocols designed to limit radiation exposure to as low as reasonably achievable to attain images of sufficient resolution adequate for diagnostic evaluation.
[2018-02-24] MEDS ORDERED: Heparin 5000 units/ml inj SUBQ SCH (09:00)
[2018-02-24] MEDS: Pantoprazole Inj IV SCH (09:00)
[2018-02-24] MEDS: Sucralfate 1gm tab ORAL SCH ×4 (09:00→21:48)
[2018-02-24] MEDS ORDERED: Enoxaparin 100mg Inj SUBQ SCH (09:00)
[2018-02-24] MEDS ORDERED: Docusate 100mg cap ORAL SCH (09:00)
[2018-02-24] MEDS: Aspirin EC 81mg tab ORAL SCH (10:19)
[2018-02-24] MEDS: Metoprolol Tartrate 50mg tab ORAL SCH ×2 (10:19→21:49)
[2018-02-24] MEDS: D5 1/2NS 1,000 ML IV SCH (10:40)
[2018-02-24 12:00] VITALS: BP 149/94
--- NOTE | 2018-02-24 14:48 | GI Initial Consult Note ---
History of Present Illness General Date patient seen: February 24, 2018 Time patient seen: 15:00 Reason for Hospitalization: Abdominal Pain Referring physician: IRIS HERZOG Reason for Consultation: ABDOMINAL PAIN Present Illness HPI HISTORY OF PRESENT ILLNESS: This is a 68-year-old male, who resides at a senior care facility. He presented to the emergency room with abdominal pain. He has had previous such presentations, concern was an abnormal troponin level prompting Cardiology consultation. The patient has not complained of chest pain. He is known to have multiple risk factors for accelerated coronary disease, however and has had prior coronary bypass graft surgery in 2008. GI consulted for abdominal pain. Pt was admitted here recently s/p EGD found with gastritis only in one part of the body along the lesser curvature , status post biopsy, otherwise normal upper endoscopic examination. The patient had fecal impaction at the time which was resolved. He presents today with abdominal pain unknown etiology and elevated troponin levels. CT AP shows no acute abdominal process. Home Meds Reported Medications Ondansetron Odt* (ZOFRAN ODT*) 8 Mg Tab.rapdis, 8 MG ORAL Q8HR PRN for Nausea & Vomiting, #30 TAB 02/23/18 Acetaminophen* (ACETAMINOPHEN 325MG TABLET*) 325 Mg Tablet, 650 MG ORAL Q4H PRN for Mild Pain/Temp > 100.5, TAB 02/23/18 Sennosides (SENNA) 8.6 Mg Tablet, 17.2 MG PO QHS, TAB 02/23/18 Hydrocodone Bit/Acetaminophen 5-325* (NORCO 5-325*) 1 Each Tablet, 2 TAB ORAL Q6H PRN for For Pain, #10 TAB 0 Refills 02/23/18 Mag Hydrox/Al Hydrox/Simeth (ALUM-MAG HYDROXIDE-SIMETH LIQ) 360 Ml Oral.susp, 30 ML PO Q6HR PRN for Abdominal cramps, ML 02/23/18 Multivitamin with Minerals (Multivitamins with Minerals) 1 Each Tablet, 1 TAB ORAL DAILY, TAB 02/23/18 Bisacodyl (DULCOLAX) 10 Mg Supp.rect, 10 MG RC DAILY PRN for Constipation, SUPP 02/23/18 Pantoprazole* (PROTONIX*) 40 Mg Tablet.dr, 40 MG ORAL DAILY, TAB 02/23/18 Hydrocodone Bit/Acetaminophen 5-325* (NORCO 5-325*) 1 Each Tablet, 1 TAB ORAL Q6H PRN for For Pain, #10 TAB 0 Refills 02/23/18 Multivitamins* (MULTIVITAMINS*) 1 Each Tablet, 1 TAB ORAL DAILY, TAB 0 Refills 02/23/18 Na Phos,M-B/Na Phos,Di-Ba (ENEMA) 133 Ml Enema, 133 ML RC PRN for Constipation, EA 02/23/18 Sucralfate* (CARAFATE*) 1 Gm Tablet, 1 GM ORAL FOUR TIMES A DAY, TAB 02/23/18 Glucagon HCl (Glucagon HCl) 1 Mg Vial, 1 MG IM PRN for Hypoglycemia, VIAL 09/25/17 Magnesium Hydroxide* (MILK OF MAGNESIA*) 400 Mg/5 Ml Oral.susp, 30 ML ORAL QHS PRN for Constipation, ML 03/04/17 Metoprolol Tartrate* (METOPROLOL TARTRATE*) 25 Mg Tablet, 25 MG ORAL EVERY 12 HOURS, TAB 01/08/17 Nitroglycerin (NITROGLYCERIN) 0.4 Mg Tab.subl, 0.4 MG SL, TAB 01/08/17 Clopidogrel Bisulfate* (PLAVIX*) 75 Mg Tablet, 75 MG ORAL DAILY, TAB 01/08/17 Docusate Sodium* (COLACE*) 100 Mg Capsule, 100 MG ORAL DAILY, CAP 01/08/17 Discontinued Reported Medications Ipratropium [place] 0.5MG/2.5ML (IPRATROPIUM BROMIDE 0.5MG/2.5ML) 0.2 Mg/1 Ml Solution, 0.5 MG HHN Q4HR PRN for Shortness of Breath 09/25/17 Tramadol Hcl* (ULTRAM*) 50 Mg Tablet, 50 MG ORAL Q12HR 09/25/17 Atorvastatin Calcium* (LIPITOR*) 80 Mg Tablet, 80 MG ORAL BEDTIME, TAB 01/08/17 Aspirin* (ASPIRIN*) 81 Mg Tab.chew, 81 MG ORAL DAILY, TAB 08/29/15 Allergies: Coded Allergies: LACTOSE (Verified Allergy, Unknown, 08/30/15) LISINOPRIL (Unverified Allergy, Unknown, 01/17/18) METHOTREXATE (Verified Allergy, Unknown, 08/30/15) NSAIDS (NON-STEROIDAL ANTI-INFLAMMA (Unverified Allergy, Unknown, 11/14/15) Patient History Limited by: medical condition History Provided By: Medical Record [facility] Narrative PAST MEDICAL HISTORY: The patient had insertion of pacemaker that was switched to bipolar approximately two months ago. He underwent coronary artery bypass grafting in 2008. 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 Social History: Denies: smoking, alcohol use, drug use, other Review of Systems All Other Systems: limited Physical Exam Vital Signs Date Time Temp Pulse Resp B/P (MAP) Pulse Ox O2 Delivery O2 Flow Rate FiO2 02/23/18 14:29 97.4 85 20 160/95 99 Nasal Cannula 2.0 97.3 Sp02 EP Interpretation: reviewed, normal Labs Laboratory Tests Test 02/23/18 15:26 02/24/18 03:40 02/24/18 04:00 02/24/18 05:00 White Blood Count 9.7 K/UL (4.8-10.8) 10.5 K/UL (4.8-10.8) Red Blood Count 4.25 M/UL (4.70-6.10) L 3.86 M/UL (4.70-6.10) L Hemoglobin 12.4 G/DL (14.2-18.0) L 11.7 G/DL (14.2-18.0) L Hematocrit 37.9 % (42.0-52.0) L 34.3 % (42.0-52.0) L Mean Corpuscular Volume 89 FL (80-99) 89 FL (80-99) Mean Corpuscular Hemoglobin 29.1 PG (27.0-31.0) 30.4 PG (27.0-31.0) Mean Corpuscular Hemoglobin Concent 32.6 G/DL (32.0-36.0) 34.2 G/DL (32.0-36.0) Red Cell Distribution Width 12.4 % (11.6-14.8) 12.7 % (11.6-14.8) Platelet Count 343 K/UL (150-450) 355 K/UL (150-450) Mean Platelet Volume 6.0 FL (6.5-10.1) L 6.1 FL (6.5-10.1) L Neutrophils (%) (Auto) 74.7 % (45.0-75.0) 72.4 % (45.0-75.0) Lymphocytes (%) (Auto) 15.6 % (20.0-45.0) L 18.3 % (20.0-45.0) L Monocytes (%) (Auto) 7.5 % (1.0-10.0) 6.9 % (1.0-10.0) Eosinophils (%) (Auto) 1.5 % (0.0-3.0) 1.7 % (0.0-3.0) Basophils (%) (Auto) 0.7 % (0.0-2.0) 0.7 % (0.0-2.0) Prothrombin Time 10.9 SEC (9.30-11.50) Prothromb Time International Ratio 1.0 (0.9-1.1) Activated Partial Thromboplast Time 41 SEC (23-33) H 38 SEC (23-33) H Urine Color Pale yellow Yellow Urine Appearance Slightly cloudy Slightly cloudy Urine pH 8 (4.5-8.0) 7 (4.5-8.0) Urine Specific [place] 1.010 (1.005-1.035) 1.010 (1.005-1.035) Urine Protein 1+ (NEGATIVE) H 2+ (NEGATIVE) H Urine Glucose (UA) Negative (NEGATIVE) Negative (NEGATIVE) Urine Ketones Negative (NEGATIVE) Negative (NEGATIVE) Urine Occult Blood Negative (NEGATIVE) 2+ (NEGATIVE) H Urine Nitrite Negative (NEGATIVE) Negative (NEGATIVE) Urine Bilirubin Negative (NEGATIVE) Negative (NEGATIVE) Urine Urobilinogen Normal MG/DL (0.0-1.0) Normal MG/DL (0.0-1.0) Urine Leukocyte Esterase Negative (NEGATIVE) 2+ (NEGATIVE) H Urine RBC 0-2 /HPF (0 - 0) H 2-4 /HPF (0 - 0) H Urine WBC 0-2 /HPF (0 - 0) 10-15 /HPF (0 - 0) H Urine Squamous Epithelial Cells None /LPF (NONE/OCC) Occasional /LPF Urine Amorphous Sediment Moderate /LPF (NONE) H Urine Bacteria Few /HPF (NONE) Moderate /HPF (NONE) H Sodium Level 138 MMOL/L (136-145) 138 MMOL/L (136-145) Potassium Level 3.2 MMOL/L (3.5-5.1) L 3.5 MMOL/L (3.5-5.1) Chloride Level 101 MMOL/L (98-107) 102 MMOL/L (98-107) Carbon Dioxide Level 29 MMOL/L (21-32) 26 MMOL/L (21-32) Anion Gap 8 mmol/L (5-15) 10 mmol/L (5-15) Blood Urea Nitrogen 9 mg/dL (7-18) 10 mg/dL (7-18) Creatinine 0.8 MG/DL (0.55-1.30) 0.8 MG/DL (0.55-1.30) Estimat Glomerular Filtration Rate > 60 mL/min (>60) > 60 mL/min (>60) Glucose Level 154 MG/DL (74-106) H 146 MG/DL (74-106) H Calcium Level 8.8 MG/DL (8.5-10.1) 8.4 MG/DL (8.5-10.1) L Total Bilirubin 0.7 MG/DL (0.2-1.0) 0.7 MG/DL (0.2-1.0) Aspartate Amino Transf (AST/SGOT) 22 U/L (15-37) 18 U/L (15-37) Alanine Aminotransferase (ALT/SGPT) 24 U/L (12-78) 19 U/L (12-78) Alkaline Phosphatase 87 U/L (46-116) 81 U/L (46-116) Troponin I 0.184 ng/mL (0.000-0.056) 0.561 ng/mL (0.000-0.056) Total Protein 8.0 G/DL (6.4-8.2) 7.6 G/DL (6.4-8.2) Albumin 3.2 G/DL (3.4-5.0) L 3.0 G/DL (3.4-5.0) L Globulin 4.8 g/dL 4.6 g/dL Albumin/Globulin Ratio 0.7 (1.0-2.7) L 0.7 (1.0-2.7) L Lipase 64 U/L (73-393) L 53 U/L (73-393) L Triglycerides Level 99 MG/DL (30-150) Cholesterol Level 177 MG/DL (< 200) LDL Cholesterol 107 mg/dL (<100) H HDL Cholesterol 60 MG/DL (40-60) Cholesterol/HDL Ratio 3.0 (3.3-4.4) L Amylase Level 117 U/L (25-115) H Thyroid Stimulating Hormone (TSH) 0.303 uiU/mL (0.358-3.740) Free Triiodothyronine 2.2 pg/mL (2.3-4.2) L Hemoglobin A1c 6.4 % (4.3-6.0) H Magnesium Level 2.3 MG/DL (1.8-2.4) C-Reactive Protein, Quantitative 2.3 mg/dL (0.00-0.90) H Pro-B-Type Natriuretic Peptide 8811 pg/mL (0-125) H Free Thyroxine 1.46 NG/DL (0.76-1.46) General Appearance: well appearing, no apparent distress, alert Head: normocephalic EENT: PERRL/EOMI, normal ENT inspection Neck: supple Respiratory: normal breath sounds, no respiratory distress Cardiovascular: normal rate Gastrointestinal: normal inspection, non tender, soft, normal bowel sounds, non -distended Rectal: deferred Genitourinary: deferred Musculoskeletal: normal inspection, back normal Neurologic: normal inspection, alert, oriented x3, responsive Psychiatric: normal inspection, judgement/insight normal, memory normal Skin: normal inspection, normal color, no rash, warm/dry, palpation normal, well hydrated Lymphatic: normal inspection, no adenopathy Current Medications Current Medications Medications (Trade) Dose Ordered Sig/Paola Route PRN Reason Start Time Stop Time Status Last Admin Dose Admin Acetaminophen (Tylenol) 650 mg Q4H PRN ORAL Mild Pain/Temp > 100.5 02/23/18 22:00 03/25/18 21:59 Acetaminophen/ Hydrocodone Bitart ([place] 5/325) 1 tab Q6H PRN ORAL Moderate Pain (Pain Scale 4-6) 02/23/18 23:36 03/02/18 23:35 02/24/18 10:35 Acetaminophen/ Hydrocodone Bitart ([place] 5/325) 2 tab Q6H PRN ORAL Severe Pain (Pain Scale 7-10) 02/23/18 23:36 03/02/18 23:35 Al Hydroxide/Mg Hydroxide (Mylanta II) 30 ml Q6H PRN ORAL dyspepsia 02/23/18 21:30 03/25/18 21:29 Aspirin (Ecotrin) 81 mg DAILY ORAL 02/24/18 09:00 03/26/18 08:59 02/24/18 10:19 Clopidogrel Bisulfate (Plavix) 75 mg DAILY ORAL 02/24/18 09:00 03/26/18 08:59 02/24/18 10:20 Dextrose (Dextrose 50%) 25 ml STAT PRN IV Hypoglycemia 02/23/18 22:00 03/25/18 21:59 Dextrose (Dextrose 50%) 50 ml STAT PRN IV Hypoglycemia 02/23/18 22:00 03/25/18 21:59 Dextrose/Sodium Chloride 1,000 ml @ 75 mls/hr [id number] IV 02/23/18 21:22 03/25/18 21:21 02/24/18 10:40 Diphenhydramine HCl (Benadryl) 25 mg Q6H PRN ORAL Itching/Pruritis 02/23/18 21:30 03/25/18 21:29 Docusate Sodium (Colace) 100 mg DAILY ORAL 02/24/18 09:00 03/26/18 08:59 02/24/18 10:20 Enoxaparin Sodium (Lovenox) 90 mg EVERY 12 HOURS SUBQ 02/24/18 09:00 03/26/18 08:59 02/24/18 09:00 Insulin Aspart (NovoLOG) BEFORE MEALS AND HS SUBQ 02/24/18 06:30 03/26/18 06:29 Iopamidol (Isovue-300 100ml) 100 ml NOW PRN INJ Radiology Procedure 02/23/18 15:00 Lorazepam (Ativan 2mg/ml 1ml) 1 mg EVERY 4 HOURS PRN IV agitation 02/23/18 21:30 03/02/18 21:29 Metoclopramide HCl (Reglan) 10 mg Q6H PRN IVP Nausea & Vomiting 02/24/18 07:15 03/26/18 07:14 Metoprolol Tartrate (Lopressor) 50 mg Q12HR ORAL 02/24/18 09:00 03/26/18 08:59 02/24/18 10:19 Nitroglycerin (Ntg) 0.4 mg Q5M X 3 DOSES PRN SL Prn Chest Pain 02/23/18 21:30 03/25/18 21:29 Ondansetron HCl (Zofran) 4 mg Q6H PRN IVP Nausea & Vomiting 02/23/18 21:30 03/25/18 21:29 02/24/18 06:44 Pantoprazole (Protonix) 40 mg DAILY IV 02/24/18 09:00 03/26/18 08:59 02/24/18 09:00 Polyethylene Glycol (Miralax) 17 gm HSPRN PRN ORAL Constipation 02/23/18 21:30 03/25/18 21:29 Sucralfate (Carafate) 1 gm FOUR TIMES A DAY ORAL 02/24/18 09:00 03/26/18 08:59 02/24/18 13:06 Temazepam (Restoril) 15 mg HSPRN PRN ORAL Insomnia 02/23/18 21:30 03/02/18 21:29 GI: Plan Problems: (1) Iron deficiency anemia (2) Intractable abdominal pain (3) S/P CABG (coronary artery bypass graft) Plan Recent EGD 01/19/18 >> Gastritis only in one part of the body along the lesser curvature, status post biopsy, otherwise normal upper endoscopic examination. CT AP reviewed >> No acute abdominal process demonstrated. elevated troponin level iron deficiency RECOMMENDATIONS: fu cardiology recs symptomatic treatment prn transfusions ppi PO bowel regime tumor markers zofran prn, reglan for persistent vomiting DM control fu labs, iron panel Discussed with Dr. Shannon. Thank you for this patient referral, we will follow. The patient was seen and examined at bedside and all new and available data was reviewed in the patients chart. I agree with the above findings, impression and plan. (Patient seen earlier today. Signature stamp does not reflect patient encounter time.). - MD Treasure TabaresTempe St. Luke'S HospitalEmmanuel AIRPLANE CHARTER CLERK February 24, 2018 14:48
[2018-02-24 16:00] VITALS: BP 146/64
--- NOTE | 2018-02-24 16:23 | Cardiology Report ---
APPROVED REPORT EXAM: Two-dimensional and M-mode echocardiogram with Doppler and color Doppler. INDICATION Chest Pain M-Mode DIMENSIONS IVSd0.8 (0.7-1.1cm)Left Atrium (MM)3.9 (1.6-4.0cm) LVDd7.3 (3.5-5.6cm)Aortic Root3.0 (2.0-3.7cm) PWd0.8 (0.7-1.1cm)Aortic Cusp Exc.1.9 (1.5-2.0cm) LVDs6.5 (2.5-4.0cm) PWs0.7 cm Technically difficult study due to poor acoustical windows. Moderate left ventricular enlargement. Akinetic and scarred septum apex and distal lateral wall and mid to distal inferor wall , best motion noted in proximal to mid lateral wall and anterior wall Left ventricular ejection fraction estimated to be 20-25%. No evidence of left ventricular hypertrophy. No evidence of pericardial or pleural effusion. Right cardiac chamber sizes are within normal limits. Mild left atrial enlargement by 2D. Focal aortic valve sclerosis with adequate cusp excursion. Thickened mitral valve leaflets with normal excursion. Mild mitral annulus and aortic root calcification. Pulmonic valve not well visualized. Normal tricuspid valve structure. IVC and subcostal not obtainable. Probable pacemaker wire present in the right side chambers. A color flow and spectral Doppler study was performed and revealed: Trace aortic regurgitation. Moderate to severe mitral regurgitation. Mitral diastolic function not obtainable due to arrhythmia. Mild tricuspid regurgitation. Tricuspid systolic velocities suggests peak right ventricular systolic pressure of 50mmHg Consistent with mild pulmonary hypertension.
[2018-02-24] MEDS: Docusate 100mg cap ORAL SCH (18:00)
[2018-02-24 20:00] VITALS: BP 134/64
[2018-02-24] MEDS: Miralax 17gm pkt ORAL SCH (21:00)
[2018-02-24] MEDS: Enoxaparin Sodium 300mg/3ml vial SUBQ SCH (21:00)
[2018-02-25] VITALS (7 sets, daily range): BP systolic 126–155; BP diastolic 78–89
--- NOTE | 2018-02-25 02:45 | Progress Note ---
DATE: 02/24/2018 CARDIOLOGY PROGRESS NOTE SUBJECTIVE: The patient has no chest pain. He has not complained of shortness of breath. Echocardiogram performed reveals severe left ventricular dysfunction with ejection fraction of 20%, multiple regional wall motion abnormalities, and fcrkcjyw-[id number]-apyqks mitral regurgitation. OBJECTIVE: VITAL SIGNS: Blood pressure 134/64, pulse 81, respiratory rate 23, afebrile. LUNGS: Few rales. CARDIAC: Regular rhythm and rate. Normal S1, S2. A 1/6 systolic murmur at apex. ABDOMEN: Soft. EXTREMITIES: No edema. LABORATORY DATA: White count 10, hemoglobin 11.7. BUN 10, creatinine 0.8. Troponin is 0.561. Pro-natriuretic peptide 8811. IMPRESSION: 1. Acute myocardial infarction. 2. Severe ischemic cardiomyopathy. 3. Acute on chronic systolic congestive heart failure. 4. Favorable lipid panel with LDL 107, HDL 60. 5. Euthyroid state. TSH 0.3. PLAN: 1. Maximize anti-failure and antianginal regimen. 2. No SILVER inhibitors due to allergy. 3. Discontinue IV fluids. 4. Reassess for diuresis. 5. Continue anti-platelet and anti-lipid drugs. Art George M.D. DR: Marcelo JOB#: [id number] CC:
--- NOTE | 2018-02-25 03:46 | History and Physical Report ---
DATE OF ADMISSION: 02/23/2018 NOTE: POOR AUDIO REASON FOR ADMISSION: This is one of several admissions to [facility] of this 68-year-old patient because of acute myocardial injury. HISTORY OF PRESENT ILLNESS: The patient is a resident of an extended care facility where he has been in precarious condition over the last several months. He has chest pain symptomatology over the last several months for which he already had two admissions, one to [facility] and one to this institution over the last 12 weeks. He developed chest pain at rest, retrosternal, pressure type, and became progressively intense and he was transferred to [facility] ER where he was found to have elevated troponin with normal EKG and the patient was admitted to cardiac observation unit. PAST MEDICAL HISTORY AND SURGERIES: The patient underwent coronary artery bypass graft at [facility] in 2008. He had a pacemaker inserted at [facility] in 2015 and several weeks ago, it was switched from monopolar to dual chamber pacemaker. Following that admission, he had another admission to this hospital several weeks ago. Other medical history, he has hypertensive cardiovascular disease and insulin-dependent diabetes mellitus with hyperlipidemia and narcotic analgesic dependency, and gastroesophageal reflux disease associated with gastroparesis. He has a history of cerebrovascular accident, peripheral vascular disease, and chronic renal failure before 2008. MEDICATIONS: mg t.i.d., 100 mg t.i.d., sucralfate 1 g t.i.d. He is on 40 mg daily, clopidogrel 75 mg daily, metoprolol 50 mg q.12 h., aspirin 81 mg daily, before meals and 10/325 q.6 h. p.r.n. He has multiple medications. 150 mg at bedtime, q.6 h. ALLERGIES: No known allergy to medication. FAMILY HISTORY: Noncontributory. SOCIAL HISTORY: He was born in [place], lived in [place] for many years. Prior to the job. HABITS: The patient did smoke, however, he discontinued the smoking several years ago. He denied drinking and he denied use of illicit drugs. REVIEW OF SYSTEMS: CARDIOVASCULAR: The patient has vague amount of chest pain at rest and with exertion of moderate to severe intensity, pressure type. He has shortness of breath on exertion. He has no palpitations, some dizziness. PULMONARY: The patient has chronic cough, chronic wheezing, and chronic expectoration. GASTROINTESTINAL: His appetite is moderate. His weight is stable. He has no dysphagia or dyspepsia. No bowel movement disorder. GENITOURINARY: The patient denies any dysuria, frequency, or incontinence. His nocturia is 3 to 4. JOINTS: The patient denied any pain, swelling, stiffness, cold extremities, photosensitivity, dry eyes, or alopecia. He pain and low back pain. CENTRAL NERVOUS SYSTEM: His sleep is of good quality and . He has no numbness, tingling, or seizure disorder and has no headache. PHYSICAL EXAMINATION: VITAL SIGNS: His blood pressure was 134/64, his pulse is 91, respirations 23, and temperature 97.9 degrees. HEENT: Eyes were normal. His pupils were round, equal, and reactive to light. Sclerae were white. Conjunctivae were pink. Extraocular movements were normal. Temporal arteries were palpable bilaterally. There was no bilateral temporal wasting. Visual pompa to confrontation were normal. Neglect sign was negative. ENT, mucous membranes were not dehydrated. Auditory canals were clear and tympanic membranes could not be visualized. Nasal cavity was not congested. Nasal septum was intact. Soft palate was free of ulcerations. Pharynx was clear from exudate or tonsillar hypertrophy. Uvula jenifer to phonation. Tongue was moist, midline, and normally papillated. NECK: Supple. There was no goiter. No mass. No lymphadenopathy. There was no JVD. No bruits. Carotid upstroke was 2+. LUNGS: Clear. HEART: PMI was in the fourth left intercostal space in midclavicular line. There was normal S1 and normal S2. There was no murmur. No arrhythmia. No S3. No S4. No pericardial rub. ABDOMEN: Soft and nontender without organomegaly. There were no masses palpable. Normal bowel sounds without bruits. There was no guarding. No rebound tenderness. No ascites. No hernia. No CVA tenderness. Liver span was 8 cm, mostly nontender. However, there was severe tenderness on deep palpation of the periumbilical and mid epigastric area. NEUROLOGICAL: Reflexes in biceps, triceps, and brachioradialis were present. Patellar retinaculum were present. Plantars were in extension on the right, flexion on the left. Cranial nerves II through XII were symmetric and equal. Cerebellar function, there was no tremor. No nystagmus. No extrapyramidal rigidity. Sensory exam to pinprick, cotton touch, and position are grossly normal. Motor strength was 5/5 against resistance in upper and lower extremities in proximal and distal muscles. LABORATORY AND DIAGNOSTIC DATA: His hemoglobin was 12.4, hematocrit 37.9 with MCV of 89, WBC of 9.7 and platelets are 343. His BUN and creatinine are 10 and 0.8 respectively, sodium 138, potassium 3.5, chloride 102, CO2 is 26 and his glucose is 146. His A1c was 6.4. Magnesium was 2.3. Troponin was 0.56. His albumin was 2.3, and pro-BNP was 8800. was 2.0 and total protein was 7.6. Urinalysis showed 2 to 4 rbc's and 10 to 15 wbc's per high-power field. There was no findings. dilated and bile ducts were unremarkable. atrophic. interstitial fibrosis of the lungs. IMPRESSION: The patient myocardial infarction with multiple , high blood pressure, hyperlipidemia, chronic obstructive pulmonary disease, diabetes mellitus. Cardiology consult has been ordered to see the patient . The patient currently is on Lovenox and repeat laboratory tests will be done in the morning. Ignacio Worley M.D. DR: SUE JOB#: [id number] CC:
[2018-02-25 04:38] LABS: BASOPHILS % (AUTO) 1.2 % (0.0-2.0); EOSINOPHILS % (AUTO) 3.1 % (0.0-3.0); HEMATOCRIT 33.3 % (42.0-52.0); HEMOGLOBIN 11.3 G/DL (14.2-18.0); LYMPHOCYTES % (AUTO) 13.4 % (20.0-45.0); MEAN CORPUSCULAR VOLUME 89 FL (80-99); MONOCYTES % (AUTO) 5.8 % (1.0-10.0); NEUTROPHILS % (AUTO) 76.5 % (45.0-75.0); PLATELET COUNT 340 K/UL (150-450); RED BLOOD COUNT 3.74 M/UL (4.70-6.10); RED CELL DISTRIBUTION WIDTH 12.5 % (11.6-14.8); WHITE BLOOD COUNT 9.9 K/UL (4.8-10.8)
[2018-02-25 05:00] LABS: % IRON SATURATION 11 % (15-50); IRON 33 ug/dL (50-175); TOTAL IRON BINDING CAPACITY 289 ug/dL (250-450)
[2018-02-25 06:01] LABS: ANION GAP 11 mmol/L (5-15); BLOOD UREA NITROGEN 9 mg/dL (7-18); CALCIUM 8.3 MG/DL (8.5-10.1); CARBON DIOXIDE 25 MMOL/L (21-32); CHLORIDE 102 MMOL/L (98-107); CREATININE 0.7 MG/DL (0.55-1.30); PHOSPHORUS 2.9 MG/DL (2.5-4.9); POTASSIUM 3.6 MMOL/L (3.5-5.1); SODIUM 138 MMOL/L (136-145)
[2018-02-25] MEDS: NovoLOG Insulin Flexpen SUBQ SCH ×4 (06:25→21:24)
[2018-02-25] MEDS: Norco 5mg/325mg tab ORAL PRN ×3 (06:26→21:20)
[2018-02-25] MEDS: Sucralfate 1gm tab ORAL SCH ×4 (08:41→21:24)
[2018-02-25] MEDS: Aspirin EC 81mg tab ORAL SCH (08:41)
[2018-02-25] MEDS: Metoprolol Tartrate 50mg tab ORAL SCH ×2 (08:42→21:21)
[2018-02-25] MEDS: Pantoprazole Inj IV SCH (08:42)
[2018-02-25] MEDS: Docusate 100mg cap ORAL SCH ×3 (08:45→17:41)
[2018-02-25] MEDS: Enoxaparin Sodium 300mg/3ml vial SUBQ SCH ×2 (08:46→21:00)
--- NOTE | 2018-02-25 11:14 | GI Progress Note ---
Assessment/Plan Problems: (1) S/P CABG (coronary artery bypass graft) ICD Codes: Z95.1 - Presence of aortocoronary bypass graft SNOMED: 081963796, 854419758 (2) Iron deficiency anemia ICD Codes: D50.9 - Iron deficiency anemia, unspecified SNOMED: 36250628 (3) Limited mobility ICD Codes: Z74.09 - Other reduced mobility SNOMED: 5067068 (4) Pacemaker ICD Codes: Z95.0 - Presence of cardiac pacemaker SNOMED: 978221981, 274840801 (5) Intractable abdominal pain ICD Codes: R10.9 - Unspecified abdominal pain SNOMED: 09827059, 224980080 Status: unchanged Status Narrative Discussed with Dr. Shannon. Assessment/Plan Recent EGD 01/19/18 >> Gastritis only in one part of the body along the lesser curvature, status post biopsy, otherwise normal upper endoscopic examination. CT AP reviewed >> No acute abdominal process demonstrated. elevated troponin level iron deficiency RECOMMENDATIONS: fu cardiology recs symptomatic treatment prn transfusions ppi PO bowel regime tumor markers zofran prn, reglan for persistent vomiting DM control fu labs, iron panel The patient was seen and examined at bedside and all new and available data was reviewed in the patients chart. I agree with the above findings, impression and plan. (Patient seen earlier today. Signature stamp does not reflect patient encounter time.). - Med Shannon MD Subjective Subjective limited Objective Last 24 Hour Vital Signs Date Time Temp Pulse Resp B/P (MAP) Pulse Ox O2 Delivery O2 Flow Rate FiO2 02/25/18 08:42 155/86 02/25/18 08:42 80 155/86 02/25/18 08:00 82 02/25/18 08:00 97.1 80 16 155/86 100 Room Air 97.1 02/25/18 06:00 98.0 87 18 146/82 96 Nasal Cannula 2.0 98.0 02/25/18 05:11 79 02/25/18 04:00 98.0 87 18 146/82 96 Nasal Cannula 2.0 98.0 02/25/18 00:00 97.7 70 24 150/89 97 Nasal Cannula 2.0 97.7 02/24/18 23:59 81 02/24/18 21:49 81 134/87 02/24/18 20:00 97.9 81 23 134/64 93 Nasal Cannula 2.0 97.9 02/24/18 19:07 81 02/24/18 17:07 98.1 02/24/18 16:08 98.1 02/24/18 16:00 97.7 82 21 146/64 96 Nasal Cannula 2.0 97.7 02/24/18 16:00 79 02/24/18 12:00 98.1 88 20 149/94 88 Nasal Cannula 2.0 98.1 02/24/18 12:00 86 Intake and Output 02/24/18 02/25/18 19:00 07:00 Intake Total 825 ml Output Total 200 ml 300 ml Balance 625 ml -300 ml IV Total 825 ml Output Urine Total 200 ml 300 ml Laboratory Tests Test 02/25/18 03:55 White Blood Count 9.9 K/UL (4.8-10.8) Red Blood Count 3.74 M/UL (4.70-6.10) L Hemoglobin 11.3 G/DL (14.2-18.0) L Hematocrit 33.3 % (42.0-52.0) L Mean Corpuscular Volume 89 FL (80-99) Mean Corpuscular Hemoglobin 30.3 PG (27.0-31.0) Mean Corpuscular Hemoglobin Concent 34.0 G/DL (32.0-36.0) Red Cell Distribution Width 12.5 % (11.6-14.8) Platelet Count 340 K/UL (150-450) Mean Platelet Volume 5.8 FL (6.5-10.1) L Neutrophils (%) (Auto) 76.5 % (45.0-75.0) H Lymphocytes (%) (Auto) 13.4 % (20.0-45.0) L Monocytes (%) (Auto) 5.8 % (1.0-10.0) Eosinophils (%) (Auto) 3.1 % (0.0-3.0) H Basophils (%) (Auto) 1.2 % (0.0-2.0) Sodium Level 138 MMOL/L (136-145) Potassium Level 3.6 MMOL/L (3.5-5.1) Chloride Level 102 MMOL/L (98-107) Carbon Dioxide Level 25 MMOL/L (21-32) Anion Gap 11 mmol/L (5-15) Blood Urea Nitrogen 9 mg/dL (7-18) Creatinine 0.7 MG/DL (0.55-1.30) Estimat Glomerular Filtration Rate > 60 mL/min (>60) Glucose Level 115 MG/DL (74-106) H Calcium Level 8.3 MG/DL (8.5-10.1) L Phosphorus Level 2.9 MG/DL (2.5-4.9) Magnesium Level 2.3 MG/DL (1.8-2.4) Iron Level 33 ug/dL (50-175) L Total Iron Binding Capacity 289 ug/dL (250-450) Percent Iron Saturation 11 % (15-50) L Unsaturated Iron Binding 256 ug/dL (112-346) Ferritin 53 NG/ML (8-388) Troponin I 0.441 ng/mL (0.000-0.056) Height (Feet): 5 Height (Inches): 10.00 Weight (Pounds): 197 General Appearance: WD/WN, no apparent distress, alert Cardiovascular: normal rate Respiratory/Chest: normal breath sounds, no respiratory distress Abdominal Exam: normal bowel sounds, non tender, soft Extremities: non-tender Adriane Amanda NP February 25, 2018 11:14
[2018-02-25] MEDS ORDERED: Metoclopramide 10mg/2ml Inj IVP PRN (11:15)
--- NOTE | 2018-02-25 11:41 | Diagnostic Imaging Report ---
Indication: Abnormal breath sounds Comparison: 09/25/2017 A single view chest radiograph was obtained. Findings: Prominent vascularity demonstrated bilaterally. Low lung volumes noted. There is a pacemaker on the left. Bones are osteopenic. IMPRESSION: Pulmonary edema.
[2018-02-25] MEDS: Metoclopramide 10mg/2ml Inj IVP SCH ×2 (14:09→21:20)
--- NOTE | 2018-02-25 14:59 | Diagnostic Imaging Report ---
Indication:Abdominal pain Technique: Grayscale and duplex Doppler imaging of the abdomen performed. Comparison: None Findings: Gallstones are present. Sonographic Myers's is positive per technologist. The liver, demonstrated part of the pancreas, aorta and IVC, both kidneys, spleen appear unremarkable. Portions of anatomy limited due to bowel gas. There is no biliary ductal dilatation identified. CBD is 5 mm. Doppler evaluation of the main portal vein shows patency. There is no ascites. No hydronephrosis seen. Impression: Cholelithiasis Limited evaluation
--- NOTE | 2018-02-25 17:12 | Cardiology Report ---
APPROVED REPORT EKG Measurement Heart [id number] Abnormal ECG Atrioventricular Sequential Pacemaker
[2018-02-25] MEDS: Iron Sucrose 100 MG in NS 55 ML IV SCH (21:19)
[2018-02-25] MEDS: Miralax 17gm pkt ORAL SCH (21:22)
[2018-02-26] VITALS: BP 144/76
[2018-02-26] MEDS: Norco 5mg/325mg tab ORAL PRN ×4 (02:41→20:07)
[2018-02-26 04:00] VITALS: BP 129/79
--- NOTE | 2018-02-26 04:45 | Progress Note ---
DATE: 02/25/2018 CARDIOLOGY PROGRESS NOTE SUBJECTIVE: The patient was seen and evaluated. No chest pain. No shortness of breath. OBJECTIVE: VITAL SIGNS: Blood pressure 140/80, pulse 84, and respirations 20. LUNGS: Clear. CARDIAC: Regular rhythm and rate. Normal S1, S2 with a fourth heart sound. ABDOMEN: Soft. No edema. LABORATORY DATA: Troponin has decreased to 0.441. Chemistry panel within normal limits. Magnesium 2.3. IMPRESSION: 1. Acute myocardial infarction. 2. Hypertensive heart disease with labile blood pressure. 3. Chronic obstructive pulmonary disease with no active bronchospasm. 4. Acute on chronic diastolic congestive heart failure, improved. PLAN: 1. Discontinue Lovenox. 2. DVT prophylaxis with subcutaneous heparin. 3. Maintain anti-platelet therapy, nitrates, and beta-blockade as well as statin drugs. 4. Conservative management if continued stable course. 5. Follow up chest x-ray. 6. Adjust anti-failure regimen including diuresis based on clinical parameters. Art George M.D. DR: SAMUEL JOB#: [id number] CC:
[2018-02-26] MEDS: Metoclopramide 10mg/2ml Inj IVP SCH ×3 (06:27→22:59)
[2018-02-26] MEDS: NovoLOG Insulin Flexpen SUBQ SCH ×4 (06:30→21:00)
[2018-02-26 08:00] VITALS: BP 144/85
--- NOTE | 2018-02-26 09:45 | Progress Note ---
DATE: 02/25/2018 SUBJECTIVE: The patient is awake, alert, afebrile, and hemodynamically stable. He does not have any chest pain today. PHYSICAL EXAMINATION: VITAL SIGNS: Blood pressure 140/80, his pulse is 84, respirations were 20, and temperature 97.7. HEENT: Eyes were normal. ENT, mucous membranes were moist and intact. NECK: Supple with no JVD without lymph nodes. LUNGS: Clear. There are decreased breath sounds in both bases. HEART: Normal sounds with regular beats. There is no tachycardia at rest. There is no S3, S4, or pericardial rub. ABDOMEN: Soft and nontender with normal bowel sounds. Gastrostomy site is clean. EXTREMITIES: Warm without cyanosis, clubbing, or edema. LABORATORY DATA: No new laboratory data were available at the time of this dictation. IMPRESSION AND PLAN: The patient's chest pain has resolved and he is hemodynamically stable. Repeat laboratory tests will be done in the morning. Ignacio Worley M.D. DR: ANA JOB#: [id number] CC:
[2018-02-26] MEDS: Docusate 100mg cap ORAL SCH ×3 (09:56→17:56)
[2018-02-26] MEDS: Aspirin EC 81mg tab ORAL SCH (09:56)
[2018-02-26] MEDS: Sucralfate 1gm tab ORAL SCH ×4 (09:56→21:03)
[2018-02-26] MEDS: Metoprolol Tartrate 50mg tab ORAL SCH ×2 (09:56→21:04)
[2018-02-26] MEDS: Pantoprazole Inj IV SCH (09:58)
[2018-02-26] MEDS: Heparin 5000 units/ml inj SUBQ SCH ×2 (10:00→21:06)
--- NOTE | 2018-02-26 10:55 | GI Progress Note ---
Assessment/Plan Problems: (1) S/P CABG (coronary artery bypass graft) ICD Codes: Z95.1 - Presence of aortocoronary bypass graft SNOMED: 180343734, 640852133 (2) Iron deficiency anemia ICD Codes: D50.9 - Iron deficiency anemia, unspecified SNOMED: 62873502 (3) Limited mobility ICD Codes: Z74.09 - Other reduced mobility SNOMED: 0335285 (4) Pacemaker ICD Codes: Z95.0 - Presence of cardiac pacemaker SNOMED: 648646284, 136607879 (5) Intractable abdominal pain ICD Codes: R10.9 - Unspecified abdominal pain SNOMED: 16166896, 545174077 Status: stable Status Narrative Discussed with Dr. Shannon. Assessment/Plan Recent EGD 01/19/18 >> Gastritis only in one part of the body along the lesser curvature, status post biopsy, otherwise normal upper endoscopic examination. CT AP reviewed >> No acute abdominal process demonstrated. elevated troponin level iron deficiency tolerating diet abdominal US >> unremarkable RECOMMENDATIONS: fu cardiology recs symptomatic treatment prn transfusions ppi PO bowel regime venofer tumor markers zofran prn, reglan for persistent vomiting DM control fu labs The patient was seen and examined at bedside and all new and available data was reviewed in the patients chart. I agree with the above findings, impression and plan. (Patient seen earlier today. Signature stamp does not reflect patient encounter time.). - Med Shannon MD Subjective Gastrointestinal/Abdominal: Reports: no symptoms Objective Last 24 Hour Vital Signs Date Time Temp Pulse Resp B/P (MAP) Pulse Ox O2 Delivery O2 Flow Rate FiO2 02/26/18 10:29 98.1 02/26/18 09:57 129/79 02/26/18 09:56 77 129/79 02/26/18 04:00 98.1 77 20 129/79 95 Room Air 98.1 02/26/18 03:46 72 02/26/18 00:00 97.4 82 20 144/76 99 Room Air 97.4 02/25/18 23:51 75 02/25/18 21:21 84 140/80 02/25/18 20:00 97.7 84 20 140/80 98 Room Air 97.7 02/25/18 19:08 92 02/25/18 17:40 126/78 02/25/18 16:30 97.1 77 20 126/78 94 Room Air 97.1 02/25/18 15:27 86 02/25/18 13:32 97.2 02/25/18 12:33 97.2 02/25/18 12:32 155/89 02/25/18 12:30 97.2 71 16 155/89 96 Room Air 97.2 02/25/18 11:51 75 Intake and Output 02/25/18 02/26/18 19:00 07:00 Intake Total 400 ml 300 ml Output Total 400 ml 350 ml Balance 0 ml -50 ml Intake Oral 400 ml 240 ml IV Total 60 ml Output Urine Total 400 ml 350 ml Height (Feet): 5 Height (Inches): 10.00 Weight (Pounds): 197 General Appearance: WD/WN, no apparent distress, alert Cardiovascular: normal rate Respiratory/Chest: normal breath sounds, no respiratory distress Abdominal Exam: normal bowel sounds, non tender, soft Extremities: normal range of motion, non-tender Adriane Amanda [employer]TER [employer]PERVISOR February 26, 2018 10:55
[2018-02-26 12:00] VITALS: BP 115/72
[2018-02-26 16:00] VITALS: BP 114/64
[2018-02-26 20:00] VITALS: BP 134/64
[2018-02-26] MEDS: Iron Sucrose 100 MG in NS 55 ML IV SCH (21:03)
[2018-02-26] MEDS: Miralax 17gm pkt ORAL SCH (21:04)
--- NOTE | 2018-02-26 23:45 | Progress Note ---
DATE: 02/26/2018 CARDIOLOGY PROGRESS NOTE SUBJECTIVE: Case was discussed with Dr. Worley, the primary care physician. The patient has no chest pain. He denies shortness of breath. OBJECTIVE: VITAL SIGNS: Blood pressure 114/64, pulse 82, and respiratory rate 20. NECK: Supple. Jugular venous pressure is slightly elevated. LUNGS: With basilar rales. CARDIAC: Regular rhythm rate. Normal S1 and S2. A 1/6 systolic apical murmur. ABDOMEN: Soft. EXTREMITIES: Trace edema. LABORATORY DATA: Laboratories pending. IMPRESSION: 1. Acute myocardial infarction. 2. Ischemic cardiomyopathy. 3. Acute on chronic systolic congestive heart failure. 4. Angiotensin-converting enzyme inhibitor allergy. PLAN: 1. Diuresis. 2. Maximize anti-failure and antianginal regimen. 3. Followup troponin levels. 4. Consider myocardial perfusion scan for assessment of reversible ischemia, although severity of left ventricular dysfunction makes it unlikely that he can be revascularized. Art George M.D. DR: REN JOB#: [id number] CC:
[2018-02-27] VITALS: BP 130/77
[2018-02-27] MEDS: Norco 5mg/325mg tab ORAL PRN ×3 (02:18→18:34)
--- NOTE | 2018-02-27 03:30 | Progress Note ---
DATE: 02/26/2018 NOTE: POOR AUDIO SUBJECTIVE: The patient is awake, alert, afebrile, and hemodynamically stable. He denied any chest pain, shortness of breath, palpitation, or dizziness. PHYSICAL EXAMINATION: VITAL SIGNS: Blood pressure 114/64, his pulse is 96, respirations of 20, and temperature 98.6 degrees. HEENT: Eyes were normal. ENT, mucous membranes were moist and intact. NECK: Supple with no JVD without lymph nodes. LUNGS: Clear. HEART: Normal sounds with regular beats. No S3, S4, or pericardial rub. ABDOMEN: Soft and nontender with normal bowel sounds. Gastrostomy site is clean. EXTREMITIES: Warm without cyanosis, clubbing, or edema. LABORATORY AND DIAGNOSTIC DATA: Hemoglobin 11.3, hematocrit 33.7, MCV of 89, WBC of 9.9, and platelets are 340. His BUN and creatinine are 9 and 0.7, respectively. Sodium is 138, potassium 3.6, chloride 102, and CO2 is 25. His phosphorus is 2.9 and magnesium is 2.3. Calcium is 8.3. Ferritin 63. His troponin I is 0.441. His pro-BNP is not available yet. IMPRESSION AND PLAN: 1. The patient has . He is doing well. . 2. The patient has chronic obstructive pulmonary disease. We will continue with respiratory therapy q.6 h. 3. The patient has cardiovascular disease prevention program. We will continue . 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 The patient developed congestive heart failure , which he seemed to respond well. Repeat laboratory tests will be done in the morning. Ignacio Worley M.D. DR: USE JOB#: [id number] CC:
[2018-02-27 04:00] VITALS: BP 135/84
[2018-02-27] MEDS: Metoclopramide 10mg/2ml Inj IVP SCH ×3 (05:29→21:16)
[2018-02-27 06:00] LABS: BASOPHILS % (AUTO) 0.7 % (0.0-2.0); EOSINOPHILS % (AUTO) 5.1 % (0.0-3.0); HEMATOCRIT 31.8 % (42.0-52.0); HEMOGLOBIN 10.6 G/DL (14.2-18.0); LYMPHOCYTES % (AUTO) 18.4 % (20.0-45.0); MEAN CORPUSCULAR VOLUME 90 FL (80-99); MONOCYTES % (AUTO) 6.8 % (1.0-10.0); NEUTROPHILS % (AUTO) 68.9 % (45.0-75.0); PLATELET COUNT 329 K/UL (150-450); RED BLOOD COUNT 3.55 M/UL (4.70-6.10); RED CELL DISTRIBUTION WIDTH 12.9 % (11.6-14.8); WHITE BLOOD COUNT 9.6 K/UL (4.8-10.8)
[2018-02-27] MEDS: NovoLOG Insulin Flexpen SUBQ SCH ×4 (06:30→21:00)
[2018-02-27 06:34] LABS: ANION GAP 9 mmol/L (5-15); BLOOD UREA NITROGEN 10 mg/dL (7-18); CALCIUM 8.2 MG/DL (8.5-10.1); CARBON DIOXIDE 28 MMOL/L (21-32); CHLORIDE 102 MMOL/L (98-107); CREATININE 0.8 MG/DL (0.55-1.30); POTASSIUM 4.7 MMOL/L (3.5-5.1); SODIUM 139 MMOL/L (136-145)
[2018-02-27 08:00] VITALS: BP 146/82
[2018-02-27] MEDS: Sucralfate 1gm tab ORAL SCH ×4 (08:52→20:48)
[2018-02-27] MEDS: Aspirin EC 81mg tab ORAL SCH (08:52)
[2018-02-27] MEDS: Metoprolol Tartrate 50mg tab ORAL SCH ×2 (08:53→20:49)
[2018-02-27] MEDS: Docusate 100mg cap ORAL SCH ×3 (08:54→17:34)
[2018-02-27] MEDS: Pantoprazole Inj IV SCH (08:54)
[2018-02-27] MEDS: Heparin 5000 units/ml inj SUBQ SCH ×2 (08:57→20:50)
[2018-02-27 12:00] VITALS: BP 110/74
--- NOTE | 2018-02-27 12:01 | GI Progress Note ---
Assessment/Plan Problems: (1) S/P CABG (coronary artery bypass graft) ICD Codes: Z95.1 - Presence of aortocoronary bypass graft SNOMED: 237034073, 011767402 (2) Iron deficiency anemia ICD Codes: D50.9 - Iron deficiency anemia, unspecified SNOMED: 00490756 (3) Limited mobility ICD Codes: Z74.09 - Other reduced mobility SNOMED: 5069218 (4) Pacemaker ICD Codes: Z95.0 - Presence of cardiac pacemaker SNOMED: 801771080, 544102018 (5) Intractable abdominal pain ICD Codes: R10.9 - Unspecified abdominal pain SNOMED: 59214429, 490836204 Status: stable Status Narrative Discussed with Dr. Shannon. Assessment/Plan Recent EGD 01/19/18 >> Gastritis only in one part of the body along the lesser curvature, status post biopsy, otherwise normal upper endoscopic examination. CT AP reviewed >> No acute abdominal process demonstrated. elevated troponin level iron deficiency tolerating diet abdominal US >> unremarkable RECOMMENDATIONS: fu cardiology recs symptomatic treatment prn transfusions ppi PO bowel regime venofer tumor markers zofran prn, reglan for persistent vomiting DM control fu labs The patient was seen and examined at bedside and all new and available data was reviewed in the patients chart. I agree with the above findings, impression and plan. (Patient seen earlier today. Signature stamp does not reflect patient encounter time.). - Med Shannon MD Subjective Gastrointestinal/Abdominal: Reports: no symptoms Objective Last 24 Hour Vital Signs Date Time Temp Pulse Resp B/P (MAP) Pulse Ox O2 Delivery O2 Flow Rate FiO2 02/27/18 09:51 97.0 02/27/18 08:54 146/82 02/27/18 08:53 85 146/82 02/27/18 08:52 97.0 02/27/18 08:00 97.0 85 18 146/82 95 Room Air 97.0 02/27/18 08:00 79 02/27/18 04:00 76 02/27/18 04:00 97.5 81 20 135/84 98 Room Air 97.5 02/27/18 02:18 98.6 02/27/18 00:00 98.2 80 20 130/77 98 Room Air 98.2 02/27/18 00:00 76 02/26/18 21:04 86 133/79 02/26/18 20:07 98.6 02/26/18 20:00 86 02/26/18 20:00 98.6 81 20 134/64 98 Room Air 98.6 02/26/18 17:56 129/79 02/26/18 16:00 86 02/26/18 16:00 98.6 82 20 114/64 98 Room Air 98.6 02/26/18 13:26 129/79 Intake and Output 02/26/18 02/27/18 19:00 07:00 Intake Total 650 ml 660 ml Output Total 1200 ml 1200 ml Balance -550 ml -540 ml Intake Oral 650 ml 600 ml IV Total 60 ml Output Urine Total 1200 ml 1200 ml Laboratory Tests Test 02/27/18 04:00 White Blood Count 9.6 K/UL (4.8-10.8) Red Blood Count 3.55 M/UL (4.70-6.10) L Hemoglobin 10.6 G/DL (14.2-18.0) L Hematocrit 31.8 % (42.0-52.0) L Mean Corpuscular Volume 90 FL (80-99) Mean Corpuscular Hemoglobin 29.8 PG (27.0-31.0) Mean Corpuscular Hemoglobin Concent 33.3 G/DL (32.0-36.0) Red Cell Distribution Width 12.9 % (11.6-14.8) Platelet Count 329 K/UL (150-450) Mean Platelet Volume 5.7 FL (6.5-10.1) L Neutrophils (%) (Auto) 68.9 % (45.0-75.0) Lymphocytes (%) (Auto) 18.4 % (20.0-45.0) L Monocytes (%) (Auto) 6.8 % (1.0-10.0) Eosinophils (%) (Auto) 5.1 % (0.0-3.0) H Basophils (%) (Auto) 0.7 % (0.0-2.0) Sodium Level 139 MMOL/L (136-145) Potassium Level 4.7 MMOL/L (3.5-5.1) Chloride Level 102 MMOL/L (98-107) Carbon Dioxide Level 28 MMOL/L (21-32) Anion Gap 9 mmol/L (5-15) Blood Urea Nitrogen 10 mg/dL (7-18) Creatinine 0.8 MG/DL (0.55-1.30) Estimat Glomerular Filtration Rate > 60 mL/min (>60) Glucose Level 104 MG/DL (74-106) Calcium Level 8.2 MG/DL (8.5-10.1) L Magnesium Level 2.0 MG/DL (1.8-2.4) Troponin I 0.245 ng/mL (0.000-0.056) Pro-B-Type Natriuretic Peptide 3859 pg/mL (0-125) H Height (Feet): 5 Height (Inches): 10.00 Weight (Pounds): 197 General Appearance: WD/WN, no apparent distress, alert Cardiovascular: normal rate Respiratory/Chest: normal breath sounds, no respiratory distress Abdominal Exam: normal bowel sounds, non tender, soft Extremities: normal range of motion, non-tender Adriane Amanda NP February 27, 2018 12:01
--- NOTE | 2018-02-27 13:38 | Diagnostic Imaging Report ---
Indication: Cough Technique: One view of the chest Comparison: 02/25/2018 Findings: There is mild interstitial congestion. Pleural spaces are clear There is a left chest bifocal AICD again demonstrated. The top of a an inferior vena cava filter is noted. Findings are unchanged Impression: Unchanged, over one day, findings as above.
[2018-02-27 16:00] VITALS: BP 131/71
[2018-02-27 20:00] VITALS: BP 144/70
[2018-02-27] MEDS: Iron Sucrose 100 MG in NS 55 ML IV SCH (20:47)
[2018-02-27] MEDS: Miralax 17gm pkt ORAL SCH (20:48)
[2018-02-27] MEDS: HydrALAZINE 25mg tab ORAL SCH (21:16)
--- NOTE | 2018-02-27 23:30 | Progress Note ---
DATE: 02/27/2018 CARDIOLOGY PROGRESS NOTE SUBJECTIVE: The patient is comfortable. No apparent shortness of breath. No chest pain. Repeat chest x-ray today reveals mild interstitial congestion. OBJECTIVE: VITAL SIGNS: Blood pressure 110/74, pulse 63, and respirations 18. LUNGS: Few rales. CARDIAC: Regular rhythm and rate. Normal S1, and S2. 1/6 systolic apical murmur. ABDOMEN: Soft. No edema. LABORATORY DATA: Troponin down to 0.245. Potassium 4.7. Pro-natriuretic peptide decreased to 3859. IMPRESSION: 1. Ischemic cardiomyopathy. 2. Cardiac defibrillator. 3. Acute on chronic systolic congestive heart failure. 4. Acute myocardial infarction. PLAN: 1. Continue diuresis. 2. Titrate anti-failure regimen. 3. In view of severe left ventricular dysfunction, we will continue medical management. Art George M.D. DR: SAMUEL JOB#: [id number] CC:
[2018-02-28] VITALS: BP 123/78
[2018-02-28] MEDS: Norco 5mg/325mg tab ORAL PRN ×4 (01:55→19:53)
[2018-02-28 04:00] VITALS: BP 136/78
[2018-02-28] MEDS: Metoclopramide 10mg/2ml Inj IVP SCH ×3 (05:15→21:32)
[2018-02-28] MEDS: HydrALAZINE 25mg tab ORAL SCH (05:15)
[2018-02-28 06:04] LABS: BASOPHILS % (AUTO) 0.7 % (0.0-2.0); EOSINOPHILS % (AUTO) 5.4 % (0.0-3.0); HEMATOCRIT 34.1 % (42.0-52.0); HEMOGLOBIN 11.1 G/DL (14.2-18.0); MEAN CORPUSCULAR VOLUME 90 FL (80-99); MONOCYTES % (AUTO) 7.6 % (1.0-10.0); NEUTROPHILS % (AUTO) 64.3 % (45.0-75.0); PLATELET COUNT 355 K/UL (150-450); RED BLOOD COUNT 3.79 M/UL (4.70-6.10); RED CELL DISTRIBUTION WIDTH 12.7 % (11.6-14.8); WHITE BLOOD COUNT 8.2 K/UL (4.8-10.8)
[2018-02-28 06:22] LABS: ANION GAP 8 mmol/L (5-15); BLOOD UREA NITROGEN 15 mg/dL (7-18); CALCIUM 8.7 MG/DL (8.5-10.1); CARBON DIOXIDE 28 MMOL/L (21-32); CHLORIDE 101 MMOL/L (98-107); CREATININE 0.9 MG/DL (0.55-1.30); POTASSIUM 4.1 MMOL/L (3.5-5.1); SODIUM 137 MMOL/L (136-145)
[2018-02-28] MEDS: NovoLOG Insulin Flexpen SUBQ SCH ×4 (06:30→20:49)
--- NOTE | 2018-02-28 07:00 | Progress Note ---
DATE: 02/27/2018 SUBJECTIVE: The patient is awake, alert, febrile, but became more short of breath. PHYSICAL EXAMINATION: VITAL SIGNS: Blood pressure 144/71, his pulse is 86, respirations 20, and temperature 98.4 degrees. HEENT: Eyes were normal. ENT, mucous membranes were moist and intact. NECK: Supple with no JVD without lymph nodes. LUNGS: Clear with decreased breath sounds in both bases. HEART: Normal sounds with regular beats. There is no S3, S4, or pericardial rub. ABDOMEN: Soft and nontender with normal bowel sounds. EXTREMITIES: Warm without cyanosis, clubbing, or edema. LABORATORY AND DIAGNOSTIC DATA: Hemoglobin is 10.6, hematocrit 31.8 with MCV of 90, WBC of 9.6, and platelets is 392,000. His BUN and creatinine 10 and 0.8 respectively. His sodium is 139, potassium 4.7, chloride 102, and CO2 is 28. His troponin is 0.245. It was 0.441 on 02/25/2018 and 0.56 on 02/24/2018. ProBNP is 3895. It was 8800 on 02/24/2018. Chest x-ray done today revealed an ICD in the chest. . IMPRESSION AND PLAN: The patient's congestive heart failure has slightly increased. A review of laboratory test revealed the patient did not have any . Repeat laboratory tests will be done in the morning including BNP. The patient has congestive heart failure with ischemic cardiomyopathy, which responded appropriately to medication, but now he does not respond. We will repeat chest x-ray in the morning. Repeat laboratory tests will be done in the morning. Ignacio Worley M.D. DR: SUE JOB#: [id number] CC:
[2018-02-28 08:00] VITALS: BP 134/71
[2018-02-28] MEDS: Pantoprazole Inj IV SCH (09:02)
[2018-02-28] MEDS: Aspirin EC 81mg tab ORAL SCH (09:03)
[2018-02-28] MEDS: Docusate 100mg cap ORAL SCH ×3 (09:03→17:41)
[2018-02-28] MEDS: Metoprolol Tartrate 50mg tab ORAL SCH ×2 (09:03→19:48)
[2018-02-28] MEDS: Sucralfate 1gm tab ORAL SCH ×4 (09:03→19:48)
[2018-02-28] MEDS: Heparin 5000 units/ml inj SUBQ SCH ×2 (09:06→21:00)
[2018-02-28] MEDS ORDERED: NS 275ml ONE (11:09)
[2018-02-28] MEDS ORDERED: D5 1/2NS 1000ml IV ONE (11:09)
[2018-02-28] MEDS ORDERED: Tubing IV Secondary IV ONE (11:09)
[2018-02-28 12:00] VITALS: BP 129/72
[2018-02-28] MEDS: HydrALAZINE 50mg tab ORAL SCH ×2 (13:35→21:32)
[2018-02-28 16:00] VITALS: BP 105/64
--- NOTE | 2018-02-28 19:45 | Progress Note ---
DATE: 02/28/2018 SUBJECTIVE: The patient is awake alert, afebrile, hemodynamically stable. He does have moderate shortness of breath at rest. PHYSICAL EXAMINATION: VITAL SIGNS: Blood pressure 105/64, his pulse is 71, respirations 21, and temperature 98.1 degrees. HEENT: Eyes were normal. ENT, mucous membranes were moist and intact. NECK: Supple with no JVD without lymph nodes. LUNGS: Clear. HEART: Normal sounds with regular heart beat. ABDOMEN: Soft and nontender with normal bowel sounds. EXTREMITIES: Warm without cyanosis, clubbing, or edema. LABORATORY AND DIAGNOSTIC DATA: Hemoglobin is 11.1, hematocrit 34.9 with MCV of 90, WBC of 8.2, and platelets of 355. His BUN and creatinine are 15 and 0.9 respectively. Sodium is 137, potassium 3.9, chloride 101, CO2 is 28, his glucose is 133, and calcium is 8. IMPRESSION: 1. Status post non-ST elevation myocardial infarction. 2. The patient has ischemic cardiomyopathy with congestive heart failure with diastolic dysfunction. His BNP declined from 8000 to 4000. 3. The patient has elevated troponin, troponin declining. 4. The patient has congestive heart failure. The patient clinically has congestive heart failure, however, his chest x-ray is clear with no pleural effusions or pulmonary congestion. PLAN: Repeat laboratory tests will be done in the morning. The patient to undergo cardiac ischemic scale once congestive heart failure improved. The patient himself is a grinder needle tip. Ignacio Worley M.D. DR: SUE JOB#: [id number] CC:
[2018-02-28] MEDS: Miralax 17gm pkt ORAL SCH (19:48)
[2018-02-28 20:00] VITALS: BP 125/78
[2018-03-01] VITALS: BP 116/75
[2018-03-01 04:00] VITALS: BP 127/78
[2018-03-01 05:26] LABS: BASOPHILS % (AUTO) 1.5 % (0.0-2.0); EOSINOPHILS % (AUTO) 6.1 % (0.0-3.0); HEMATOCRIT 36.6 % (42.0-52.0); LYMPHOCYTES % (AUTO) 24.7 % (20.0-45.0); MEAN CORPUSCULAR VOLUME 89 FL (80-99); MONOCYTES % (AUTO) 7.5 % (1.0-10.0); NEUTROPHILS % (AUTO) 60.2 % (45.0-75.0); PLATELET COUNT 369 K/UL (150-450); RED BLOOD COUNT 4.11 M/UL (4.70-6.10); RED CELL DISTRIBUTION WIDTH 13.4 % (11.6-14.8); WHITE BLOOD COUNT 9.1 K/UL (4.8-10.8)
[2018-03-01 05:35] LABS: ANION GAP 7 mmol/L (5-15); BLOOD UREA NITROGEN 17 mg/dL (7-18); CALCIUM 8.9 MG/DL (8.5-10.1); CARBON DIOXIDE 30 MMOL/L (21-32); CHLORIDE 99 MMOL/L (98-107); SODIUM 136 MMOL/L (136-145)
[2018-03-01] MEDS: Metoclopramide 10mg/2ml Inj IVP SCH ×3 (06:15→21:17)
[2018-03-01] MEDS: NovoLOG Insulin Flexpen SUBQ SCH ×4 (06:15→21:21)
[2018-03-01] MEDS: HydrALAZINE 50mg tab ORAL SCH ×3 (06:15→21:17)
[2018-03-01 08:00] VITALS: BP 139/83
[2018-03-01] MEDS: Docusate 100mg cap ORAL SCH ×3 (09:04→17:01)
[2018-03-01] MEDS: Pantoprazole Inj IV SCH (09:04)
[2018-03-01] MEDS: Aspirin EC 81mg tab ORAL SCH (09:04)
[2018-03-01] MEDS: Metoprolol Tartrate 50mg tab ORAL SCH ×2 (09:04→21:17)
[2018-03-01] MEDS: Sucralfate 1gm tab ORAL SCH ×4 (09:04→21:17)
[2018-03-01] MEDS: Heparin 5000 units/ml inj SUBQ SCH ×2 (09:06→21:22)
[2018-03-01] MEDS: Norco 5mg/325mg tab ORAL PRN ×2 (09:21→17:01)
[2018-03-01 12:00] VITALS: BP 115/64
[2018-03-01 16:00] VITALS: BP 119/63
[2018-03-01 20:00] VITALS: BP 125/68
[2018-03-01] MEDS: Miralax 17gm pkt ORAL SCH (21:17)
[2018-03-01] MEDS: Carvedilol 6.25mg Tab ORAL SCH (23:59)
[2018-03-02] VITALS (7 sets, daily range): BP systolic 108–130; BP diastolic 56–71
[2018-03-02] MEDS: Norco 5mg/325mg tab ORAL PRN ×3 (00:09→18:21)
[2018-03-02 05:18] LABS: BASOPHILS % (AUTO) 0.9 % (0.0-2.0); HEMOGLOBIN 11.7 G/DL (14.2-18.0); LYMPHOCYTES % (AUTO) 22.6 % (20.0-45.0); MEAN CORPUSCULAR VOLUME 90 FL (80-99); MONOCYTES % (AUTO) 7.7 % (1.0-10.0); NEUTROPHILS % (AUTO) 62.9 % (45.0-75.0); PLATELET COUNT 348 K/UL (150-450); RED CELL DISTRIBUTION WIDTH 13.5 % (11.6-14.8); WHITE BLOOD COUNT 8.7 K/UL (4.8-10.8)
[2018-03-02 05:40] LABS: ANION GAP 6 mmol/L (5-15); BLOOD UREA NITROGEN 21 mg/dL (7-18); CALCIUM 8.9 MG/DL (8.5-10.1); CARBON DIOXIDE 31 MMOL/L (21-32); CHLORIDE 101 MMOL/L (98-107); CREATININE 0.9 MG/DL (0.55-1.30); POTASSIUM 4.4 MMOL/L (3.5-5.1); SODIUM 138 MMOL/L (136-145)
[2018-03-02] MEDS: Metoclopramide 10mg/2ml Inj IVP SCH ×3 (05:42→21:38)
[2018-03-02] MEDS: HydrALAZINE 50mg tab ORAL SCH ×3 (05:43→21:53)
[2018-03-02] MEDS: NovoLOG Insulin Flexpen SUBQ SCH ×4 (05:45→21:00)
[2018-03-02] MEDS: Sucralfate 1gm tab ORAL SCH ×4 (08:49→21:39)
[2018-03-02] MEDS: Pantoprazole Inj IV SCH (08:49)
[2018-03-02] MEDS: Docusate 100mg cap ORAL SCH ×3 (08:50→17:42)
[2018-03-02] MEDS: Carvedilol 6.25mg Tab ORAL SCH ×2 (08:51→21:40)
[2018-03-02] MEDS: Aspirin EC 81mg tab ORAL SCH (08:51)
[2018-03-02] MEDS: Heparin 5000 units/ml inj SUBQ SCH ×2 (08:53→21:47)
--- NOTE | 2018-03-02 11:00 | Progress Note ---
DATE: 03/01/2018 SUBJECTIVE: The patient is awake, alert, afebrile, and hemodynamically relatively stable and refused to get out of the bed and . PHYSICAL EXAMINATION: VITAL SIGNS: Blood pressure 125/68, pulse is 71, respirations were 18, and temperature 98.2. HEENT: Eyes were normal. ENT, mucous membranes were moist and intact. NECK: Supple without lymph nodes. JVD of 4 cm above supraclavicular fossa at 90-degrees. LUNGS: Clear without rhonchi, rales, or wheezing. HEART: Normal sounds with irregular heart beats. ABDOMEN: Soft and nontender with normal bowel sounds. EXTREMITIES: Warm without cyanosis, clubbing, or edema. LABORATORY AND DIAGNOSTIC DATA: Hemoglobin is 12.0, hematocrit 36.6, MCV of 89, WBC of 9.1, and platelets of 369. His BUN and creatinine are 17 and 1.0 respectively. His sodium is 136, potassium 4.0, chloride 99, and CO2 is 30. His proBNP is 3312. His troponin is 0.068. Chest x-ray of congestive heart failure. IMPRESSION: The patient is progressively improving in regard to his congestive heart failure and acute non-STEMI, however, we will accelerate the recovery and metoprolol will be discontinued and the patient will be placed on carvedilol 6.25 mg b.i.d. and progressively increase as necessary. To evaluate the clinical congestive heart failure repeat laboratory tests will be done in the a.m. Ignacio Worley M.D. DR: CHRISTOPHER JOB#: [id number] CC:
[2018-03-02] MEDS: Miralax 17gm pkt ORAL SCH (21:39)
--- NOTE | 2018-03-02 23:45 | Progress Note ---
DATE: 03/02/2018 SUBJECTIVE: The patient is awake, alert, afebrile, and hemodynamically stable. His shortness of breath has improved. PHYSICAL EXAMINATION: VITAL SIGNS: Blood pressure is 125/69, pulse is 76, respirations 20, and temperature 98. HEENT: Eyes were normal. ENT, mucous membranes were moist and intact. NECK: Supple with no JVD without lymph nodes. LUNGS: Clear. HEART: Normal sounds with regular beats. No S3, S4, or pericardial rub. ABDOMEN: Soft and nontender with normal bowel sounds. EXTREMITIES: Warm without cyanosis, clubbing, or edema. LABORATORY DATA: Hemoglobin 11.7, hematocrit 36.2 with MCV of 90, WBC of 8.7, and platelets are 348. His BUN and creatinine are 21 and 0.9, respectively. His sodium is 138, potassium 4.4, chloride 101, and CO2 is 31. are improving progressively. His troponin declined from 0.06 to 0.04. His ProBNP declined from 3300 to 2900. IMPRESSION: 1. The patient is status post non-ST elevation acute myocardial infarction, is progressively improving. 2. The patient had congestive heart failure. Congestive heart failure is now improved. PLAN: The patient can be transferred now to Med/Surg floor where he will continue to be on the current medication with reduced preload and afterload reduction. Repeat laboratory tests and a chest x-ray will be done in the morning. Ignacio Worley M.D. DR: Sindhu JOB#: [id number] CC:
[2018-03-03] VITALS: BP 110/66
[2018-03-03 04:00] VITALS: BP 123/68
--- NOTE | 2018-03-03 04:15 | Progress Note ---
DATE: 02/28/2018 CARDIOLOGY PROGRESS NOTE This is a late entry for 02/28/2018. SUBJECTIVE: The patient is mildly short of breath. He continues with diuresis. OBJECTIVE: VITAL SIGNS: Blood pressure 105/64, pulse 71, and respirations 20. NECK: Supple with jugular venous pressure elevated. LUNGS: With few rales. CARDIAC: Regular rhythm and rate. Normal S1, paradoxically split S2. ABDOMEN: Soft. No edema. LABORATORY DATA: Potassium 3.9, BUN 15, and creatinine 0.9. Hemoglobin 11.1. IMPRESSION: 1. Acute myocardial infarction. 2. Ischemic cardiomyopathy. 3. Acute on chronic systolic congestive heart failure. 4. Cardiac defibrillator. PLAN: 1. Continue diuresis and titrate optimization of anti-failure regimen. 2. Medical management. Ischemia workup in view of severe left ventricular dysfunction unless fails to respond to medical therapy. Art George M.D. DR: SAMUEL JOB#: [id number] CC:
--- NOTE | 2018-03-03 04:15 | Progress Note ---
DATE: 03/02/2018 SUBJECTIVE: The patient is awake and alert. Lungs, no shortness of breath. OBJECTIVE: VITAL SIGNS: Blood pressure 125/69, pulse 76, and respiratory rate 20. LUNGS: Clear. NECK: Jugular venous pressure normal. CARDIAC: Regular rhythm and rate. Normal S1 and S2 with a 1/6 systolic apical murmur. ABDOMEN: Soft. EXTREMITIES: No edema. LABORATORY DATA: Troponin normalized. Pro-natriuretic peptide 2900, BUN and creatinine 21/0.9. IMPRESSION: Acute myocardial infarction, severe ischemic cardiomyopathy, acute on chronic systolic congestive heart failure, cardiac defibrillator. PLAN: 1. Maintenance diuretic dose with Aldactone as well. No SILVER inhibitors due to allergy, titrate anti-failure regimen, medical therapy. The patient has severe systolic dysfunction. 2. We will not pursue myocardial perfusion scan in this clinical setting. 3. Discharge plan to [facility] facility per primary care physician. Art George M.D. DR: LYRIC JOB#: [id number] CC:
[2018-03-03] MEDS: Metoclopramide 10mg/2ml Inj IVP SCH ×2 (05:16→14:23)
[2018-03-03] MEDS: HydrALAZINE 50mg tab ORAL SCH ×2 (05:17→14:00)
[2018-03-03] MEDS: NovoLOG Insulin Flexpen SUBQ SCH ×3 (05:49→16:22)
[2018-03-03] MEDS ORDERED: Norco 5mg/325mg tab ORAL PRN (07:30)
[2018-03-03 07:48] VITALS: BP 137/84
[2018-03-03] MEDS: Heparin 5000 units/ml inj SUBQ SCH (08:08)
[2018-03-03] MEDS: Docusate 100mg cap ORAL SCH ×3 (08:08→17:15)
[2018-03-03] MEDS: Aspirin EC 81mg tab ORAL SCH (08:09)
[2018-03-03] MEDS: Pantoprazole Inj IV SCH (08:09)
[2018-03-03] MEDS: Sucralfate 1gm tab ORAL SCH ×3 (08:09→17:14)
[2018-03-03 08:10] LABS: BASOPHILS % (AUTO) 0.9 % (0.0-2.0); EOSINOPHILS % (AUTO) 6.5 % (0.0-3.0); HEMATOCRIT 35.3 % (42.0-52.0); HEMOGLOBIN 11.7 G/DL (14.2-18.0); LYMPHOCYTES % (AUTO) 21.8 % (20.0-45.0); MEAN CORPUSCULAR VOLUME 90 FL (80-99); MONOCYTES % (AUTO) 7.4 % (1.0-10.0); NEUTROPHILS % (AUTO) 63.4 % (45.0-75.0); PLATELET COUNT 310 K/UL (150-450); RED BLOOD COUNT 3.92 M/UL (4.70-6.10); RED CELL DISTRIBUTION WIDTH 13.9 % (11.6-14.8); WHITE BLOOD COUNT 7.2 K/UL (4.8-10.8)
[2018-03-03] MEDS: Norco 5mg/325mg tab ORAL PRN ×2 (08:22→14:23)
[2018-03-03 08:32] LABS: ANION GAP 6 mmol/L (5-15); BLOOD UREA NITROGEN 18 mg/dL (7-18); CALCIUM 8.5 MG/DL (8.5-10.1); CARBON DIOXIDE 28 MMOL/L (21-32); CHLORIDE 101 MMOL/L (98-107); CREATININE 0.9 MG/DL (0.55-1.30); POTASSIUM 4.1 MMOL/L (3.5-5.1); SODIUM 135 MMOL/L (136-145)
[2018-03-03] MEDS ORDERED: Spironolactone 25mg tab ORAL SCH (09:00)
[2018-03-03] MEDS ORDERED: Carvedilol 12.5mg tab ORAL SCH (09:00)
--- NOTE | 2018-03-03 11:30 | Diagnostic Imaging Report ---
Indication: Dyspnea Comparison: 02/27/2018 A single view chest radiograph was obtained. Findings: Interstitial densities noted throughout the lung pompa. Lungs are low in volume. Cardiomegaly is present. Pacemaker noted on the left. IMPRESSION: Interstitial edema/CHF. Marginal interval improvement
[2018-03-03 11:47] VITALS: BP 106/59
--- NOTE | 2018-03-03 14:45 | GI Progress Note ---
Assessment/Plan Problems: (1) S/P CABG (coronary artery bypass graft) ICD Codes: Z95.1 - Presence of aortocoronary bypass graft SNOMED: 205920411, 360855077 (2) Iron deficiency anemia ICD Codes: D50.9 - Iron deficiency anemia, unspecified SNOMED: 02693622 (3) Limited mobility ICD Codes: Z74.09 - Other reduced mobility SNOMED: 4090978 (4) Pacemaker ICD Codes: Z95.0 - Presence of cardiac pacemaker SNOMED: 261307242, 659235620 (5) Intractable abdominal pain ICD Codes: R10.9 - Unspecified abdominal pain SNOMED: 11863747, 214688270 Status: stable Status Narrative Discussed with Dr. Shannon. Assessment/Plan Recent EGD 01/19/18 >> Gastritis only in one part of the body along the lesser curvature, status post biopsy, otherwise normal upper endoscopic examination. CT AP reviewed >> No acute abdominal process demonstrated. elevated troponin level iron deficiency tolerating diet abdominal US >> unremarkable RECOMMENDATIONS: fu cardiology recs symptomatic treatment prn transfusions ppi PO bowel regime venofer tumor markers zofran prn, reglan for persistent vomiting DM control fu labs dc planning The patient was seen and examined at bedside and all new and available data was reviewed in the patients chart. I agree with the above findings, impression and plan. (Patient seen earlier today. Signature stamp does not reflect patient encounter time.). - Med Shannon MD Subjective Gastrointestinal/Abdominal: Reports: no symptoms Objective Last 24 Hour Vital Signs Date Time Temp Pulse Resp B/P (MAP) Pulse Ox O2 Delivery O2 Flow Rate FiO2 03/03/18 14:23 97.5 03/03/18 14:00 106/59 03/03/18 12:30 106/59 03/03/18 11:47 97.5 71 20 106/59 94 97.5 03/03/18 09:08 97.7 03/03/18 08:22 97.7 03/03/18 08:21 78 137/84 03/03/18 08:09 97.7 03/03/18 08:09 137/84 03/03/18 07:48 97.7 78 17 137/84 99 Room Air 97.7 03/03/18 05:17 123/68 03/03/18 04:00 97.7 77 17 123/68 17 97.7 03/03/18 00:00 97.5 74 16 110/66 99 97.5 03/02/18 21:53 108/60 03/02/18 21:40 71 108/60 03/02/18 20:45 98.1 71 16 108/60 96 98.1 03/02/18 19:46 76 03/02/18 18:18 76 22 125/69 95 Room Air 03/02/18 17:43 112/56 03/02/18 17:34 115/63 03/02/18 16:30 98.0 73 20 112/56 96 Room Air 98.0 03/02/18 16:00 73 Intake and Output 03/02/18 03/03/18 19:00 07:00 Intake Total 840 ml Output Total 1000 ml 300 ml Balance -160 ml -300 ml Intake Oral 840 ml Output Urine Total 1000 ml 300 ml # Voids 4 # Bowel Movements 1 2 Laboratory Tests Test 03/03/18 06:00 03/03/18 06:10 Sodium Level 135 MMOL/L (136-145) L Potassium Level 4.1 MMOL/L (3.5-5.1) Chloride Level 101 MMOL/L (98-107) Carbon Dioxide Level 28 MMOL/L (21-32) Anion Gap 6 mmol/L (5-15) Blood Urea Nitrogen 18 mg/dL (7-18) Creatinine 0.9 MG/DL (0.55-1.30) Estimat Glomerular Filtration Rate > 60 mL/min (>60) Glucose Level 111 MG/DL (74-106) H Calcium Level 8.5 MG/DL (8.5-10.1) Pro-B-Type Natriuretic Peptide 2293 pg/mL (0-125) H White Blood Count 7.2 K/UL (4.8-10.8) Red Blood Count 3.92 M/UL (4.70-6.10) L Hemoglobin 11.7 G/DL (14.2-18.0) L Hematocrit 35.3 % (42.0-52.0) L Mean Corpuscular Volume 90 FL (80-99) Mean Corpuscular Hemoglobin 29.8 PG (27.0-31.0) Mean Corpuscular Hemoglobin Concent 33.1 G/DL (32.0-36.0) Red Cell Distribution Width 13.9 % (11.6-14.8) Platelet Count 310 K/UL (150-450) Mean Platelet Volume 5.7 FL (6.5-10.1) L Neutrophils (%) (Auto) 63.4 % (45.0-75.0) Lymphocytes (%) (Auto) 21.8 % (20.0-45.0) Monocytes (%) (Auto) 7.4 % (1.0-10.0) Eosinophils (%) (Auto) 6.5 % (0.0-3.0) H Basophils (%) (Auto) 0.9 % (0.0-2.0) Troponin I 0.017 ng/mL (0.000-0.056) Height (Feet): 5 Height (Inches): 10.00 Weight (Pounds): 193 General Appearance: WD/WN, no apparent distress, alert Cardiovascular: normal rate Respiratory/Chest: normal breath sounds, no respiratory distress Abdominal Exam: normal bowel sounds, non tender, soft Extremities: normal range of motion, non-tender Adriane Amanda NP March 03, 2018 14:45
[2018-03-03] MEDS ORDERED: HEPARIN SO5000 UNIT2 SUBQ (14:53)
[2018-03-03] MEDS ORDERED: HYDRALAZINE HCL50 MG ORAL (14:53)
[2018-03-03] MEDS ORDERED: COLACE100 MG ORAL (14:53)
[2018-03-03] MEDS ORDERED: FUROSEMIDE20 M1 ORAL (14:53)
[2018-03-03] MEDS ORDERED: ISOSORBIDE DINIT5 MG ORAL (14:54)
[2018-03-03] MEDS ORDERED: NOVOLOG100 UNIT/5 SQ (14:54)
[2018-03-03] MEDS ORDERED: [UNRECOGNIZED DRUG - OTHER] (14:55)
[2018-03-03] MEDS ORDERED: REGLAN10 MG IVP (14:55)
[2018-03-03] MEDS ORDERED: ZOFRAN 4 MG4 MG/2 ML IV (14:56)
[2018-03-03] MEDS ORDERED: NITROGLYCERIN SL (14:56)
[2018-03-03] MEDS ORDERED: BENADRYL25 MG ORAL (14:57)
[2018-03-03] MEDS ORDERED: ASPIRIN-LOW81 MG ORAL (14:57)
[2018-03-03] MEDS ORDERED: COREG12.5 MG ORAL (14:57)
[2018-03-03] MEDS ORDERED: PLAVIX75 MG ORAL (14:57)
[2018-03-03] MEDS ORDERED: SPIRONOLACTONE25 MG ORAL (14:59)
[2018-03-03] MEDS ORDERED: CARAFATE1 G1 ORAL (14:59)
[2018-03-03] MEDS ORDERED: PRAVASTATIN SOD20 M1 ORAL (14:59)
[2018-03-03] MEDS ORDERED: MIRALAX17 G2 ORAL (15:00)
[2018-03-03 15:52] VITALS: BP 122/77
[2018-03-03 17:15] VITALS: BP 122/77
--- NOTE | 2018-03-04 07:00 | Progress Note ---
DATE: 03/03/2018 CARDIOLOGY PROGRESS NOTE SUBJECTIVE: No signs of bleeding. No shortness of breath. OBJECTIVE: VITAL SIGNS: Blood pressure 122/77, pulse 69, and respiratory rate 20. NECK: Supple. LUNGS: Clear. CARDIAC: Regular rhythm and rate. Normal S1 and S2 with a 1/6 systolic apical murmur. ABDOMEN: Soft. EXTREMITIES: No edema. LABORATORY DATA: As noted. White count 7.2 and hemoglobin 11.7. Potassium 4.1. BUN is 15 and creatinine 0.9. Troponin normalized. Natriuretic peptide continues to decrease. IMPRESSION: 1. Acute myocardial infarction. 2. Ischemic cardiomyopathy. 3. Acute on chronic systolic congestive heart failure. 4. Cardiac defibrillator. PLAN: 1. Medical management. 2. Continue oral with maintenance diuretic dosing and antianginal drugs. 3. Outpatient defibrillator interrogation. 4. No role for coronary angiography at this time in view of severity of left ventricular dysfunction and prior cardiac workups. Art George M.D. DR: OLU JOB#: [id number] CC:
--- NOTE | 2018-03-04 09:07 | Discharge Summary ---
Discharge Summary Discharge Summary _ DATE OF ADMISSION: 02/23/2018 DATE OF DISCHARGE: 03/03/2018 REASON FOR ADMISSION: 68 years old male with extensive past medical history significant for CVA, coronary artery disease, s/p stenting x2, CHF, cardiac defibrillator, myocardial infarction, ischemic cardiomyopathy, chronic kidney disease, hyperlipidemia, COPD, presented to emergency department for evaluation of abdominal pain and nausea for 3 days. He denied vomiting. He denied fever or chills. He denied chest pain or shortness of breath. No dysuria or hematuria, no diarrhea. Upon evaluation in emergency department patient was afebrile, but blood pressure was elevated -160/95. Patient required placement on supplemental oxygen to maintain pulse oximetry above 92%. Laboratory workup revealed elevated troponin 0.184 ,elevated pro BNP 8811. Chest x-ray was consistent with pulmonary edema. EKG revealed paced rhythm, no acute changes. LFT and lipase were within normal limits. BUN and creatinine were stable. CT of the abdomen and pelvis showed probable pulmonary edema but no acute abdominal pathology. Patient was started on Lovenox and was admitted with diagnosis off acute myocardial infarction, cardiac defibrillator, hypertensive heart disease with elevated blood pressure diabetes mellitus insulin-dependent, abdominal pain, chronic kidney disease. CONSULTANTS: char filter operator helper [facility]RSE: Patient admitted. Patient started on full anticoagulation. Patient was on cardiac monitoring. Serial troponin were closely monitored: first five troponin readings were positive, the last two became negative. In addition to full anticoagulation, antiplatelet therapy with aspirin and Plavix was resumed along with statin. Lipid panel revealed LDL of 107, overall stable. Echocardiogram revealed ejection fraction of 20-25% , right ventricular systolic pressure of 50 consistent with mild pulmonary hypertension as well as moderate to severe mitral regurgitation. Patient started on anti-failure medication regimen consisting of beta ilya,diuretics and nitrates. SILVER inhibitor not started due to patient's allergy to a SILVER inhibitor. Cardiorenal parameters and volumes were closely monitored. Patient was followed up with CXR . In 2 days Lovenox was stopped, and patient started on DVT prophylaxis with heparin. Engraver Copperplate initially recommended to consider myocardial perfusion scan for assessment of reversible ischemia , however due to severe left ventricular dysfunction , unlikely could be revascularized. In view of severe left ventricular dysfunction, char filter operator helper recommended to continue conservative medical treatment. Supplemental oxygen provided as needed to keep pulse oximetry above 92%. Pulmonary toilet was on standby as needed. No evidence of COPD exacerbation and bronchospasm. Pro BNP from initial 8811 down to 2293. Pain management was addressed. Abdominal ultrasound revealed cholelithiasis without evidence of dilated bile ducts. Abdominal pain resolved. Patient was able to tolerate diet. No nausea, no vomiting. Supportive care provided. Bowel regimen instituted. Blood sugar was managed with sliding scale of insulin, remained stable. To reiterate, per char filter operator helper , no myocardial perfusion scan in this clinical setting would be appropriate. Engraver Copperplate recommended maintenance diuretic dose with Aldactone and Lasix , nitrate , beta blockage, Along with antiplatelet therapy and statin. Patient stabilized. No chest pain, no shortness of breath. Pulse oximetry was stable on room air. No evidence of bronchospasm. Last two troponin negative, pro BNP trending down, last CXR with some improvement. Blood pressure stabilized with current regimen. Renal parameters stable. Patient was stable for discharge back to senior care facility for continuation of care FINAL DIAGNOSES: Acute myocardial infarction Severe ischemic cardiomyopathy Acute on chronic systolic and diastolic congestive heart failure Hypertensive heart disease Diabetes mellitus Chronic kidney disease COPD Cardiac defibrillator Abdominal pain, resolved DISCHARGE MEDICATIONS: See Medication Reconciliation list. DISCHARGE INSTRUCTIONS: Patient was discharged to senior care facility; follow-up with the health care provider at the facility I have been assigned to dictate discharge summary for this account. I was not involved in the patient's management. Darlin Woodward NP March 04, 2018 09:07
== END 2018-03-03 17:48 | DRG 190 ==
LOC: EDBD 14:34 → EMR 16:02 → EDBEDREQSVC 16:26 → 2W 17:07 → EDBEDREQ 17:12 → 4W 03-02 20:51
DX: I21.9 Acute myocardial infarction, unspecified (principal); I50.43 Acute on chronic combined systolic (congestive) and diastolic (congestive) heart failure; E11.22 Type 2 diabetes mellitus with diabetic chronic kidney disease; I27.20 Pulmonary hypertension, unspecified; J44.9 Chronic obstructive pulmonary disease, unspecified; I13.0 Hypertensive heart and chronic kidney disease with heart failure and stage 1 through stage 4 chronic kidney disease, or unspecified chronic kidney disease; N18.9 Chronic kidney disease, unspecified; Z86.73 Personal history of transient ischemic attack (TIA), and cerebral infarction without residual deficits; I25.10 Atherosclerotic heart disease of native coronary artery without angina pectoris; Z95.5 Presence of coronary angioplasty implant and graft; Z79.4 Long term (current) use of insulin; I25.2 Old myocardial infarction; E78.5 Hyperlipidemia, unspecified; K21.9 Gastro-esophageal reflux disease without esophagitis; I73.9 Peripheral vascular disease, unspecified; Z95.1 Presence of aortocoronary bypass graft; Z87.891 Personal history of nicotine dependence; Z79.02 Long term (current) use of antithrombotics/antiplatelets; Z88.6 Allergy status to analgesic agent; Z88.8 Allergy status to other drugs, medicaments and biological substances; D50.9 Iron deficiency anemia, unspecified; R10.9 Unspecified abdominal pain; Z74.09 Other reduced mobility; K29.70 Gastritis, unspecified, without bleeding; I34.0 Nonrheumatic mitral (valve) insufficiency; Z95.810 Presence of automatic (implantable) cardiac defibrillator
CPT/HCPCS: 36415; 71045; 74177; 76700; 80048; 80053; 80061; 81001; 81003; 82150; 82728; 82962; 83036; 83540; 83550; 83690; 83735; 83880; 84100; 84439; 84443; 84481; 84484; 85025; 85610; 85730; 86140; 87081; 87086; 87181; 93005; 93306; 99285; J1815; J2405; J2765; J8499

== ENCOUNTER 2018-03-24 09:12 | Emergency (ER) | payer MEDICAID ==
[~2018-03-24] VITALS: Ht 177.8 cm; Wt 90.7 kg
[~2018-03-24 09:12] MED LIST changes: +ACETAMINOPHEN325 M1 ORAL; +ALUM-MAG HYDRO360 ML PO; +ASPIRIN-LOW81 MG ORAL; +BENADRYL25 MG ORAL; +BISACODYL5 MG RECTAL; +CARAFATE1 G1 ORAL; +COREG12.5 MG ORAL; +ENEMA133 M1 RC; +FUROSEMIDE20 M1 ORAL; +HEPARIN SO5000 UNIT2 SUBQ; +HYDRALAZINE HCL50 MG ORAL; +ISOSORBIDE DINIT5 MG ORAL; +MULTIVITAMINS1 EA13 ORAL; +MULTIVITAMINS1 EAC2 ORAL; +NITROGLYCERIN SL; +NORCO 5-325 TA1 EACH ORAL; +NOVOLOG100 UNIT/5 SQ; +PRAVASTATIN SOD20 M1 ORAL; +PROTONIX40 MG ORAL; +REGLAN10 MG IVP; +SPIRONOLACTONE25 MG ORAL; +ZOFRAN 4 MG4 MG/2 ML IV; +ZOFRAN ODT8 MG ORAL; +[UNRECOGNIZED DRUG - OTHER]
[2018-03-24 09:20] VITALS: BP 134/62
[2018-03-24] MEDS ORDERED: Norco 5mg/325mg tab ORAL ONE (09:45)
--- NOTE | 2018-03-24 10:06 | Emergency Room Report ---
History of Present Illness General Chief Complaint: Pain Source: Patient, Medical Record, EMS Present Illness HPI 68-year-old male with multiple medical problems including hypertension, CHF, coronary disease, presents with bilateral arm pain and neck pain for the last 4 days, he reports no trauma, no falls, no chest pain, no shortness of breath, he reports as a constant achy type pain and it is only relieved with [place]. He reports once a [place] wears off he has pain again. He comes to the ED because he wants something stronger for the pain. Allergies: Coded Allergies: LACTOSE (Verified Allergy, Unknown, 08/30/15) LISINOPRIL (Unverified Allergy, Unknown, 01/17/18) METHOTREXATE (Verified Allergy, Unknown, 08/30/15) NSAIDS (NON-STEROIDAL ANTI-INFLAMMA (Unverified Allergy, Unknown, 11/14/15) Patient History Past Medical History: see triage record Reviewed Nursing Documentation: PMH: Agreed; PSxH: Agreed Nursing Documentation-PMH Hx Cardiac Problems: Yes - CHF, PVD, AL, CAD Hx Hypertension: Yes - CKD Hx Pacemaker: Yes Hx Diabetes: Yes Hx Cancer: No Hx Gastrointestinal Problems: Yes - Gastritis/ abdominal pain Hx Neurological Problems: Yes Hx Cerebrovascular Accident: Yes - right side weakness Hx Peripheral Neuropathy: Yes - diabetic peripheral neuropathy, Chronic pain syndrom Hx Neurologic Surgery: No Review of Systems All Other Systems: negative except mentioned in HPI Physical Exam Vital Signs Date Time Temp Pulse Resp B/P (MAP) Pulse Ox O2 Delivery O2 Flow Rate FiO2 03/24/18 09:12 98.1 72 21 134/59 95 Room Air 98.1 Sp02 EP Interpretation: reviewed, normal General Appearance: no apparent distress, alert, non-toxic Head: normocephalic Eyes: bilateral eye normal inspection, bilateral eye PERRL, bilateral eye EOMI ENT: normal ENT inspection, hearing grossly normal, normal pharynx, no angioedema, normal voice, moist mucus membranes Neck: normal inspection, full range of motion, supple, no bony tend, supple/ symm/no masses Respiratory: chest non-tender, lungs clear, normal breath sounds, chest symmetrical, palpation of chest normal Cardiovascular #1: normal peripheral pulses, regular rate, rhythm Cardiovascular #2: 2+ radial (R), 2+ radial (L) Gastrointestinal: normal inspection, non tender, soft, no mass, no guarding, no rebound Rectal: deferred Genitourinary: normal inspection, no CVA tenderness Musculoskeletal: back normal, gait/station normal, normal range of motion, non- tender, no calf tenderness Neurologic: alert, responsive, visual 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 His pains in both arms and neck, but no jaw pain, no chest pain, no shortness of breath, no nausea, vomiting, diaphoresis. He is nontoxic in appearance, was given 2 [place] tablets here, and explained that I would not be able to completely resolve his pain. Recommend he follow-up with his pain specialist as an outpatient. EKG Diagnostic Results EKG Time: 09:40 EP Interpretation: Ventricular paced rhythm with PVCs Rate: normal Rhythm: other - v-paced ST Segments: no acute changes ASA given to the pt in ED: No Rhythm Strip Diag. Results Rhythm Strip Time: 10:05 EP Interpretation: yes Rate: 73 Rhythm: other - v-paced, few PVC's noted Chest X-Ray Diagnostic Results Chest X-Ray Diagnostic Results : Chest X-Ray Ordered: Yes Indication: Other EP Interpretation: Yes Interpretation: no consolidation, no effusion, no pneumothorax, no acute cardiopulmonary disease, other - mild pulm vasc congestion but no edema or consolidations Impression: No acute disease Electronically Signed by: Walter Elder MD Last Vital Signs Date Time Temp Pulse Resp B/P (MAP) Pulse Ox O2 Delivery O2 Flow Rate FiO2 03/24/18 09:12 98.1 72 21 134/59 95 Room Air 98.1 Status: improved Disposition: HOME, SELF-CARE Condition: Stable Referrals: NOT CHOSEN ROBERTO/,REFERRING (PCP) WALTER ELDER M.D Mar 24, 2018 10:06
[2018-03-24 10:13] LABS: BASOPHILS % (AUTO) 0.7 % (0.0-2.0); EOSINOPHILS % (AUTO) 5.4 % (0.0-3.0); HEMATOCRIT 35.3 % (42.0-52.0); HEMOGLOBIN 11.1 G/DL (14.2-18.0); LYMPHOCYTES % (AUTO) 16.3 % (20.0-45.0); MEAN CORPUSCULAR VOLUME 90 FL (80-99); MONOCYTES % (AUTO) 8.1 % (1.0-10.0); NEUTROPHILS % (AUTO) 69.6 % (45.0-75.0); PLATELET COUNT 324 K/UL (150-450); RED BLOOD COUNT 3.92 M/UL (4.70-6.10); RED CELL DISTRIBUTION WIDTH 12.4 % (11.6-14.8); WHITE BLOOD COUNT 8.8 K/UL (4.8-10.8)
[2018-03-24] MEDS ORDERED: NORCO 5-325 TA1 EACH ORAL (10:14)
[2018-03-24] MEDS ORDERED: BENADRYL25 MG ORAL (10:14)
[2018-03-24] MEDS ORDERED: METOCLOPRAMIDE H5 M1 ORAL (10:14)
[2018-03-24] MEDS ORDERED: POTASSIUM CHLO20 ME1 ORAL (10:14)
[2018-03-24 10:30] LABS: ANION GAP 9 mmol/L (5-15); BLOOD UREA NITROGEN 16 mg/dL (7-18); CALCIUM 8.8 MG/DL (8.5-10.1); CARBON DIOXIDE 26 MMOL/L (21-32); CHLORIDE 97 MMOL/L (98-107); POTASSIUM 4.6 MMOL/L (3.5-5.1); SODIUM 131 MMOL/L (136-145)
[2018-03-24 10:35] LABS: ALANINE AMINOTRANSFERASE 19 U/L (12-78); ALBUMIN 2.7 G/DL (3.4-5.0); ALBUMIN/GLOBULIN RATIO 0.5 (1.0-2.7); ALKALINE PHOSPHATASE 83 U/L (46-116); ASPARTATE AMINO TRANSFERASE 23 U/L (15-37); BILIRUBIN,TOTAL 0.2 MG/DL (0.2-1.0)
[2018-03-24 10:46] VITALS: BP 137/53
--- NOTE | 2018-03-24 11:33 | Diagnostic Imaging Report ---
Indication: Chest pain Technique: One view of the chest Comparison: 03/03/2018 Findings: There is a left chest bifocal AICD. Bilateral interstitial disease, left greater than right, appears similar to the prior exam. The heart size is borderline enlarged. The pleural spaces are grossly clear Impression: Left greater than right interstitial disease. Similarity to prior exam indicates this could represent chronic interstitial fibrotic changes or COPD changes. However, this could also represent recurrent acute interstitial edema. Correlation with clinical findings is recommended
[2018-03-24 13:31] VITALS: BP 142/60
== END 2018-03-24 13:35 | disposition home or self-care (01) ==
LOC: EDBD 09:12 → EMR 09:38
DX: G89.29 Other chronic pain (principal); M79.602 Pain in left arm; M79.601 Pain in right arm; I13.0 Hypertensive heart and chronic kidney disease with heart failure and stage 1 through stage 4 chronic kidney disease, or unspecified chronic kidney disease; I50.9 Heart failure, unspecified; N18.9 Chronic kidney disease, unspecified; Z95.0 Presence of cardiac pacemaker; I25.2 Old myocardial infarction; I25.10 Atherosclerotic heart disease of native coronary artery without angina pectoris; E11.42 Type 2 diabetes mellitus with diabetic polyneuropathy
CPT/HCPCS: 36415; 71045; 80053; 84484; 85025; 93005; 99283

== ENCOUNTER 2019-01-04 19:47 | Inpatient (IN) | payer MEDICAID ==
[~2019-01-04] VITALS: Ht 177.8 cm; Wt 99.5 kg
[~2019-01-04 19:47] MED LIST changes: +METOCLOPRAMIDE H5 M1 ORAL; +POTASSIUM CHLO20 ME1 ORAL
[2019-01-04 19:50] VITALS: BP 145/73
--- NOTE | 2019-01-04 19:50 | NUR ---
ED Nurse Note: Pt brought in by EMS from [facility] for SOB and LLE cellulitis. In addition, pt also noted with rash located on outer right thigh and inner left thigh. Pt verbalized rash began a few days ago after a new unknown medication was being taken.
[2019-01-04] MEDS ORDERED: Cefepime HCl 2 GM in NS 110 ML IV SCH (20:00)
[2019-01-04] MEDS ORDERED: Sodium Chloride 3,400 ML IVLG ONE (20:00)
[2019-01-04] MEDS ORDERED: CALCIUM + VITA1 EAC1 PO (20:01)
[2019-01-04] MEDS ORDERED: FLEET ENEMA133 ML RECTAL (20:01)
[2019-01-04] MEDS ORDERED: BACLOFEN10 MG ORAL (20:01)
[2019-01-04] MEDS ORDERED: ATORVASTATIN CA20 MG ORAL (20:01)
[2019-01-04 20:46] LABS: BASOPHILS % (AUTO) 0.7 % (0.0-2.0); EOSINOPHILS % (AUTO) 0.5 % (0.0-3.0); HEMATOCRIT 41.4 % (42.0-52.0); HEMOGLOBIN 13.5 G/DL (14.2-18.0); LYMPHOCYTES % (AUTO) 11.6 % (20.0-45.0); MEAN CORPUSCULAR VOLUME 89 FL (80-99); MONOCYTES % (AUTO) 4.7 % (1.0-10.0); NEUTROPHILS % (AUTO) 82.5 % (45.0-75.0); PLATELET COUNT 255 K/UL (150-450); RED BLOOD COUNT 4.66 M/UL (4.70-6.10); RED CELL DISTRIBUTION WIDTH 13.7 % (11.6-14.8); WHITE BLOOD COUNT 13.3 K/UL (4.8-10.8)
[2019-01-04] MEDS ORDERED: GABAPENTIN300 MG ORAL (20:52)
[2019-01-04] MEDS ORDERED: KLONOPIN0.5 MG ORAL (20:52)
[2019-01-04 20:53] LABS: ANION GAP 19 mmol/L (5-15); BLOOD UREA NITROGEN 18 mg/dL (7-18); CALCIUM 9.8 MG/DL (8.5-10.1); CARBON DIOXIDE 32 MMOL/L (21-32); CHLORIDE 96 MMOL/L (98-107); CREATININE 1.1 MG/DL (0.55-1.30); POTASSIUM 4.5 MMOL/L (3.5-5.1); SODIUM 147 MMOL/L (136-145)
--- NOTE | 2019-01-04 20:55 | Emergency Room Report ---
History of Present Illness General Chief Complaint: Skin Rash/Abscess Source: Patient, EMS Present Illness HPI [facility] She has cellulitis on both his legs. He is not responding to treatment at the jail facility. No fever, chills, nausea, vomiting. There are no other complaints. Allergies: Coded Allergies: LACTOSE (Verified Allergy, Unknown, 08/30/15) LISINOPRIL (Unverified Allergy, Unknown, 01/17/18) METHOTREXATE (Verified Allergy, Unknown, 08/30/15) NSAIDS (NON-STEROIDAL ANTI-INFLAMMA (Unverified Allergy, Unknown, 11/14/15) Patient History Past Medical History: see triage record, DM, HTN, [place], CAD, CHF, pneumonia, GERD , CVA/TIA, renal disease Past Surgical History: pacemaker, other - IVC filter Social History: Denies: smoking, alcohol use, drug use Reviewed Nursing Documentation: PMH: Agreed; PSxH: Agreed Nursing Documentation-PMH Past Medical History: No History, Except For Hx Hypertension: Yes - CKD Hx Pacemaker: Yes Hx Diabetes: Yes Hx Cancer: No Hx Gastrointestinal Problems: Yes - Gastritis/ abdominal pain Hx Neurological Problems: Yes Hx Cerebrovascular Accident: Yes - right side weakness Hx Peripheral Neuropathy: Yes - diabetic peripheral neuropathy, Chronic pain syndrom Hx Neurologic Surgery: No Review of Systems All Other Systems: negative except mentioned in HPI Physical Exam Vital Signs Date Time Temp Pulse Resp B/P (MAP) Pulse Ox O2 Delivery O2 Flow Rate FiO2 01/04/19 19:42 98.1 96 14 145/73 97 Nasal Cannula 3.0 Sp02 EP Interpretation: reviewed, normal General Appearance: no apparent distress, alert, GCS 15, non-toxic Head: normocephalic, atraumatic Eyes: bilateral eye normal inspection, bilateral eye PERRL ENT: hearing grossly normal, normal pharynx, no angioedema, normal voice Neck: normal inspection Respiratory: chest non-tender, lungs clear, normal breath sounds, no respiratory distress, no retraction, no accessory muscle use, speaking full sentences Cardiovascular #1: regular rate, rhythm, no edema Gastrointestinal: normal bowel sounds, non tender, soft, non-distended, no guarding, no rebound Rectal: deferred Musculoskeletal: normal range of motion, other - See below in skin exam Neurologic: alert, oriented x3, responsive, motor strength/tone normal, sensory intact, speech normal Psychiatric: mood/affect normal, no suicidal/homicidal ideation Skin: well hydrated, other - Erythema over both lower extremities RLE lower leg and LLE upper thigh, indurated. Medical Decision Making Diagnostic Impression: Primary Impression: Cellulitis ER Course This patient has skin erythema bilateral lower extremities. This could be cellulitis versus some other erythematous skin condition such as a fungal infection or eczema like skin condition. Regardless, it is erythematous and indurated. I will treat presumptively as cellulitis and IV antibiotics and admit this patient for further evaluation and treatment. Laboratory Tests Test 01/04/19 20:00 White Blood Count 13.3 K/UL (4.8-10.8) H Red Blood Count 4.66 M/UL (4.70-6.10) L Hemoglobin 13.5 G/DL (14.2-18.0) L Hematocrit 41.4 % (42.0-52.0) L Mean Corpuscular Volume 89 FL (80-99) Mean Corpuscular Hemoglobin 28.9 PG (27.0-31.0) Mean Corpuscular Hemoglobin Concent 32.6 G/DL (32.0-36.0) Red Cell Distribution Width 13.7 % (11.6-14.8) Platelet Count 255 K/UL (150-450) Mean Platelet Volume 6.0 FL (6.5-10.1) L Neutrophils (%) (Auto) 82.5 % (45.0-75.0) H Lymphocytes (%) (Auto) 11.6 % (20.0-45.0) L Monocytes (%) (Auto) 4.7 % (1.0-10.0) Eosinophils (%) (Auto) 0.5 % (0.0-3.0) Basophils (%) (Auto) 0.7 % (0.0-2.0) Sodium Level 147 MMOL/L (136-145) H Potassium Level 4.5 MMOL/L (3.5-5.1) Chloride Level 96 MMOL/L (98-107) L Carbon Dioxide Level 32 MMOL/L (21-32) Anion Gap 19 mmol/L (5-15) H Blood Urea Nitrogen 18 mg/dL (7-18) Creatinine 1.1 MG/DL (0.55-1.30) Estimate Glomerular Filtration Rate > 60 mL/min (>60) Glucose Level 194 MG/DL (74-106) H Lactic Acid Level 1.60 mmol/L (0.4-2.0) Calcium Level 9.8 MG/DL (8.5-10.1) Total Bilirubin 0.5 MG/DL (0.2-1.0) Aspartate Amino Transferase (AST) 27 U/L (15-37) Alanine Aminotransferase (ALT) 27 U/L (12-78) Alkaline Phosphatase 85 U/L (46-116) Total Creatine Kinase 80 U/L (26-308) Troponin I 0.011 ng/mL (0.000-0.056) Total Protein 8.0 G/DL (6.4-8.2) Albumin 3.6 G/DL (3.4-5.0) Globulin 4.4 g/dL Albumin/Globulin Ratio 0.8 (1.0-2.7) L Last Vital Signs Date Time Temp Pulse Resp B/P (MAP) Pulse Ox O2 Delivery O2 Flow Rate FiO2 01/04/19 19:50 98.1 91 14 145/73 97 Nasal Cannula 3.0 Disposition: ADMITTED INPATIENT Condition: Stable Stephanie Quiroga DO Jan 04, 2019 20:55
[2019-01-04 20:58] LABS: ALANINE AMINOTRANSFERASE 27 U/L (12-78); ALBUMIN 3.6 G/DL (3.4-5.0); ALBUMIN/GLOBULIN RATIO 0.8 (1.0-2.7); ALKALINE PHOSPHATASE 85 U/L (46-116); ASPARTATE AMINO TRANSFERASE 27 U/L (15-37); BILIRUBIN,TOTAL 0.5 MG/DL (0.2-1.0); CREATINE KINASE 80 U/L (26-308)
--- NOTE | 2019-01-04 23:20 | NUR ---
ED Nurse Note: Pt admitted to floor. Report given to FRANCO Wagoner. Pt A/Ox4, nigerian speaking. VSS. Pt showing no signs of acute distress. IV access present and patent. Pt taken upstairs by roller man.
--- NOTE | 2019-01-04 23:20 | NUR ---
NURSE NOTES: Received a report from [place] (ER nurse). Waiting for the pt's arrival.
[2019-01-04 23:43] LABS: APPEARANCE,URINE CLEAR; BILIRUBIN, URINE NEGATIVE (NEGATIVE); COLOR,URINE PALE YELLOW; GLUCOSE, URINE (UA) NEGATIVE (NEGATIVE); KETONES,URINE NEGATIVE (NEGATIVE); LEUKOCYTE ESTERASE ,URINE NEGATIVE (NEGATIVE); NITRITE,URINE NEGATIVE (NEGATIVE); PH,URINE 8 (4.5-8.0); PROTEIN,URINE NEGATIVE (NEGATIVE); UROBILINOGEN,URINE NORMAL MG/DL (0.0-1.0)
--- NOTE | 2019-01-04 23:45 | NUR ---
NURSE NOTES: Pt arrived in the unit. AAOX4. Able to make needs known. No respiratory distress noted. On room air. C/o generalized pain, rated pain 10/10. Will give pain med once there's an order. Checked the belongings. Cellulitis noted on B lower extremities, L outer thigh, R inner thigh. Overall, skin is intact. Pictures taken and uploaded. Bed in lowest position. Bed alarm is on. Call light within reach. Will continue to monitor.
[2019-01-04 23:56] VITALS: BP 142/80
[2019-01-05] MEDS ORDERED: Vancomycin 750 MG in D5W 275 ML IVPB SCH (00:30)
[2019-01-05] MEDS ORDERED: HYDROcodone/Acetamin 5/325 tab ORAL PRN ×2 (00:30→06:30)
[2019-01-05] MEDS ORDERED: HYDROcodone/Acetamin 5/325 tab ORAL SCH (01:00)
[2019-01-05] MEDS: Vancomycin 1gm in D5W 275ml IVPB SCH ×2 (01:49→13:09)
[2019-01-05 04:00] VITALS: BP 148/87
[2019-01-05] MEDS ORDERED: Zosyn 3.375gm inj ONE (04:59)
[2019-01-05] MEDS: Piperacillin/Tazobactam 3.375 GM in NS 110 ML IVPB SCH ×3 (05:06→20:51)
[2019-01-05 06:39] LABS: BASOPHILS % (AUTO) 0.4 % (0.0-2.0); EOSINOPHILS % (AUTO) 2.1 % (0.0-3.0); HEMATOCRIT 40.5 % (42.0-52.0); HEMOGLOBIN 13.2 G/DL (14.2-18.0); LYMPHOCYTES % (AUTO) 24.5 % (20.0-45.0); MEAN CORPUSCULAR VOLUME 89 FL (80-99); MONOCYTES % (AUTO) 7.4 % (1.0-10.0); NEUTROPHILS % (AUTO) 65.5 % (45.0-75.0); PLATELET COUNT 256 K/UL (150-450); RED BLOOD COUNT 4.55 M/UL (4.70-6.10); RED CELL DISTRIBUTION WIDTH 13.8 % (11.6-14.8); WHITE BLOOD COUNT 9.9 K/UL (4.8-10.8)
--- NOTE | 2019-01-05 07:00 | NUR ---
HAND-OFF: Report given to Jaden Olea RN.
[2019-01-05 07:08] LABS: ANION GAP 9 mmol/L (5-15); BLOOD UREA NITROGEN 15 mg/dL (7-18); CALCIUM 8.7 MG/DL (8.5-10.1); CARBON DIOXIDE 30 MMOL/L (21-32); CHLORIDE 101 MMOL/L (98-107); CHOLESTEROL 141 MG/DL (< 200); HDL CHOLESTEROL 69 MG/DL (40-60); POTASSIUM 3.4 MMOL/L (3.5-5.1); SODIUM 139 MMOL/L (136-145); TRIGLYCERIDES 106 MG/DL (30-150)
[2019-01-05 08:00] VITALS: BP 137/81
[2019-01-05] MEDS: Heparin 5000 units/ml inj SUBQ SCH ×2 (08:17→20:51)
--- NOTE | 2019-01-05 08:56 | NUR ---
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
--- NOTE | 2019-01-05 10:07 | NUR ---
NURSE NOTES: PT AXOX4, RESTING IN BED. PT HAD N/V, SPITTING UP SCANT AMOUNT OF CLEAR EMESIS. NO PRN MEDICATIONS AVAILABLE FOR NAUSEA OR VOMITING. PT STATES THERE IS MINIMAL EFFECTIVENESS FROM NORCO 10/325MG Q6H. RM MADE DR HERZOG AWARE WITH NEW ORDER FOR ZOFRAN 4MG IVP PRN Q4H AND CHANGE FREQUENCY OF NORCO 10/325MG TO Q4H. PT MADE AWARE AND PRN ZOFRAN ADMINISTERED ORDERED.
[2019-01-05 12:00] VITALS: BP 135/73
[2019-01-05] MEDS: HYDROcodone/Acetamin 5/325 tab ORAL PRN ×3 (12:20→20:50)
--- NOTE | 2019-01-05 12:45 | History and Physical Report ---
DATE OF ADMISSION: 01/04/2019 NOTE: POOR AUDIO This is one of several admission to [facility] of this 68-year-old because of bilateral lower extremities cellulitis. HISTORY OF PRESENT ILLNESS: The patient is a resident of an extended care facility. The patient has been in stable condition over the last several . He is known to have several chronic medical syndrome that will be detailed in the following paragraph. The patient has been stable on his current medication. Several days prior to the present admission, had pain, swelling, and redness in both lower extremities, but mainly in the right lower extremity affecting from the inner part of the thigh up to the foot. The left side on his upper part part of the thigh is affected. The pain became intolerable and he came to [facility] ER and was admitted. PAST MEDICAL HISTORY: The patient is known to have a longstanding rheumatoid arthritis . He has high blood pressure, chronic obstructive pulmonary disease, peripheral vascular disease, and coronary artery disease. He is status post pacemaker that was inserted 4 years ago. He has ischemic cardiomyopathy. He has chronic bronchitis, gastroesophageal reflux disease. He has diabetes mellitus and disease, and motility disorder. ALLERGIES: No known drug allergies. MEDICATIONS: He has chronic pain syndrome for which he has been on narcotic analgesic now for a long period of time. He is taking [place] 5/325 mg daily on a regular basis. FAMILY HISTORY: Noncontributory. SOCIAL HISTORY: He is single. He is born in [place]. He has been in [place] for many years prior to that. He works in the . The patient does not smoke, drink, or use illicit drugs. REVIEW OF SYSTEMS: CARDIOVASCULAR: The patient denied any chest pain, shortness of breath, palpitations, or dizziness. PULMONARY: The patient has chronic cough, chronic wheezing, and chronic expectoration. GASTROINTESTINAL: His appetite is moderate. His weight is stable. He has no dysphagia or dyspepsia. No bowel movement disorder. GENITOURINARY: The patient denies any dysuria, frequency, incontinence, or nocturia. swelling, stiffness, cold extremities, photosensitivity, dry eyes, . 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 He has no numbness, tingling, seizure disorder, and has no headache. PHYSICAL EXAMINATION: VITAL SIGNS: Blood pressure 137/84, pulse is 86, respirations 19, and temperature was 98. HEENT: Eyes were normal. Pupils were round, equal, and reactive to light. Sclerae was white. Conjunctiva was pink. Extraocular movements were normal. Temporal arteries were palpable bilaterally. There was bilateral temporal wasting. Visual pompa to confrontation were normal. The neglect sign was negative. ENT, mucous membranes were not dehydrated. Auditory canals were clear and tympanic membranes could not be visualized. Nasal cavity was not congested. Nasal septum was intact. Soft palate was free of ulcerations. Pharynx was clear from exudate or tonsillar hypertrophy. Uvula jenifer to phonation. Tongue was moist, midline, and normally papillated. NECK: Supple. There was no goiter. No mass. No lymphadenopathy. There was no JVD. No bruits. Carotid upstroke was 2+. LUNGS: Clear. HEART: PMI was in the fifth left intercostal space in midclavicular line. There was normal S1 and normal S2. There was no murmur. No arrhythmia. No S3. No S4. No pericardial rub. ABDOMEN: Soft, obese, and nontender without organomegaly. There were no masses palpable. Normal bowel sounds without bruits. There was no guarding. No rebound tenderness. No ascites. No hernia. No CVA tenderness. Liver span was 8 cm, mostly nontender. EXTREMITIES: No cyanosis, no clubbing, and no edema. Extremities were warm. NEUROLOGICAL: Reflexes of biceps, triceps, and brachioradialis were symmetric and equal. Patellar retinaculum was symmetric and equal. LABORATORY DATA: Hemoglobin is 13.5, hematocrit 41.4 with MCV of 89, WBC of 13.3, and platelets is 255,000. His BUN and creatinine is 15 and 1.9 respectively. Sodium is 142, potassium 4.5, chloride 96, and CO2 is 32. The patient has bilateral extensive cellulitis. We will start on Zosyn 3.375 mg IV piggyback q.6 h. Repeat laboratory will be done in the a.m. IMPRESSION: The patient has cellulitis in the lower extremity. is admitted of this case. In the meantime, the patient will undergo biological studies. Repeat laboratory tests will be done in the a.m. Ignacio Worley M.D. DR: LYNDA JOB#: [id number] CC:
--- NOTE | 2019-01-05 15:44 | NUR ---
*-* INSURANCE *-* ALL CLINICALS AND REVIEWS HAVE BEEN FAXED TO: [facility]/ DEPT CERT REF# [id number] PLEASE FAX THE REVIEW/CLINICAL P- [phone] F- [phone]...USE THE ABOVE REF#
[2019-01-05 15:58] VITALS: BP 139/79
--- NOTE | 2019-01-05 17:33 | NUR ---
HAND-OFF: Report given to Dmitriy GASCA RN.
--- NOTE | 2019-01-05 17:34 | NUR ---
NURSE NOTES: Received patient from instable condition. Patient able to eat 100% of dinner without nausea or vomiting. IV intact, no s/s of infiltration. Bilateral legs were elevated on pillow and skin intact. Bed is in low position and locked. Call light and personnel items within reach. Will continue plan of care.
--- NOTE | 2019-01-05 19:00 | NUR ---
NURSE NOTES: Received a report from FRANCO Mendez. AAOX4. Able to make needs known. No respiratory distress noted. On room air. No c/o pain/discomfort. IV site is patent and intact. Bed alarm is on. Call light within reach. Will continue to monitor.
--- NOTE | 2019-01-05 19:37 | NUR ---
HAND-OFF: Report given to Rizwana.
[2019-01-05 20:00] VITALS: BP 140/80
--- NOTE | 2019-01-05 20:34 | Consultation ---
History of Present Illness General Chief Complaint: Skin Rash/Abscess Present Illness Allergies: Coded Allergies: LACTOSE (Verified Allergy, Unknown, 08/30/15) LISINOPRIL (Unverified Allergy, Unknown, 01/17/18) METHOTREXATE (Verified Allergy, Unknown, 08/30/15) NSAIDS (NON-STEROIDAL ANTI-INFLAMMA (Unverified Allergy, Unknown, 11/14/15) Medication History Scheduled Aspirin (Aspirin EC), 81 MG ORAL DAILY, (Reported) Atorvastatin Calcium* (Atorvastatin Calcium*), 20 MG ORAL BEDTIME, (Reported) Baclofen* (Baclofen*), 10 MG ORAL THREE TIMES A DAY, (Reported) Carvedilol (Coreg), 12.5 MG ORAL EVERY 12 HOURS, (Reported) Clonazepam* (Klonopin*), 0.5 MG ORAL Q6H, (Reported) Clopidogrel Bisulfate* (Plavix*), 75 MG ORAL DAILY, (Reported) Clopidogrel Bisulfate* (Plavix*), 75 MG ORAL DAILY, (Reported) Docusate Sodium* (Colace*), 100 MG ORAL DAILY, (Reported) Docusate Sodium* (Colace*), 100 MG ORAL THREE TIMES A DAY, (Reported) Furosemide* (Lasix*), 20 MG ORAL DAILY, (Reported) Gabapentin* (Gabapentin*), 300 MG ORAL THREE TIMES A DAY, (Reported) Heparin Sod (Porcine) (Heparin Sodium*), 5,000 UNITS SUBQ EVERY 12 HOURS, ( Reported) Hydralazine Hcl* (Hydralazine Hcl*), 50 MG ORAL EVERY 8 HOURS, (Reported) Insulin Aspart (Novolog), 0 SQ AC, (Reported) Isosorbide Dinitrate (Isosorbide Dinitrate*), 20 MG ORAL THREE TIMES A DAY, ( Reported) Metoclopramide Hcl* (Reglan*), 10 MG IVP THREE TIMES A DAY, (Reported) Metoclopramide Hcl* (Metoclopramide Hcl*), 10 MG ORAL EVERY 8 HOURS, (Reported) Multivitamin with Minerals (Multivitamins with Minerals), 1 TAB ORAL DAILY, ( Reported) Multivitamins* (Multivitamins*), 1 TAB ORAL DAILY, (Reported) Na Phos,M-B/Na Phos,Di-Ba* (Fleet Enema*), 133 ML RECTAL DAILY, (Reported) Pantoprazole* (Protonix*), 40 MG ORAL DAILY, (Reported) Polyethylene Glycol 3350* (Miralax*), 17 GM ORAL QHS, (Reported) Potassium Chloride* (K-Dur*), 20 MEQ ORAL DAILY, (Reported) Pravastatin Sod* (Pravastatin Sod*), 10 MG ORAL BEDTIME, (Reported) Sennosides (Senna), 17.2 MG PO QHS, (Reported) Spironolactone* (Aldactone*), 25 MG ORAL DAILY, (Reported) Sucralfate* (Carafate*), 1 GM ORAL FOUR TIMES A DAY, (Reported) Sucralfate* (Carafate*), 1 GM ORAL FOUR TIMES A DAY, (Reported) Scheduled PRN Acetaminophen* (Acetaminophen 325MG Tablet*), 650 MG ORAL Q4H PRN for Mild Pain/ Temp > 100.5, (Reported) Bisacodyl (Dulcolax), 10 MG RC DAILY PRN for Constipation, (Reported) Diphenhydramine Hcl* (Benadryl*), 25 MG ORAL Q6H PRN for Itching, (Reported) Diphenhydramine Hcl* (Benadryl*), 25 MG ORAL Q6H PRN for Itching, (Reported) Glucagon HCl (Glucagon HCl), 1 MG IM for Hypoglycemia, (Reported) Hydrocodone Bit/Acetaminophen 5-325* (Bayamon 5-325*), 1 TAB ORAL Q6H PRN for For Pain, (Reported) Hydrocodone Bit/Acetaminophen 5-325* ([place] 5-325*), 2 TAB ORAL Q6H PRN for For Pain, (Reported) Hydrocodone Bit/Acetaminophen 5-325* ([place] 5-325*), 2 TAB ORAL Q6H PRN for For Pain, (Reported) Mag Hydrox/Al Hydrox/Simeth (Alum-Mag Hydroxide-Simeth Liq), 30 ML PO Q6HR PRN for Abdominal cramps, (Reported) Magnesium Hydroxide* (Milk Of Magnesia*), 30 ML ORAL QHS PRN for Constipation, ( Reported) Na Phos,M-B/Na Phos,Di-Ba (Enema), 133 ML RC for Constipation, (Reported) Ondansetron Odt* (Zofran Odt*), 8 MG ORAL Q8HR PRN for Nausea & Vomiting, ( Reported) Ondansetron* (Zofran*), 4 MG IV Q6H PRN for Nausea & Vomiting, (Reported) [Nitroglycerin], 0.4 MG SL [id number] X 3 PRN for CHEST PAIN, (Reported) Miscellaneous Medications Calcium Carbonate/Vitamin D3 (Calcium + Vitamin D Tablet), 1 EACH PO, (Reported) Nitroglycerin (Nitroglycerin), 0.4 MG SL, (Reported) [Nitrogly], (Reported) Patient History Healthcare decision maker Resuscitation status Full Code Advanced Directive on File Physical Exam Last 24 Hour Vital Signs Date Time Temp Pulse Resp B/P (MAP) Pulse Ox O2 Delivery O2 Flow Rate FiO2 01/05/19 15:58 98.3 89 20 139/79 (99) 95 01/05/19 12:00 98.3 84 20 135/73 (93) 95 01/05/19 09:00 Room Air 01/05/19 08:00 98.2 20 137/81 (99) 95 01/05/19 04:00 98.0 82 18 148/87 (107) 98 01/05/19 02:00 97.0 01/05/19 01:27 98.0 01/05/19 00:05 Room Air 01/04/19 23:56 97.0 93 16 142/80 (100) 94 01/04/19 23:20 98.7 97 14 133/64 99 Room Air Intake and Output 01/04/19 01/05/19 19:00 07:00 Intake Total 3812.500 ml Output Total 800 ml Balance 3012.500 ml IV Total 3812.500 ml Output Urine Total 800 ml # Voids 3 Laboratory Tests Test 01/04/19 23:25 01/05/19 05:58 Urine Color Pale yellow Urine Appearance Clear Urine pH 8 (4.5-8.0) Urine Specific [place] 1.015 (1.005-1.035) Urine Protein Negative (NEGATIVE) Urine Glucose (UA) Negative (NEGATIVE) Urine Ketones Negative (NEGATIVE) Urine Blood Negative (NEGATIVE) Urine Nitrite Negative (NEGATIVE) Urine Bilirubin Negative (NEGATIVE) Urine Urobilinogen Normal MG/DL (0.0-1.0) Urine Leukocyte Esterase Negative (NEGATIVE) White Blood Count 9.9 K/UL (4.8-10.8) Red Blood Count 4.55 M/UL (4.70-6.10) L Hemoglobin 13.2 G/DL (14.2-18.0) L Hematocrit 40.5 % (42.0-52.0) L Mean Corpuscular Volume 89 FL (80-99) Mean Corpuscular Hemoglobin 29.1 PG (27.0-31.0) Mean Corpuscular Hemoglobin Concent 32.6 G/DL (32.0-36.0) Red Cell Distribution Width 13.8 % (11.6-14.8) Platelet Count 256 K/UL (150-450) Mean Platelet Volume 6.5 FL (6.5-10.1) Neutrophils (%) (Auto) 65.5 % (45.0-75.0) Lymphocytes (%) (Auto) 24.5 % (20.0-45.0) Monocytes (%) (Auto) 7.4 % (1.0-10.0) Eosinophils (%) (Auto) 2.1 % (0.0-3.0) Basophils (%) (Auto) 0.4 % (0.0-2.0) Sodium Level 139 MMOL/L (136-145) Potassium Level 3.4 MMOL/L (3.5-5.1) L Chloride Level 101 MMOL/L (98-107) Carbon Dioxide Level 30 MMOL/L (21-32) Anion Gap 9 mmol/L (5-15) Blood Urea Nitrogen 15 mg/dL (7-18) Creatinine 1.0 MG/DL (0.55-1.30) Estimat Glomerular Filtration Rate > 60 mL/min (>60) Glucose Level 149 MG/DL (74-106) H Hemoglobin A1c 9.6 % (4.3-6.0) H Calcium Level 8.7 MG/DL (8.5-10.1) Pro-B-Type Natriuretic Peptide 3422 pg/mL (0-125) H Triglycerides Level 106 MG/DL (30-150) Cholesterol Level 141 MG/DL (< 200) LDL Cholesterol 55 mg/dL (<100) HDL Cholesterol 69 MG/DL (40-60) H Cholesterol/HDL Ratio 2.0 (3.3-4.4) L Vitamin B12 Level 626 PG/ML (193-986) Vitamin D 25-Hydroxy Pending 25-Hydroxy Vitamin D2 Pending 25-Hydroxy Vitamin D3 Pending Thyroid Stimulating Hormone (TSH) 0.967 uiU/mL (0.358-3.740) Free Thyroxine 1.33 NG/DL (0.76-1.46) Microbiology Date/Time Source Procedure Growth Status 01/04/19 23:00 Rectum Received Height (Feet): 5 Height (Inches): 10.00 Weight (Pounds): 250 Medications Current Medications Medications (Trade) Dose Ordered [facility] Route PRN Reason Start Time Stop Time Status Last Admin Dose Admin Acetaminophen/ Hydrocodone Bitart ([place] 5/325) 2 tab Q4H PRN ORAL Severe Pain 01/05/19 12:30 01/12/19 12:29 01/05/19 16:32 Heparin Sodium (Porcine) (Heparin 5000 units/ml) 5,000 units EVERY 12 HOURS SUBQ 01/05/19 09:00 02/04/19 08:59 01/05/19 08:17 Ondansetron HCl (Zofran) 4 mg Q4H PRN IVP Nausea & Vomiting 01/05/19 09:15 02/04/19 09:14 01/05/19 16:31 Piperacillin Sod/ Tazobactam Sod 3.375 gm/Sodium Chloride 110 ml @ 27.5 mls/hr Q8HR IVPB 01/05/19 06:00 01/12/19 05:59 01/05/19 14:44 Vancomycin HCl 1 gm/Dextrose 275 ml @ 183.708 mls/hr Q12H IVPB 01/05/19 02:00 01/10/19 01:59 01/05/19 13:09 Assessment/Plan Assessment/Plan Hematology Consultation REQ : Nubia Worley DOS: 01/05/19 RFC: DVT BILATERAL, hyperproteinemia ID [id number] old male patient is a resident of an extended care facility. The patient has been in stable condition over the last several years, at this time is being admitte for celluliti b/l lower ext and heme was consulted given hx of dvt both sides as present in 2018 record, have seen the patient before, but at [facility]. PAST MEDICAL HISTORT: rheumatoid arthritis, He has high blood pressure, chronic obstructive pulmonary disease, peripheral vascular disease, and coronary artery disease. He is status post pacemaker that was inserted 4 years ago. He has ischemic cardiomyopathy. He has chronic bronchitis, gastroesophageal reflux disease. He has diabetes mellitus disease, and motility disorder. ALLERGIES: No known drug allergies. MEDICATIONS: He has chronic pain syndrome for which he has been on narcotic analgesic now for a long period of time. He is taking [place] 5/325 mg daily on a regular basis. FAMILY HISTORY: Noncontributory. SOCIAL HISTORY: He is single. He is born in [place]. He has been in [place] for many years prior to that. The patient does not smoke, drink, or use illicit drugs. ROS: Constitutional: Several days prior to the present admission, had pain, swelling , and redness in both lower extremities, but mainly in the right lower extremity affecting from the inner part of the thigh up to the foot. The left side on his upper thigh affected Skin: No rashes, lumps, itchiness, dryness HEENT: No REAL, ear ache, visual changes, double vision, nosebleeds, sore throat, lumps, swollen glands Breasts: No lumps, pain, discharge Pulmonary: No cough, sputum, shortness of breath, coughing up blood, hemoptysis Cardiovascular: No chest pain, tightness, palpitations, syncope, claudication, orthopnea, PND GI: No nausea, vomiting, diarrhea, melena, hematochezia, change in appetite, abdominal pain : No dysuria, frequency, urgency, urinary incontinence, foamy urine Musculoskeletal: No joint swelling or muscle pain, trauma, back pain Neurologic: No dizziness, fainting, seizures, changes in smell or taste Psychiatric: No nervousness, stress, or depression, anxiety, hallucinations Endocrine: No weight change, heat or cold intolerance, tremor, insomnia PE: Vitals: reviewed General Appearance: NAD HEENT: normocephalic, atraumatic Neck: non-tender, normal alignment Respiratory/Chest: nromal breath sounds bilaterally Cardiovascular/Chest: normal peripheral pulses, normal rate Abdomen: normal bowel sounds, soft, nontender Extremities: normal range of motion BILATERAL CELLULITIS++ Laboratory Tests Test 01/04/19 23:25 01/05/19 05:58 Urine Color Pale yellow Urine Appearance Clear Urine pH 8 (4.5-8.0) Urine Specific [place] 1.015 (1.005-1.035) Urine Protein Negative (NEGATIVE) Urine Glucose (UA) Negative (NEGATIVE) Urine Ketones Negative (NEGATIVE) Urine Blood Negative (NEGATIVE) Urine Nitrite Negative (NEGATIVE) Urine Bilirubin Negative (NEGATIVE) Urine Urobilinogen Normal MG/DL (0.0-1.0) Urine Leukocyte Esterase Negative (NEGATIVE) White Blood Count 9.9 K/UL (4.8-10.8) Red Blood Count 4.55 M/UL (4.70-6.10) L Hemoglobin 13.2 G/DL (14.2-18.0) L Hematocrit 40.5 % (42.0-52.0) L Mean Corpuscular Volume 89 FL (80-99) Mean Corpuscular Hemoglobin 29.1 PG (27.0-31.0) Mean Corpuscular Hemoglobin Concent 32.6 G/DL (32.0-36.0) Red Cell Distribution Width 13.8 % (11.6-14.8) Platelet Count 256 K/UL (150-450) Mean Platelet Volume 6.5 FL (6.5-10.1) Neutrophils (%) (Auto) 65.5 % (45.0-75.0) Lymphocytes (%) (Auto) 24.5 % (20.0-45.0) Monocytes (%) (Auto) 7.4 % (1.0-10.0) Eosinophils (%) (Auto) 2.1 % (0.0-3.0) Basophils (%) (Auto) 0.4 % (0.0-2.0) Sodium Level 139 MMOL/L (136-145) Potassium Level 3.4 MMOL/L (3.5-5.1) L Chloride Level 101 MMOL/L (98-107) Carbon Dioxide Level 30 MMOL/L (21-32) Anion Gap 9 mmol/L (5-15) Blood Urea Nitrogen 15 mg/dL (7-18) Creatinine 1.0 MG/DL (0.55-1.30) Estimat Glomerular Filtration Rate > 60 mL/min (>60) Glucose Level 149 MG/DL (74-106) H Hemoglobin A1c 9.6 % (4.3-6.0) H Calcium Level 8.7 MG/DL (8.5-10.1) Pro-B-Type Natriuretic Peptide 3422 pg/mL (0-125) H Triglycerides Level 106 MG/DL (30-150) Cholesterol Level 141 MG/DL (< 200) LDL Cholesterol 55 mg/dL (<100) HDL Cholesterol 69 MG/DL (40-60) H Cholesterol/HDL Ratio 2.0 (3.3-4.4) L Vitamin B12 Level 626 PG/ML (193-986) Vitamin D 25-Hydroxy Pending 25-Hydroxy Vitamin D2 Pending 25-Hydroxy Vitamin D3 Pending Thyroid Stimulating Hormone (TSH) 0.967 uiU/mL (0.358-3.740) Free Thyroxine 1.33 NG/DL (0.76-1.46) Current Medications Medications (Trade) Dose Ordered Sig/Paola Route PRN Reason Start Time Stop Time Status Last Admin Dose Admin Acetaminophen/ Hydrocodone Bitart ([place] 5/325) 2 tab Q4H PRN ORAL Severe Pain 01/05/19 12:30 01/12/19 12:29 01/05/19 16:32 Heparin Sodium (Porcine) (Heparin 5000 units/ml) 5,000 units EVERY 12 HOURS SUBQ 01/05/19 09:00 02/04/19 08:59 01/05/19 08:17 Ondansetron HCl (Zofran) 4 mg Q4H PRN IVP Nausea & Vomiting 01/05/19 09:15 02/04/19 09:14 01/05/19 16:31 Piperacillin Sod/ Tazobactam Sod 3.375 gm/Sodium Chloride 110 ml @ 27.5 mls/hr Q8HR IVPB 01/05/19 06:00 01/12/19 05:59 01/05/19 14:44 Vancomycin HCl 1 gm/Dextrose 275 ml @ 183.708 mls/hr Q12H IVPB 01/05/19 02:00 01/10/19 01:59 01/05/19 13:09 Assessment and Recs: # Bilateral DVT hx in 2018 noted on duplex lower extremity --> currently is only on heparin sq dosing --> obtain repeat duplex of lower extremities could be cause of cellulitis recurrent --> if dvt still present consider anticoag # Hyperprotenemia - with elevated protein --> obtain a spep and upep to r/o m-spike --> repeat cbc and bmp in am --> if elevated ca consider to get a pth # S/P CABG Acute myocardial infarction. Ischemic cardiomyopathy hx --> cards eval prn basis # Acute on chronic systolic congestive heart failure. # Cardiac defibrillator. # Cellulitis of the lower ext --> on vanc/zosyn broad spectrum abx The timing of this note does not necessarily reflect the time of the patient was seen. Greatly appreciate consultation! Linus Dan MD Jan 05, 2019 20:34
[2019-01-05 23:47] VITALS: BP 139/84
--- NOTE | 2019-01-06 03:02 | NUR ---
NURSE NOTES: Pt is c/o of generalized pain. However, pt has already reached the maximum dose of Gib[place] for 24 hrs. Rizwana GAMEZ talked to the pharmacist whether it's fine to administer another dose of Gibbon. The pharmacist recommended Rizwana GAMEZ not to give the Gibbon and it's best to contact the doctor instead. Contacted Dr. Worley to inform him about the pt's condition. Still waiting for Dr. Worley's response. Will continue to monitor the pt.
[2019-01-06] MEDS: Vancomycin 1gm in D5W 275ml IVPB SCH ×2 (03:12→14:30)
--- NOTE | 2019-01-06 03:59 | NUR ---
NURSE NOTES: Received report from FRANCO Wagoner. Patient A&Ox4, on room air. Complaining of pain. IV intact, patent, and running fluids. Bed in lowest position with call light in reach. Will continue with plan of care.
[2019-01-06 04:00] VITALS: BP 143/80
--- NOTE | 2019-01-06 04:01 | NUR ---
HAND-OFF: Report given to FRANCO Hernández.
[2019-01-06 05:40] LABS: BASOPHILS % (AUTO) 0.9 % (0.0-2.0); EOSINOPHILS % (AUTO) 2.4 % (0.0-3.0); HEMATOCRIT 42.2 % (42.0-52.0); HEMOGLOBIN 13.8 G/DL (14.2-18.0); LYMPHOCYTES % (AUTO) 13.3 % (20.0-45.0); MEAN CORPUSCULAR VOLUME 88 FL (80-99); NEUTROPHILS % (AUTO) 76.4 % (45.0-75.0); PLATELET COUNT 243 K/UL (150-450); RED BLOOD COUNT 4.79 M/UL (4.70-6.10); RED CELL DISTRIBUTION WIDTH 13.7 % (11.6-14.8)
[2019-01-06 05:51] LABS: ANION GAP 9 mmol/L (5-15); BLOOD UREA NITROGEN 13 mg/dL (7-18); CALCIUM 8.5 MG/DL (8.5-10.1); CARBON DIOXIDE 29 MMOL/L (21-32); CHLORIDE 99 MMOL/L (98-107); POTASSIUM 3.8 MMOL/L (3.5-5.1); SODIUM 137 MMOL/L (136-145)
[2019-01-06] MEDS: Piperacillin/Tazobactam 3.375 GM in NS 110 ML IVPB SCH ×3 (06:12→21:39)
--- NOTE | 2019-01-06 07:36 | NUR ---
HAND-OFF: Report given to Odalis Lang RN.
--- NOTE | 2019-01-06 07:50 | NUR ---
NURSE NOTES: Received patient in bed, awake, alert and oriented x3-4. Patient complains of pain but unable to administer pain meds due to patient reached the maximum dose of 3g within 24hr. Awaiting for Dr. Worley to call back. IV intact, no s/s of infiltration. Patient able to turn. bed is in lo position and locked. Call light within reach. Will continue plan of care. Elevated legs still noted with redness and swelling.
[2019-01-06 08:00] VITALS: BP 154/87
[2019-01-06] MEDS: Heparin 5000 units/ml inj SUBQ SCH ×2 (08:04→21:40)
--- NOTE | 2019-01-06 08:22 | NUR ---
NURSE NOTES: Received phone call from Dr. Worley with no new order to d/c previous norco give norco 10/325mg Q6HR PRN and protonix 40mg IV for GI prophylaxis. ordered toradol but patient is allergic to NSAIDS, did not carried order.Order read back and carried out.
[2019-01-06] MEDS: HYDROcodone/Acetamin 10/325 tab ORAL PRN ×3 (09:59→23:05)
[2019-01-06] MEDS: Pantoprazole Inj IVP SCH (10:00)
[2019-01-06 11:55] VITALS: BP 143/76
--- NOTE | 2019-01-06 14:49 | NUR ---
*-* INSURANCE *-* UPDATED CLINICALS HAVE BEEN FAXED TO: [facility]/ DEPT CERT REF# [id number] PLEASE FAX THE REVIEW/CLINICAL P- [phone] F- [phone]...USE THE ABOVE REF#
--- NOTE | 2019-01-06 15:00 | NUR ---
NURSE NOTES: Thi boone came back 12.5. Pharmacist said to continue with current dose.
[2019-01-06 16:00] VITALS: BP 133/96
--- NOTE | 2019-01-06 16:24 | NUR ---
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
--- NOTE | 2019-01-06 17:30 | Progress Note ---
DATE: 01/05/2019 SUBJECTIVE: The patient is awake alert, afebrile, and hemodynamically stable. PHYSICAL EXAMINATION: VITAL SIGNS: Blood pressure 140/80, pulse is 84, respirations 19, and temperature 98.4. HEENT: Eyes were normal. ENT, mucous membranes were moist and intact. NECK: Supple with no JVD without lymph nodes. Tracheostomy site is clean. LUNGS: Clear without rhonchi, rales, or wheezing. Secretions are small, thin, and perrin. HEART: Normal sounds with regular beats. There is no S3, S4, or pericardial rub. ABDOMEN: Soft and nontender with normal bowel sounds. EXTREMITIES: Warm without cyanosis, clubbing, or edema. LABORATORY DATA: Hemoglobin is 13.2, hematocrit 40.5 with MCV of 89, WBC of 9.9, and platelets is 256. WBC of 13.3 yesterday. BUN and creatinine is 15 and 1.0 respectively. His sodium is 139, potassium 3.4, chloride 101, CO2 is 30. His ProBNP is 3432. Repeat laboratory tests will be done in the a.m. Clinically, the patient is slightly better. IMPRESSION: The patient has cellulitis in both lower extremities . Repeat laboratory tests will be done in the a.m. Ignacio Worley M.D. DR: CHRISTOPHER JOB#: [id number] CC:
--- NOTE | 2019-01-06 19:34 | NUR ---
HAND-OFF: Report given to Betty.
--- NOTE | 2019-01-06 19:55 | NUR ---
NURSE NOTES: Received report from Odalis Lang RN. Patient A&Ox4, nauruan sacha
[2019-01-06 20:00] VITALS: BP 138/92
--- NOTE | 2019-01-06 20:00 | NUR ---
NURSE NOTES: Received report from Odalis Lang RN. Patient A&Ox4, mostly Divehi speaking. On nasal cannula PRN. IV intact, patent, and infusing TKO. Patient has episodes of nausea and vomiting. Bed in lowest position with call light in reach. Will continue with plan of care.
--- NOTE | 2019-01-06 21:07 | General Progress Note ---
Assessment/Plan Assessment/Plan # Bilateral DVT hx in 2018 noted on duplex lower extremity --> currently is only on heparin sq dosing --> obtain repeat duplex of lower extremities could be cause of cellulitis recurrent --> if dvt still present consider anticoag # Hyperprotenemia - with elevated protein --> obtain a spep and upep to r/o m-spike --> repeat cbc and bmp in am --> if elevated ca consider to get a pth # S/P CABG Acute myocardial infarction. Ischemic cardiomyopathy hx --> cards eval prn basis # Acute on chronic systolic congestive heart failure. # Cardiac defibrillator. # Cellulitis of the lower ext --> on vanc/zosyn broad spectrum abx The timing of this note does not necessarily reflect the time of the patient was seen. Greatly appreciate consultation! Subjective HEENT: Denies: no symptoms, eye pain, blurred vision, tearing, double vision, ear pain, ear discharge, nose pain, nose congestion, throat pain, throat swelling, mouth pain, mouth swelling, other Cardiovascular: Denies: no symptoms, chest pain, edema, irregular heart rate, lightheadedness, palpitations, syncope, other Respiratory: Denies: no symptoms, cough, orthopnea, shortness of breath, SOB with excertion, SOB at rest, sputum, stridor, wheezing, other Gastrointestinal/Abdominal: Denies: no symptoms, abdomen distended, abdominal pain, black stools, tarry stools, blood in stool, constipated, diarrhea, difficulty swallowing, nausea, poor appetite, poor fluid intake, rectal bleeding , vomiting, other Neurologic/Psychiatric: Denies: no symptoms, anxiety, depressed, emotional problems, headache, numbness, paresthesia, pre-existing deficit, seizure, tingling, tremors, weakness, other Endocrine: Denies: no symptoms, excessive sweating, flushing, intolerance to cold, intolerance to heat, increased hunger, increased thirst, increased urine, unexplained weight gain, unexplained weight loss, other Allergies: Coded Allergies: LACTOSE (Verified Allergy, Unknown, 08/30/15) LISINOPRIL (Unverified Allergy, Unknown, 01/17/18) METHOTREXATE (Verified Allergy, Unknown, 08/30/15) NSAIDS (NON-STEROIDAL ANTI-INFLAMMA (Unverified Allergy, Unknown, 11/14/15) Subjective /3: no events, on abx, cellulitis appears better Objective Last 24 Hour Vital Signs Date Time Temp Pulse Resp B/P (MAP) Pulse Ox O2 Delivery O2 Flow Rate FiO2 01/06/19 16:00 98.2 89 20 133/96 (108) 97 01/06/19 11:55 97.2 63 20 143/76 (98) 96 01/06/19 09:00 Room Air 01/06/19 08:00 97.0 91 20 154/87 (109) 97 01/06/19 04:00 97.6 83 20 143/80 (101) 94 01/05/19 23:47 98.5 92 18 139/84 (102) 94 01/05/19 21:20 98.4 Intake and Output 01/05/19 01/06/19 19:00 07:00 Intake Total 1216.208 ml 110.0 ml Output Total 200 ml 800 ml Balance 1016.208 ml -690.0 ml Intake Oral 840 ml IV Total 376.208 ml 110.0 ml Output Urine Total 200 ml 800 ml # Voids 5 Laboratory Tests 01/05/19 21:40: Urine Total Protein [Pending], Urine Albumin (%) [Pending], Urine Alpha-1- Globulins (%) [Pending], Urine [id number]-2-[id number] (%) [Pending], Urine Beta- Globulin (%) [Pending], Urine Gamma Globulin (%) [Pending], Ur Protein Electrophoresis M-Sid [Pending], Urine Protein Electrophoresis Intrp [Pending] 01/06/19 05:30: White Blood Count 10.0, Red Blood Count 4.79, Hemoglobin 13.8L, Hematocrit 42.2 , Mean Corpuscular Volume 88, Mean Corpuscular Hemoglobin 28.8, Mean Corpuscular Hemoglobin Concent 32.8, Red Cell Distribution Width 13.7, Platelet Count 243, Mean Platelet Volume 5.9L, Neutrophils (%) (Auto) 76.4H, Lymphocytes (%) (Auto) 13.3L, Monocytes (%) (Auto) 7.0, Eosinophils (%) (Auto) 2.4, Basophils (%) (Auto) 0.9, Erythrocyte Sedimentation Rate 45H, Sodium Level 137, Potassium Level 3.8, Chloride Level 99, Carbon Dioxide Level 29, Anion Gap 9, Blood Urea Nitrogen 13, Creatinine 1.0, Estimat Glomerular Filtration Rate > 60 , Glucose Level 216H, Calcium Level 8.5 01/06/19 12:50: Vancomycin Level Trough 12.5H Height (Feet): 5 Height (Inches): 10.00 Weight (Pounds): 219 Objective PE: Vitals: reviewed General Appearance: NAD HEENT: normocephalic, atraumatic Neck: non-tender, normal alignment Respiratory/Chest: nromal breath sounds bilaterally Cardiovascular/Chest: normal peripheral pulses, normal rate Abdomen: normal bowel sounds, soft, nontender Extremities: normal range of motion BILATERAL CELLULITIS++ Linus Dan MD Jan 06, 2019 21:07
[2019-01-07] VITALS: BP 136/88
[2019-01-07] MEDS ORDERED: Albuterol/Ipratropium 3ml neb HHN PRN (00:45)
[2019-01-07] MEDS: Vancomycin 1gm in D5W 275ml IVPB SCH ×2 (02:21→14:49)
[2019-01-07 04:00] VITALS: BP 123/61
[2019-01-07] MEDS: HYDROcodone/Acetamin 10/325 tab ORAL PRN ×3 (05:32→20:30)
[2019-01-07] MEDS: Piperacillin/Tazobactam 3.375 GM in NS 110 ML IVPB SCH ×3 (05:35→21:12)
--- NOTE | 2019-01-07 07:40 | NUR ---
HAND-OFF: Report given to FRANCO Hall.
--- NOTE | 2019-01-07 07:49 | NUR ---
NURSE NOTES: Patient received in stable condition, resting in bed. Alert and responds appropriately, breathing unlabored on room air. Denies respiratory distress or pain at this time. IV antibiotic running. Urinal by the bedside. Bed locked in lowest position, call light placed within reach. Will continue to monitor.
[2019-01-07 07:53] LABS: BASOPHILS % (AUTO) 0.6 % (0.0-2.0); EOSINOPHILS % (AUTO) 1.5 % (0.0-3.0); HEMATOCRIT 39.3 % (42.0-52.0); HEMOGLOBIN 12.7 G/DL (14.2-18.0); LYMPHOCYTES % (AUTO) 11.7 % (20.0-45.0); MEAN CORPUSCULAR VOLUME 88 FL (80-99); MONOCYTES % (AUTO) 7.6 % (1.0-10.0); NEUTROPHILS % (AUTO) 78.6 % (45.0-75.0); PLATELET COUNT 218 K/UL (150-450); RED BLOOD COUNT 4.45 M/UL (4.70-6.10); RED CELL DISTRIBUTION WIDTH 13.5 % (11.6-14.8); WHITE BLOOD COUNT 8.5 K/UL (4.8-10.8)
[2019-01-07 08:00] VITALS: BP 146/86
[2019-01-07 08:06] LABS: ANION GAP 8 mmol/L (5-15); BLOOD UREA NITROGEN 11 mg/dL (7-18); CALCIUM 8.3 MG/DL (8.5-10.1); CARBON DIOXIDE 29 MMOL/L (21-32); CHLORIDE 99 MMOL/L (98-107); CREATININE 0.9 MG/DL (0.55-1.30); POTASSIUM 3.7 MMOL/L (3.5-5.1); SODIUM 136 MMOL/L (136-145)
--- NOTE | 2019-01-07 08:36 | NUR ---
CHEST X-RAY COMPLETED AT 0752 HRS BY Ana YANG.
[2019-01-07] MEDS: Pantoprazole Inj IVP SCH (08:52)
[2019-01-07] MEDS: Heparin 5000 units/ml inj SUBQ SCH ×2 (08:53→20:31)
--- NOTE | 2019-01-07 09:00 | Diagnostic Imaging Report ---
Indication: Shortness of breath Technique: One view of the chest Comparison: 03/24/2018 Findings: There is elevation of right hemidiaphragm again demonstrated. There is mild central bronchial wall thickening. Lungs and pleural spaces are clear otherwise. The heart size is upper limits normal. There is a left chest AICD with an additional right ventricular lead. Findings are unchanged Impression: No acute process. Findings as noted
--- NOTE | 2019-01-07 11:16 | GI Initial Consult Note ---
History of Present Illness General Date patient seen: Jan 07, 2019 Time patient seen: 11:16 Reason for Hospitalization: Skin Rash/Abscess Referring physician: IRIS HERZOG Reason for Consultation: NAUSEA Present Illness HPI This patient is brought in from a detention facility. She has cellulitis on both his legs. He is not responding to treatment at the detention facility. No fever, chills, nausea, vomiting. There are no other complaints. GI consulted for reported nausea. Patient has a history of coronary bypass graft surgery 2008. Has history of upper endoscopy in January of last year, with gastritis and one part of the body along the lesser curvature, otherwise a normal endoscopy. The patient also has history of fecal impaction. Patient was seen, awake alert oriented x4 no apparent distress. Has current complaint of nausea without any vomiting. Abdomen is distended, soft nontender to palpitation. Patient denies any use of alcohol, tobacco or drugs. Labs reviewed. Home Meds Reported Medications Clonazepam* (KLONOPIN*) 0.5 Mg Tablet, 0.5 MG ORAL Q6H, #15 TAB 0 Refills 01/04/19 Gabapentin* (GABAPENTIN*) 300 Mg Capsule, 300 MG ORAL THREE TIMES A DAY, CAP 0 Refills 01/04/19 Na Phos,M-B/Na Phos,Di-Ba* (FLEET ENEMA*) 133 Ml Enema, 133 ML RECTAL DAILY, ML 0 Refills 01/04/19 Calcium Carbonate/Vitamin D3 (CALCIUM + VITAMIN D TABLET) 1 Each Tablet, 1 EACH PO, TAB 01/04/19 Atorvastatin Calcium* (ATORVASTATIN CALCIUM*) 20 Mg Tablet, 20 MG ORAL BEDTIME, TAB 01/04/19 Baclofen* (BACLOFEN*) 10 Mg Tablet, 10 MG ORAL THREE TIMES A DAY, TAB 01/04/19 Diphenhydramine Hcl* (BENADRYL*) 25 Mg Capsule, 25 MG ORAL Q6H PRN for Itching, CAP 03/24/18 Hydrocodone Bit/Acetaminophen 5-325* (NORCO 5-325*) 1 Each Tablet, 2 TAB ORAL Q6H PRN for For Pain, #10 TAB 0 Refills 03/24/18 Potassium Chloride* (K-DUR*) 20 Meq Tab.er.prt, 20 MEQ ORAL DAILY, #7 TAB 0 Refills 03/24/18 Metoclopramide Hcl* (METOCLOPRAMIDE HCL*) 5 Mg Tablet, 10 MG ORAL EVERY 8 HOURS , TAB 03/24/18 Polyethylene Glycol 3350* (MIRALAX*) 17 Gm Powd.pack, 17 GM ORAL QHS, PACKET 03/03/18 Sucralfate* (CARAFATE*) 1 Gm Tablet, 1 GM ORAL FOUR TIMES A DAY, TAB 03/03/18 Spironolactone* (ALDACTONE*) 25 Mg Tablet, 25 MG ORAL DAILY, TAB 03/03/18 Pravastatin Sod* (PRAVASTATIN SOD*) 20 Mg Tablet, 10 MG ORAL BEDTIME, TAB 03/03/18 Diphenhydramine Hcl* (BENADRYL*) 25 Mg Capsule, 25 MG ORAL Q6H PRN for Itching, CAP 03/03/18 Clopidogrel Bisulfate* (PLAVIX*) 75 Mg Tablet, 75 MG ORAL DAILY, TAB 03/03/18 Aspirin (Aspirin EC) 81 Mg Tablet.dr, 81 MG ORAL DAILY, TAB 03/03/18 Carvedilol (Coreg) 12.5 Mg Tablet, 12.5 MG ORAL EVERY 12 HOURS, TAB 03/03/18 Ondansetron* (ZOFRAN*) 4 Mg/2 Ml Vial, 4 MG IV Q6H PRN for Nausea & Vomiting, VIAL 03/03/18 [Nitroglycerin] No Conflict Check, 0.4 MG SL [id number] X 3 PRN for CHEST PAIN 03/03/18 [Nitrogly] No Conflict Check 03/03/18 Metoclopramide Hcl* (REGLAN*) 10 Mg Tablet, 10 MG IVP THREE TIMES A DAY, TAB 03/03/18 Isosorbide Dinitrate (ISOSORBIDE DINITRATE*) 5 Mg Tablet, 20 MG ORAL THREE TIMES A DAY, #30 TAB 0 Refills 03/03/18 Insulin Aspart (NOVOLOG) 100 Unit/1 Ml Vial, 0 SQ AC 03/03/18 Hydralazine Hcl* (HYDRALAZINE HCL*) 50 Mg Tablet, 50 MG ORAL EVERY 8 HOURS, TAB 03/03/18 Heparin Sod (Porcine) (HEPARIN SODIUM*) 5 000/1 Ml Vial, 5000 UNITS SUBQ EVERY 12 HOURS, VIAL 03/03/18 Furosemide* (LASIX*) 20 Mg Tablet, 20 MG ORAL DAILY, TAB 03/03/18 Docusate Sodium* (COLACE*) 100 Mg Capsule, 100 MG ORAL THREE TIMES A DAY, CAP 03/03/18 Ondansetron Odt* (ZOFRAN ODT*) 8 Mg Tab.rapdis, 8 MG ORAL Q8HR PRN for Nausea & Vomiting, #30 TAB 02/23/18 Acetaminophen* (ACETAMINOPHEN 325MG TABLET*) 325 Mg Tablet, 650 MG ORAL Q4H PRN for Mild Pain/Temp > 100.5, TAB 02/23/18 Sennosides (SENNA) 8.6 Mg Tablet, 17.2 MG PO QHS, TAB 02/23/18 Hydrocodone Bit/Acetaminophen 5-325* (NORCO 5-325*) 1 Each Tablet, 2 TAB ORAL Q6H PRN for For Pain, #10 TAB 0 Refills 02/23/18 Mag Hydrox/Al Hydrox/Simeth (ALUM-MAG HYDROXIDE-SIMETH LIQ) 360 Ml Oral.susp, 30 ML PO Q6HR PRN for Abdominal cramps, ML 02/23/18 Multivitamin with Minerals (Multivitamins with Minerals) 1 Each Tablet, 1 TAB ORAL DAILY, TAB 02/23/18 Bisacodyl (DULCOLAX) 10 Mg Supp.rect, 10 MG RC DAILY PRN for Constipation, SUPP 02/23/18 Pantoprazole* (PROTONIX*) 40 Mg Tablet.dr, 40 MG ORAL DAILY, TAB 02/23/18 Hydrocodone Bit/Acetaminophen 5-325* (NORCO 5-325*) 1 Each Tablet, 1 TAB ORAL Q6H PRN for For Pain, #10 TAB 0 Refills 02/23/18 Multivitamins* (MULTIVITAMINS*) 1 Each Tablet, 1 TAB ORAL DAILY, TAB 0 Refills 02/23/18 Na Phos,M-B/Na Phos,Di-Ba (ENEMA) 133 Ml Enema, 133 ML RC PRN for Constipation, EA 02/23/18 Sucralfate* (CARAFATE*) 1 Gm Tablet, 1 GM ORAL FOUR TIMES A DAY, TAB 02/23/18 Glucagon HCl (Glucagon HCl) 1 Mg Vial, 1 MG IM PRN for Hypoglycemia, VIAL 09/25/17 Magnesium Hydroxide* (MILK OF MAGNESIA*) 400 Mg/5 Ml Oral.susp, 30 ML ORAL QHS PRN for Constipation, ML 03/04/17 Nitroglycerin (NITROGLYCERIN) 0.4 Mg Tab.subl, 0.4 MG SL, TAB 01/08/17 Clopidogrel Bisulfate* (PLAVIX*) 75 Mg Tablet, 75 MG ORAL DAILY, TAB 01/08/17 Docusate Sodium* (COLACE*) 100 Mg Capsule, 100 MG ORAL DAILY, CAP 01/08/17 Med list reviewed/reconciled: Yes Allergies: Coded Allergies: LACTOSE (Verified Allergy, Unknown, 08/30/15) LISINOPRIL (Unverified Allergy, Unknown, 01/17/18) METHOTREXATE (Verified Allergy, Unknown, 08/30/15) NSAIDS (NON-STEROIDAL ANTI-INFLAMMA (Unverified Allergy, Unknown, 11/14/15) Patient History History Provided By: Patient, Medical Record PMH Narrative Past Medical History: see triage record, DM, HTN, PA, CAD, CHF, pneumonia, GERD , CVA/TIA, renal disease Past Surgical History: pacemaker, other - IVC filter Social History: Denies: smoking, alcohol use, drug use Reviewed Nursing Documentation: PMH: Agreed; PSxH: Agreed Nursing Documentation-PMH Past Medical History: No History, Except For Hx Hypertension: Yes - CKD Hx Pacemaker: Yes Hx Diabetes: Yes Hx Cancer: No Hx Gastrointestinal Problems: Yes - Gastritis/ abdominal pain Hx Neurological Problems: Yes Hx Cerebrovascular Accident: Yes - right side weakness Hx Peripheral Neuropathy: Yes - diabetic peripheral neuropathy, Chronic pain syndrome Hx Neurologic Surgery: No Social History: Denies: smoking, alcohol use, drug use, other Review of Systems All Other Systems: negative except mentioned in HPI Physical Exam Vital Signs Date Time Temp Pulse Resp B/P (MAP) Pulse Ox O2 Delivery O2 Flow Rate FiO2 01/04/19 19:42 98.1 96 14 145/73 97 Nasal Cannula 3.0 01/07/19 08:15 21 Sp02 EP Interpretation: reviewed, normal Labs Laboratory Tests Test 01/06/19 12:50 01/07/19 07:42 Vancomycin Level Trough 12.5 ug/mL (5.0-12.0) H White Blood Count 8.5 K/UL (4.8-10.8) Red Blood Count 4.45 M/UL (4.70-6.10) L Hemoglobin 12.7 G/DL (14.2-18.0) L Hematocrit 39.3 % (42.0-52.0) L Mean Corpuscular Volume 88 FL (80-99) Mean Corpuscular Hemoglobin 28.6 PG (27.0-31.0) Mean Corpuscular Hemoglobin Concent 32.4 G/DL (32.0-36.0) Red Cell Distribution Width 13.5 % (11.6-14.8) Platelet Count 218 K/UL (150-450) Mean Platelet Volume 5.7 FL (6.5-10.1) L Neutrophils (%) (Auto) 78.6 % (45.0-75.0) H Lymphocytes (%) (Auto) 11.7 % (20.0-45.0) L Monocytes (%) (Auto) 7.6 % (1.0-10.0) Eosinophils (%) (Auto) 1.5 % (0.0-3.0) Basophils (%) (Auto) 0.6 % (0.0-2.0) Sodium Level 136 MMOL/L (136-145) Potassium Level 3.7 MMOL/L (3.5-5.1) Chloride Level 99 MMOL/L (98-107) Carbon Dioxide Level 29 MMOL/L (21-32) Anion Gap 8 mmol/L (5-15) Blood Urea Nitrogen 11 mg/dL (7-18) Creatinine 0.9 MG/DL (0.55-1.30) Estimat Glomerular Filtration Rate > 60 mL/min (>60) Glucose Level 254 MG/DL (74-106) H Calcium Level 8.3 MG/DL (8.5-10.1) L General Appearance: well appearing, no apparent distress, alert Head: normocephalic EENT: PERRL/EOMI, normal ENT inspection Neck: supple Respiratory: normal breath sounds, no respiratory distress Cardiovascular: normal rate Gastrointestinal: normal inspection, non tender, soft, normal bowel sounds, non -distended, distended Rectal: deferred Genitourinary: deferred Musculoskeletal: normal inspection, back normal Neurologic: normal inspection, alert, oriented x3, responsive Psychiatric: normal inspection, judgement/insight normal, memory normal Skin: normal inspection, normal color, no rash, warm/dry, palpation normal, well hydrated Lymphatic: normal inspection, no adenopathy Other Organ Systems Bilateral lower extremity cellulitis Current Medications Current Medications Medications (Trade) Dose Ordered Sig/Paola Route PRN Reason Start Time Stop Time Status Last Admin Dose Admin Acetaminophen/ Hydrocodone Bitart (Diana 10/325) 1 tab Q6H PRN ORAL For Pain 01/06/19 08:30 01/13/19 08:29 01/07/19 05:32 Albuterol/ Ipratropium (Albuterol/ Ipratropium) 3 ml Q6HRT PRN HHN wheezing 01/07/19 00:45 01/12/19 00:44 Heparin Sodium (Porcine) (Heparin 5000 units/ml) 5,000 units EVERY 12 HOURS SUBQ 01/05/19 09:00 02/04/19 08:59 01/07/19 08:53 Ondansetron HCl (Zofran) 4 mg Q4HR IVP 01/07/19 01:00 02/06/19 00:59 01/07/19 05:34 Pantoprazole (Protonix) 40 mg DAILY IVP 01/06/19 09:00 02/05/19 08:59 01/07/19 08:52 Piperacillin Sod/ Tazobactam Sod 3.375 gm/Sodium Chloride 110 ml @ 27.5 mls/hr Q8HR IVPB 01/05/19 06:00 01/12/19 05:59 01/07/19 05:35 Vancomycin HCl (Vanco rx to dose) 1 ea DAILY PRN MISC PER PHARMACY 01/07/19 10:15 02/06/19 10:14 Vancomycin HCl 1 gm/Dextrose 275 ml @ 183.708 mls/hr Q12H IVPB 01/05/19 02:00 01/10/19 01:59 01/07/19 02:21 GI: Plan Problems: (1) Cellulitis (2) Nausea & vomiting (3) Iron deficiency anemia (4) S/P CABG (coronary artery bypass graft) Plan EGD 01/19/18 >> Gastritis only in one part of the body along the lesser curvature, status post biopsy, otherwise normal upper endoscopic examination. iron deficiency tolerating diet RECOMMENDATIONS: No plans for GI procedures at this time Symptomatic treatment Okay to advance diet Will obtain iron panel given history of deficiency Antibiotics per ID as needed, Reglan for persistent vomiting PPI p.o. Monitor H&H, PRN transfusions DM control follow labs Discussed with Dr. Shannon. Thank you for this patient referral, we will follow. The patient was seen and examined at bedside and all new and available data was reviewed in the patients chart. I agree with the above findings, impression and plan. (Patient seen earlier today. Signature stamp does not reflect patient encounter time.). - MD Treasure TabaresKatina-Berny RN ADMISSION Jan 07, 2019 11:16
--- NOTE | 2019-01-07 11:51 | NUR ---
*-* INSURANCE *-* UPDATED CLINICALS HAVE BEEN FAXED TO: [facility]/ DEPT CERT REF# [id number] PLEASE FAX THE REVIEW/CLINICAL P- [phone] F- [phone]...USE THE ABOVE REF#
[2019-01-07 12:00] VITALS: BP 142/73
[2019-01-07] MEDS ORDERED: Tubing IV Secondary IV ONE (14:57)
[2019-01-07] MEDS ORDERED: NS 275ml ONE (14:57)
--- NOTE | 2019-01-07 15:11 | NUR ---
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
[2019-01-07 16:00] VITALS: BP 137/80
[2019-01-07] MEDS: Metoclopramide 10mg/2ml Inj IVP PRN (16:22)
[2019-01-07] MEDS: Docusate 100mg cap ORAL SCH (16:22)
--- NOTE | 2019-01-07 16:24 | Diagnostic Imaging Report ---
APPROVED REPORT CPT Code: 30471 Present Symptoms Comments: Technically difficult study due to body habitus. BILATERAL: Imaging reveals a patent deep venous system bilaterally. There is no evidence of thrombus within the common femoral, superficial femoral, popliteal or tibial segments. The greater saphenous veins are within normal limits. Doppler indicates normal spontaneous flow within these segments.
--- NOTE | 2019-01-07 16:31 | General Progress Note ---
Assessment/Plan Assessment/Plan # Bilateral DVT hx in 2018 noted on duplex lower extremity --> currently is only on heparin sq dosing --> obtain repeat duplex of lower extremities could be cause of cellulitis recurrent--> NO DVT NOW noted --> if dvt still present consider anticoag # Anemia of chronic disease --> if worsens, trend anemia panel as needed, currently hold off --> only transfuse if hgb <7 or 8 # Hyperprotenemia - with elevated protein --> SPEP reviewed and does not show significiant MSPIKE --> repeat cbc and bmp in am --> if elevated ca consider to get a pth # S/P CABG Acute myocardial infarction. Ischemic cardiomyopathy hx --> cards eval prn basis # Acute on chronic systolic congestive heart failure. # Cardiac defibrillator. # Cellulitis of the lower ext --> on vanc/zosyn broad spectrum abx The timing of this note does not necessarily reflect the time of the patient was seen. Greatly appreciate consultation! Subjective Constitutional: Denies: no symptoms, chills, diaphoresis, fever, malaise, weakness, other HEENT: Denies: no symptoms, eye pain, blurred vision, tearing, double vision, ear pain, ear discharge, nose pain, nose congestion, throat pain, throat swelling, mouth pain, mouth swelling, other Cardiovascular: Denies: no symptoms, chest pain, edema, irregular heart rate, lightheadedness, palpitations, syncope, other Respiratory: Denies: no symptoms, cough, orthopnea, shortness of breath, SOB with excertion, SOB at rest, sputum, stridor, wheezing, other Gastrointestinal/Abdominal: Denies: no symptoms, abdomen distended, abdominal pain, black stools, tarry stools, blood in stool, constipated, diarrhea, difficulty swallowing, nausea, poor appetite, poor fluid intake, rectal bleeding , vomiting, other Endocrine: Denies: no symptoms, excessive sweating, flushing, intolerance to cold, intolerance to heat, increased hunger, increased thirst, increased urine, unexplained weight gain, unexplained weight loss, other Allergies: Coded Allergies: LACTOSE (Verified Allergy, Unknown, 08/30/15) LISINOPRIL (Unverified Allergy, Unknown, 01/17/18) METHOTREXATE (Verified Allergy, Unknown, 08/30/15) NSAIDS (NON-STEROIDAL ANTI-INFLAMMA (Unverified Allergy, Unknown, 11/14/15) Subjective 01/06: no events, on abx, cellulitis appears better 01/07: no events to report, no fevers or chills noted Objective Last 24 Hour Vital Signs Date Time Temp Pulse Resp B/P (MAP) Pulse Ox O2 Delivery O2 Flow Rate FiO2 01/07/19 12:00 98.1 68 18 142/73 (96) 99 01/07/19 09:00 Room Air 01/07/19 08:15 Room Air 21 01/07/19 08:15 87 18 Room Air 21 01/07/19 08:00 98.3 93 20 146/86 (106) 99 01/07/19 04:00 98.7 74 16 123/61 (81) 96 01/07/19 00:00 98.6 98 18 136/88 (104) 96 01/06/19 21:00 Room Air 01/06/19 20:00 98.1 102 17 138/92 (107) 97 Intake and Output 01/06/19 01/07/19 19:00 07:00 Intake Total 975.000 ml Output Total 400 ml Balance 575.000 ml Intake Oral 480 ml IV Total 495.000 ml Output Urine Total 400 ml # Voids 1 4 Laboratory Tests 01/07/19 07:42: White Blood Count 8.5, Red Blood Count 4.45L, Hemoglobin 12.7L, Hematocrit 39.3L , Mean Corpuscular Volume 88, Mean Corpuscular Hemoglobin 28.6, Mean Corpuscular Hemoglobin Concent 32.4, Red Cell Distribution Width 13.5, Platelet Count 218, Mean Platelet Volume 5.7L, Neutrophils (%) (Auto) 78.6H, Lymphocytes (%) (Auto) 11.7L, Monocytes (%) (Auto) 7.6, Eosinophils (%) (Auto) 1.5, Basophils (%) (Auto) 0.6, Sodium Level 136, Potassium Level 3.7, Chloride Level 99, Carbon Dioxide Level 29, Anion Gap 8, Blood Urea Nitrogen 11, Creatinine 0.9 , Estimat Glomerular Filtration Rate > 60, Glucose Level 254H, Calcium Level 8.3L Height (Feet): 5 Height (Inches): 10.00 Weight (Pounds): 219 Objective PE: Vitals: reviewed General Appearance: YONI LEÓN: normocephalic, atraumatic Neck: non-tender, normal alignment Respiratory/Chest: nromal breath sounds bilaterally Cardiovascular/Chest: normal peripheral pulses, normal rate Abdomen: normal bowel sounds, soft, nontender Extremities: normal range of motion BILATERAL CELLULITIS++ Linus Dan MD Jan 07, 2019 16:30
--- NOTE | 2019-01-07 18:30 | Progress Note ---
DATE: 01/06/2019 SUBJECTIVE: The patient is awake and alert, afebrile. He is 30 minutes. The patient has recurrent vomiting in spite of his Zofran. . The patient's pain control is changed. The patient took two Carmel 5/325 mg . His appetite is good and sleep is uninterrupted. PHYSICAL EXAMINATION: VITAL SIGNS: Blood pressure is 138/92, pulse 102, respirations 17, and temperature 98.1. HEENT: Eyes were normal. ENT, mucous membranes were moist and intact. NECK: Supple with no JVD without lymph nodes. Tracheostomy site is clean. HEART: No pericardial rub. ABDOMEN: Soft and nontender with normal bowel sounds. Gastrostomy site is clean. EXTREMITIES: No cyanosis, clubbing, or edema. LABORATORY AND DIAGNOSTIC DATA: Hemoglobin is 13.8, hematocrit 42.2 with MCV of 88, WBC of 10.0, and platelets 243. His BUN and creatinine is 13 and 1.0 respectively. His sodium is 137, potassium 3.8, chloride 99, and CO2 29. IMPRESSION: The patient is . Ignacio Worley M.D. DR: GEE JOB#: [id number] CC:
--- NOTE | 2019-01-07 19:28 | NUR ---
HAND-OFF: Report given to Babita GAMEZ.
--- NOTE | 2019-01-07 19:32 | NUR ---
NURSE NOTES: Patient received bed, asleep, arousable to name. Verbally responsive. Denies respiratory distress or pain at this time. IVs in place. Urinal by the bedside. Bed locked in lowest position, call light placed within reach, bed alarm on. Will continue to monitor.
[2019-01-07 20:00] VITALS: BP 133/85
[2019-01-07] MEDS ORDERED: Miralax 17gm pkt ORAL SCH (21:00)
[2019-01-07] MEDS ORDERED: FLEET ENEMA133 ML RECTAL (23:44)
[2019-01-07] MEDS ORDERED: [UNRECOGNIZED DRUG - OTHER] (23:46)
[2019-01-07] MEDS ORDERED: CALCIUM + D SO1 EACH PO (23:47)
[2019-01-07] MEDS ORDERED: CALCIUM + VITA1 EAC1 PO (23:47)
[2019-01-07] MEDS ORDERED: GLUCAGON W/DILUE1 MG IM (23:49)
[2019-01-07] MEDS ORDERED: PREDNISONE10 MG ORAL (23:49)
[2019-01-07] MEDS ORDERED: KLONOPIN0.5 MG ORAL (23:50)
[2019-01-07] MEDS ORDERED: NORCO 10-325 T1 EACH ORAL (23:51)
[2019-01-07] MEDS ORDERED: ZOSYN 3.373.375 GM/1 IVPB (23:53)
[2019-01-07] MEDS ORDERED: VANCOMYCIN1 GM IV (23:53)
[2019-01-08] VITALS: BP 145/89
[2019-01-08] MEDS: Vancomycin 1gm in D5W 275ml IVPB SCH ×2 (01:44→12:49)
[2019-01-08] MEDS: Metoclopramide 10mg/2ml Inj IVP PRN (02:35)
[2019-01-08] MEDS: HYDROcodone/Acetamin 10/325 tab ORAL PRN ×2 (02:36→08:51)
[2019-01-08 04:00] VITALS: BP 140/80
--- NOTE | 2019-01-08 04:44 | NUR ---
NURSE NOTES: New IV access right forearm 24 gauge, patent. IV access on right forearm 22 gauge infiltrated and removed, IV access on left forearm 24 gauge infiltrated and removed.
[2019-01-08] MEDS: Piperacillin/Tazobactam 3.375 GM in NS 110 ML IVPB SCH ×2 (05:02→14:36)
[2019-01-08 05:08] VITALS: BP 140/80
[2019-01-08 05:43] LABS: BASOPHILS % (AUTO) 0.7 % (0.0-2.0); EOSINOPHILS % (AUTO) 2.6 % (0.0-3.0); HEMATOCRIT 40.1 % (42.0-52.0); LYMPHOCYTES % (AUTO) 12.6 % (20.0-45.0); MEAN CORPUSCULAR VOLUME 89 FL (80-99); MONOCYTES % (AUTO) 8.1 % (1.0-10.0); PLATELET COUNT 225 K/UL (150-450); RED CELL DISTRIBUTION WIDTH 13.8 % (11.6-14.8); WHITE BLOOD COUNT 8.9 K/UL (4.8-10.8)
--- NOTE | 2019-01-08 05:45 | Progress Note ---
DATE: 01/07/2019 SUBJECTIVE: The patient is awake, alert, afebrile, hemodynamically stable. He claimed that his pain control is incomplete. PHYSICAL EXAMINATION: VITAL SIGNS: Blood pressure is 133/85 with pulse is 99, respirations 19, and temperature is 98. HEENT: Eyes were normal. ENT, mucous membranes were moist and intact. NECK: Supple with no JVD without lymph nodes. Tracheostomy site is clean. LUNGS: Clear without rhonchi, rales, or wheezing. Secretions are small, thin, and atkins. HEART: Normal sounds with regular beats. There is no S3, S4, or pericardial rub. ABDOMEN: Soft and nontender with normal bowel sounds. Gastrostomy site is clean. EXTREMITIES: Warm without cyanosis, clubbing, or edema. LABORATORY DATA: Hemoglobin is 9.7, hematocrit 29.6 with MCV of 88, WBC 8.5, and platelets of 218. IMPRESSION: The patient has cellulitis, however, . BUN and creatinine are 11 and 0.9 respectively. Sodium 133, potassium 3.7, chloride 99, and CO2 is 29. Total bilirubin is 8.3. The patient is in stable condition. Ignacio Worley M.D. DR: ANA JOB#: [id number] CC:
[2019-01-08 06:06] LABS: ANION GAP 7 mmol/L (5-15); BLOOD UREA NITROGEN 10 mg/dL (7-18); CALCIUM 8.2 MG/DL (8.5-10.1); CARBON DIOXIDE 30 MMOL/L (21-32); CHLORIDE 99 MMOL/L (98-107); POTASSIUM 3.7 MMOL/L (3.5-5.1); SODIUM 136 MMOL/L (136-145)
[2019-01-08 06:11] LABS: % IRON SATURATION 23 % (15-50); IRON 60 ug/dL (50-175); TOTAL IRON BINDING CAPACITY 263 ug/dL (250-450)
--- NOTE | 2019-01-08 07:16 | NUR ---
HAND-OFF: Report given to JEFFREY MORGAN RN.
--- NOTE | 2019-01-08 07:20 | NUR ---
NURSE NOTES: Patient received, resting in bed. Alert and oriented, denies respiratory distress or pain at this time. Nasal cannula on at 2L/min. Urinal by the bedside. IV fluids running on right elbow. Urinal placed by the bedside. Call light within reach, bed locked in low position. Will continue to monitor.
[2019-01-08 08:00] VITALS: BP 103/65
[2019-01-08] MEDS: Pantoprazole Inj IVP SCH (08:50)
[2019-01-08] MEDS: Docusate 100mg cap ORAL SCH (08:51)
[2019-01-08] MEDS: Heparin 5000 units/ml inj SUBQ SCH (09:07)
[2019-01-08 11:50] VITALS: BP 131/75
--- NOTE | 2019-01-08 11:51 | NUR ---
*-* INSURANCE *-* UPDATED CLINICALS HAVE BEEN FAXED TO: [facility]/ DEPT CERT REF# [id number] PLEASE FAX THE REVIEW/CLINICAL P- [phone] F- [phone]...USE THE ABOVE REF#
--- NOTE | 2019-01-08 12:25 | GI Progress Note ---
Assessment/Plan Problems: (1) Nausea & vomiting ICD Codes: R11.2 - Nausea with vomiting, unspecified SNOMED: 69844989 (2) Cellulitis ICD Codes: L03.90 - Cellulitis, unspecified SNOMED: 023458724 (3) Intractable abdominal pain ICD Codes: R10.9 - Unspecified abdominal pain SNOMED: 70249578, 474362333 (4) Drug-seeking behavior ICD Codes: Z72.89 - Other problems related to lifestyle SNOMED: 870775500 Status: stable Status Narrative Discussed with Dr. Shannon Assessment/Plan EGD 01/19/18 >> Gastritis only in one part of the body along the lesser curvature, status post biopsy, otherwise normal upper endoscopic examination. Iron panel within normal limits RECOMMENDATIONS: No plans for GI procedures at this time Symptomatic treatment Okay to advance diet Antibiotics per ID as needed, Reglan for persistent vomiting PPI p.o. Monitor H&H, PRN transfusions DM control follow labs The patient was seen and examined at bedside and all new and available data was reviewed in the patients chart. I agree with the above findings, impression and plan. (Patient seen earlier today. Signature stamp does not reflect patient encounter time.). - Med Shannon MD Subjective Subjective Nausea resolved with Reglan Objective Last 24 Hour Vital Signs Date Time Temp Pulse Resp B/P (MAP) Pulse Ox O2 Delivery O2 Flow Rate FiO2 01/08/19 11:50 98.7 91 20 131/75 (93) 97 01/08/19 09:00 Room Air 01/08/19 08:12 70 20 Room Air 21 01/08/19 08:00 97.8 71 20 103/65 (78) 96 01/08/19 04:00 97.5 89 20 140/80 (100) 100 01/08/19 03:06 99.7 01/08/19 00:00 99.7 95 19 145/89 (107) 95 01/07/19 20:34 89 20 Room Air 21 01/07/19 20:33 Room Air 21 01/07/19 20:30 Room Air 01/07/19 20:00 98.0 99 19 133/85 (101) 96 01/07/19 16:00 98.7 69 19 137/80 (99) 96 Intake and Output 01/07/19 01/08/19 18:59 06:59 Intake Total 120 ml 652.500 ml Output Total 400 ml Balance 120 ml 252.500 ml Intake Oral 120 ml 240 ml IV Total 412.500 ml Output Urine Total 400 ml # Voids 6 Laboratory Tests Test 01/08/19 05:29 White Blood Count 8.9 K/UL (4.8-10.8) Red Blood Count 4.50 M/UL (4.70-6.10) L Hemoglobin 13.0 G/DL (14.2-18.0) L Hematocrit 40.1 % (42.0-52.0) L Mean Corpuscular Volume 89 FL (80-99) Mean Corpuscular Hemoglobin 29.0 PG (27.0-31.0) Mean Corpuscular Hemoglobin Concent 32.6 G/DL (32.0-36.0) Red Cell Distribution Width 13.8 % (11.6-14.8) Platelet Count 225 K/UL (150-450) Mean Platelet Volume 6.2 FL (6.5-10.1) L Neutrophils (%) (Auto) 76.0 % (45.0-75.0) H Lymphocytes (%) (Auto) 12.6 % (20.0-45.0) L Monocytes (%) (Auto) 8.1 % (1.0-10.0) Eosinophils (%) (Auto) 2.6 % (0.0-3.0) Basophils (%) (Auto) 0.7 % (0.0-2.0) Sodium Level 136 MMOL/L (136-145) Potassium Level 3.7 MMOL/L (3.5-5.1) Chloride Level 99 MMOL/L (98-107) Carbon Dioxide Level 30 MMOL/L (21-32) Anion Gap 7 mmol/L (5-15) Blood Urea Nitrogen 10 mg/dL (7-18) Creatinine 1.0 MG/DL (0.55-1.30) Estimat Glomerular Filtration Rate > 60 mL/min (>60) Glucose Level 220 MG/DL (74-106) H Calcium Level 8.2 MG/DL (8.5-10.1) L Iron Level 60 ug/dL (50-175) Total Iron Binding Capacity 263 ug/dL (250-450) Percent Iron Saturation 23 % (15-50) Unsaturated Iron Binding 203 ug/dL (112-346) Height (Feet): 5 Height (Inches): 10.00 Weight (Pounds): 219 General Appearance: WD/WN, no apparent distress, alert Cardiovascular: normal rate Respiratory/Chest: normal breath sounds, no respiratory distress Abdominal Exam: normal bowel sounds, non tender, soft Extremities: normal range of motion, non-tender Adriane Amanda NP Jan 08, 2019 12:25
--- NOTE | 2019-01-08 13:40 | NUR ---
[facility] PLANN[facility] FOR [facility]
--- NOTE | 2019-01-08 14:28 | NUR ---
NURSE NOTES: Report given to Jamin GAMEZ from [facility]. Jamin requested for patient's IV site (R elbow) to remain intact as the patient is ordered to continue IV antibiotics for 4 more days. Belongings confirmed and reviewed with the patient by the bedside. When asked to sign the belongings sheet, the patient responded that he is unable to sign the form due to fatigue. Patient verbalized understanding of discharge and treatment plan. RN informed the charge nurse who confirmed and co-signed belongings sheet.
--- NOTE | 2019-01-08 15:06 | NUR ---
NURSE NOTES: Patient discharged to [facility] accompanied by ambulance personnel. Patient had portable oxygen machine. Denies respiratory distress. Belongings and discharge packet given to ambulance personnel.
--- NOTE | 2019-01-08 17:41 | General Progress Note ---
Assessment/Plan Assessment/Plan # Bilateral DVT hx in 2018 noted on duplex lower extremity --> currently is only on heparin sq dosing --> obtain repeat duplex of lower extremities could be cause of cellulitis recurrent--> NO DVT NOW noted --> dc today to [facility] # Anemia of chronic disease --> if worsens, trend anemia panel as needed, currently hold off --> only transfuse if hgb <7 or 8 # Hyperprotenemia - with elevated protein --> SPEP reviewed and does not show significiant MSPIKE --> repeat cbc and bmp in am --> if elevated ca consider to get a pth # S/P CABG Acute myocardial infarction. Ischemic cardiomyopathy hx --> cards eval prn basis # Acute on chronic systolic congestive heart failure. # Cardiac defibrillator. # Cellulitis of the lower ext --> on vanc/zosyn broad spectrum abx The timing of this note does not necessarily reflect the time of the patient was seen. Greatly appreciate consultation! Subjective Constitutional: Denies: no symptoms, chills, diaphoresis, fever, malaise, weakness, other HEENT: Denies: no symptoms, eye pain, blurred vision, tearing, double vision, ear pain, ear discharge, nose pain, nose congestion, throat pain, throat swelling, mouth pain, mouth swelling, other Cardiovascular: Denies: no symptoms, chest pain, edema, irregular heart rate, lightheadedness, palpitations, syncope, other Gastrointestinal/Abdominal: Denies: no symptoms, abdomen distended, abdominal pain, black stools, tarry stools, blood in stool, constipated, diarrhea, difficulty swallowing, nausea, poor appetite, poor fluid intake, rectal bleeding , vomiting, other Genitourinary: Denies: no symptoms, burning, discharge, frequency, flank pain, hematuria, incontinence, pain, urgency, other Neurologic/Psychiatric: Denies: no symptoms, anxiety, depressed, emotional problems, headache, numbness, paresthesia, pre-existing deficit, seizure, tingling, tremors, weakness, other Allergies: Coded Allergies: LACTOSE (Verified Allergy, Unknown, 08/30/15) LISINOPRIL (Unverified Allergy, Unknown, 01/17/18) METHOTREXATE (Verified Allergy, Unknown, 08/30/15) NSAIDS (NON-STEROIDAL ANTI-INFLAMMA (Unverified Allergy, Unknown, 11/14/15) Subjective 4/3: no events, on abx, cellulitis appears better 01/07: no events to report, no fevers or chills noted 01/08: no events, potential dc today, no issues Objective Last 24 Hour Vital Signs Date Time Temp Pulse Resp B/P (MAP) Pulse Ox O2 Delivery O2 Flow Rate FiO2 01/08/19 11:50 98.7 91 20 131/75 (93) 97 01/08/19 09:00 Room Air 01/08/19 08:12 70 20 Room Air 21 01/08/19 08:00 97.8 71 20 103/65 (78) 96 01/08/19 04:00 97.5 89 20 140/80 (100) 100 01/08/19 03:06 99.7 01/08/19 00:00 99.7 95 19 145/89 (107) 95 01/07/19 20:34 89 20 Room Air 21 01/07/19 20:33 Room Air 21 01/07/19 20:30 Room Air 01/07/19 20:00 98.0 99 19 133/85 (101) 96 Intake and Output 01/07/19 01/08/19 19:00 07:00 Intake Total 120 ml 652.500 ml Output Total 400 ml Balance 120 ml 252.500 ml Intake Oral 120 ml 240 ml IV Total 412.500 ml Output Urine Total 400 ml # Voids 6 Laboratory Tests 01/08/19 05:29: White Blood Count 8.9, Red Blood Count 4.50L, Hemoglobin 13.0L, Hematocrit 40.1L , Mean Corpuscular Volume 89, Mean Corpuscular Hemoglobin 29.0, Mean Corpuscular Hemoglobin Concent 32.6, Red Cell Distribution Width 13.8, Platelet Count 225, Mean Platelet Volume 6.2L, Neutrophils (%) (Auto) 76.0H, Lymphocytes (%) (Auto) 12.6L, Monocytes (%) (Auto) 8.1, Eosinophils (%) (Auto) 2.6, Basophils (%) (Auto) 0.7, Sodium Level 136, Potassium Level 3.7, Chloride Level 99, Carbon Dioxide Level 30, Anion Gap 7, Blood Urea Nitrogen 10, Creatinine 1.0 , Estimat Glomerular Filtration Rate > 60, Glucose Level 220H, Calcium Level 8.2L, Iron Level 60, Total Iron Binding Capacity 263, Percent Iron Saturation 23 , Unsaturated Iron Binding 203 Height (Feet): 5 Height (Inches): 10.00 Weight (Pounds): 219 Objective PE: Vitals: reviewed General Appearance: NAD HEENT: normocephalic, atraumatic Neck: non-tender, normal alignment Respiratory/Chest: nromal breath sounds bilaterally Cardiovascular/Chest: normal peripheral pulses, normal rate Abdomen: normal bowel sounds, soft, nontender Extremities: normal range of motion BILATERAL CELLULITIS++ Linus Dan MD Jan 08, 2019 17:41
--- NOTE | 2019-01-11 10:03 | Discharge Summary ---
Discharge Summary Discharge Summary _ DATE OF ADMISSION: 01/04/2019 DATE OF DISCHARGE: 01/08/2019 DISCHARGED BY: Dr. Worley REASON FOR ADMISSION: 68 years old male, resident of half-way facility, with past medical history of hypertension, diabetes mellitus, pacemaker, chronic kidney disease, diabetic peripheral neuropathy, history of CVA with right-sided weakness, chronic pain syndrome, developed cellulitis of bilateral lower extremity. Patient was not responded to oral antibiotics at the facility. No reported fever or chills. Patient was brought to the emergency room for further evaluation. Upon evaluation patient was afebrile, pulse oximetry was stable on 3 L of oxygen via nasal cannula. Laboratory workup revealed leukocytosis WBC 13.3, hemoglobin 13.5 hematocrit 41.4. Sodium 147. BUN 18 creatinine 1.1. Lactic acid 1.6. Troponin negative. Stable LFT. Patient was admitted for further management. CONSULTANTS: GI specialist Dr. Shannon network coordinator/oncologist Dr. Dan [facility] COURSE: Patient admitted and started on empiric antibiotic. Venous duplex bilateral lower extremity revealed no evidence of acute DVT. Supplemental oxygen provided as needed to keep pulse oximetry above 92%. Chest x-ray revealed no acute cardiopulmonary pathology. Blood cultures were negative. Antibiotic regimen with IV antibiotic will need to be completed at the half-way [facility] as indicated in medication reconciliation list. Leukocytosis resolved, no fevers. Pain management was addressed as needed. DVT and GI prophylaxis provided. Blood pressure and blood sugar were closely monitored . Supplemental oxygen titrated as needed to keep pulse oximetry above 90%. Pulse oximetry was stable on room air prior to discharge. Echocardiogram ,done in February 2018, revealed severe cardiomyopathy with ejection fraction of 20-25%. No evidence of left ventricular hypertrophy. Moderate to severe mitral regurgitation. Right ventricular systolic pressure of 50, consistent with a mild pulmonary hypertension. Patient was on medical management for systolic congestive heart failure . At this point no evidence of CHF exacerbation. Patient with history of CABG and acute IL. Antiplatelet therapy with aspirin and statin continued. Lipid panel stable. Beta blockage continued GI specialist closely followed. Patient had upper endoscopy in May of 2018, with gastritis and one part of the body along the lesser curvature, otherwise a normal endoscopy. The patient also had history of fecal impaction. Patient admitted to nausea without vomiting. Physical exam revealed no evidence of abdominal tenderness. Pathology at that time revealed erosive gastritis, no Helicobacter infection. No plans for GI procedure at this time. Patient was on GI prophylaxis with PPI. Antiemetic provided as needed. Laundry Housekeeping Aide followed. Patient with history of bilateral DVT in 2018. As mentioned above , venous duplex bilateral lower extremity was negative. DVT prophylaxis provided. Anemia workup revealed evidence of anemia of chronic disease. Stable iron. Hemoglobin hematocrit were closely monitored with goal to keep hemoglobin above 7. Hemoglobin and hematocrit remained at baseline. Prior to discharge hemoglobin 13, hematocrit 40.1. Noted low level of vitamin D. Patient will be started on vitamin D supplement at the facility. TSH within normal limits Renal parameters and electrolytes were closely monitored. Electrolytes corrected as needed. Nephrotoxins were avoided. Supportive care provided. Bowel regimen instituted. Patient was discharged to the half-way facility. Follow up with medical doctor at the facility. FINAL DIAGNOSES: Cellulitis bilateral lower extremity Anemia of chronic disease History of bilateral DVT /2018 Cardiac defibrillator Congestive heart failure with systolic dysfunction Severe cardiomyopathy History of CABG and acute IL Gastritis Drug-seeking behavior DISCHARGE MEDICATIONS: See Medication Reconciliation list. DISCHARGE INSTRUCTIONS: Patient was discharged to the half-way facility. Follow up with medical doctor at the facility. I have been assigned to dictate discharge summary for this account. 9 I was not involved in the patient's management. Darlin Woodward NP Jan 11, 2019 10:03
== END 2019-01-08 15:02 | DRG 383 ==
LOC: EDBD 19:47 → EMR 20:20 → 4E 22:20 → EDBEDREQ 22:51
DX: L03.116 Cellulitis of left lower limb (principal); I50.23 Acute on chronic systolic (congestive) heart failure; L03.115 Cellulitis of right lower limb; I10 Essential (primary) hypertension; D63.8 Anemia in other chronic diseases classified elsewhere; Z86.718 Personal history of other venous thrombosis and embolism; Z88.6 Allergy status to analgesic agent; Z88.8 Allergy status to other drugs, medicaments and biological substances; G89.4 Chronic pain syndrome; Z95.1 Presence of aortocoronary bypass graft; Z95.810 Presence of automatic (implantable) cardiac defibrillator; M06.9 Rheumatoid arthritis, unspecified; J44.9 Chronic obstructive pulmonary disease, unspecified; I73.9 Peripheral vascular disease, unspecified; I25.10 Atherosclerotic heart disease of native coronary artery without angina pectoris; I25.5 Ischemic cardiomyopathy; J42 Unspecified chronic bronchitis; K21.9 Gastro-esophageal reflux disease without esophagitis
CPT/HCPCS: 36415; 71045; 80048; 80053; 80061; 80202; 81003; 82306; 82550; 82607; 82962; 83036; 83540; 83550; 83605; 83880; 84165; 84439; 84443; 84484; 85025; 85651; 87040; 87081; 93970; 94664; 96360; 99285; J2405; J2765

== ENCOUNTER 2019-03-23 11:38 | Inpatient (IN) | payer MEDICAID ==
[~2019-03-23] VITALS: Ht 175.3 cm; Wt 108.9 kg
[~2019-03-23 11:38] MED LIST changes: +ATORVASTATIN CA20 MG ORAL; +BACLOFEN10 MG ORAL; +CALCIUM + D SO1 EACH PO; +CALCIUM + VITA1 EAC1 PO; +FLEET ENEMA133 ML RECTAL; +GABAPENTIN300 MG ORAL; +GLUCAGON W/DILUE1 MG IM; +KLONOPIN0.5 MG ORAL; +NORCO 10-325 T1 EACH ORAL; +PREDNISONE10 MG ORAL; +VANCOMYCIN1 GM IV; +ZOSYN 3.373.375 GM/1 IVPB; +[UNRECOGNIZED DRUG - OTHER]
[2019-03-23] MEDS ORDERED: SODIUM CHLORIDE IVLG ONE (12:00)
[2019-03-23 12:42] VITALS: BP 110/70
--- NOTE | 2019-03-23 12:43 | NUR ---
ED Nurse Note:pt. was BIBA from SNF with generalized pain VSS, pt. is A/Ox4 no fever, blood and urine sent to labs ,given IV fluids, all extremities are edemous
[2019-03-23 13:08] LABS: BASOPHILS % (AUTO) 0.9 % (0.0-2.0); EOSINOPHILS % (AUTO) 4.6 % (0.0-3.0); HEMATOCRIT 30.3 % (42.0-52.0); HEMOGLOBIN 9.9 G/DL (14.2-18.0); LYMPHOCYTES % (AUTO) 17.2 % (20.0-45.0); MEAN CORPUSCULAR VOLUME 87 FL (80-99); MONOCYTES % (AUTO) 9.1 % (1.0-10.0); NEUTROPHILS % (AUTO) 68.2 % (45.0-75.0); PLATELET COUNT 298 K/UL (150-450); RED CELL DISTRIBUTION WIDTH 13.6 % (11.6-14.8); WHITE BLOOD COUNT 7.3 K/UL (4.8-10.8)
[2019-03-23 13:14] LABS: APPEARANCE,URINE CLEAR; BILIRUBIN, URINE NEGATIVE (NEGATIVE); COLOR,URINE PALE YELLOW; GLUCOSE, URINE (UA) NEGATIVE (NEGATIVE); KETONES,URINE NEGATIVE (NEGATIVE); LEUKOCYTE ESTERASE ,URINE NEGATIVE (NEGATIVE); NITRITE,URINE NEGATIVE (NEGATIVE); PH,URINE 7 (4.5-8.0); PROTEIN,URINE NEGATIVE (NEGATIVE); UROBILINOGEN,URINE NORMAL MG/DL (0.0-1.0)
[2019-03-23 13:26] LABS: ANION GAP 6 mmol/L (5-15); BLOOD UREA NITROGEN 17 mg/dL (7-18); CALCIUM 9.4 MG/DL (8.5-10.1); CARBON DIOXIDE 34 MMOL/L (21-32); CHLORIDE 96 MMOL/L (98-107); CREATININE 1.2 MG/DL (0.55-1.30); POTASSIUM 3.8 MMOL/L (3.5-5.1); SODIUM 136 MMOL/L (136-145)
[2019-03-23 13:31] VITALS: BP 109/65
[2019-03-23 13:36] LABS: ALANINE AMINOTRANSFERASE 18 U/L (12-78); ALBUMIN 2.3 G/DL (3.4-5.0); ALBUMIN/GLOBULIN RATIO 0.5 (1.0-2.7); ALKALINE PHOSPHATASE 89 U/L (46-116); ASPARTATE AMINO TRANSFERASE 15 U/L (15-37); BILIRUBIN,TOTAL 0.4 MG/DL (0.2-1.0); CREATINE KINASE 44 U/L (26-308)
[2019-03-23 14:00] LABS: CKMB 2.5 NG/ML (0.0-3.6)
--- NOTE | 2019-03-23 15:07 | Emergency Room Report ---
History of Present Illness General Chief Complaint: Pain Source: Patient Present Illness HPI This patient [facility] from a [facility] facility. He has a history of CHF , pacemaker, chronic kidney disease, peripheral vascular disease, diabetes, CVA with hemiplegia. He presents from a [facility] facility complaining of all over body pain. He denies recent illness. He denies cough or congestion. He denies fever or chills. He denies nausea or vomiting. He feels generalized weakness. He has no other complaints. Allergies: Coded Allergies: LACTOSE (Verified Allergy, Unknown, 03/23/19) LISINOPRIL (Unverified Allergy, Unknown, 01/17/18) METHOTREXATE (Verified Allergy, Unknown, 08/30/15) NSAIDS (NON-STEROIDAL ANTI-INFLAMMA (Unverified Allergy, Unknown, 11/14/15) Patient History Past Medical History: see triage record, DM, HTN, [place], CAD, CHF, COPD, GERD, CVA /TIA, psych hx, renal disease, other Past Surgical History: CABG, pacemaker Social History: Denies: smoking, alcohol use, drug use Reviewed Nursing Documentation: PMH: Agreed; PSxH: Agreed Nursing Documentation-PMH Past Medical History: No History, Except For Hx Hypertension: Yes - CKD Hx Pacemaker: Yes Hx Diabetes: Yes Hx Cancer: No Hx Gastrointestinal Problems: Yes - Gastritis/ abdominal pain Hx Neurological Problems: Yes Hx Cerebrovascular Accident: Yes - right side weakness Hx Peripheral Neuropathy: Yes - diabetic peripheral neuropathy, Chronic pain syndrom Hx Neurologic Surgery: No Review of Systems All Other Systems: negative except mentioned in HPI Physical Exam Vital Signs Date Time Temp Pulse Resp B/P (MAP) Pulse Ox O2 Delivery O2 Flow Rate FiO2 03/23/19 11:38 97.5 75 18 110/70 (83) 94 Room Air Sp02 EP Interpretation: reviewed, normal General Appearance: no apparent distress, alert, GCS 15, non-toxic Head: normocephalic, atraumatic Eyes: bilateral eye normal inspection, bilateral eye PERRL ENT: hearing grossly normal, normal pharynx, no angioedema, normal voice Neck: full range of motion, supple/symm/no masses Respiratory: chest non-tender, lungs clear, normal breath sounds, no respiratory distress, no retraction, no accessory muscle use, speaking full sentences Cardiovascular #1: regular rate, rhythm, no edema Gastrointestinal: normal bowel sounds, non tender, soft, non-distended, no guarding, no rebound Rectal: deferred Musculoskeletal: back normal, gait/station normal, normal range of motion, non- tender Neurologic: alert, oriented x3, responsive, motor strength/tone normal, sensory intact, speech normal Psychiatric: judgement/insight normal, memory normal, mood/affect normal, no suicidal/homicidal ideation Skin: normal color, no rash, warm/dry, well hydrated Medical Decision Making Diagnostic Impression: Primary Impression: Elevated troponin Additional Impression: CHF exacerbation ER Course This patient presents with generalized weakness in all of her body pain. He is found to have an elevated troponin and a chest x-ray consistent with CHF exacerbation. The patient is admitted to rule out ACS and for treatment of his CHF exacerbation and trending of his troponin. Laboratory Tests Test 03/23/19 12:30 03/23/19 12:35 Urine Color Pale yellow Urine Appearance Clear Urine pH 7 (4.5-8.0) Urine Specific [place] 1.010 (1.005-1.035) Urine Protein Negative (NEGATIVE) Urine Glucose (UA) Negative (NEGATIVE) Urine Ketones Negative (NEGATIVE) Urine Blood 1+ (NEGATIVE) H Urine Nitrite Negative (NEGATIVE) Urine Bilirubin Negative (NEGATIVE) Urine Urobilinogen Normal MG/DL (0.0-1.0) Urine Leukocyte Esterase Negative (NEGATIVE) Urine RBC 2-4 /HPF (0 - 0) H Urine WBC 0-2 /HPF (0 - 0) Urine Squamous Epithelial Cells Occasional /LPF Urine Bacteria Occasional /HPF (NONE) White Blood Count 7.3 K/UL (4.8-10.8) Red Blood Count 3.50 M/UL (4.70-6.10) L Hemoglobin 9.9 G/DL (14.2-18.0) L Hematocrit 30.3 % (42.0-52.0) L Mean Corpuscular Volume 87 FL (80-99) Mean Corpuscular Hemoglobin 28.4 PG (27.0-31.0) Mean Corpuscular Hemoglobin Concent 32.8 G/DL (32.0-36.0) Red Cell Distribution Width 13.6 % (11.6-14.8) Platelet Count 298 K/UL (150-450) Mean Platelet Volume 5.4 FL (6.5-10.1) L Neutrophils (%) (Auto) 68.2 % (45.0-75.0) Lymphocytes (%) (Auto) 17.2 % (20.0-45.0) L Monocytes (%) (Auto) 9.1 % (1.0-10.0) Eosinophils (%) (Auto) 4.6 % (0.0-3.0) H Basophils (%) (Auto) 0.9 % (0.0-2.0) Sodium Level 136 MMOL/L (136-145) Potassium Level 3.8 MMOL/L (3.5-5.1) Chloride Level 96 MMOL/L (98-107) L Carbon Dioxide Level 34 MMOL/L (21-32) H Anion Gap 6 mmol/L (5-15) Blood Urea Nitrogen 17 mg/dL (7-18) Creatinine 1.2 MG/DL (0.55-1.30) Estimate Glomerular Filtration Rate > 60 mL/min (>60) Glucose Level 201 MG/DL (74-106) H Lactic Acid Level 1.00 mmol/L (0.4-2.0) Calcium Level 9.4 MG/DL (8.5-10.1) Total Bilirubin 0.4 MG/DL (0.2-1.0) Aspartate Amino Transferase (AST) 15 U/L (15-37) Alanine Aminotransferase (ALT) 18 U/L (12-78) Alkaline Phosphatase 89 U/L (46-116) Total Creatine Kinase 44 U/L (26-308) Creatine Kinase MB 2.5 NG/ML (0.0-3.6) Creatine Kinase MB Relative Index 5.6 Troponin I 0.161 ng/mL (0.000-0.056) Total Protein 7.0 G/DL (6.4-8.2) Albumin 2.3 G/DL (3.4-5.0) L Globulin 4.7 g/dL Albumin/Globulin Ratio 0.5 (1.0-2.7) L EKG Diagnostic Results Rate: other - Paced ST Segments: no acute changes Rhythm Strip Diag. Results EP Interpretation: yes Rate: 65 Rhythm: other - Paced Last Vital Signs Date Time Temp Pulse Resp B/P (MAP) Pulse Ox O2 Delivery O2 Flow Rate FiO2 03/23/19 13:31 66 11 109/65 100 Room Air 03/23/19 12:42 97.5 Disposition: ADMITTED INPATIENT Condition: Serious Referrals: Ignacio Worley MD (PCP) Stephanie Quiroga DO Mar 23, 2019 15:07
[2019-03-23 16:06] VITALS: BP 110/59
[2019-03-23] MEDS ORDERED: LORazepam Inj 2mg/ml 1ml IV PRN (16:15)
--- NOTE | 2019-03-23 16:16 | NUR ---
ED Nurse Note:called tele with report -given to Rajesh GAMEZ
[2019-03-23] MEDS: NovoLOG Insulin Flexpen SUBQ SCH ×2 (16:30→21:00)
[2019-03-23 17:09] VITALS: BP 115/70
[2019-03-23] MEDS: Sucralfate 1gm tab ORAL SCH ×2 (17:11→21:00)
--- NOTE | 2019-03-23 17:18 | Diagnostic Imaging Report ---
Indication: Shortness of breath Technique: One view of the chest Comparison: 01/07/2019 Findings: Body habitus limits evaluation. Inspiration is suboptimal. Left chest AICD is again demonstrated. The heart is enlarged. There is diffuse left lung and right upper lobe interstitial congestion which is not definitely evident previously. No definite airspace consolidation. There may pleural fluid on the left. Impression: Limited exam, as described Suspect bilateral interstitial congestion and possible left pleural effusion Cardiomegaly
--- NOTE | 2019-03-23 17:35 | History & Physical ---
History and Physical History & Physicial Dictated for Int Med-Dr Negron no. [id number]. Patient is full code-see Javi Crowell MD Mar 23, 2019 17:35
--- NOTE | 2019-03-23 18:02 | Cardiac Electrophysiology PN ---
Subjective Subjective [id number] Objective Last 24 Hour Vital Signs Date Time Temp Pulse Resp B/P (MAP) Pulse Ox O2 Delivery O2 Flow Rate FiO2 03/23/19 17:09 98.0 70 18 115/70 (85) 92 03/23/19 16:15 97.5 69 17 110/59 100 Room Air 03/23/19 16:06 69 17 110/59 100 Room Air 03/23/19 13:31 66 11 109/65 100 Room Air 03/23/19 12:42 97.5 78 18 110/70 98 Room Air 03/23/19 11:38 97.5 75 18 110/70 (83) 94 Room Air Laboratory Tests Test 03/23/19 12:30 03/23/19 12:35 Urine Color Pale yellow Urine Appearance Clear Urine pH 7 (4.5-8.0) Urine Specific [place] 1.010 (1.005-1.035) Urine Protein Negative (NEGATIVE) Urine Glucose (UA) Negative (NEGATIVE) Urine Ketones Negative (NEGATIVE) Urine Blood 1+ (NEGATIVE) H Urine Nitrite Negative (NEGATIVE) Urine Bilirubin Negative (NEGATIVE) Urine Urobilinogen Normal MG/DL (0.0-1.0) Urine Leukocyte Esterase Negative (NEGATIVE) Urine RBC 2-4 /HPF (0 - 0) H Urine WBC 0-2 /HPF (0 - 0) Urine Squamous Epithelial Cells Occasional /LPF Urine Bacteria Occasional /HPF (NONE) White Blood Count 7.3 K/UL (4.8-10.8) Red Blood Count 3.50 M/UL (4.70-6.10) L Hemoglobin 9.9 G/DL (14.2-18.0) L Hematocrit 30.3 % (42.0-52.0) L Mean Corpuscular Volume 87 FL (80-99) Mean Corpuscular Hemoglobin 28.4 PG (27.0-31.0) Mean Corpuscular Hemoglobin Concent 32.8 G/DL (32.0-36.0) Red Cell Distribution Width 13.6 % (11.6-14.8) Platelet Count 298 K/UL (150-450) Mean Platelet Volume 5.4 FL (6.5-10.1) L Neutrophils (%) (Auto) 68.2 % (45.0-75.0) Lymphocytes (%) (Auto) 17.2 % (20.0-45.0) L Monocytes (%) (Auto) 9.1 % (1.0-10.0) Eosinophils (%) (Auto) 4.6 % (0.0-3.0) H Basophils (%) (Auto) 0.9 % (0.0-2.0) Sodium Level 136 MMOL/L (136-145) Potassium Level 3.8 MMOL/L (3.5-5.1) Chloride Level 96 MMOL/L (98-107) L Carbon Dioxide Level 34 MMOL/L (21-32) H Anion Gap 6 mmol/L (5-15) Blood Urea Nitrogen 17 mg/dL (7-18) Creatinine 1.2 MG/DL (0.55-1.30) Estimat Glomerular Filtration Rate > 60 mL/min (>60) Glucose Level 201 MG/DL (74-106) H Lactic Acid Level 1.00 mmol/L (0.4-2.0) Calcium Level 9.4 MG/DL (8.5-10.1) Total Bilirubin 0.4 MG/DL (0.2-1.0) Aspartate Amino Transf (AST/SGOT) 15 U/L (15-37) Alanine Aminotransferase (ALT/SGPT) 18 U/L (12-78) Alkaline Phosphatase 89 U/L (46-116) Total Creatine Kinase 44 U/L (26-308) Creatine Kinase MB 2.5 NG/ML (0.0-3.6) Creatine Kinase MB Relative Index 5.6 Troponin I 0.161 ng/mL (0.000-0.056) Pro-B-Type Natriuretic Peptide 3906 pg/mL (0-125) H Total Protein 7.0 G/DL (6.4-8.2) Albumin 2.3 G/DL (3.4-5.0) L Globulin 4.7 g/dL Albumin/Globulin Ratio 0.5 (1.0-2.7) L Silvio Sterling MD Mar 23, 2019 18:02
--- NOTE | 2019-03-23 18:06 | NUR ---
NURSE NOTES: received pt awake alerrt, no distress. no sob. 95%on 1.5lnc, pt is 85 on ra, hob elevated, dr durbin made aware of troponin level.call light within reach. bed in lowest position, locked.
[2019-03-23 20:00] VITALS: BP 146/75
--- NOTE | 2019-03-23 20:34 | NUR ---
NURSE NOTES: Received pt from FRANCO Mena. Pt asleep. Bed in lowest position. Call light within reach. Will continue to monitor.
--- NOTE | 2019-03-23 20:45 | History and Physical Report ---
DATE OF ADMISSION: 03/23/2019 CHIEF COMPLAINT: The patient is a 69-year-old male, who presents with chief complaint of generalized weakness. HISTORY OF PRESENT ILLNESS: The patient is a resident of [facility]. According to staff at [facility], the patient began to experience generalized weakness two days ago. The patient has had a nonproductive cough. The patient presented to [place] emergency room. The patient is found to have elevated troponin. The patient has a history of coronary artery disease and is status post coronary artery bypass graft and pacemaker implantation. The patient is admitted with generalized weakness to rule out acute coronary syndrome. REVIEW OF SYSTEMS: CONSTITUTIONAL: The patient denies weight loss or weight gain. The patient denies fevers or chills. HEENT: The patient denies ear or throat pain. The patient denies headache. CARDIOVASCULAR: The patient denies palpitations or chest pain. CHEST: The patient denies wheeze or shortness of breath. The patient complains of nonproductive cough as above. ABDOMEN: The patient denies nausea, vomiting, diarrhea, or constipation. GENITOURINARY: The patient denies dysuria or increased frequency of urination. NEUROMUSCULAR: The patient complains of generalized weakness as above. The patient denies seizures. PAST MEDICAL HISTORY: Significant for: 1. Congestive heart failure, diastolic and systolic. 2. Coronary artery disease, status post myocardial infarction. 3. Diabetes type 2. 4. Hypertension. 5. Ischemic cardiomyopathy. 6. Peripheral vascular disease. 7. Cerebrovascular accident. 8. Right hemiplegia. 9. Chronic obstructive pulmonary disease. 10. During last hospitalization, ejection fraction was 20% to 25%. PAST SURGICAL HISTORY: Significant for: 1. Pacemaker implantation in 2014. 2. Coronary artery bypass graft. 3. Appendectomy. CURRENT MEDICATIONS: 1. Aldactone 25 mg one tablet p.o. daily. 2. Aspirin 81 mg p.o. daily. 3. Baclofen 10 mg one tablet p.o. three times daily p.r.n. 4. Bumetanide 2 mg p.o. twice daily. 5. Calcium 600 mg two tablets p.o. daily. 6. Carafate 1 g p.o. four times daily. 7. Carvedilol 25 mg p.o. twice daily. 8. Clopidogrel 75 mg p.o. daily. 9. Insulin sliding scale (regular). ALLERGIES: No known drug allergies. SOCIAL HISTORY: The patient is single and is a resident of [facility]. The patient denies tobacco or alcohol use. PHYSICAL EXAMINATION: VITAL SIGNS: Temperature 97.5, respirations 18, pulse 75, and blood pressure 110/70. GENERAL: The patient is a well-developed and well-nourished, obese male, in no apparent distress. HEENT: Eyes, pupils are equal and responsive to light and accommodation. Extraocular movements are intact. NECK: Supple. No lymphadenopathy. CHEST: Lungs are clear to auscultation bilaterally without wheezes or rales. CARDIOVASCULAR: Regular rhythm and rate. S1, S2 normal without murmurs, rubs, or gallops. ABDOMEN: Soft, nontender, and nondistended. Positive bowel sounds. No evidence of hepatosplenomegaly. Currently, no rebound or guarding noted. EXTREMITIES: Negative for clubbing, cyanosis, or edema. RECTAL/GENITAL: Not performed. NEUROLOGIC: Cranial nerves II through XII are grossly intact without focal deficits. Motor strength is 4/5 bilaterally. Deep tendon reflexes are 2+ plantar. LABORATORY STUDIES: WBC 7.3, hemoglobin 9.9, hematocrit 30.3, and platelets 298,000. Sodium 136, potassium 3.8, chloride 96, CO2 34, BUN 17, and creatinine 1.2. Glucose 201. Troponin elevated at 0.161. Chest x-ray is pending. ASSESSMENT: This is a 69-year-old male with: 1. Generalized weakness. 2. Elevated troponin. 3. Congestive heart failure. 4. Coronary artery disease. 5. Diabetes type 2. 6. Hypertension. 7. Ischemic cardiomyopathy. 8. Peripheral vascular disease. 9. Cerebrovascular disease, status post cerebrovascular accident. 10. Right hemiplegia. 11. Chronic obstructive pulmonary disease. TREATMENT: 1. Congestive heart failure/coronary artery disease. A Cardiology consultation has been obtained with Dr. Pierre Zuñiga. The patient's previous ejection fraction was 20% to 25%. An echocardiogram is pending. We will follow recommendations of Cardiology. 2. Generalized weakness. This may be secondary to congestive heart failure acute exacerbation. 3. Elevated troponin. 4. Diabetes type 2. Continue NovoLog sliding scale. 5. Hypertension. Continue Coreg as above. 6. Ischemic cardiomyopathy. 7. Peripheral vascular disease. Continue Plavix as above. 8. Cerebrovascular disease, status post cerebrovascular accident. 9. Right hemiplegia. 10. Chronic obstructive pulmonary disease. A Pulmonary consultation has been obtained with Dr. Pretty Sweet. Javi Olea M.D. DR: ELOY JOB#: [id number] CC:
[2019-03-23] MEDS: Carvedilol 12.5mg tab ORAL SCH (21:00)
[2019-03-23] MEDS ORDERED: Miralax 17gm pkt ORAL PRN (21:00)
[2019-03-23] MEDS ORDERED: Zolpidem 5mg tab ORAL PRN (21:00)
--- NOTE | 2019-03-23 21:00 | NUR ---
NURSE NOTES: unable to give any of his oral meds because pt is severly nauseated. Zofran and pain meds were given via IV. Called and left a message with Dr. Negron asking for IV BP meds PRN. Awaiting call back.
[2019-03-23] MEDS: HydrALAZINE 50mg tab ORAL SCH (22:00)
--- NOTE | 2019-03-23 22:45 | Consultation ---
DATE OF CONSULTATION: 03/23/2019 CARDIAC ELECTROPHYSIOLOGY CONSULTATION CONSULTING PHYSICIAN: Silvio Sterling M.D. REFERRING PHYSICIAN: David Negron M.D. REASON FOR CONSULTATION: Management of severe cardiomyopathy as well as evaluation of the patient's defibrillator. HISTORY OF PRESENT ILLNESS: The patient is a 69-year-old gentleman with history of hypertension and prior myocardial infarction with stent placed in 2006 at [facility] as well as history of pacemaker implantation in the past and subsequently upgraded to a dual-chamber defibrillator. The patient also has severe cardiomyopathy with ejection fraction of 20% since 2017, the most recent one in 2018. The patient was brought to the emergency room from a halfway facility for generalized body ache and shortness of breath. Cardiac electrophysiology consultation was obtained for further evaluation and management. REVIEW OF SYSTEMS: Negative other than what was mentioned in history of present illness. PAST MEDICAL HISTORY: As mentioned above. FAMILY HISTORY: Noncontributory. SOCIAL HISTORY: He lives in a snf. Does not smoke or drink alcohol. PHYSICAL EXAMINATION: VITAL SIGNS: Show blood pressure of 115/70, pulse is 70, respirations 18, and temperature 98. HEAD AND NECK: Shows positive JVD. LUNGS: Decreased breath sounds. CARDIOVASCULAR: Shows regular S1 and S2 with no gallop or murmur. He has two incisions, one for pacemaker and the another one for defibrillator in the left subclavian. ABDOMEN: Soft. EXTREMITIES: 1+ pitting edema. LABORATORY AND DIAGNOSTIC DATA: His EKG showed atrially sensed and ventricularly paced rhythm with PVCs. His labs show white count of 7.7, hemoglobin of 10, hematocrit of 30, and platelet count is 298,000. Sodium 136, potassium 3.8, BUN of 17, creatinine 1.2, glucose of 201. Troponin is 0.161. ASSESSMENT AND PLAN: 1. Severe cardiomyopathy. EF of only 20%. We will repeat the echocardiogram. We will continue Coreg 12.5 mg b.i.d. and add lisinopril 20 mg daily as well as Aldactone and Lasix. A 12-lead EKG is 100% ventricularly paced and he would benefit from upgrading his dual-chamber ICD to a biventricular defibrillator in view of ventricular pacing with QRS duration of 234 milliseconds, however, we probably need to get authorization from insurance company to proceed with upgrading of his ICD to biventricular ICD. 2. Status post defibrillator. Again, this is a dual-chamber defibrillator. The patient does not know the brand. We will [employer] pacemaker, we will interrogate that for further evaluation. 3. Hypertension. Continue current heart failure therapy. 4. Diabetes. 5. History of CVA. 6. Coronary artery disease, prior stent placement. Continue Coreg and add statin to his medical regimen. Thank you very much, Dr. Negron, for allowing me to participate in the care of this patient. Please do not hesitate to contact me for any questions regarding my evaluation. Silvio Sterling M.D. DR: LUCIA JOB#: [id number] CC:
[2019-03-23] MEDS: Morphine Sulfate 2mg/ml Inj(IV/IM USE ONLY) IVP PRN (22:48)
[2019-03-23] MEDS: Heparin 5000 units/ml inj SUBQ SCH (22:55)
[2019-03-24] VITALS: BP 130/69
[2019-03-24 04:00] VITALS: BP 138/75
[2019-03-24] MEDS: HydrALAZINE 50mg tab ORAL SCH ×3 (06:00→22:00)
[2019-03-24 06:25] LABS: BASOPHILS % (AUTO) 0.8 % (0.0-2.0); EOSINOPHILS % (AUTO) 2.5 % (0.0-3.0); HEMATOCRIT 32.8 % (42.0-52.0); LYMPHOCYTES % (AUTO) 12.5 % (20.0-45.0); MEAN CORPUSCULAR VOLUME 86 FL (80-99); MONOCYTES % (AUTO) 8.1 % (1.0-10.0); NEUTROPHILS % (AUTO) 76.1 % (45.0-75.0); PLATELET COUNT 349 K/UL (150-450); RED CELL DISTRIBUTION WIDTH 13.8 % (11.6-14.8); WHITE BLOOD COUNT 8.8 K/UL (4.8-10.8)
[2019-03-24] MEDS: NovoLOG Insulin Flexpen SUBQ SCH ×4 (06:30→21:00)
[2019-03-24] MEDS: Morphine Sulfate 2mg/ml Inj(IV/IM USE ONLY) IVP PRN ×4 (06:45→23:18)
[2019-03-24 06:52] LABS: ALANINE AMINOTRANSFERASE 11 U/L (12-78); ALBUMIN 2.5 G/DL (3.4-5.0); ALBUMIN/GLOBULIN RATIO 0.5 (1.0-2.7); ALKALINE PHOSPHATASE 95 U/L (46-116); ANION GAP 10 mmol/L (5-15); ASPARTATE AMINO TRANSFERASE 20 U/L (15-37); BILIRUBIN,TOTAL 0.4 MG/DL (0.2-1.0); BLOOD UREA NITROGEN 14 mg/dL (7-18); CALCIUM 8.9 MG/DL (8.5-10.1); CARBON DIOXIDE 32 MMOL/L (21-32); CHLORIDE 95 MMOL/L (98-107); CHOLESTEROL 126 MG/DL (< 200); CREATININE 1.3 MG/DL (0.55-1.30); HDL CHOLESTEROL 57 MG/DL (40-60); POTASSIUM 4.1 MMOL/L (3.5-5.1); SODIUM 137 MMOL/L (136-145); TRIGLYCERIDES 107 MG/DL (30-150)
--- NOTE | 2019-03-24 07:25 | NUR ---
NURSE NOTES: Received pt from FRANCO Michael. Pt is AAO x 4. Patient is states he feels nauseated. Patient states 1/10 for pain. Patient is on room air breathing even and unlabored. Patient is on cardiac rn. Bed in lowest position. Call light within reach. Will continue to monitor and follow up with nausea.
--- NOTE | 2019-03-24 07:27 | NUR ---
HAND-OFF: Report given to FRANCO Leon. Pt stable.
[2019-03-24 08:00] VITALS: BP 116/75
--- NOTE | 2019-03-24 08:31 | NUR ---
NURSE NOTES: Received lab value of troponin of 0.524 from medical laboratory assistant. Paged Dr. Sterling and awaiting orders.
[2019-03-24] MEDS: Imdur 30mg tab ORAL SCH (09:00)
[2019-03-24] MEDS: Spironolactone 25mg tab ORAL SCH (09:00)
[2019-03-24] MEDS: Sucralfate 1gm tab ORAL SCH ×4 (09:00→21:00)
[2019-03-24] MEDS: Carvedilol 12.5mg tab ORAL SCH ×2 (09:00→21:00)
--- NOTE | 2019-03-24 09:30 | NUR ---
NURSE NOTES: EKG was sent to Dr. Sterling. Dr. Sterling is aware. No new orders at this time.
[2019-03-24] MEDS: Heparin 5000 units/ml inj SUBQ SCH ×2 (10:20→21:00)
[2019-03-24 12:00] VITALS: BP 155/75
--- NOTE | 2019-03-24 12:24 | NUR ---
CASE MANAGEMENT:REVIEW 69 YR OLD MALE BIBA FROM [facility] CC: BODY PAIN PMH:ALLERGIC TO NSAIDS. LISINOPRIL SI: ELEVATED TROPONIN. CHF EXACERBATION 97.5 75 18 110/70 94% ON RA TROPONIN(+) 0.161 IS: 3L NS BOLUS IV LASIX NORCO GIVEN PRIOR TO ADMISSION CHEST XRAY BLOOD CX : TO TELEMETRY IS: IMDUR PO QD ALDACTONE PO QD IV LASIX QD HYDRALAZINE PO Q8HRS COREG PO Q12 HEPARIN SQ Q12 PLAN: 2DECHO INTERQUAL CRITERIA MET
--- NOTE | 2019-03-24 12:57 | Internal Med Progress Note ---
Subjective Date of Service: Mar 24, 2019 Physician Name Javi Olea Attending Physician David Negron MD Current Medications Medications (Trade) Dose Ordered Sig/Paola Route PRN Reason Start Time Stop Time Status Last Admin Dose Admin Acetaminophen (Tylenol) 650 mg Q4H PRN ORAL fever 03/23/19 16:15 04/22/19 16:14 Baclofen (Lioresal) 10 mg THREE TIMES A DAY ORAL 03/23/19 18:00 04/22/19 17:59 03/23/19 17:11 Carvedilol (Coreg) 12.5 mg EVERY 12 HOURS ORAL 03/23/19 21:00 04/22/19 20:59 Dextrose (Dextrose 50%) 25 ml Q30M PRN IV Hypoglycemia 03/23/19 16:15 04/22/19 16:14 Dextrose (Dextrose 50%) 50 ml Q30M PRN IV Hypoglycemia 03/23/19 16:15 04/22/19 16:14 Furosemide (Lasix) 40 mg DAILY IV 03/24/19 09:00 04/23/19 08:59 03/24/19 10:17 Gabapentin (Neurontin) 300 mg THREE TIMES A DAY ORAL 03/23/19 18:00 04/22/19 17:59 03/23/19 17:11 Heparin Sodium (Porcine) (Heparin 5000 units/ml) 5,000 units EVERY 12 HOURS SUBQ 03/23/19 21:00 04/22/19 20:59 03/24/19 10:20 Hydralazine HCl (Apresoline) 50 mg EVERY 8 HOURS ORAL 03/23/19 22:00 04/22/19 21:59 Insulin Aspart (NovoLOG) BEFORE MEALS AND HS SUBQ 03/23/19 16:30 04/22/19 16:29 03/23/19 16:30 Isosorbide Mononitrate (Imdur) 30 mg DAILY ORAL 03/24/19 09:00 04/23/19 08:59 Lorazepam (Ativan 2mg/ml 1ml) 0.5 mg Q4H PRN IV For Anxiety 03/23/19 16:15 03/30/19 16:14 Morphine Sulfate (Morphine Sulfate) 1 mg Q4H PRN IVP For Pain 03/23/19 16:15 03/30/19 16:14 03/24/19 06:45 Ondansetron HCl (Zofran) 4 mg Q6H PRN IVP Nausea & Vomiting 03/23/19 16:15 04/22/19 16:14 03/24/19 12:08 Polyethylene Glycol (Miralax) 17 gm HSPRN PRN ORAL Constipation 03/23/19 21:00 04/22/19 20:59 Promethazine HCl 12.5 mg/Sodium Chloride 55.5 ml @ 222 mls/hr Q6H PRN IVPB nausea 03/24/19 12:30 04/23/19 12:29 Spironolactone (Aldactone) 25 mg DAILY ORAL 03/24/19 09:00 04/23/19 08:59 Sucralfate (Carafate) 1 gm FOUR TIMES A DAY ORAL 03/23/19 18:00 04/22/19 17:59 03/23/19 17:11 Zolpidem Tartrate (Ambien) 5 mg HSPRN PRN ORAL Insomnia 03/23/19 21:00 03/30/19 20:59 Allergies: Coded Allergies: LACTOSE (Verified Allergy, Unknown, 03/23/19) LISINOPRIL (Unverified Allergy, Unknown, 01/17/18) METHOTREXATE (Verified Allergy, Unknown, 08/30/15) NSAIDS (NON-STEROIDAL ANTI-INFLAMMA (Unverified Allergy, Unknown, 11/14/15) ROS Limited/Unobtainable: No Constitutional: Reports: weakness HEENT: Reports: no symptoms Cardiovascular: Reports: no symptoms Respiratory: Reports: no symptoms Gastrointestinal/Abdominal: Reports: no symptoms Genitourinary: Reports: no symptoms Neurologic/Psychiatric: Reports: no symptoms Subjective 69 YO M admitted with gen weakness. Now elevated troponin and CHF. Cover for Int Andrew-Dr Negron Objective Last Vital Signs Date Time Temp Pulse Resp B/P (MAP) Pulse Ox O2 Delivery O2 Flow Rate FiO2 03/24/19 12:00 98.1 69 18 155/75 (101) 98 03/24/19 12:00 1.0 03/24/19 09:00 Nasal Cannula Laboratory Tests Test 03/24/19 06:00 White Blood Count 8.8 K/UL (4.8-10.8) Red Blood Count 3.80 M/UL (4.70-6.10) L Hemoglobin 11.0 G/DL (14.2-18.0) L Hematocrit 32.8 % (42.0-52.0) L Mean Corpuscular Volume 86 FL (80-99) Mean Corpuscular Hemoglobin 28.9 PG (27.0-31.0) Mean Corpuscular Hemoglobin Concent 33.4 G/DL (32.0-36.0) Red Cell Distribution Width 13.8 % (11.6-14.8) Platelet Count 349 K/UL (150-450) Mean Platelet Volume 5.2 FL (6.5-10.1) L Neutrophils (%) (Auto) 76.1 % (45.0-75.0) H Lymphocytes (%) (Auto) 12.5 % (20.0-45.0) L Monocytes (%) (Auto) 8.1 % (1.0-10.0) Eosinophils (%) (Auto) 2.5 % (0.0-3.0) Basophils (%) (Auto) 0.8 % (0.0-2.0) Sodium Level 137 MMOL/L (136-145) Potassium Level 4.1 MMOL/L (3.5-5.1) Chloride Level 95 MMOL/L (98-107) L Carbon Dioxide Level 32 MMOL/L (21-32) Anion Gap 10 mmol/L (5-15) Blood Urea Nitrogen 14 mg/dL (7-18) Creatinine 1.3 MG/DL (0.55-1.30) Estimat Glomerular Filtration Rate 54.7 mL/min (>60) Glucose Level 174 MG/DL (74-106) H Calcium Level 8.9 MG/DL (8.5-10.1) Total Bilirubin 0.4 MG/DL (0.2-1.0) Aspartate Amino Transf (AST/SGOT) 20 U/L (15-37) Alanine Aminotransferase (ALT/SGPT) 11 U/L (12-78) L Alkaline Phosphatase 95 U/L (46-116) Troponin I 0.524 ng/mL (0.000-0.056) Pro-B-Type Natriuretic Peptide 5880 pg/mL (0-125) H Total Protein 7.3 G/DL (6.4-8.2) Albumin 2.5 G/DL (3.4-5.0) L Globulin 4.8 g/dL Albumin/Globulin Ratio 0.5 (1.0-2.7) L Triglycerides Level 107 MG/DL (30-150) Cholesterol Level 126 MG/DL (< 200) LDL Cholesterol 56 mg/dL (<100) HDL Cholesterol 57 MG/DL (40-60) Cholesterol/HDL Ratio 2.2 (3.3-4.4) L Objective PHYSICAL EXAMINATION: GENERAL: The patient is a well-developed and well-nourished, obese male, in no apparent distress. HEENT: Eyes, pupils are equal and responsive to light and accommodation. Extraocular movements are intact. NECK: Supple. No lymphadenopathy. CHEST: Lungs are clear to auscultation bilaterally without wheezes or rales. CARDIOVASCULAR: Regular rhythm and rate. S1, S2 normal without murmurs, rubs, or gallops. ABDOMEN: Soft, nontender, and nondistended. Positive bowel sounds. No evidence of hepatosplenomegaly. Currently, no rebound or guarding noted. EXTREMITIES: Negative for clubbing, cyanosis, or edema. RECTAL/GENITAL: Not performed. NEUROLOGIC: Cranial nerves II through XII are grossly intact without focal deficits. Motor strength is 4/5 bilaterally. Deep tendon reflexes are 2+ plantar. Assessment/Plan Assessment/Plan ASSESSMENT: This is a 69-year-old male with: 1. Generalized weakness. 2. Elevated troponin. 3. Congestive heart failure. 4. Coronary artery disease. 5. Diabetes type 2. 6. Hypertension. 7. Ischemic cardiomyopathy. 8. Peripheral vascular disease. 9. Cerebrovascular disease, status post cerebrovascular accident. 10. Right hemiplegia. 11. Chronic obstructive pulmonary disease. TREATMENT: 1. Congestive heart failure/coronary artery disease. A Cardiology consultation has been obtained with Dr. Silvio Sterling. The patient's previous ejection fraction was 20% to 25%. An echocardiogram is pending. We will follow recommendations of Cardiology. 2. Generalized weakness. This may be secondary to congestive heart failure acute exacerbation. 3. Elevated troponin. 4. Diabetes type 2. Continue NovoLog sliding scale. 5. Hypertension. Continue Coreg as above. 6. Ischemic cardiomyopathy. 7. Peripheral vascular disease. Continue Plavix as above. 8. Cerebrovascular disease, status post cerebrovascular accident. 9. Right hemiplegia. 10. Chronic obstructive pulmonary disease. A Pulmonary consultation has been obtained with Dr. Pretty Sweet. Javi Olea MD Mar 24, 2019 12:56
--- NOTE | 2019-03-24 12:58 | Consultation ---
History of Present Illness General Date patient seen: Mar 24, 2019 Chief Complaint: Pain Present Illness HPI 69 year old male with hx of DM, HTN, AR, CAD, CHF, COPD, GERD, CVA/TIA, psych hx, renal disease presented from a half-way facility complaining of all over body pain. He denies recent illness. He denies cough or congestion. He denies fever or chills. He denies nausea or vomiting. He feels generalized weakness. He has no other complaints. His troponin was elevated and his admitted to telemetry for further evaluation. Allergies: Coded Allergies: LACTOSE (Verified Allergy, Unknown, 03/23/19) LISINOPRIL (Unverified Allergy, Unknown, 01/17/18) METHOTREXATE (Verified Allergy, Unknown, 08/30/15) NSAIDS (NON-STEROIDAL ANTI-INFLAMMA (Unverified Allergy, Unknown, 11/14/15) Medication History Scheduled Aspirin (Aspirin EC), 81 MG ORAL DAILY, (Reported) Atorvastatin Calcium* (Atorvastatin Calcium*), 20 MG ORAL BEDTIME, (Reported) Baclofen* (Baclofen*), 10 MG ORAL THREE TIMES A DAY, (Reported) Calcium Carbonate/Vitamin D3 (Calcium + Vitamin D Tablet), 2 EACH PO DAILY, ( Reported) Carvedilol (Coreg), 12.5 MG ORAL EVERY 12 HOURS, (Reported) Clonazepam* (Klonopin*), 0.5 MG ORAL Q6H, (Reported) Clonazepam* (Klonopin*), 0.5 MG ORAL DAILY, (Reported) Clopidogrel Bisulfate* (Plavix*), 75 MG ORAL DAILY, (Reported) Clopidogrel Bisulfate* (Plavix*), 75 MG ORAL DAILY, (Reported) Docusate Sodium* (Colace*), 100 MG ORAL DAILY, (Reported) Docusate Sodium* (Colace*), 100 MG ORAL THREE TIMES A DAY, (Reported) Furosemide* (Lasix*), 20 MG ORAL DAILY, (Reported) Gabapentin* (Gabapentin*), 300 MG ORAL THREE TIMES A DAY, (Reported) Heparin Sod (Porcine) (Heparin Sodium*), 5,000 UNITS SUBQ EVERY 12 HOURS, ( Reported) Hydralazine Hcl* (Hydralazine Hcl*), 50 MG ORAL EVERY 8 HOURS, (Reported) Insulin Aspart (Novolog), 0 SQ AC, (Reported) Isosorbide Dinitrate (Isosorbide Dinitrate*), 20 MG ORAL THREE TIMES A DAY, ( Reported) Metoclopramide Hcl* (Reglan*), 10 MG IVP THREE TIMES A DAY, (Reported) Metoclopramide Hcl* (Metoclopramide Hcl*), 10 MG ORAL EVERY 8 HOURS, (Reported) Multivitamin with Minerals (Multivitamins with Minerals), 1 TAB ORAL DAILY, ( Reported) Multivitamins* (Multivitamins*), 1 TAB ORAL DAILY, (Reported) Na Phos,M-B/Na Phos,Di-Ba* (Fleet Enema*), 133 ML RECTAL DAILY, (Reported) Pantoprazole* (Protonix*), 40 MG ORAL DAILY, (Reported) Knqjelkqozbn-Zjgu-Xmfhqije,Iso (Zosyn 3.375 Gm Pre Mix-Bag), 3.375 GM IVPB EVERY 8 HOURS, (Reported) Polyethylene Glycol 3350* (Miralax*), 17 GM ORAL QHS, (Reported) Potassium Chloride* (K-Dur*), 20 MEQ ORAL DAILY, (Reported) Pravastatin Sod* (Pravastatin Sod*), 10 MG ORAL BEDTIME, (Reported) Prednisone* (Prednisone*), 10 MG ORAL DAILY, (Reported) Sennosides (Senna), 17.2 MG PO QHS, (Reported) Spironolactone* (Aldactone*), 25 MG ORAL DAILY, (Reported) Sucralfate* (Carafate*), 1 GM ORAL FOUR TIMES A DAY, (Reported) Sucralfate* (Carafate*), 1 GM ORAL FOUR TIMES A DAY, (Reported) Vancomycin Hcl (Vancomycin), 1 GM IV Q12HR, (Reported) Scheduled PRN Acetaminophen* (Acetaminophen 325MG Tablet*), 650 MG ORAL Q4H PRN for Mild Pain/ Temp > 100.5, (Reported) Bisacodyl (Dulcolax), 10 MG RC DAILY PRN for Constipation, (Reported) Diphenhydramine Hcl* (Benadryl*), 25 MG ORAL Q6H PRN for Itching, (Reported) Diphenhydramine Hcl* (Benadryl*), 25 MG ORAL Q6H PRN for Itching, (Reported) Glucagon (Glucagen), 1 MG IM EVERY 24 HOURS PRN for PRN BS < 60, (Reported) Glucagon HCl (Glucagon HCl), 1 MG IM for Hypoglycemia, (Reported) Hydrocodone Bit/Acetaminophen 10-325* (Sarita 10-325*), 1 TAB ORAL Q6H PRN for For Pain, (Reported) Hydrocodone Bit/Acetaminophen 5-325* (Sarita 5-325*), 1 TAB ORAL Q6H PRN for For Pain, (Reported) Hydrocodone Bit/Acetaminophen 5-325* (Sarita 5-325*), 2 TAB ORAL Q6H PRN for For Pain, (Reported) Hydrocodone Bit/Acetaminophen 5-325* (Sarita 5-325*), 2 TAB ORAL Q6H PRN for For Pain, (Reported) Mag Hydrox/Al Hydrox/Simeth (Alum-Mag Hydroxide-Simeth Liq), 30 ML PO Q6HR PRN for Abdominal cramps, (Reported) Magnesium Hydroxide* (Milk Of Magnesia*), 30 ML ORAL QHS PRN for Constipation, ( Reported) Na Phos,M-B/Na Phos,Di-Ba (Enema), 133 ML RC for Constipation, (Reported) Na Phos,M-B/Na Phos,Di-Ba* (Fleet Enema*), 133 ML RECTAL Q2DAYS PRN for Constipation, (Reported) Ondansetron Odt* (Zofran Odt*), 8 MG ORAL Q8HR PRN for Nausea & Vomiting, ( Reported) Ondansetron* (Zofran*), 4 MG IV Q6H PRN for Nausea & Vomiting, (Reported) [Nitroglycerin], 0.4 MG SL [id number] X 3 PRN for CHEST PAIN, (Reported) Miscellaneous Medications Ca Carbonate/Vitamin D3/Vit K (Calcium + D Soft Chewable Tab), 1 EACH PO, ( Reported) Calcium Carbonate/Vitamin D3 (Calcium + Vitamin D Tablet), 1 EACH PO, (Reported) Nitroglycerin (Nitroglycerin), 0.4 MG SL, (Reported) [Calcium-V], (Reported) [Nitrogly], (Reported) Patient History Healthcare decision maker Resuscitation status Full Code Advanced Directive on File Yes Past Medical/Surgical History Past Medical/Surgical History: (1) S/P CABG (coronary artery bypass graft) (2) Intractable abdominal pain (3) Iron deficiency anemia (4) Pacemaker (5) Coronary heart disease (6) Diabetes mellitus Review of Systems All Other Systems: negative except mentioned in HPI Physical Exam General Appearance: WD/WN Lines, tubes and drains: peripheral HEENT: normocephalic, atraumatic Neck: non-tender, normal alignment Respiratory/Chest: chest wall non-tender, lungs clear Breasts: no masses Cardiovascular/Chest: normal peripheral pulses Abdomen: normal bowel sounds, non tender Genitourinary/Rectal: normal genital exam, normal rectal exam Extremities: normal range of motion Skin Exam: normal pigmentation Neurologic: dental nurse II-XII grossly normal Last 24 Hour Vital Signs Date Time Temp Pulse Resp B/P (MAP) Pulse Ox O2 Delivery O2 Flow Rate FiO2 03/24/19 12:00 98.1 69 18 155/75 (101) 98 03/24/19 12:00 1.0 03/24/19 09:00 Nasal Cannula 1.5 03/24/19 08:00 1.0 03/24/19 08:00 98.7 95 20 116/75 (89) 97 03/24/19 07:36 94 03/24/19 04:00 98.5 99 19 138/75 (96) 98 03/24/19 04:00 1.5 03/24/19 04:00 99 03/24/19 00:00 89 03/24/19 00:00 98.2 84 18 130/69 (89) 99 03/23/19 21:00 Nasal Cannula 1.5 03/23/19 20:00 1.5 03/23/19 20:00 94 03/23/19 20:00 99.4 86 18 146/75 (98) 99 03/23/19 18:20 Nasal Cannula 1.5 03/23/19 17:09 98.0 70 18 115/70 (85) 92 03/23/19 16:15 97.5 69 17 110/59 100 Room Air 03/23/19 16:06 69 17 110/59 100 Room Air 03/23/19 13:31 66 11 109/65 100 Room Air Laboratory Tests Test 03/24/19 06:00 White Blood Count 8.8 K/UL (4.8-10.8) Red Blood Count 3.80 M/UL (4.70-6.10) L Hemoglobin 11.0 G/DL (14.2-18.0) L Hematocrit 32.8 % (42.0-52.0) L Mean Corpuscular Volume 86 FL (80-99) Mean Corpuscular Hemoglobin 28.9 PG (27.0-31.0) Mean Corpuscular Hemoglobin Concent 33.4 G/DL (32.0-36.0) Red Cell Distribution Width 13.8 % (11.6-14.8) Platelet Count 349 K/UL (150-450) Mean Platelet Volume 5.2 FL (6.5-10.1) L Neutrophils (%) (Auto) 76.1 % (45.0-75.0) H Lymphocytes (%) (Auto) 12.5 % (20.0-45.0) L Monocytes (%) (Auto) 8.1 % (1.0-10.0) Eosinophils (%) (Auto) 2.5 % (0.0-3.0) Basophils (%) (Auto) 0.8 % (0.0-2.0) Sodium Level 137 MMOL/L (136-145) Potassium Level 4.1 MMOL/L (3.5-5.1) Chloride Level 95 MMOL/L (98-107) L Carbon Dioxide Level 32 MMOL/L (21-32) Anion Gap 10 mmol/L (5-15) Blood Urea Nitrogen 14 mg/dL (7-18) Creatinine 1.3 MG/DL (0.55-1.30) Estimat Glomerular Filtration Rate 54.7 mL/min (>60) Glucose Level 174 MG/DL (74-106) H Calcium Level 8.9 MG/DL (8.5-10.1) Total Bilirubin 0.4 MG/DL (0.2-1.0) Aspartate Amino Transf (AST/SGOT) 20 U/L (15-37) Alanine Aminotransferase (ALT/SGPT) 11 U/L (12-78) L Alkaline Phosphatase 95 U/L (46-116) Troponin I 0.524 ng/mL (0.000-0.056) Pro-B-Type Natriuretic Peptide 5880 pg/mL (0-125) H Total Protein 7.3 G/DL (6.4-8.2) Albumin 2.5 G/DL (3.4-5.0) L Globulin 4.8 g/dL Albumin/Globulin Ratio 0.5 (1.0-2.7) L Triglycerides Level 107 MG/DL (30-150) Cholesterol Level 126 MG/DL (< 200) LDL Cholesterol 56 mg/dL (<100) HDL Cholesterol 57 MG/DL (40-60) Cholesterol/HDL Ratio 2.2 (3.3-4.4) L Height (Feet): 5 Height (Inches): 9.00 Weight (Pounds): 240 Medications Current Medications Medications (Trade) Dose Ordered Sig/Paola Route PRN Reason Start Time Stop Time Status Last Admin Dose Admin Acetaminophen (Tylenol) 650 mg Q4H PRN ORAL fever 03/23/19 16:15 04/22/19 16:14 Baclofen (Lioresal) 10 mg THREE TIMES A DAY ORAL 03/23/19 18:00 04/22/19 17:59 03/23/19 17:11 Carvedilol (Coreg) 12.5 mg EVERY 12 HOURS ORAL 03/23/19 21:00 04/22/19 20:59 Dextrose (Dextrose 50%) 25 ml Q30M PRN IV Hypoglycemia 03/23/19 16:15 04/22/19 16:14 Dextrose (Dextrose 50%) 50 ml Q30M PRN IV Hypoglycemia 03/23/19 16:15 04/22/19 16:14 Furosemide (Lasix) 40 mg DAILY IV 03/24/19 09:00 04/23/19 08:59 03/24/19 10:17 Gabapentin (Neurontin) 300 mg THREE TIMES A DAY ORAL 03/23/19 18:00 04/22/19 17:59 03/23/19 17:11 Heparin Sodium (Porcine) (Heparin 5000 units/ml) 5,000 units EVERY 12 HOURS SUBQ 03/23/19 21:00 04/22/19 20:59 03/24/19 10:20 Hydralazine HCl (Apresoline) 50 mg EVERY 8 HOURS ORAL 03/23/19 22:00 04/22/19 21:59 Insulin Aspart (NovoLOG) BEFORE MEALS AND HS SUBQ 03/23/19 16:30 04/22/19 16:29 03/23/19 16:30 Isosorbide Mononitrate (Imdur) 30 mg DAILY ORAL 03/24/19 09:00 04/23/19 08:59 Lorazepam (Ativan 2mg/ml 1ml) 0.5 mg Q4H PRN IV For Anxiety 03/23/19 16:15 03/30/19 16:14 Morphine Sulfate (Morphine Sulfate) 1 mg Q4H PRN IVP For Pain 03/23/19 16:15 03/30/19 16:14 03/24/19 06:45 Ondansetron HCl (Zofran) 4 mg Q6H PRN IVP Nausea & Vomiting 03/23/19 16:15 04/22/19 16:14 03/24/19 12:08 Polyethylene Glycol (Miralax) 17 gm HSPRN PRN ORAL Constipation 03/23/19 21:00 04/22/19 20:59 Promethazine HCl 12.5 mg/Sodium Chloride 55.5 ml @ 222 mls/hr Q6H PRN IVPB nausea 03/24/19 12:30 04/23/19 12:29 Spironolactone (Aldactone) 25 mg DAILY ORAL 03/24/19 09:00 04/23/19 08:59 Sucralfate (Carafate) 1 gm FOUR TIMES A DAY ORAL 03/23/19 18:00 04/22/19 17:59 03/23/19 17:11 Zolpidem Tartrate (Ambien) 5 mg HSPRN PRN ORAL Insomnia 03/23/19 21:00 03/30/19 20:59 Assessment/Plan Problem List: (1) Acute coronary syndrome ICD Codes: I24.9 - Acute ischemic heart disease, unspecified SNOMED: 229848836 (2) S/P CABG (coronary artery bypass graft) ICD Codes: Z95.1 - Presence of aortocoronary bypass graft SNOMED: 543217057, 186076562 (3) Pacemaker ICD Codes: Z95.0 - Presence of cardiac pacemaker SNOMED: 536322713, 215509703 (4) Coronary heart disease ICD Codes: I25.10 - Atherosclerotic heart disease of [place] coronary artery without angina pectoris SNOMED: 69461045 (5) Diabetes mellitus ICD Codes: E11.9 - Type 2 diabetes mellitus without complications SNOMED: 50409628 Assessment/Plan: serial ekg, troponin Echocardiogram symptomatic treatment sliding scale diabetic diet Zarrabi,Mirali MD Mar 24, 2019 12:58
--- NOTE | 2019-03-24 13:37 | NUR ---
*-* NO INSURANCE INFORMATION IN THE BAR UNABLE TO SEND CLINICALS OR REVIEWS *-*
[2019-03-24] MEDS: Promethazine HCl 12.5 MG in NS 55 ML IVPB PRN (15:22)
--- NOTE | 2019-03-24 15:35 | NUR ---
NURSE NOTES: @12:30- Notified Dr. Sweet about patient feeling nauseous and vomitting since 8am. States order will be put [place] [facility] [place]13:30- Dr. Sweet arrived order put in. @14:00- Spoke to pharmacy about medication. Medication needs to be made in pharmacy.
[2019-03-24 16:00] VITALS: BP 149/77
--- NOTE | 2019-03-24 16:37 | Cardiac Electrophysiology PN ---
Assessment/Plan Assessment/Plan 1. Severe cardiomyopathy. EF of only 20%. Continue Coreg 12.5 mg bid, lisinopril 20 mg daily as well as Aldactone and Lasix. A 12-lead EKG is 100% ventricularly paced and he would benefit from upgrading his dual-chamber ICD to a biventricular defibrillator in view of ventricular pacing with QRS duration of 234 milliseconds, however, we probably need to get authorization from insurance company to proceed with upgrading of his ICD to biventricular ICD. 2. Status post [employer] defibrillator. Again, this is a dual-chamber defibrillator. Interrogated that showed Nl Fx 3. Hypertension. Continue current heart failure therapy. 4. Diabetes. 5. History of CVA. 6. Coronary artery disease, prior stent placement. Continue Coreg and add Lipitor Subjective Subjective Feeling better. No CP or SOB Objective Last 24 Hour Vital Signs Date Time Temp Pulse Resp B/P (MAP) Pulse Ox O2 Delivery O2 Flow Rate FiO2 03/24/19 16:00 1.0 03/24/19 14:26 98.1 03/24/19 12:00 98.1 69 18 155/75 (101) 98 03/24/19 12:00 1.0 03/24/19 11:44 67 03/24/19 09:00 Nasal Cannula 1.5 03/24/19 08:00 1.0 03/24/19 08:00 98.7 95 20 116/75 (89) 97 03/24/19 07:36 94 03/24/19 04:00 98.5 99 19 138/75 (96) 98 03/24/19 04:00 1.5 03/24/19 04:00 99 03/24/19 00:00 89 03/24/19 00:00 98.2 84 18 130/69 (89) 99 03/23/19 21:00 Nasal Cannula 1.5 03/23/19 20:00 1.5 03/23/19 20:00 94 03/23/19 20:00 99.4 86 18 146/75 (98) 99 03/23/19 18:20 Nasal Cannula 1.5 03/23/19 17:09 98.0 70 18 115/70 (85) 92 Laboratory Tests Test 03/24/19 06:00 White Blood Count 8.8 K/UL (4.8-10.8) Red Blood Count 3.80 M/UL (4.70-6.10) L Hemoglobin 11.0 G/DL (14.2-18.0) L Hematocrit 32.8 % (42.0-52.0) L Mean Corpuscular Volume 86 FL (80-99) Mean Corpuscular Hemoglobin 28.9 PG (27.0-31.0) Mean Corpuscular Hemoglobin Concent 33.4 G/DL (32.0-36.0) Red Cell Distribution Width 13.8 % (11.6-14.8) Platelet Count 349 K/UL (150-450) Mean Platelet Volume 5.2 FL (6.5-10.1) L Neutrophils (%) (Auto) 76.1 % (45.0-75.0) H Lymphocytes (%) (Auto) 12.5 % (20.0-45.0) L Monocytes (%) (Auto) 8.1 % (1.0-10.0) Eosinophils (%) (Auto) 2.5 % (0.0-3.0) Basophils (%) (Auto) 0.8 % (0.0-2.0) Sodium Level 137 MMOL/L (136-145) Potassium Level 4.1 MMOL/L (3.5-5.1) Chloride Level 95 MMOL/L (98-107) L Carbon Dioxide Level 32 MMOL/L (21-32) Anion Gap 10 mmol/L (5-15) Blood Urea Nitrogen 14 mg/dL (7-18) Creatinine 1.3 MG/DL (0.55-1.30) Estimat Glomerular Filtration Rate 54.7 mL/min (>60) Glucose Level 174 MG/DL (74-106) H Calcium Level 8.9 MG/DL (8.5-10.1) Total Bilirubin 0.4 MG/DL (0.2-1.0) Aspartate Amino Transf (AST/SGOT) 20 U/L (15-37) Alanine Aminotransferase (ALT/SGPT) 11 U/L (12-78) L Alkaline Phosphatase 95 U/L (46-116) Troponin I 0.524 ng/mL (0.000-0.056) Pro-B-Type Natriuretic Peptide 5880 pg/mL (0-125) H Total Protein 7.3 G/DL (6.4-8.2) Albumin 2.5 G/DL (3.4-5.0) L Globulin 4.8 g/dL Albumin/Globulin Ratio 0.5 (1.0-2.7) L Triglycerides Level 107 MG/DL (30-150) Cholesterol Level 126 MG/DL (< 200) LDL Cholesterol 56 mg/dL (<100) HDL Cholesterol 57 MG/DL (40-60) Cholesterol/HDL Ratio 2.2 (3.3-4.4) L Objective In AV paced rhythm.ICD interrogated that showed Nl fx Silvio Sterling MD Mar 24, 2019 16:37
--- NOTE | 2019-03-24 17:47 | NUR ---
NURSE NOTES: Send message regarding patient improvement of no more nausea nad vomiting. Patient refused dinner medications. Dr. Sweet is aware. To continue to monitor the patient.
[2019-03-24 20:00] VITALS: BP 120/58
[2019-03-24] MEDS ORDERED: BUMETANIDE2 MG ORAL (20:10)
--- NOTE | 2019-03-24 20:10 | NUR ---
HAND-OFF: Report given to FRANCO Alejandre. Patient is resting in bed. patient states he is nauseous.
--- NOTE | 2019-03-24 20:19 | NUR ---
NURSE NOTES: Received pt and report from FRANCO Leon. Observed pt resting in bed with both eyes open. Pt is A/O x4. Pt is currently nauseous; basin at bedside if needed. environmental monitoring specialist is in placed, IV site intact, asymptomatic and patent. Bed is in the lowest position and locked, call light within reach. No signs/symptoms of acute distress noted at this time. Will continue plan of care.
[2019-03-24] MEDS ORDERED: CARVEDILOL25 MG ORAL (20:23)
[2019-03-24] MEDS ORDERED: NOVOLIN R100 UNIT/1 SUBQ (20:23)
[2019-03-24] MEDS ORDERED: PHENERGAN25 M1 ORAL (20:38)
[2019-03-24] MEDS ORDERED: VOLTAREN GEL TOPIC (20:38)
[2019-03-24] MEDS ORDERED: TIGAN300 MG ORAL (20:38)
[2019-03-24] MEDS ORDERED: MICARDIS20 MG ORAL (20:38)
[2019-03-24] MEDS ORDERED: SIMETHICONE80 MG ORAL (20:38)
--- NOTE | 2019-03-24 21:30 | NUR ---
NURSE NOTES: Pt refused PO medications stating that he is too nauseous to take them. He also refused heparin and insulin subQ. Educated pt on the benefits and risks of not taking these medications; pt still refused.
[2019-03-25] VITALS: BP 111/70
[2019-03-25] MEDS: Morphine Sulfate 2mg/ml Inj(IV/IM USE ONLY) IVP PRN ×2 (03:22→10:39)
[2019-03-25 04:00] VITALS: BP 115/68
[2019-03-25] MEDS: HydrALAZINE 50mg tab ORAL SCH ×3 (05:39→22:00)
[2019-03-25] MEDS: NovoLOG Insulin Flexpen SUBQ SCH ×4 (06:10→21:01)
--- NOTE | 2019-03-25 07:30 | NUR ---
NURSE NOTES: Received report from Pili GAMEZ. Alert and oriented. Pt lying in bed awake. Having some nausea. Pt denied pain at this time. IV in RFA 22G SL patent and asymptomatic. Call light within easy reach. Side railsx2 up for safety and bed locked. On room air. No SOB noted. PM in left upper chest. Will continue to plan of care.
--- NOTE | 2019-03-25 07:30 | NUR ---
HAND-OFF: Report given to FRANCO Bailey.
[2019-03-25 08:00] VITALS: BP 143/74
[2019-03-25 08:29] LABS: BASOPHILS % (AUTO) 0.5 % (0.0-2.0); EOSINOPHILS % (AUTO) 2.3 % (0.0-3.0); HEMATOCRIT 31.2 % (42.0-52.0); HEMOGLOBIN 10.3 G/DL (14.2-18.0); LYMPHOCYTES % (AUTO) 14.7 % (20.0-45.0); MEAN CORPUSCULAR VOLUME 87 FL (80-99); MONOCYTES % (AUTO) 7.1 % (1.0-10.0); NEUTROPHILS % (AUTO) 75.4 % (45.0-75.0); PLATELET COUNT 330 K/UL (150-450); RED CELL DISTRIBUTION WIDTH 13.5 % (11.6-14.8); WHITE BLOOD COUNT 9.4 K/UL (4.8-10.8)
[2019-03-25] MEDS: Promethazine HCl 12.5 MG in NS 55 ML IVPB PRN (08:39)
[2019-03-25] MEDS: Carvedilol 12.5mg tab ORAL SCH ×2 (08:44→20:49)
[2019-03-25] MEDS: Imdur 30mg tab ORAL SCH (08:44)
[2019-03-25] MEDS: Sucralfate 1gm tab ORAL SCH ×4 (08:44→20:47)
[2019-03-25] MEDS: Spironolactone 25mg tab ORAL SCH (08:45)
[2019-03-25] MEDS: Heparin 5000 units/ml inj SUBQ SCH ×2 (08:47→20:48)
[2019-03-25 08:48] LABS: ANION GAP 13 mmol/L (5-15); BLOOD UREA NITROGEN 18 mg/dL (7-18); CARBON DIOXIDE 30 MMOL/L (21-32); CHLORIDE 98 MMOL/L (98-107); CREATININE 1.2 MG/DL (0.55-1.30); POTASSIUM 3.9 MMOL/L (3.5-5.1); SODIUM 141 MMOL/L (136-145)
--- NOTE | 2019-03-25 09:37 | NUR ---
CASE MANAGEMENT:REVIEW 03/25/19 SI: ACS. CAD. S/P CABG. ELEVATED TROPONIN 97.0 69 20 143/74 97% ON 1L/NC H/H-10.3/31.2 GLUCOSE+163 IS: IMDUR PO QD ALDACTONE PO QD IV LASIX QD HYDRALAZINE PO Q8HRS COREG PO Q12 HEPARIN SQ Q12 CARAFATE PO QID : TELEMETRY STATUS DCP: [facility]
[2019-03-25 11:58] VITALS: BP 131/72
--- NOTE | 2019-03-25 12:12 | Pulmonology Progress Note ---
Assessment/Plan Problems: (1) Acute coronary syndrome (2) S/P CABG (coronary artery bypass graft) (3) Pacemaker (4) Coronary heart disease (5) Diabetes mellitus Assessment/Plan still nauseous add pepcid IV and reglan dc morphine sliding scale diabetic diet f/u cariology recommendations Subjective ROS Limited/Unobtainable: No Interval Events: still nauseous Allergies: Coded Allergies: LACTOSE (Verified Allergy, Unknown, 03/23/19) LISINOPRIL (Unverified Allergy, Unknown, 01/17/18) METHOTREXATE (Verified Allergy, Unknown, 08/30/15) NSAIDS (NON-STEROIDAL ANTI-INFLAMMA (Unverified Allergy, Unknown, 11/14/15) Objective Last 24 Hour Vital Signs Date Time Temp Pulse Resp B/P (MAP) Pulse Ox O2 Delivery O2 Flow Rate FiO2 03/25/19 11:58 97.5 71 18 131/72 (91) 100 03/25/19 09:00 Room Air 03/25/19 08:44 143/74 03/25/19 08:44 69 143/74 03/25/19 08:00 71 03/25/19 08:00 1.0 03/25/19 08:00 97.0 69 20 143/74 (97) 97 03/25/19 05:39 153/79 03/25/19 04:00 98.0 68 22 115/68 (84) 96 03/25/19 04:00 82 03/25/19 04:00 1.0 03/25/19 00:00 98.2 82 20 111/70 (84) 97 03/25/19 00:00 75 03/24/19 22:00 128/61 03/24/19 21:00 Room Air 03/24/19 21:00 84 120/58 03/24/19 20:00 81 03/24/19 20:00 1.0 03/24/19 20:00 98.2 84 20 120/58 (78) 98 03/24/19 19:32 99.0 03/24/19 16:00 1.0 03/24/19 16:00 99.0 89 20 149/77 (101) 98 03/24/19 15:43 67 Intake and Output 03/24/19 03/25/19 18:59 06:59 Output Total 200 ml Balance -200 ml Output Urine Total 200 ml # Voids 4 General Appearance: WD/WN HEENT: normocephalic, atraumatic Respiratory/Chest: chest wall non-tender, lungs clear Cardiovascular: normal peripheral pulses, normal rate Abdomen: normal bowel sounds, soft, non tender Genitourinary: normal external genitalia Extremities: no cyanosis Skin: no rash Microbiology Date/Time Source Procedure Growth Status 03/23/19 12:35 Blood Blood Culture - Preliminary NO GROWTH AFTER 24 HOURS Resulted 03/23/19 12:25 Blood Blood Culture - Preliminary NO GROWTH AFTER 24 HOURS Resulted 03/23/19 16:00 Nasal Nares MRSA Culture - Final NO METHICILLIN RESISTANT STAPH AUREUS... Complete 03/23/19 16:00 Rectum VRE Culture - Final NO VANCOMYCIN RESISTANT ENTEROCOCCUS ... Complete Laboratory Tests 03/25/19 06:27: White Blood Count 9.4, Red Blood Count 3.60L, Hemoglobin 10.3L, Hematocrit 31.2L , Mean Corpuscular Volume 87, Mean Corpuscular Hemoglobin 28.6, Mean Corpuscular Hemoglobin Concent 33.0, Red Cell Distribution Width 13.5, Platelet Count 330, Mean Platelet Volume 5.0L, Neutrophils (%) (Auto) 75.4H, Lymphocytes (%) (Auto) 14.7L, Monocytes (%) (Auto) 7.1, Eosinophils (%) (Auto) 2.3, Basophils (%) (Auto) 0.5, Sodium Level 141, Potassium Level 3.9, Chloride Level 98, Carbon Dioxide Level 30, Anion Gap 13, Blood Urea Nitrogen 18, Creatinine 1.2, Estimat Glomerular Filtration Rate > 60, Glucose Level 163H, Calcium Level 9.0 Current Medications Medications (Trade) Dose Ordered Sig/Paola Route PRN Reason Start Time Stop Time Status Last Admin Dose Admin Acetaminophen (Tylenol) 650 mg Q4H PRN ORAL fever 03/23/19 16:15 04/22/19 16:14 Baclofen (Lioresal) 10 mg THREE TIMES A DAY ORAL 03/23/19 18:00 04/22/19 17:59 03/25/19 08:44 Carvedilol (Coreg) 12.5 mg EVERY 12 HOURS ORAL 03/23/19 21:00 04/22/19 20:59 03/25/19 08:44 Dextrose (Dextrose 50%) 25 ml Q30M PRN IV Hypoglycemia 03/23/19 16:15 04/22/19 16:14 Dextrose (Dextrose 50%) 50 ml Q30M PRN IV Hypoglycemia 03/23/19 16:15 04/22/19 16:14 Furosemide (Lasix) 40 mg DAILY IV 03/24/19 09:00 04/23/19 08:59 03/25/19 08:45 Gabapentin (Neurontin) 300 mg THREE TIMES A DAY ORAL 03/23/19 18:00 04/22/19 17:59 03/25/19 08:44 Heparin Sodium (Porcine) (Heparin 5000 units/ml) 5,000 units EVERY 12 HOURS SUBQ 03/23/19 21:00 04/22/19 20:59 03/25/19 08:47 Hydralazine HCl (Apresoline) 50 mg EVERY 8 HOURS ORAL 03/23/19 22:00 04/22/19 21:59 03/25/19 05:39 Insulin Aspart (NovoLOG) BEFORE MEALS AND HS SUBQ 03/23/19 16:30 04/22/19 16:29 03/23/19 16:30 Isosorbide Mononitrate (Imdur) 30 mg DAILY ORAL 03/24/19 09:00 04/23/19 08:59 03/25/19 08:44 Lorazepam (Ativan 2mg/ml 1ml) 0.5 mg Q4H PRN IV For Anxiety 03/23/19 16:15 03/30/19 16:14 Morphine Sulfate (Morphine Sulfate) 1 mg Q4H PRN IVP For Pain 03/23/19 16:15 03/30/19 16:14 03/25/19 10:39 Ondansetron HCl (Zofran) 4 mg Q6H PRN IVP Nausea & Vomiting 03/23/19 16:15 04/22/19 16:14 03/25/19 03:53 Polyethylene Glycol (Miralax) 17 gm HSPRN PRN ORAL Constipation 03/23/19 21:00 04/22/19 20:59 Promethazine HCl 12.5 mg/Sodium Chloride 55.5 ml @ 222 mls/hr Q6H PRN IVPB nausea 03/24/19 12:30 04/23/19 12:29 03/25/19 08:39 Spironolactone (Aldactone) 25 mg DAILY ORAL 03/24/19 09:00 04/23/19 08:59 03/25/19 08:45 Sucralfate (Carafate) 1 gm FOUR TIMES A DAY ORAL 03/23/19 18:00 04/22/19 17:59 03/25/19 08:44 Zolpidem Tartrate (Ambien) 5 mg HSPRN PRN ORAL Insomnia 03/23/19 21:00 03/30/19 20:59 Pretty Sweet MD Mar 25, 2019 12:12
--- NOTE | 2019-03-25 12:27 | GI Initial Consult Note ---
History of Present Illness General Date patient seen: Mar 25, 2019 Time patient seen: 12:20 Reason for Hospitalization: Pain Referring physician: KEKE PEREYRA Reason for Consultation: NAUSEA Present Illness HPI This patient presents from a residential facility. He has a history of CHF , pacemaker, chronic kidney disease, peripheral vascular disease, diabetes, CVA with hemiplegia. He presents from a residential facility complaining of all over body pain. He denies recent illness. He denies cough or congestion. He denies fever or chills. He denies nausea or vomiting. He feels generalized weakness. He has no other complaints. GI consulted for reported nausea. Patient seen, awake alert and oriented x4 with no apparent distress. Patient has complaint of nausea without vomiting. Has complaint of pulmonary congestion, noted with productive sputum in his basin. In addition the patient does have a complaint of constipation, stating his last bowel movement was approximately 3 days ago. Labs reviewed; normocytic anemia with hemoglobin of 10.3, elevated troponin levels 0.524 and elevated proBNP, no transaminitis. The patient denies any history of endoscopic or colonoscopy. The patient denies any alcohol, tobacco or drug use. Home Meds Reported Medications Telmisartan (MICARDIS) 20 Mg Tablet, 20 MG ORAL DAILY for HTN, TAB 03/24/19 Trimethobenzamide Hcl* (TIGAN*) 300 Mg Capsule, 300 MG ORAL Q8HR PRN for N/V, # 15 CAP 0 Refills 03/24/19 [Voltaren Gel] 1% No Conflict Check, TOPIC DAILY PRN for KNEE PAIN 03/24/19 Simethicone* (SIMETHICONE*) 80 Mg Tab.chew, 80 MG ORAL Q6HR PRN for GAS PAIN, # 20 TAB 0 Refills 03/24/19 Promethazine Hcl* (PHENERGAN*) 25 Mg Tablet, 25 MG ORAL TID for N/V, #15 TAB 0 Refills 03/24/19 Insulin Regular, Human* (NOVOLIN R*) 100 Unit/1 Ml Vial, 0 SUBQ .SLIDING SCALE, UNITS 03/24/19 Carvedilol* (CARVEDILOL*) 25 Mg Tablet, 25 MG ORAL EVERY 12 HOURS, TAB 03/24/19 Bumetanide* (BUMETANIDE*) 2 Mg Tablet, 2 MG ORAL BID for HTN, TAB 03/24/19 Hydrocodone Bit/Acetaminophen 10-325* (NORCO 10-325*) 1 Each Tablet, 1 TAB ORAL Q6H PRN for Moderate Pain (Pain Scale 4-6), #10 TAB 0 Refills PRN PAIN 01/07/19 Prednisone* (PREDNISONE*) 10 Mg Tablet, 10 MG ORAL DAILY, #10 TAB 0 Refills 01/07/19 Calcium Carbonate/Vitamin D3 (CALCIUM + VITAMIN D TABLET) 1 Each Tablet, 2 EACH PO DAILY, TAB 01/07/19 Na Phos,M-B/Na Phos,Di-Ba* (FLEET ENEMA*) 133 Ml Enema, 133 ML RECTAL Q2DAYS PRN for CONSTIPATION IF DUCOLAX INEFF, ML 0 Refills 01/07/19 Clonazepam* (KLONOPIN*) 0.5 Mg Tablet, 0.5 MG ORAL DAILY, #15 TAB 0 Refills 01/04/19 Gabapentin* (GABAPENTIN*) 300 Mg Capsule, 300 MG ORAL THREE TIMES A DAY, CAP 0 Refills 01/04/19 Atorvastatin Calcium* (ATORVASTATIN CALCIUM*) 20 Mg Tablet, 20 MG ORAL BEDTIME, TAB 01/04/19 Baclofen* (BACLOFEN*) 10 Mg Tablet, 10 MG ORAL THREE TIMES A DAY, TAB 01/04/19 Polyethylene Glycol 3350* (MIRALAX*) 17 Gm Powd.pack, 17 GM ORAL DAILY , PACKET 03/03/18 Aspirin (Aspirin EC) 81 Mg Tablet.dr, 81 MG ORAL DAILY, TAB 03/03/18 Acetaminophen* (ACETAMINOPHEN 325MG TABLET*) 325 Mg Tablet, 650 MG ORAL Q4H PRN for Mild Pain/Temp > 100.5, TAB 02/23/18 Sennosides (SENNA) 8.6 Mg Tablet, 17.2 MG PO QHS, TAB 02/23/18 Mag Hydrox/Al Hydrox/Simeth (ALUM-MAG HYDROXIDE-SIMETH LIQ) 360 Ml Oral.susp, 15 ML PO TID for GERD, ML 02/23/18 Bisacodyl (DULCOLAX) 10 Mg Supp.rect, 10 MG RC DAILY PRN for CONSTIPATION IF MOM IS INEFF, SUPP 02/23/18 Pantoprazole* (PROTONIX*) 40 Mg Tablet.dr, 40 MG ORAL DAILY, TAB 02/23/18 Sucralfate* (CARAFATE*) 1 Gm Tablet, 1 GM ORAL FOUR TIMES A DAY, TAB 02/23/18 Magnesium Hydroxide* (MILK OF MAGNESIA*) 400 Mg/5 Ml Oral.susp, 30 ML ORAL QHS PRN for Constipation, ML 03/04/17 Nitroglycerin (NITROGLYCERIN) 0.4 Mg Tab.subl, 0.4 MG SL PRN for CHEST PAIN, TAB 01/08/17 Clopidogrel Bisulfate* (PLAVIX*) 75 Mg Tablet, 75 MG ORAL DAILY, TAB 01/08/17 Docusate Sodium* (COLACE*) 100 Mg Capsule, 100 MG ORAL DAILY, CAP 01/08/17 Discontinued Reported Medications Woluudmyhfbk-Yoin-Biamaxka,Iso (ZOSYN 3.375 GM PRE MIX-BAG) 3.375 Gm/50 Ml Froz.piggy, 3.375 GM IVPB EVERY 8 HOURS for 4 Days, BAG 01/07/19 Vancomycin Hcl (Vancomycin) 1 Gm Vial, 1 GM IV Q12HR for 4 Days, VIAL 01/07/19 Clonazepam* (KLONOPIN*) 0.5 Mg Tablet, 0.5 MG ORAL DAILY, #15 TAB 0 Refills 01/07/19 Glucagon (Glucagen) 1 Mg/1 Ml Vial, 1 MG IM EVERY 24 HOURS PRN for PRN BS < 60, VIAL 01/07/19 Ca Carbonate/Vitamin D3/Vit K (CALCIUM + D SOFT CHEWABLE TAB) 1 Each Tab.chew, 1 EACH PO, TAB 01/07/19 [Calcium-V] No Conflict Check 01/07/19 Na Phos,M-B/Na Phos,Di-Ba* (FLEET ENEMA*) 133 Ml Enema, 133 ML RECTAL DAILY, ML 0 Refills 01/04/19 Calcium Carbonate/Vitamin D3 (CALCIUM + VITAMIN D TABLET) 1 Each Tablet, 1 EACH PO, TAB 01/04/19 Diphenhydramine Hcl* (BENADRYL*) 25 Mg Capsule, 25 MG ORAL Q6H PRN for Itching, CAP 03/24/18 Hydrocodone Bit/Acetaminophen 5-325* (NORCO 5-325*) 1 Each Tablet, 2 TAB ORAL Q6H PRN for For Pain, #10 TAB 0 Refills 03/24/18 Potassium Chloride* (K-DUR*) 20 Meq Tab.er.prt, 20 MEQ ORAL DAILY, #7 TAB 0 Refills 03/24/18 Metoclopramide Hcl* (METOCLOPRAMIDE HCL*) 5 Mg Tablet, 10 MG ORAL EVERY 8 HOURS , TAB 03/24/18 Sucralfate* (CARAFATE*) 1 Gm Tablet, 1 GM ORAL FOUR TIMES A DAY, TAB 03/03/18 Spironolactone* (ALDACTONE*) 25 Mg Tablet, 25 MG ORAL DAILY, TAB 03/03/18 Pravastatin Sod* (PRAVASTATIN SOD*) 20 Mg Tablet, 10 MG ORAL BEDTIME, TAB 03/03/18 Diphenhydramine Hcl* (BENADRYL*) 25 Mg Capsule, 25 MG ORAL Q6H PRN for Itching, CAP 03/03/18 Clopidogrel Bisulfate* (PLAVIX*) 75 Mg Tablet, 75 MG ORAL DAILY, TAB 03/03/18 Carvedilol (Coreg) 12.5 Mg Tablet, 12.5 MG ORAL EVERY 12 HOURS, TAB 03/03/18 Ondansetron* (ZOFRAN*) 4 Mg/2 Ml Vial, 4 MG IV Q6H PRN for Nausea & Vomiting, VIAL 03/03/18 [Nitroglycerin] No Conflict Check, 0.4 MG SL [id number] X 3 PRN for CHEST PAIN 03/03/18 [Nitrogly] No Conflict Check 03/03/18 Metoclopramide Hcl* (REGLAN*) 10 Mg Tablet, 10 MG IVP THREE TIMES A DAY, TAB 03/03/18 Isosorbide Dinitrate (ISOSORBIDE DINITRATE*) 5 Mg Tablet, 20 MG ORAL THREE TIMES A DAY, #30 TAB 0 Refills 03/03/18 Insulin Aspart (NOVOLOG) 100 Unit/1 Ml Vial, 0 SQ AC 03/03/18 Hydralazine Hcl* (HYDRALAZINE HCL*) 50 Mg Tablet, 50 MG ORAL EVERY 8 HOURS, TAB 03/03/18 Heparin Sod (Porcine) (HEPARIN SODIUM*) 5 000/1 Ml Vial, 5000 UNITS SUBQ EVERY 12 HOURS, VIAL 03/03/18 Furosemide* (LASIX*) 20 Mg Tablet, 20 MG ORAL DAILY, TAB 03/03/18 Docusate Sodium* (COLACE*) 100 Mg Capsule, 100 MG ORAL THREE TIMES A DAY, CAP 03/03/18 Ondansetron Odt* (ZOFRAN ODT*) 8 Mg Tab.rapdis, 8 MG ORAL Q8HR PRN for Nausea & Vomiting, #30 TAB 02/23/18 Hydrocodone Bit/Acetaminophen 5-325* (NORCO 5-325*) 1 Each Tablet, 2 TAB ORAL Q6H PRN for For Pain, #10 TAB 0 Refills 02/23/18 Multivitamin with Minerals (Multivitamins with Minerals) 1 Each Tablet, 1 TAB ORAL DAILY, TAB 02/23/18 Hydrocodone Bit/Acetaminophen 5-325* (NORCO 5-325*) 1 Each Tablet, 1 TAB ORAL Q6H PRN for For Pain, #10 TAB 0 Refills 02/23/18 Multivitamins* (MULTIVITAMINS*) 1 Each Tablet, 1 TAB ORAL DAILY, TAB 0 Refills 02/23/18 Na Phos,M-B/Na Phos,Di-Ba (ENEMA) 133 Ml Enema, 133 ML RC PRN for Constipation, EA 02/23/18 Glucagon HCl (Glucagon HCl) 1 Mg Vial, 1 MG IM PRN for Hypoglycemia, VIAL 09/25/17 Med list reviewed/reconciled: Yes Allergies: Coded Allergies: LACTOSE (Verified Allergy, Unknown, 03/23/19) LISINOPRIL (Unverified Allergy, Unknown, 01/17/18) METHOTREXATE (Verified Allergy, Unknown, 08/30/15) NSAIDS (NON-STEROIDAL ANTI-INFLAMMA (Unverified Allergy, Unknown, 11/14/15) Patient History History Provided By: Patient, Medical Record PMH Narrative Past Medical History: see triage record, DM, HTN, NH, CAD, CHF, COPD, GERD, CVA /TIA, psych hx, renal disease, other Past Surgical History: CABG, pacemaker Social History: Denies: smoking, alcohol use, drug use Reviewed Nursing Documentation: PMH: Agreed; PSxH: Agreed Nursing Documentation-PMH Past Medical History: No History, Except For Hx Hypertension: Yes - CKD Hx Pacemaker: Yes Hx Diabetes: Yes Hx Cancer: No Hx Gastrointestinal Problems: Yes - Gastritis/ abdominal pain Hx Neurological Problems: Yes Hx Cerebrovascular Accident: Yes - right side weakness Hx Peripheral Neuropathy: Yes - diabetic peripheral neuropathy, Chronic pain syndrom Hx Neurologic Surgery: No Social History: Denies: smoking, alcohol use, drug use, other Review of Systems All Other Systems: negative except mentioned in HPI Physical Exam Vital Signs Date Time Temp Pulse Resp B/P (MAP) Pulse Ox O2 Delivery O2 Flow Rate FiO2 03/23/19 11:38 97.5 75 18 110/70 (83) 94 Room Air 03/23/19 18:20 1.5 Sp02 EP Interpretation: reviewed, normal Labs Laboratory Tests Test 03/25/19 06:27 White Blood Count 9.4 K/UL (4.8-10.8) Red Blood Count 3.60 M/UL (4.70-6.10) L Hemoglobin 10.3 G/DL (14.2-18.0) L Hematocrit 31.2 % (42.0-52.0) L Mean Corpuscular Volume 87 FL (80-99) Mean Corpuscular Hemoglobin 28.6 PG (27.0-31.0) Mean Corpuscular Hemoglobin Concent 33.0 G/DL (32.0-36.0) Red Cell Distribution Width 13.5 % (11.6-14.8) Platelet Count 330 K/UL (150-450) Mean Platelet Volume 5.0 FL (6.5-10.1) L Neutrophils (%) (Auto) 75.4 % (45.0-75.0) H Lymphocytes (%) (Auto) 14.7 % (20.0-45.0) L Monocytes (%) (Auto) 7.1 % (1.0-10.0) Eosinophils (%) (Auto) 2.3 % (0.0-3.0) Basophils (%) (Auto) 0.5 % (0.0-2.0) Sodium Level 141 MMOL/L (136-145) Potassium Level 3.9 MMOL/L (3.5-5.1) Chloride Level 98 MMOL/L (98-107) Carbon Dioxide Level 30 MMOL/L (21-32) Anion Gap 13 mmol/L (5-15) Blood Urea Nitrogen 18 mg/dL (7-18) Creatinine 1.2 MG/DL (0.55-1.30) Estimat Glomerular Filtration Rate > 60 mL/min (>60) Glucose Level 163 MG/DL (74-106) H Calcium Level 9.0 MG/DL (8.5-10.1) General Appearance: well appearing, no apparent distress, alert, obese Head: normocephalic EENT: PERRL/EOMI, normal ENT inspection Neck: supple Respiratory: normal breath sounds, no respiratory distress Cardiovascular: normal rate Gastrointestinal: normal inspection, non tender, soft, normal bowel sounds, non -distended Rectal: deferred Genitourinary: deferred Musculoskeletal: normal inspection, back normal Neurologic: normal inspection, alert, oriented x3, responsive Psychiatric: normal inspection, judgement/insight normal, memory normal Skin: normal inspection, normal color, no rash, warm/dry, palpation normal, well hydrated Lymphatic: normal inspection, no adenopathy Current Medications Current Medications Medications (Trade) Dose Ordered Sig/Paola Route PRN Reason Start Time Stop Time Status Last Admin Dose Admin Acetaminophen (Tylenol) 650 mg Q4H PRN ORAL Mild Pain/Temp > 100.5 03/25/19 16:15 04/22/19 16:14 UNV Baclofen (Lioresal) 10 mg THREE TIMES A DAY ORAL 03/23/19 18:00 04/22/19 17:59 03/25/19 08:44 Carvedilol (Coreg) 12.5 mg EVERY 12 HOURS ORAL 03/23/19 21:00 04/22/19 20:59 03/25/19 08:44 Dextrose (Dextrose 50%) 25 ml Q30M PRN IV Hypoglycemia 03/23/19 16:15 04/22/19 16:14 Dextrose (Dextrose 50%) 50 ml Q30M PRN IV Hypoglycemia 03/23/19 16:15 04/22/19 16:14 Famotidine (Pepcid I.v.) 20 mg Q12HR IVP 03/25/19 13:00 04/24/19 12:59 Furosemide (Lasix) 40 mg DAILY IV 03/24/19 09:00 04/23/19 08:59 03/25/19 08:45 Gabapentin (Neurontin) 300 mg THREE TIMES A DAY ORAL 03/23/19 18:00 04/22/19 17:59 03/25/19 08:44 Heparin Sodium (Porcine) (Heparin 5000 units/ml) 5,000 units EVERY 12 HOURS SUBQ 03/23/19 21:00 04/22/19 20:59 03/25/19 08:47 Hydralazine HCl (Apresoline) 50 mg EVERY 8 HOURS ORAL 03/23/19 22:00 04/22/19 21:59 03/25/19 05:39 Insulin Aspart (NovoLOG) BEFORE MEALS AND HS SUBQ 03/23/19 16:30 04/22/19 16:29 03/23/19 16:30 Isosorbide Mononitrate (Imdur) 30 mg DAILY ORAL 03/24/19 09:00 04/23/19 08:59 03/25/19 08:44 Lorazepam (Ativan 2mg/ml 1ml) 0.5 mg Q4H PRN IV For Anxiety 03/23/19 16:15 03/30/19 16:14 Ondansetron HCl (Zofran) 4 mg Q6H PRN IVP Nausea & Vomiting 03/23/19 16:15 04/22/19 16:14 03/25/19 03:53 Polyethylene Glycol (Miralax) 17 gm HSPRN PRN ORAL Constipation 03/23/19 21:00 04/22/19 20:59 Promethazine HCl 12.5 mg/Sodium Chloride 55.5 ml @ 222 mls/hr Q6H PRN IVPB nausea 03/24/19 12:30 04/23/19 12:29 03/25/19 08:39 Spironolactone (Aldactone) 25 mg DAILY ORAL 03/24/19 09:00 04/23/19 08:59 03/25/19 08:45 Sucralfate (Carafate) 1 gm FOUR TIMES A DAY ORAL 03/23/19 18:00 04/22/19 17:59 03/25/19 08:44 Zolpidem Tartrate (Ambien) 5 mg HSPRN PRN ORAL Insomnia 03/23/19 21:00 03/30/19 20:59 GI: Plan Problems: (1) Constipation (2) Nausea & vomiting (3) Iron deficiency anemia (4) Intractable abdominal pain Plan Will consider GI procedures pending work-up zofran prn, reglan for persistent N/V anemia work up OB stool r/o GI bleed monitor H&H, prn transfusions bowel regimen, colace + miralax ppi fu labs Discussed with Dr. Shannon. Thank you for this patient referral, we will follow. The patient was seen and examined at bedside and all new and available data was reviewed in the patients chart. I agree with the above findings, impression and plan. (Patient seen earlier today. Signature stamp does not reflect patient encounter time.). - MD [facility]aresHealth[facility] ArizonaEmmanuel SORTO Mar 25, 2019 12:27
[2019-03-25] MEDS: Docusate 100mg cap ORAL SCH ×2 (13:44→17:25)
--- NOTE | 2019-03-25 14:06 | NUR ---
*-* INSURANCE *-* ALL CLINICALS AND REVIEWS HAVE BEEN FAXED TO: [facility] FAX ALL CLINICALS TO [phone]
[2019-03-25] MEDS ORDERED: Nitroglycerin Subl 0.4mg tab SL PRN (15:15)
--- NOTE | 2019-03-25 15:16 | Consultation ---
History of Present Illness General Chief Complaint: Pain Referring physician: KEKE PEREYRA Reason for Consultation: NAUSEA Present Illness Allergies: Coded Allergies: LACTOSE (Verified Allergy, Unknown, 03/23/19) LISINOPRIL (Unverified Allergy, Unknown, 01/17/18) METHOTREXATE (Verified Allergy, Unknown, 08/30/15) NSAIDS (NON-STEROIDAL ANTI-INFLAMMA (Unverified Allergy, Unknown, 11/14/15) Medication History Scheduled Aspirin (Aspirin EC), 81 MG ORAL DAILY, (Reported) Atorvastatin Calcium* (Atorvastatin Calcium*), 20 MG ORAL BEDTIME, (Reported) Baclofen* (Baclofen*), 10 MG ORAL THREE TIMES A DAY, (Reported) Bumetanide* (Bumetanide*), 2 MG ORAL BID, (Reported) Calcium Carbonate/Vitamin D3 (Calcium + Vitamin D Tablet), 2 EACH PO DAILY, ( Reported) Carvedilol* (Carvedilol*), 25 MG ORAL EVERY 12 HOURS, (Reported) Clonazepam* (Klonopin*), 0.5 MG ORAL DAILY, (Reported) Clopidogrel Bisulfate* (Plavix*), 75 MG ORAL DAILY, (Reported) Docusate Sodium* (Colace*), 100 MG ORAL DAILY, (Reported) Gabapentin* (Gabapentin*), 300 MG ORAL THREE TIMES A DAY, (Reported) Insulin Regular, Human* (Novolin R*), 0 SUBQ .SLIDING SCALE, (Reported) Mag Hydrox/Al Hydrox/Simeth (Alum-Mag Hydroxide-Simeth Liq), 15 ML PO TID, ( Reported) Pantoprazole* (Protonix*), 40 MG ORAL DAILY, (Reported) Polyethylene Glycol 3350* (Miralax*), 17 GM ORAL DAILY , (Reported) Prednisone* (Prednisone*), 10 MG ORAL DAILY, (Reported) Promethazine Hcl* (Phenergan*), 25 MG ORAL TID, (Reported) Sennosides (Senna), 17.2 MG PO QHS, (Reported) Sucralfate* (Carafate*), 1 GM ORAL FOUR TIMES A DAY, (Reported) Telmisartan (Micardis), 20 MG ORAL DAILY, (Reported) Scheduled PRN Acetaminophen* (Acetaminophen 325MG Tablet*), 650 MG ORAL Q4H PRN for Mild Pain/ Temp > 100.5, (Reported) Bisacodyl (Dulcolax), 10 MG RC DAILY PRN for CONSTIPATION IF MOM IS INEFF, ( Reported) Hydrocodone Bit/Acetaminophen 10-325* ([place] 10-325*), 1 TAB ORAL Q6H PRN for Moderate Pain (Pain Scale 4-6), (Reported) Magnesium Hydroxide* (Milk Of Magnesia*), 30 ML ORAL QHS PRN for Constipation, ( Reported) Na Phos,M-B/Na Phos,Di-Ba* (Fleet Enema*), 133 ML RECTAL Q2DAYS PRN for CONSTIPATION IF DUCOLAX INEFF, (Reported) Nitroglycerin (Nitroglycerin), 0.4 MG SL for CHEST PAIN, (Reported) Simethicone* (Simethicone*), 80 MG ORAL Q6HR PRN for GAS PAIN, (Reported) Trimethobenzamide Hcl* (Tigan*), 300 MG ORAL Q8HR PRN for N/V, (Reported) [Voltaren Gel], TOPIC DAILY PRN for KNEE PAIN, (Reported) Discontinued Medications Ca Carbonate/Vitamin D3/Vit K (Calcium + D Soft Chewable Tab), 1 EACH PO, ( Reported) Discontinued Reason: Pt stopped taking med Calcium Carbonate/Vitamin D3 (Calcium + Vitamin D Tablet), 1 EACH PO, (Reported) Discontinued Reason: Pt stopped taking med Carvedilol (Coreg), 12.5 MG ORAL EVERY 12 HOURS, (Reported) Discontinued Reason: Prescription changed Clonazepam* (Klonopin*), 0.5 MG ORAL DAILY, (Reported) Discontinued Reason: Pt stopped taking med Clopidogrel Bisulfate* (Plavix*), 75 MG ORAL DAILY, (Reported) Discontinued Reason: Pt stopped taking med Diphenhydramine Hcl* (Benadryl*), 25 MG ORAL Q6H PRN for Itching, (Reported) Discontinued Reason: Pt stopped taking med Diphenhydramine Hcl* (Benadryl*), 25 MG ORAL Q6H PRN for Itching, (Reported) Discontinued Reason: Pt stopped taking med Docusate Sodium* (Colace*), 100 MG ORAL THREE TIMES A DAY, (Reported) Discontinued Reason: Pt stopped taking med Furosemide* (Lasix*), 20 MG ORAL DAILY, (Reported) Discontinued Reason: Pt stopped taking med Glucagon (Glucagen), 1 MG IM EVERY 24 HOURS PRN for PRN BS < 60, (Reported) Discontinued Reason: Pt stopped taking med Glucagon HCl (Glucagon HCl), 1 MG IM for Hypoglycemia, (Reported) Discontinued Reason: Pt stopped taking med Heparin Sod (Porcine) (Heparin Sodium*), 5,000 UNITS SUBQ EVERY 12 HOURS, ( Reported) Discontinued Reason: Pt stopped taking med Hydralazine Hcl* (Hydralazine Hcl*), 50 MG ORAL EVERY 8 HOURS, (Reported) Discontinued Reason: Pt stopped taking med Hydrocodone Bit/Acetaminophen 5-325* ([place] 5-325*), 1 TAB ORAL Q6H PRN for For Pain, (Reported) Discontinued Reason: Pt stopped taking med Hydrocodone Bit/Acetaminophen 5-325* ([place] 5-325*), 2 TAB ORAL Q6H PRN for For Pain, (Reported) Discontinued Reason: Pt stopped taking med Hydrocodone Bit/Acetaminophen 5-325* ([place] 5-325*), 2 TAB ORAL Q6H PRN for For Pain, (Reported) Discontinued Reason: Pt stopped taking med Insulin Aspart (Novolog), 0 SQ AC, (Reported) Discontinued Reason: Pt stopped taking med Isosorbide Dinitrate (Isosorbide Dinitrate*), 20 MG ORAL THREE TIMES A DAY, ( Reported) Discontinued Reason: Pt stopped taking med Metoclopramide Hcl* (Reglan*), 10 MG IVP THREE TIMES A DAY, (Reported) Discontinued Reason: Pt stopped taking med Metoclopramide Hcl* (Metoclopramide Hcl*), 10 MG ORAL EVERY 8 HOURS, (Reported) Discontinued Reason: Pt stopped taking med Multivitamin with Minerals (Multivitamins with Minerals), 1 TAB ORAL DAILY, ( Reported) Discontinued Reason: Pt stopped taking med Multivitamins* (Multivitamins*), 1 TAB ORAL DAILY, (Reported) Discontinued Reason: Pt stopped taking med Na Phos,M-B/Na Phos,Di-Ba (Enema), 133 ML RC for Constipation, (Reported) Discontinued Reason: Pt stopped taking med Na Phos,M-B/Na Phos,Di-Ba* (Fleet Enema*), 133 ML RECTAL DAILY, (Reported) Discontinued Reason: Pt stopped taking med Ondansetron Odt* (Zofran Odt*), 8 MG ORAL Q8HR PRN for Nausea & Vomiting, ( Reported) Discontinued Reason: Pt stopped taking med Ondansetron* (Zofran*), 4 MG IV Q6H PRN for Nausea & Vomiting, (Reported) Discontinued Reason: Pt stopped taking med Ydmwzsyfusnj-Hwjj-Ozmhupxo,Iso (Zosyn 3.375 Gm Pre Mix-Bag), 3.375 GM IVPB EVERY 8 HOURS, (Reported) Discontinued Reason: Pt stopped taking med Potassium Chloride* (K-Dur*), 20 MEQ ORAL DAILY, (Reported) Discontinued Reason: Pt stopped taking med Pravastatin Sod* (Pravastatin Sod*), 10 MG ORAL BEDTIME, (Reported) Discontinued Reason: Pt stopped taking med Spironolactone* (Aldactone*), 25 MG ORAL DAILY, (Reported) Discontinued Reason: Pt stopped taking med Sucralfate* (Carafate*), 1 GM ORAL FOUR TIMES A DAY, (Reported) Discontinued Reason: Pt stopped taking med Vancomycin Hcl (Vancomycin), 1 GM IV Q12HR, (Reported) Discontinued Reason: Pt stopped taking med [Calcium-V], (Reported) Discontinued Reason: Pt stopped taking med [Nitrogly], (Reported) Discontinued Reason: Pt stopped taking med [Nitroglycerin], 0.4 MG SL [id number] X 3 PRN for CHEST PAIN, (Reported) Discontinued Reason: Pt stopped taking med Patient History Healthcare decision maker Resuscitation status Full Code Advanced Directive on File Yes Physical Exam Last 24 Hour Vital Signs Date Time Temp Pulse Resp B/P (MAP) Pulse Ox O2 Delivery O2 Flow Rate FiO2 03/25/19 13:44 131/72 03/25/19 12:00 1.0 03/25/19 12:00 70 03/25/19 11:58 97.5 71 18 131/72 (91) 100 03/25/19 09:00 Room Air 03/25/19 08:44 143/74 03/25/19 08:44 69 143/74 03/25/19 08:00 71 03/25/19 08:00 1.0 03/25/19 08:00 97.0 69 20 143/74 (97) 97 03/25/19 05:39 153/79 03/25/19 04:00 98.0 68 22 115/68 (84) 96 03/25/19 04:00 82 03/25/19 04:00 1.0 03/25/19 00:00 98.2 82 20 111/70 (84) 97 03/25/19 00:00 75 03/24/19 22:00 128/61 03/24/19 21:00 Room Air 03/24/19 21:00 84 120/58 03/24/19 20:00 81 03/24/19 20:00 1.0 03/24/19 20:00 98.2 84 20 120/58 (78) 98 03/24/19 19:32 99.0 03/24/19 16:00 1.0 03/24/19 16:00 99.0 89 20 149/77 (101) 98 03/24/19 15:43 67 Intake and Output 03/24/19 03/25/19 18:59 06:59 Output Total 200 ml Balance -200 ml Output Urine Total 200 ml # Voids 4 Laboratory Tests Test 03/25/19 06:27 White Blood Count 9.4 K/UL (4.8-10.8) Red Blood Count 3.60 M/UL (4.70-6.10) L Hemoglobin 10.3 G/DL (14.2-18.0) L Hematocrit 31.2 % (42.0-52.0) L Mean Corpuscular Volume 87 FL (80-99) Mean Corpuscular Hemoglobin 28.6 PG (27.0-31.0) Mean Corpuscular Hemoglobin Concent 33.0 G/DL (32.0-36.0) Red Cell Distribution Width 13.5 % (11.6-14.8) Platelet Count 330 K/UL (150-450) Mean Platelet Volume 5.0 FL (6.5-10.1) L Neutrophils (%) (Auto) 75.4 % (45.0-75.0) H Lymphocytes (%) (Auto) 14.7 % (20.0-45.0) L Monocytes (%) (Auto) 7.1 % (1.0-10.0) Eosinophils (%) (Auto) 2.3 % (0.0-3.0) Basophils (%) (Auto) 0.5 % (0.0-2.0) Sodium Level 141 MMOL/L (136-145) Potassium Level 3.9 MMOL/L (3.5-5.1) Chloride Level 98 MMOL/L (98-107) Carbon Dioxide Level 30 MMOL/L (21-32) Anion Gap 13 mmol/L (5-15) Blood Urea Nitrogen 18 mg/dL (7-18) Creatinine 1.2 MG/DL (0.55-1.30) Estimat Glomerular Filtration Rate > 60 mL/min (>60) Glucose Level 163 MG/DL (74-106) H Calcium Level 9.0 MG/DL (8.5-10.1) Height (Feet): 5 Height (Inches): 9.00 Weight (Pounds): 240 Medications Current Medications Medications (Trade) Dose Ordered Sig/Paola Route PRN Reason Start Time Stop Time Status Last Admin Dose Admin Acetaminophen (Tylenol) 650 mg Q4H PRN ORAL Mild Pain/Temp > 100.5 03/25/19 16:15 04/22/19 16:14 Baclofen (Lioresal) 10 mg THREE TIMES A DAY ORAL 03/23/19 18:00 04/22/19 17:59 03/25/19 12:29 Carvedilol (Coreg) 12.5 mg EVERY 12 HOURS ORAL 03/23/19 21:00 04/22/19 20:59 03/25/19 08:44 Dextrose (Dextrose 50%) 25 ml Q30M PRN IV Hypoglycemia 03/23/19 16:15 04/22/19 16:14 Dextrose (Dextrose 50%) 50 ml Q30M PRN IV Hypoglycemia 03/23/19 16:15 04/22/19 16:14 Docusate Sodium (Colace) 100 mg THREE TIMES A DAY ORAL 03/25/19 13:00 04/24/19 12:59 03/25/19 13:44 Famotidine (Pepcid I.v.) 20 mg Q12HR IVP 03/25/19 13:00 04/24/19 12:59 03/25/19 13:45 Furosemide (Lasix) 40 mg DAILY IV 03/24/19 09:00 04/23/19 08:59 03/25/19 08:45 Gabapentin (Neurontin) 300 mg THREE TIMES A DAY ORAL 03/23/19 18:00 04/22/19 17:59 03/25/19 12:28 Heparin Sodium (Porcine) (Heparin 5000 units/ml) 5,000 units EVERY 12 HOURS SUBQ 03/23/19 21:00 04/22/19 20:59 03/25/19 08:47 Hydralazine HCl (Apresoline) 50 mg EVERY 8 HOURS ORAL 03/23/19 22:00 04/22/19 21:59 03/25/19 13:44 Insulin Aspart (NovoLOG) BEFORE MEALS AND HS SUBQ 03/23/19 16:30 04/22/19 16:29 03/25/19 12:30 Isosorbide Mononitrate (Imdur) 30 mg DAILY ORAL 03/24/19 09:00 04/23/19 08:59 03/25/19 08:44 Lorazepam (Ativan 2mg/ml 1ml) 0.5 mg Q4H PRN IV For Anxiety 03/23/19 16:15 03/30/19 16:14 Nitroglycerin (Ntg) 0.4 mg Q5M PRN SL Prn Chest Pain 03/25/19 15:15 04/24/19 15:14 Ondansetron HCl (Zofran) 4 mg Q6H PRN IVP Nausea & Vomiting 03/23/19 16:15 04/22/19 16:14 03/25/19 03:53 Polyethylene Glycol (Miralax) 17 gm BEDTIME ORAL 03/25/19 21:00 04/24/19 20:59 Polyethylene Glycol (Miralax) 17 gm HSPRN PRN ORAL Constipation 03/23/19 21:00 04/22/19 20:59 Promethazine HCl 12.5 mg/Sodium Chloride 55.5 ml @ 222 mls/hr Q6H PRN IVPB nausea 03/24/19 12:30 04/23/19 12:29 03/25/19 08:39 Spironolactone (Aldactone) 25 mg DAILY ORAL 03/24/19 09:00 04/23/19 08:59 03/25/19 08:45 Sucralfate (Carafate) 1 gm FOUR TIMES A DAY ORAL 03/23/19 18:00 04/22/19 17:59 03/25/19 12:29 Zolpidem Tartrate (Ambien) 5 mg HSPRN PRN ORAL Insomnia 03/23/19 21:00 03/30/19 20:59 Assessment/Plan Assessment/Plan: Hematology Consult Referring physician: Randolph PEREYRA Ass[place] Reason for Consultation: DVT and anemia history DOS: 03/25/19 HPI This patient [facility] from a [facility] facility. He has a history of CHF , pacemaker, chronic kidney disease, peripheral vascular disease, diabetes, CVA with hemiplegia. He presents from a correction facility complaining of all over body pain. He denies recent illness. He denies cough or congestion. He denies fever or chills. He denies nausea or vomiting. He feels generalized weakness. He has no other complaints. GI consulted for reported nausea. Patient seen, awake alert and oriented x4 with no apparent distress. Patient has complaint of nausea without vomiting. Has complaint of pulmonary congestion, noted with productive sputum in his basin. In addition the patient does have a complaint of constipation, stating his last bowel movement was approximately 3 days ago. Labs reviewed; normocytic anemia with hemoglobin of 10.3, elevated troponin levels 0.524 and elevated proBNP, no transaminitis. The patient denies any history of endoscopic or colonoscopy. The patient denies any alcohol, tobacco or drug use. I recently saw him on prior admission last month and he presents again with similar symptoms Home Meds Reported Medications Telmisartan (MICARDIS) 20 Mg Tablet, 20 MG ORAL DAILY for HTN, TAB 03/24/19 Trimethobenzamide Hcl* (TIGAN*) 300 Mg Capsule, 300 MG ORAL Q8HR PRN for N/V, # 15 CAP 0 Refills 03/24/19 [Voltaren Gel] 1% No Conflict Check, TOPIC DAILY PRN for KNEE PAIN 03/24/19 Simethicone* (SIMETHICONE*) 80 Mg Tab.chew, 80 MG ORAL Q6HR PRN for GAS PAIN, # 20 TAB 0 Refills 03/24/19 Promethazine Hcl* (PHENERGAN*) 25 Mg Tablet, 25 MG ORAL TID for N/V, #15 TAB 0 Refills 03/24/19 Insulin Regular, Human* (NOVOLIN R*) 100 Unit/1 Ml Vial, 0 SUBQ .SLIDING SCALE, UNITS 03/24/19 Carvedilol* (CARVEDILOL*) 25 Mg Tablet, 25 MG ORAL EVERY 12 HOURS, TAB 03/24/19 Bumetanide* (BUMETANIDE*) 2 Mg Tablet, 2 MG ORAL BID for HTN, TAB 03/24/19 Hydrocodone Bit/Acetaminophen 10-325* ([place] 10-325*) 1 Each Tablet, 1 TAB ORAL Q6H PRN for Moderate Pain (Pain Scale 4-6), #10 TAB 0 Refills PRN PAIN 01/07/19 Prednisone* (PREDNISONE*) 10 Mg Tablet, 10 MG ORAL DAILY, #10 TAB 0 Refills 01/07/19 Calcium Carbonate/Vitamin D3 (CALCIUM + VITAMIN D TABLET) 1 Each Tablet, 2 EACH PO DAILY, TAB 01/07/19 Na Phos,M-B/Na Phos,Di-Ba* (FLEET ENEMA*) 133 Ml Enema, 133 ML RECTAL Q2DAYS PRN for CONSTIPATION IF DUCOLAX INEFF, ML 0 Refills 01/07/19 Clonazepam* (KLONOPIN*) 0.5 Mg Tablet, 0.5 MG ORAL DAILY, #15 TAB 0 Refills 01/04/19 Gabapentin* (GABAPENTIN*) 300 Mg Capsule, 300 MG ORAL THREE TIMES A DAY, CAP 0 Refills 01/04/19 Atorvastatin Calcium* (ATORVASTATIN CALCIUM*) 20 Mg Tablet, 20 MG ORAL BEDTIME, TAB 01/04/19 Baclofen* (BACLOFEN*) 10 Mg Tablet, 10 MG ORAL THREE TIMES A DAY, TAB 01/04/19 Polyethylene Glycol 3350* (MIRALAX*) 17 Gm Powd.pack, 17 GM ORAL DAILY , PACKET 03/03/18 Aspirin (Aspirin EC) 81 Mg Tablet.dr, 81 MG ORAL DAILY, TAB 03/03/18 Acetaminophen* (ACETAMINOPHEN 325MG TABLET*) 325 Mg Tablet, 650 MG ORAL Q4H PRN for Mild Pain/Temp > 100.5, TAB 02/23/18 Sennosides (SENNA) 8.6 Mg Tablet, 17.2 MG PO QHS, TAB 02/23/18 Mag Hydrox/Al Hydrox/Simeth (ALUM-MAG HYDROXIDE-SIMETH LIQ) 360 Ml Oral.susp, 15 ML PO TID for GERD, ML 02/23/18 Bisacodyl (DULCOLAX) 10 Mg Supp.rect, 10 MG RC DAILY PRN for CONSTIPATION IF MOM IS INEFF, SUPP 02/23/18 Pantoprazole* (PROTONIX*) 40 Mg Tablet.dr, 40 MG ORAL DAILY, TAB 02/23/18 Sucralfate* (CARAFATE*) 1 Gm Tablet, 1 GM ORAL FOUR TIMES A DAY, TAB 02/23/18 Magnesium Hydroxide* (MILK OF MAGNESIA*) 400 Mg/5 Ml Oral.susp, 30 ML ORAL QHS PRN for Constipation, ML 03/04/17 Nitroglycerin (NITROGLYCERIN) 0.4 Mg Tab.subl, 0.4 MG SL PRN for CHEST PAIN, TAB 01/08/17 Clopidogrel Bisulfate* (PLAVIX*) 75 Mg Tablet, 75 MG ORAL DAILY, TAB 01/08/17 Docusate Sodium* (COLACE*) 100 Mg Capsule, 100 MG ORAL DAILY, CAP 01/08/17 Discontinued Reported Medications Dhmcqbwznwbv-Eows-Jvqfvnuh,Iso (ZOSYN 3.375 GM PRE MIX-BAG) 3.375 Gm/50 Ml Froz.piggy, 3.375 GM IVPB EVERY 8 HOURS for 4 Days, BAG 01/07/19 Vancomycin Hcl (Vancomycin) 1 Gm Vial, 1 GM IV Q12HR for 4 Days, VIAL 01/07/19 Clonazepam* (KLONOPIN*) 0.5 Mg Tablet, 0.5 MG ORAL DAILY, #15 TAB 0 Refills 01/07/19 Glucagon (Glucagen) 1 Mg/1 Ml Vial, 1 MG IM EVERY 24 HOURS PRN for PRN BS < 60, VIAL 01/07/19 Ca Carbonate/Vitamin D3/Vit K (CALCIUM + D SOFT CHEWABLE TAB) 1 Each Tab.chew, 1 EACH PO, TAB 01/07/19 [Calcium-V] No Conflict Check 01/07/19 Na Phos,M-B/Na Phos,Di-Ba* (FLEET ENEMA*) 133 Ml Enema, 133 ML RECTAL DAILY, ML 0 Refills 01/04/19 Calcium Carbonate/Vitamin D3 (CALCIUM + VITAMIN D TABLET) 1 Each Tablet, 1 EACH PO, TAB 01/04/19 Diphenhydramine Hcl* (BENADRYL*) 25 Mg Capsule, 25 MG ORAL Q6H PRN for Itching, CAP 03/24/18 Hydrocodone Bit/Acetaminophen 5-325* ([place] 5-325*) 1 Each Tablet, 2 TAB ORAL Q6H PRN for For Pain, #10 TAB 0 Refills 03/24/18 Potassium Chloride* (K-DUR*) 20 Meq Tab.er.prt, 20 MEQ ORAL DAILY, #7 TAB 0 Refills 03/24/18 Metoclopramide Hcl* (METOCLOPRAMIDE HCL*) 5 Mg Tablet, 10 MG ORAL EVERY 8 HOURS , TAB 03/24/18 Sucralfate* (CARAFATE*) 1 Gm Tablet, 1 GM ORAL FOUR TIMES A DAY, TAB 03/03/18 Spironolactone* (ALDACTONE*) 25 Mg Tablet, 25 MG ORAL DAILY, TAB 03/03/18 Pravastatin Sod* (PRAVASTATIN SOD*) 20 Mg Tablet, 10 MG ORAL BEDTIME, TAB 03/03/18 Diphenhydramine Hcl* (BENADRYL*) 25 Mg Capsule, 25 MG ORAL Q6H PRN for Itching, CAP 03/03/18 Clopidogrel Bisulfate* (PLAVIX*) 75 Mg Tablet, 75 MG ORAL DAILY, TAB 03/03/18 Carvedilol (Coreg) 12.5 Mg Tablet, 12.5 MG ORAL EVERY 12 HOURS, TAB 03/03/18 Ondansetron* (ZOFRAN*) 4 Mg/2 Ml Vial, 4 MG IV Q6H PRN for Nausea & Vomiting, VIAL 03/03/18 [Nitroglycerin] No Conflict Check, 0.4 MG SL [id number] X 3 PRN for CHEST PAIN 03/03/18 [Nitrogly] No Conflict Check 03/03/18 Metoclopramide Hcl* (REGLAN*) 10 Mg Tablet, 10 MG IVP THREE TIMES A DAY, TAB 03/03/18 Isosorbide Dinitrate (ISOSORBIDE DINITRATE*) 5 Mg Tablet, 20 MG ORAL THREE TIMES A DAY, #30 TAB 0 Refills 03/03/18 Insulin Aspart (NOVOLOG) 100 Unit/1 Ml Vial, 0 SQ AC 03/03/18 Hydralazine Hcl* (HYDRALAZINE HCL*) 50 Mg Tablet, 50 MG ORAL EVERY 8 HOURS, TAB 03/03/18 Heparin Sod (Porcine) (HEPARIN SODIUM*) 5 000/1 Ml Vial, 5000 UNITS SUBQ EVERY 12 HOURS, VIAL 03/03/18 Furosemide* (LASIX*) 20 Mg Tablet, 20 MG ORAL DAILY, TAB 03/03/18 Docusate Sodium* (COLACE*) 100 Mg Capsule, 100 MG ORAL THREE TIMES A DAY, CAP 03/03/18 Ondansetron Odt* (ZOFRAN ODT*) 8 Mg Tab.rapdis, 8 MG ORAL Q8HR PRN for Nausea & Vomiting, #30 TAB 02/23/18 Hydrocodone Bit/Acetaminophen 5-325* ([place] 5-325*) 1 Each Tablet, 2 TAB ORAL Q6H PRN for For Pain, #10 TAB 0 Refills 02/23/18 Multivitamin with Minerals (Multivitamins with Minerals) 1 Each Tablet, 1 TAB ORAL DAILY, TAB 02/23/18 Hydrocodone Bit/Acetaminophen 5-325* ([place] 5-325*) 1 Each Tablet, 1 TAB ORAL Q6H PRN for For Pain, #10 TAB 0 Refills 02/23/18 Multivitamins* (MULTIVITAMINS*) 1 Each Tablet, 1 TAB ORAL DAILY, TAB 0 Refills 02/23/18 Na Phos,M-B/Na Phos,Di-Ba (ENEMA) 133 Ml Enema, 133 ML RC PRN for Constipation, EA 02/23/18 Glucagon HCl (Glucagon HCl) 1 Mg Vial, 1 MG IM PRN for Hypoglycemia, VIAL 09/25/17 Med list reviewed/reconciled: Yes Allergies: Coded Allergies: LACTOSE (Verified Allergy, Unknown, 03/23/19) LISINOPRIL (Unverified Allergy, Unknown, 01/17/18) METHOTREXATE (Verified Allergy, Unknown, 08/30/15) NSAIDS (NON-STEROIDAL ANTI-INFLAMMA (Unverified Allergy, Unknown, 11/14/15) History Provided By: Patient, Medical Record PMH Narrative Past Medical History: see triage record, DM, HTN, AL, CAD, CHF, COPD, GERD, CVA /TIA, psych hx, renal disease, other Past Surgical History: CABG, pacemaker Social History: Denies: smoking, alcohol use, drug use Reviewed Nursing Documentation: PMH: Agreed; PSxH: Agreed Past Medical History: No History, Except For Hx Hypertension: Yes - CKD Hx Pacemaker: Yes Hx Diabetes: Yes Hx Cancer: No Hx Gastrointestinal Problems: Yes - Gastritis/ abdominal pain Hx Neurological Problems: Yes Hx Cerebrovascular Accident: Yes - right side weakness Hx Peripheral Neuropathy: Yes - diabetic peripheral neuropathy, Chronic pain syndrom Hx Neurologic Surgery: No Social History: Denies: smoking, alcohol use, drug use, other Review of Systems: negative except mentioned in HPI PE Vital Signs Date Time Temp Pulse Resp B/P (MAP) Pulse Ox O2 Delivery O2 Flow Rate FiO2 03/23/19 11:38 97.5 75 18 110/70 (83) 94 Room Air 03/23/19 18:20 1.5 Sp02 EP Interpretation: reviewed, normal Labs Laboratory Tests Test 03/25/19 06:27 White Blood Count 9.4 K/UL (4.8-10.8) Red Blood Count 3.60 M/UL (4.70-6.10) L Hemoglobin 10.3 G/DL (14.2-18.0) L Hematocrit 31.2 % (42.0-52.0) L Mean Corpuscular Volume 87 FL (80-99) Mean Corpuscular Hemoglobin 28.6 PG (27.0-31.0) Mean Corpuscular Hemoglobin Concent 33.0 G/DL (32.0-36.0) Red Cell Distribution Width 13.5 % (11.6-14.8) Platelet Count 330 K/UL (150-450) Mean Platelet Volume 5.0 FL (6.5-10.1) L Neutrophils (%) (Auto) 75.4 % (45.0-75.0) H Lymphocytes (%) (Auto) 14.7 % (20.0-45.0) L Monocytes (%) (Auto) 7.1 % (1.0-10.0) Eosinophils (%) (Auto) 2.3 % (0.0-3.0) Basophils (%) (Auto) 0.5 % (0.0-2.0) Sodium Level 141 MMOL/L (136-145) Potassium Level 3.9 MMOL/L (3.5-5.1) Chloride Level 98 MMOL/L (98-107) Carbon Dioxide Level 30 MMOL/L (21-32) Anion Gap 13 mmol/L (5-15) Blood Urea Nitrogen 18 mg/dL (7-18) Creatinine 1.2 MG/DL (0.55-1.30) Estimat Glomerular Filtration Rate > 60 mL/min (>60) Glucose Level 163 MG/DL (74-106) H Calcium Level 9.0 MG/DL (8.5-10.1) General Appearance: well appearing, no apparent distress, alert, obese Head: normocephalic EENT: PERRL/EOMI, normal ENT inspection Neck: supple Respiratory: normal breath sounds, no respiratory distress Cardiovascular: normal rate Gastrointestinal: normal inspection, non tender, soft, normal bowel sounds, non -distended Rectal: deferred Psychiatric: normal inspection, judgement/insight normal, memory normal Skin: normal inspection, normal color, no rash, warm/dry Lymphatic: normal inspection, no adenopathy Current Medications Current Medications Medications (Trade) Dose Ordered Sig/Paola Route PRN Reason Start Time Stop Time Status Last Admin Dose Admin Acetaminophen (Tylenol) 650 mg Q4H PRN ORAL Mild Pain/Temp > 100.5 03/25/19 16:15 04/22/19 16:14 UNV Baclofen (Lioresal) 10 mg THREE TIMES A DAY ORAL 03/23/19 18:00 04/22/19 17:59 03/25/19 08:44 Carvedilol (Coreg) 12.5 mg EVERY 12 HOURS ORAL 03/23/19 21:00 04/22/19 20:59 03/25/19 08:44 Dextrose (Dextrose 50%) 25 ml Q30M PRN IV Hypoglycemia 03/23/19 16:15 04/22/19 16:14 Dextrose (Dextrose 50%) 50 ml Q30M PRN IV Hypoglycemia 03/23/19 16:15 04/22/19 16:14 Famotidine (Pepcid I.v.) 20 mg Q12HR IVP 03/25/19 13:00 04/24/19 12:59 Furosemide (Lasix) 40 mg DAILY IV 03/24/19 09:00 04/23/19 08:59 03/25/19 08:45 Gabapentin (Neurontin) 300 mg THREE TIMES A DAY ORAL 03/23/19 18:00 04/22/19 17:59 03/25/19 08:44 Heparin Sodium (Porcine) (Heparin 5000 units/ml) 5,000 units EVERY 12 HOURS SUBQ 03/23/19 21:00 04/22/19 20:59 03/25/19 08:47 Hydralazine HCl (Apresoline) 50 mg EVERY 8 HOURS ORAL 03/23/19 22:00 04/22/19 21:59 03/25/19 05:39 Insulin Aspart (NovoLOG) BEFORE MEALS AND HS SUBQ 03/23/19 16:30 04/22/19 16:29 03/23/19 16:30 Isosorbide Mononitrate (Imdur) 30 mg DAILY ORAL 03/24/19 09:00 04/23/19 08:59 03/25/19 08:44 Lorazepam (Ativan 2mg/ml 1ml) 0.5 mg Q4H PRN IV For Anxiety 03/23/19 16:15 03/30/19 16:14 Ondansetron HCl (Zofran) 4 mg Q6H PRN IVP Nausea & Vomiting 03/23/19 16:15 04/22/19 16:14 03/25/19 03:53 Polyethylene Glycol (Miralax) 17 gm HSPRN PRN ORAL Constipation 03/23/19 21:00 04/22/19 20:59 Promethazine HCl 12.5 mg/Sodium Chloride 55.5 ml @ 222 mls/hr Q6H PRN IVPB nausea 03/24/19 12:30 04/23/19 12:29 03/25/19 08:39 Spironolactone (Aldactone) 25 mg DAILY ORAL 03/24/19 09:00 04/23/19 08:59 03/25/19 08:45 Sucralfate (Carafate) 1 gm FOUR TIMES A DAY ORAL 03/23/19 18:00 04/22/19 17:59 03/25/19 08:44 Zolpidem Tartrate (Ambien) 5 mg HSPRN PRN ORAL Insomnia 03/23/19 21:00 03/30/19 20:59 Assessment and Recs # Bilateral DVT hx in 2018 noted on duplex lower extremity --> currently is only on heparin sq dosing --> repeat duplex of lower extremities could be cause of cellulitis recurrent-- > NO DVT NOW noted --> okay to continue on heparin or [facility] sq inhouse # Anemia of chronic disease --> if worsens, trend anemia panel as needed, currently hold off --> only transfuse if hgb <7 or 8 # Hyperproteinemia - with elevated protein --> SPEP reviewed and does not show significiant MSPIKE --> repeat cbc and bmp in am --> if elevated ca consider to get a pth # S/P CABG Acute myocardial infarction. Ischemic cardiomyopathy hx --> cards eval as needed with severe cardiomyopathy # Acute on chronic systolic congestive heart failure. --> may need upgrade of icd # Cardiac defibrillator. # Cellulitis of the lower ext --> on abx prnx The timing of this note does not necessarily reflect the time of the patient was seen. Greatly appreciate consultation! (1) Constipation (2) Nausea & vomiting (3) Iron deficiency anemia (4) Intractable abdominal pain Plan Will consider GI procedures pending work-up zofran prn, reglan for persistent N/V anemia work up OB stool r/o GI bleed monitor H&H, prn transfusions bowel regimen, colace + miralax ppi fu labs Linus Dan MD Mar 25, 2019 15:16
--- NOTE | 2019-03-25 15:35 | Cardiac Electrophysiology PN ---
Assessment/Plan Assessment/Plan 1. Severe cardiomyopathy. EF of only 20%. Continue Coreg 12.5 mg bid, lisinopril 20 mg daily, Aldactone and Lasix. A 12-lead EKG is 100% ventricularly paced and he would benefit from upgrading to a biventricular defibrillator in view of ventricular pacing with QRS duration of 234 milliseconds, however, we probably need to get authorization from insurance company to proceed with upgrading of his ICD to biventricular ICD. 2. Status post Medtronic DDD defibrillator. Interrogated that showed Nl Fx 3. Hypertension. Continue current heart failure therapy. 4. Diabetes. 5. History of CVA. 6. Coronary artery disease, prior stent placement. Continue Coreg and add Lipitor CAMREN RN Subjective Subjective Feeling better.Was complaining of CP that resolved Objective Last 24 Hour Vital Signs Date Time Temp Pulse Resp B/P (MAP) Pulse Ox O2 Delivery O2 Flow Rate FiO2 03/25/19 13:44 131/72 03/25/19 12:00 1.0 03/25/19 12:00 70 03/25/19 11:58 97.5 71 18 131/72 (91) 100 03/25/19 09:00 Room Air 03/25/19 08:44 143/74 03/25/19 08:44 69 143/74 03/25/19 08:00 71 03/25/19 08:00 1.0 03/25/19 08:00 97.0 69 20 143/74 (97) 97 03/25/19 05:39 153/79 03/25/19 04:00 98.0 68 22 115/68 (84) 96 03/25/19 04:00 82 03/25/19 04:00 1.0 03/25/19 00:00 98.2 82 20 111/70 (84) 97 03/25/19 00:00 75 03/24/19 22:00 128/61 03/24/19 21:00 Room Air 03/24/19 21:00 84 120/58 03/24/19 20:00 81 03/24/19 20:00 1.0 03/24/19 20:00 98.2 84 20 120/58 (78) 98 03/24/19 19:32 99.0 03/24/19 16:00 1.0 03/24/19 16:00 99.0 89 20 149/77 (101) 98 03/24/19 15:43 67 Intake and Output 03/24/19 03/25/19 18:59 06:59 Output Total 200 ml Balance -200 ml Output Urine Total 200 ml # Voids 4 Laboratory Tests Test 03/25/19 06:27 White Blood Count 9.4 K/UL (4.8-10.8) Red Blood Count 3.60 M/UL (4.70-6.10) L Hemoglobin 10.3 G/DL (14.2-18.0) L Hematocrit 31.2 % (42.0-52.0) L Mean Corpuscular Volume 87 FL (80-99) Mean Corpuscular Hemoglobin 28.6 PG (27.0-31.0) Mean Corpuscular Hemoglobin Concent 33.0 G/DL (32.0-36.0) Red Cell Distribution Width 13.5 % (11.6-14.8) Platelet Count 330 K/UL (150-450) Mean Platelet Volume 5.0 FL (6.5-10.1) L Neutrophils (%) (Auto) 75.4 % (45.0-75.0) H Lymphocytes (%) (Auto) 14.7 % (20.0-45.0) L Monocytes (%) (Auto) 7.1 % (1.0-10.0) Eosinophils (%) (Auto) 2.3 % (0.0-3.0) Basophils (%) (Auto) 0.5 % (0.0-2.0) Sodium Level 141 MMOL/L (136-145) Potassium Level 3.9 MMOL/L (3.5-5.1) Chloride Level 98 MMOL/L (98-107) Carbon Dioxide Level 30 MMOL/L (21-32) Anion Gap 13 mmol/L (5-15) Blood Urea Nitrogen 18 mg/dL (7-18) Creatinine 1.2 MG/DL (0.55-1.30) Estimat Glomerular Filtration Rate > 60 mL/min (>60) Glucose Level 163 MG/DL (74-106) H Calcium Level 9.0 MG/DL (8.5-10.1) Microbiology Date/Time Source Procedure Growth Status 03/23/19 12:35 Blood Blood Culture - Preliminary NO GROWTH AFTER 24 HOURS Resulted 03/23/19 12:25 Blood Blood Culture - Preliminary NO GROWTH AFTER 24 HOURS Resulted 03/23/19 16:00 Nasal Nares MRSA Culture - Final NO METHICILLIN RESISTANT STAPH AUREUS... Complete 03/23/19 16:00 Rectum VRE Culture - Final NO VANCOMYCIN RESISTANT ENTEROCOCCUS ... Complete Objective In AV paced rhythm.ICD interrogation showed Nl fx Silvio Sterling MD Mar 25, 2019 15:35
[2019-03-25 16:00] VITALS: BP 124/86
--- NOTE | 2019-03-25 18:48 | Internal Med Progress Note ---
Subjective Date of Service: Mar 25, 2019 Physician Name Olea,Javi Attending Physician David Negron MD Current Medications Medications (Trade) Dose Ordered Sig/Paola Route PRN Reason Start Time Stop Time Status Last Admin Dose Admin Acetaminophen (Tylenol) 650 mg Q4H PRN ORAL Mild Pain/Temp > 100.5 03/25/19 16:15 04/22/19 16:14 Baclofen (Lioresal) 10 mg THREE TIMES A DAY ORAL 03/23/19 18:00 04/22/19 17:59 03/25/19 17:25 Carvedilol (Coreg) 12.5 mg EVERY 12 HOURS ORAL 03/23/19 21:00 04/22/19 20:59 03/25/19 08:44 Dextrose (Dextrose 50%) 25 ml Q30M PRN IV Hypoglycemia 03/23/19 16:15 04/22/19 16:14 Dextrose (Dextrose 50%) 50 ml Q30M PRN IV Hypoglycemia 03/23/19 16:15 04/22/19 16:14 Docusate Sodium (Colace) 100 mg THREE TIMES A DAY ORAL 03/25/19 13:00 04/24/19 12:59 03/25/19 17:25 Famotidine (Pepcid I.v.) 20 mg Q12HR IVP 03/25/19 13:00 04/24/19 12:59 03/25/19 13:45 Furosemide (Lasix) 40 mg DAILY IV 03/24/19 09:00 04/23/19 08:59 03/25/19 08:45 Gabapentin (Neurontin) 300 mg THREE TIMES A DAY ORAL 03/23/19 18:00 04/22/19 17:59 03/25/19 17:25 Heparin Sodium (Porcine) (Heparin 5000 units/ml) 5,000 units EVERY 12 HOURS SUBQ 03/23/19 21:00 04/22/19 20:59 03/25/19 08:47 Hydralazine HCl (Apresoline) 50 mg EVERY 8 HOURS ORAL 03/23/19 22:00 04/22/19 21:59 03/25/19 13:44 Insulin Aspart (NovoLOG) BEFORE MEALS AND HS SUBQ 03/23/19 16:30 04/22/19 16:29 03/25/19 17:26 Isosorbide Mononitrate (Imdur) 30 mg DAILY ORAL 03/24/19 09:00 04/23/19 08:59 03/25/19 08:44 Lorazepam (Ativan 2mg/ml 1ml) 0.5 mg Q4H PRN IV For Anxiety 03/23/19 16:15 03/30/19 16:14 Nitroglycerin (Ntg) 0.4 mg Q5M PRN SL Prn Chest Pain 03/25/19 15:15 04/24/19 15:14 Ondansetron HCl (Zofran) 4 mg Q6H PRN IVP Nausea & Vomiting 03/23/19 16:15 04/22/19 16:14 03/25/19 03:53 Polyethylene Glycol (Miralax) 17 gm BEDTIME ORAL 03/25/19 21:00 04/24/19 20:59 Polyethylene Glycol (Miralax) 17 gm HSPRN PRN ORAL Constipation 03/23/19 21:00 04/22/19 20:59 Promethazine HCl 12.5 mg/Sodium Chloride 55.5 ml @ 222 mls/hr Q6H PRN IVPB nausea 03/24/19 12:30 04/23/19 12:29 03/25/19 08:39 Spironolactone (Aldactone) 25 mg DAILY ORAL 03/24/19 09:00 04/23/19 08:59 03/25/19 08:45 Sucralfate (Carafate) 1 gm FOUR TIMES A DAY ORAL 03/23/19 18:00 04/22/19 17:59 03/25/19 17:25 Zolpidem Tartrate (Ambien) 5 mg HSPRN PRN ORAL Insomnia 03/23/19 21:00 03/30/19 20:59 Allergies: Coded Allergies: LACTOSE (Verified Allergy, Unknown, 03/23/19) LISINOPRIL (Unverified Allergy, Unknown, 01/17/18) METHOTREXATE (Verified Allergy, Unknown, 08/30/15) NSAIDS (NON-STEROIDAL ANTI-INFLAMMA (Unverified Allergy, Unknown, 11/14/15) ROS Limited/Unobtainable: No Constitutional: Reports: no symptoms HEENT: Reports: no symptoms Cardiovascular: Reports: no symptoms Respiratory: Reports: no symptoms Gastrointestinal/Abdominal: Reports: no symptoms Genitourinary: Reports: no symptoms Neurologic/Psychiatric: Reports: no symptoms Subjective 69 YO M admitted with gen weakness. Now elevated troponin and CHF. Cover for Int Andrew-Dr Negron Objective Last Vital Signs Date Time Temp Pulse Resp B/P (MAP) Pulse Ox O2 Delivery O2 Flow Rate FiO2 03/25/19 16:00 80 03/25/19 16:00 1.0 03/25/19 16:00 97.3 18 124/86 (99) 98 03/25/19 09:00 Room Air Laboratory Tests Test 03/25/19 06:27 White Blood Count 9.4 K/UL (4.8-10.8) Red Blood Count 3.60 M/UL (4.70-6.10) L Hemoglobin 10.3 G/DL (14.2-18.0) L Hematocrit 31.2 % (42.0-52.0) L Mean Corpuscular Volume 87 FL (80-99) Mean Corpuscular Hemoglobin 28.6 PG (27.0-31.0) Mean Corpuscular Hemoglobin Concent 33.0 G/DL (32.0-36.0) Red Cell Distribution Width 13.5 % (11.6-14.8) Platelet Count 330 K/UL (150-450) Mean Platelet Volume 5.0 FL (6.5-10.1) L Neutrophils (%) (Auto) 75.4 % (45.0-75.0) H Lymphocytes (%) (Auto) 14.7 % (20.0-45.0) L Monocytes (%) (Auto) 7.1 % (1.0-10.0) Eosinophils (%) (Auto) 2.3 % (0.0-3.0) Basophils (%) (Auto) 0.5 % (0.0-2.0) Sodium Level 141 MMOL/L (136-145) Potassium Level 3.9 MMOL/L (3.5-5.1) Chloride Level 98 MMOL/L (98-107) Carbon Dioxide Level 30 MMOL/L (21-32) Anion Gap 13 mmol/L (5-15) Blood Urea Nitrogen 18 mg/dL (7-18) Creatinine 1.2 MG/DL (0.55-1.30) Estimat Glomerular Filtration Rate > 60 mL/min (>60) Glucose Level 163 MG/DL (74-106) H Calcium Level 9.0 MG/DL (8.5-10.1) Microbiology Date/Time Source Procedure Growth Status 03/23/19 12:35 Blood Blood Culture - Preliminary NO GROWTH AFTER 24 HOURS Resulted 03/23/19 12:25 Blood Blood Culture - Preliminary NO GROWTH AFTER 24 HOURS Resulted 03/23/19 16:00 Nasal Nares MRSA Culture - Final NO METHICILLIN RESISTANT STAPH AUREUS... Complete 03/23/19 16:00 Rectum VRE Culture - Final NO VANCOMYCIN RESISTANT ENTEROCOCCUS ... Complete Intake and Output 03/24/19 03/25/19 19:00 07:00 Output Total 200 ml Balance -200 ml Output Urine Total 200 ml # Voids 4 Objective PHYSICAL EXAMINATION: GENERAL: The patient is a well-developed and well-nourished, obese male, in no apparent distress. HEENT: Eyes, pupils are equal and responsive to light and accommodation. Extraocular movements are intact. NECK: Supple. No lymphadenopathy. CHEST: Lungs are clear to auscultation bilaterally without wheezes or rales. CARDIOVASCULAR: Regular rhythm and rate. S1, S2 normal without murmurs, rubs, or gallops. ABDOMEN: Soft, nontender, and nondistended. Positive bowel sounds. No evidence of hepatosplenomegaly. Currently, no rebound or guarding noted. EXTREMITIES: Negative for clubbing, cyanosis, or edema. RECTAL/GENITAL: Not performed. NEUROLOGIC: Cranial nerves II through XII are grossly intact without focal deficits. Motor strength is 4/5 bilaterally. Deep tendon reflexes are 2+ plantar. Assessment/Plan Assessment/Plan ASSESSMENT: This is a 69-year-old male with: 1. Generalized weakness. 2. Elevated troponin. 3. Congestive heart failure. 4. Coronary artery disease. 5. Diabetes type 2. 6. Hypertension. 7. Ischemic cardiomyopathy. 8. Peripheral vascular disease. 9. Cerebrovascular disease, status post cerebrovascular accident. 10. Right hemiplegia. 11. Chronic obstructive pulmonary disease. 12. AICD in situ TREATMENT: 1. Congestive heart failure/coronary artery disease. A Cardiology consultation has been obtained with Dr. Silvio Sterling. The patient's previous ejection fraction was 20% to 25%. An echocardiogram is pending. We will follow recommendations of Cardiology. See discussion concerning biventricular ICD 2. Generalized weakness. This may be secondary to congestive heart failure acute exacerbation. 3. Elevated troponin. 4. Diabetes type 2. Continue NovoLog sliding scale. 5. Hypertension. Continue Coreg as above. 6. Ischemic cardiomyopathy. 7. Peripheral vascular disease. Continue Plavix as above. 8. Cerebrovascular disease, status post cerebrovascular accident. 9. Right hemiplegia. 10. Chronic obstructive pulmonary disease. A Pulmonary consultation has been obtained with Dr. Pretty Sweet. Javi Olea MD Mar 25, 2019 18:48
--- NOTE | 2019-03-25 19:25 | NUR ---
NURSE NOTES: Received pt and report from FRANCO Bailey. Observed pt asleep in bed with both eyes closed. 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 Bed is in the lowest position and locked. Call light within reach. No signs/symptoms of acute distress noted at this time. Will continue plan of care.
--- NOTE | 2019-03-25 19:35 | NUR ---
HAND-OFF: Report given to Pili RN. Pt remains stable..
[2019-03-25 20:00] VITALS: BP_SYST 112; BP_SYST 150; BP_DIAS 64; BP_DIAS 81
[2019-03-25] MEDS: Miralax 17gm pkt ORAL SCH (20:48)
--- NOTE | 2019-03-25 23:01 | NUR ---
NURSE NOTES: Pt refused Hydralazine 50mg PO. Pt states he feels nauseous and wants to sleep. BP: 109/66 HR: 86
[2019-03-26] VITALS: BP_SYST 105; BP_SYST 115; BP_DIAS 60; BP_DIAS 96
[2019-03-26 04:00] VITALS: BP_SYST 135; BP_SYST 140; BP_DIAS 88; BP_DIAS 93
[2019-03-26] MEDS: HydrALAZINE 50mg tab ORAL SCH ×3 (05:57→21:08)
[2019-03-26] MEDS: NovoLOG Insulin Flexpen SUBQ SCH ×4 (06:04→21:11)
[2019-03-26 06:49] LABS: BASOPHILS % (AUTO) 0.8 % (0.0-2.0); EOSINOPHILS % (AUTO) 3.5 % (0.0-3.0); HEMATOCRIT 27.9 % (42.0-52.0); HEMOGLOBIN 9.2 G/DL (14.2-18.0); LYMPHOCYTES % (AUTO) 13.6 % (20.0-45.0); MEAN CORPUSCULAR VOLUME 87 FL (80-99); MONOCYTES % (AUTO) 9.7 % (1.0-10.0); NEUTROPHILS % (AUTO) 72.4 % (45.0-75.0); PLATELET COUNT 312 K/UL (150-450); RED BLOOD COUNT 3.22 M/UL (4.70-6.10); RED CELL DISTRIBUTION WIDTH 13.7 % (11.6-14.8); WHITE BLOOD COUNT 8.3 K/UL (4.8-10.8)
[2019-03-26 06:50] LABS: INR 1.1 (0.9-1.1)
--- NOTE | 2019-03-26 07:30 | NUR ---
NURSE NOTES: Received bedside report from Pili RN. Pt. in bed, awake, a/o x 2-3. No sign of distress. Denies pain at present. IV at right FA #20g. in placed SL. Bed in low position, locked. Call light within reach. Will cont. to monitor.
[2019-03-26 07:35] LABS: ALANINE AMINOTRANSFERASE 12 U/L (12-78); ALBUMIN 2.1 G/DL (3.4-5.0); ALBUMIN/GLOBULIN RATIO 0.5 (1.0-2.7); ALKALINE PHOSPHATASE 75 U/L (46-116); ANION GAP 8 mmol/L (5-15); ASPARTATE AMINO TRANSFERASE 15 U/L (15-37); BILIRUBIN,TOTAL 0.5 MG/DL (0.2-1.0); BLOOD UREA NITROGEN 15 mg/dL (7-18); CALCIUM 8.7 MG/DL (8.5-10.1); CARBON DIOXIDE 32 MMOL/L (21-32); CHLORIDE 98 MMOL/L (98-107); CREATININE 1.1 MG/DL (0.55-1.30); FERRITIN 362 NG/ML (8-388); POTASSIUM 3.8 MMOL/L (3.5-5.1); SODIUM 138 MMOL/L (136-145)
[2019-03-26 07:40] LABS: % IRON SATURATION 21 % (15-50); IRON 39 ug/dL (50-175); TOTAL IRON BINDING CAPACITY 184 ug/dL (250-450)
--- NOTE | 2019-03-26 07:53 | NUR ---
HAND-OFF: Report given to FRANCO Ojeda.
[2019-03-26 08:00] VITALS: BP 113/63
[2019-03-26] MEDS: Heparin 5000 units/ml inj SUBQ SCH ×2 (08:39→21:10)
[2019-03-26] MEDS: Carvedilol 12.5mg tab ORAL SCH ×2 (08:40→21:00)
[2019-03-26] MEDS: Docusate 100mg cap ORAL SCH ×3 (08:43→17:14)
[2019-03-26] MEDS: Sucralfate 1gm tab ORAL SCH (08:43)
[2019-03-26] MEDS: Spironolactone 25mg tab ORAL SCH (08:43)
[2019-03-26] MEDS: Imdur 30mg tab ORAL SCH (08:44)
--- NOTE | 2019-03-26 09:25 | Cardiac Electrophysiology PN ---
Assessment/Plan Assessment/Plan 1. Severe cardiomyopathy. EF 20%. Continue Coreg 12.5 mg bid, lisinopril 20 mg daily, Aldactone and Lasix. EKG is 100% ventricularly paced and he would benefit from upgrading to a biventricular ICD. Need to get authorization from insurance company . 2. Status post Medtronic DDD defibrillator. Interrogated that showed Nl Fx 3. Hypertension. Continue current heart failure therapy. 4. Diabetes. 5. History of CVA. 6. Coronary artery disease, prior stent placement. Continue Coreg and Lipitor DW RN Subjective Subjective No CP or SOB. In SR and V paced Objective Last 24 Hour Vital Signs Date Time Temp Pulse Resp B/P (MAP) Pulse Ox O2 Delivery O2 Flow Rate FiO2 03/26/19 08:44 113/63 03/26/19 08:40 76 113/63 03/26/19 05:57 146/88 03/26/19 04:00 1.0 03/26/19 04:00 97.7 77 19 140/88 (105) 95 03/26/19 04:00 69 03/26/19 00:00 78 03/26/19 00:00 97.5 84 20 105/60 (75) 98 03/26/19 00:00 1.0 03/25/19 22:00 109/66 03/25/19 21:00 Room Air 03/25/19 20:49 95 112/70 03/25/19 20:00 66 03/25/19 20:00 98.1 95 20 112/64 (80) 98 03/25/19 16:00 80 03/25/19 16:00 1.0 03/25/19 16:00 97.3 64 18 124/86 (99) 98 03/25/19 13:44 131/72 03/25/19 12:00 1.0 03/25/19 12:00 70 03/25/19 11:58 97.5 71 18 131/72 (91) 100 Intake and Output 03/25/19 03/26/19 19:00 07:00 Output Total 200 ml Balance -200 ml Output Urine Total 200 ml # Voids 2 Laboratory Tests Test 03/26/19 05:50 White Blood Count 8.3 K/UL (4.8-10.8) Red Blood Count 3.22 M/UL (4.70-6.10) L Hemoglobin 9.2 G/DL (14.2-18.0) L Hematocrit 27.9 % (42.0-52.0) L Mean Corpuscular Volume 87 FL (80-99) Mean Corpuscular Hemoglobin 28.7 PG (27.0-31.0) Mean Corpuscular Hemoglobin Concent 33.1 G/DL (32.0-36.0) Red Cell Distribution Width 13.7 % (11.6-14.8) Platelet Count 312 K/UL (150-450) Mean Platelet Volume 4.9 FL (6.5-10.1) L Neutrophils (%) (Auto) 72.4 % (45.0-75.0) Lymphocytes (%) (Auto) 13.6 % (20.0-45.0) L Monocytes (%) (Auto) 9.7 % (1.0-10.0) Eosinophils (%) (Auto) 3.5 % (0.0-3.0) H Basophils (%) (Auto) 0.8 % (0.0-2.0) Reticulocyte Count Pending Prothrombin Time 11.9 SEC (9.30-11.50) H Prothromb Time International Ratio 1.1 (0.9-1.1) Activated Partial Thromboplast Time 43 SEC (23-33) H Sodium Level 138 MMOL/L (136-145) Potassium Level 3.8 MMOL/L (3.5-5.1) Chloride Level 98 MMOL/L (98-107) Carbon Dioxide Level 32 MMOL/L (21-32) Anion Gap 8 mmol/L (5-15) Blood Urea Nitrogen 15 mg/dL (7-18) Creatinine 1.1 MG/DL (0.55-1.30) Estimat Glomerular Filtration Rate > 60 mL/min (>60) Glucose Level 159 MG/DL (74-106) H Calcium Level 8.7 MG/DL (8.5-10.1) Iron Level 39 ug/dL (50-175) L Total Iron Binding Capacity 184 ug/dL (250-450) L Percent Iron Saturation 21 % (15-50) Unsaturated Iron Binding 145 ug/dL (112-346) Ferritin 362 NG/ML (8-388) Total Bilirubin 0.5 MG/DL (0.2-1.0) Aspartate Amino Transf (AST/SGOT) 15 U/L (15-37) Alanine Aminotransferase (ALT/SGPT) 12 U/L (12-78) Alkaline Phosphatase 75 U/L (46-116) Total Protein 6.6 G/DL (6.4-8.2) Albumin 2.1 G/DL (3.4-5.0) L Globulin 4.5 g/dL Albumin/Globulin Ratio 0.5 (1.0-2.7) L Carcinoembryonic Antigen Pending Vitamin B12 Level 1234 PG/ML (193-986) H Folate 16.4 NG/ML (8.6-58.9) Thyroid Stimulating Hormone (TSH) 0.364 uiU/mL (0.358-3.740) Free Thyroxine 1.58 NG/DL (0.76-1.46) H Microbiology Date/Time Source Procedure Growth Status 03/23/19 12:35 Blood Blood Culture - Preliminary NO GROWTH AFTER 24 HOURS Resulted 03/23/19 12:25 Blood Blood Culture - Preliminary NO GROWTH AFTER 24 HOURS Resulted 03/23/19 16:00 Nasal Nares MRSA Culture - Final NO METHICILLIN RESISTANT STAPH AUREUS... Complete 03/23/19 16:00 Rectum VRE Culture - Final NO VANCOMYCIN RESISTANT ENTEROCOCCUS ... Complete Objective In AV paced rhythm.ICD interrogation showed Nl fx Silvio Sterling MD Mar 26, 2019 09:25
--- NOTE | 2019-03-26 10:17 | General Progress Note ---
Assessment/Plan Problem List: (1) S/P CABG (coronary artery bypass graft) ICD Codes: Z95.1 - Presence of aortocoronary bypass graft SNOMED: 116858716, 036467933 (2) CHF exacerbation ICD Codes: I50.9 - Heart failure, unspecified SNOMED: 685943358, 55047713748326, 564154534 (3) Nausea & vomiting ICD Codes: R11.2 - Nausea with vomiting, unspecified SNOMED: 36612293 (4) Iron deficiency anemia ICD Codes: D50.9 - Iron deficiency anemia, unspecified SNOMED: 48512826 (5) Pacemaker ICD Codes: Z95.0 - Presence of cardiac pacemaker SNOMED: 409810276, 897419953 (6) Diabetes mellitus ICD Codes: E11.9 - Type 2 diabetes mellitus without complications SNOMED: 62097284 (7) Constipation ICD Codes: K59.00 - Constipation, unspecified SNOMED: 89941987 Assessment/Plan: fu stool ob fu CBc given EF of 20% will hold GI procedures unless needed bowel regimen Subjective ROS Limited/Unobtainable: Yes Allergies: Coded Allergies: LACTOSE (Verified Allergy, Unknown, 03/23/19) LISINOPRIL (Unverified Allergy, Unknown, 01/17/18) METHOTREXATE (Verified Allergy, Unknown, 08/30/15) NSAIDS (NON-STEROIDAL ANTI-INFLAMMA (Unverified Allergy, Unknown, 11/14/15) Objective Last 24 Hour Vital Signs Date Time Temp Pulse Resp B/P (MAP) Pulse Ox O2 Delivery O2 Flow Rate FiO2 03/26/19 08:44 113/63 03/26/19 08:40 76 113/63 03/26/19 05:57 146/88 03/26/19 04:00 1.0 03/26/19 04:00 97.7 77 19 140/88 (105) 95 03/26/19 04:00 69 03/26/19 00:00 78 03/26/19 00:00 97.5 84 20 105/60 (75) 98 03/26/19 00:00 1.0 03/25/19 22:00 109/66 03/25/19 21:00 Room Air 03/25/19 20:49 95 112/70 03/25/19 20:00 66 6/20/19 20:00 98.1 95 20 112/64 (80) 98 03/25/19 16:00 80 03/25/19 16:00 1.0 03/25/19 16:00 97.3 64 18 124/86 (99) 98 03/25/19 13:44 131/72 03/25/19 12:00 1.0 03/25/19 12:00 70 03/25/19 11:58 97.5 71 18 131/72 (91) 100 Intake and Output 03/25/19 03/26/19 19:00 07:00 Output Total 200 ml Balance -200 ml Output Urine Total 200 ml # Voids 2 Laboratory Tests 03/26/19 05:50: White Blood Count 8.3, Red Blood Count 3.22L, Hemoglobin 9.2L, Hematocrit 27.9L , Mean Corpuscular Volume 87, Mean Corpuscular Hemoglobin 28.7, Mean Corpuscular Hemoglobin Concent 33.1, Red Cell Distribution Width 13.7, Platelet Count 312, Mean Platelet Volume 4.9L, Neutrophils (%) (Auto) 72.4, Lymphocytes ( %) (Auto) 13.6L, Monocytes (%) (Auto) 9.7, Eosinophils (%) (Auto) 3.5H, Basophils (%) (Auto) 0.8, Reticulocyte Count [Pending], Prothrombin Time 11.9H, Prothromb Time International Ratio 1.1, Activated Partial Thromboplast Time 43H , Sodium Level 138, Potassium Level 3.8, Chloride Level 98, Carbon Dioxide Level 32, Anion Gap 8, Blood Urea Nitrogen 15, Creatinine 1.1, Estimat Glomerular Filtration Rate > 60, Glucose Level 159H, Calcium Level 8.7, Iron Level 39L, Total Iron Binding Capacity 184L, Percent Iron Saturation 21, Unsaturated Iron Binding 145, Ferritin 362, Total Bilirubin 0.5, Aspartate Amino Transf (AST/SGOT) 15, Alanine Aminotransferase (ALT/SGPT) 12, Alkaline Phosphatase 75, Total Protein 6.6, Albumin 2.1L, Globulin 4.5, Albumin/Globulin Ratio 0.5L, Carcinoembryonic Antigen [Pending], Vitamin B12 Level 1234H, Folate 16.4, Thyroid Stimulating Hormone (TSH) 0.364, Free Thyroxine 1.58H Height (Feet): 5 Height (Inches): 9.00 Weight (Pounds): 240 General Appearance: alert EENT: normal ENT inspection Neck: supple Cardiovascular: normal rate Respiratory/Chest: decreased breath sounds Abdomen: normal bowel sounds, non tender, soft Extremities: non-tender Med Shannon MD Mar 26, 2019 10:17
--- NOTE | 2019-03-26 10:25 | NUR ---
CASE MANAGEMENT:REVIEW 03/26/19 SI: ACS. CAD. S/P CABG. ELEVATED TROPONIN 97.7 77 19 140/88 95% ON 1L/NC H/H-9.2/27.9 GLUCOSE+159 IS: IMDUR PO QD ALDACTONE PO QD IV LASIX QD HYDRALAZINE PO Q8HRS COREG PO Q12 HEPARIN SQ Q12 CARAFATE PO QID : TELEMETRY STATUS DCP: [employer]: [employer] IS REQUESTING AUTHORIZATION FROM [facility] [place] TO UPGRADE DEFIBRILLATOR TO BIVENTRICULAR
--- NOTE | 2019-03-26 10:31 | NUR ---
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
[2019-03-26 12:00] VITALS: BP 114/77
--- NOTE | 2019-03-26 12:20 | Pulmonology Progress Note ---
Assessment/Plan Problems: (1) Acute coronary syndrome (2) S/P CABG (coronary artery bypass graft) (3) Pacemaker (4) Coronary heart disease (5) Diabetes mellitus Assessment/Plan add pepcid IV and reglan dc morphine sliding scale diabetic diet f/u cariology recommendations Subjective ROS Limited/Unobtainable: No Allergies: Coded Allergies: LACTOSE (Verified Allergy, Unknown, 03/23/19) LISINOPRIL (Unverified Allergy, Unknown, 01/17/18) METHOTREXATE (Verified Allergy, Unknown, 08/30/15) NSAIDS (NON-STEROIDAL ANTI-INFLAMMA (Unverified Allergy, Unknown, 11/14/15) Objective Last 24 Hour Vital Signs Date Time Temp Pulse Resp B/P (MAP) Pulse Ox O2 Delivery O2 Flow Rate FiO2 03/26/19 09:00 Room Air 03/26/19 08:44 113/63 03/26/19 08:40 76 113/63 03/26/19 08:00 1.0 03/26/19 08:00 97.9 76 16 113/63 (80) 93 03/26/19 07:52 65 03/26/19 05:57 146/88 03/26/19 04:00 1.0 03/26/19 04:00 97.7 77 19 140/88 (105) 95 03/26/19 04:00 69 03/26/19 00:00 78 03/26/19 00:00 97.5 84 20 105/60 (75) 98 03/26/19 00:00 1.0 03/25/19 22:00 109/66 03/25/19 21:00 Room Air 03/25/19 20:49 95 112/70 03/25/19 20:00 66 03/25/19 20:00 98.1 95 20 112/64 (80) 98 03/25/19 16:00 80 03/25/19 16:00 1.0 03/25/19 16:00 97.3 64 18 124/86 (99) 98 03/25/19 13:44 131/72 Intake and Output 03/25/19 03/26/19 19:00 07:00 Output Total 200 ml Balance -200 ml Output Urine Total 200 ml # Voids 2 General Appearance: WD/WN HEENT: normocephalic, atraumatic Respiratory/Chest: chest wall non-tender, lungs clear Cardiovascular: normal peripheral pulses, normal rate Abdomen: normal bowel sounds, soft, non tender Neurologic/Psychiatric: cut out stitcher II-XII grossly normal Lymphatic: no neck adenopathy Microbiology Date/Time Source Procedure Growth Status 03/23/19 12:35 Blood Blood Culture - Preliminary NO GROWTH AFTER 24 HOURS Resulted 03/23/19 12:25 Blood Blood Culture - Preliminary NO GROWTH AFTER 24 HOURS Resulted 03/23/19 16:00 Nasal Nares MRSA Culture - Final NO METHICILLIN RESISTANT STAPH AUREUS... Complete 03/23/19 16:00 Rectum VRE Culture - Final NO VANCOMYCIN RESISTANT ENTEROCOCCUS ... Complete Laboratory Tests 03/26/19 05:50: White Blood Count 8.3, Red Blood Count 3.22L, Hemoglobin 9.2L, Hematocrit 27.9L , Mean Corpuscular Volume 87, Mean Corpuscular Hemoglobin 28.7, Mean Corpuscular Hemoglobin Concent 33.1, Red Cell Distribution Width 13.7, Platelet Count 312, Mean Platelet Volume 4.9L, Neutrophils (%) (Auto) 72.4, Lymphocytes ( %) (Auto) 13.6L, Monocytes (%) (Auto) 9.7, Eosinophils (%) (Auto) 3.5H, Basophils (%) (Auto) 0.8, Reticulocyte Count 0.8, Prothrombin Time 11.9H, Prothromb Time International Ratio 1.1, Activated Partial Thromboplast Time 43H , Sodium Level 138, Potassium Level 3.8, Chloride Level 98, Carbon Dioxide Level 32, Anion Gap 8, Blood Urea Nitrogen 15, Creatinine 1.1, Estimat Glomerular Filtration Rate > 60, Glucose Level 159H, Calcium Level 8.7, Iron Level 39L, Total Iron Binding Capacity 184L, Percent Iron Saturation 21, Unsaturated Iron Binding 145, Ferritin 362, Total Bilirubin 0.5, Aspartate Amino Transf (AST/SGOT) 15, Alanine Aminotransferase (ALT/SGPT) 12, Alkaline Phosphatase 75, Total Protein 6.6, Albumin 2.1L, Globulin 4.5, Albumin/Globulin Ratio 0.5L, Carcinoembryonic Antigen [Pending], Vitamin B12 Level 1234H, Folate 16.4, Thyroid Stimulating Hormone (TSH) 0.364, Free Thyroxine 1.58H Current Medications Medications (Trade) Dose Ordered Sig/Paola Route PRN Reason Start Time Stop Time Status Last Admin Dose Admin Acetaminophen (Tylenol) 650 mg Q4H PRN ORAL Mild Pain/Temp > 100.5 03/25/19 16:15 04/22/19 16:14 03/26/19 02:50 Atorvastatin Calcium (Lipitor) 10 mg BEDTIME ORAL 03/26/19 21:00 04/25/19 20:59 Baclofen (Lioresal) 10 mg THREE TIMES A DAY ORAL 03/23/19 18:00 04/22/19 17:59 03/26/19 08:44 Carvedilol (Coreg) 12.5 mg EVERY 12 HOURS ORAL 03/23/19 21:00 04/22/19 20:59 03/26/19 08:40 Dextrose (Dextrose 50%) 25 ml Q30M PRN IV Hypoglycemia 03/23/19 16:15 04/22/19 16:14 Dextrose (Dextrose 50%) 50 ml Q30M PRN IV Hypoglycemia 03/23/19 16:15 04/22/19 16:14 Docusate Sodium (Colace) 100 mg THREE TIMES A DAY ORAL 03/25/19 13:00 04/24/19 12:59 03/26/19 08:43 Furosemide (Lasix) 40 mg DAILY IV 03/24/19 09:00 04/23/19 08:59 03/26/19 08:43 Gabapentin (Neurontin) 300 mg THREE TIMES A DAY ORAL 03/23/19 18:00 04/22/19 17:59 03/26/19 08:44 Heparin Sodium (Porcine) (Heparin 5000 units/ml) 5,000 units EVERY 12 HOURS SUBQ 03/23/19 21:00 04/22/19 20:59 03/26/19 08:39 Hydralazine HCl (Apresoline) 50 mg EVERY 8 HOURS ORAL 03/23/19 22:00 04/22/19 21:59 03/26/19 05:57 Insulin Aspart (NovoLOG) BEFORE MEALS AND HS SUBQ 03/23/19 16:30 04/22/19 16:29 03/26/19 06:04 Isosorbide Mononitrate (Imdur) 30 mg DAILY ORAL 03/24/19 09:00 04/23/19 08:59 03/26/19 08:44 Lorazepam (Ativan 2mg/ml 1ml) 0.5 mg Q4H PRN IV For Anxiety 03/23/19 16:15 03/30/19 16:14 Nitroglycerin (Ntg) 0.4 mg Q5M PRN SL Prn Chest Pain 03/25/19 15:15 04/24/19 15:14 Ondansetron HCl (Zofran) 4 mg Q6H PRN IVP Nausea & Vomiting 03/23/19 16:15 04/22/19 16:14 03/25/19 03:53 Polyethylene Glycol (Miralax) 17 gm BEDTIME ORAL 03/25/19 21:00 04/24/19 20:59 03/25/19 20:48 Polyethylene Glycol (Miralax) 17 gm HSPRN PRN ORAL Constipation 03/23/19 21:00 04/22/19 20:59 Promethazine HCl 12.5 mg/Sodium Chloride 55.5 ml @ 222 mls/hr Q6H PRN IVPB nausea 03/24/19 12:30 04/23/19 12:29 03/25/19 08:39 Spironolactone (Aldactone) 25 mg DAILY ORAL 03/24/19 09:00 04/23/19 08:59 03/26/19 08:43 Zolpidem Tartrate (Ambien) 5 mg HSPRN PRN ORAL Insomnia 03/23/19 21:00 03/30/19 20:59 Pretty Sweet MD Mar 26, 2019 12:20
--- NOTE | 2019-03-26 13:32 | NUR ---
*-* INSURANCE *-* ALL CLINICALS AND REVIEWS HAVE BEEN FAXED TO: [employer] FAX ALL CLINICALS TO [phone]
--- NOTE | 2019-03-26 14:14 | Internal Med Progress Note ---
Subjective Physician Name David Negron Attending Physician David Negron MD Current Medications Medications (Trade) Dose Ordered Sig/Paola Route PRN Reason Start Time Stop Time Status Last Admin Dose Admin Acetaminophen (Tylenol) 650 mg Q4H PRN ORAL Mild Pain/Temp > 100.5 03/25/19 16:15 04/22/19 16:14 03/26/19 02:50 Atorvastatin Calcium (Lipitor) 10 mg BEDTIME ORAL 03/26/19 21:00 04/25/19 20:59 Baclofen (Lioresal) 10 mg THREE TIMES A DAY ORAL 03/23/19 18:00 04/22/19 17:59 03/26/19 12:32 Carvedilol (Coreg) 12.5 mg EVERY 12 HOURS ORAL 03/23/19 21:00 04/22/19 20:59 03/26/19 08:40 Dextrose (Dextrose 50%) 25 ml Q30M PRN IV Hypoglycemia 03/23/19 16:15 04/22/19 16:14 Dextrose (Dextrose 50%) 50 ml Q30M PRN IV Hypoglycemia 03/23/19 16:15 04/22/19 16:14 Docusate Sodium (Colace) 100 mg THREE TIMES A DAY ORAL 03/25/19 13:00 04/24/19 12:59 03/26/19 12:32 Furosemide (Lasix) 40 mg DAILY IV 03/24/19 09:00 04/23/19 08:59 03/26/19 08:43 Gabapentin (Neurontin) 300 mg THREE TIMES A DAY ORAL 03/23/19 18:00 04/22/19 17:59 03/26/19 12:32 Heparin Sodium (Porcine) (Heparin 5000 units/ml) 5,000 units EVERY 12 HOURS SUBQ 03/23/19 21:00 04/22/19 20:59 03/26/19 08:39 Hydralazine HCl (Apresoline) 50 mg EVERY 8 HOURS ORAL 03/23/19 22:00 04/22/19 21:59 03/26/19 05:57 Insulin Aspart (NovoLOG) BEFORE MEALS AND HS SUBQ 03/23/19 16:30 04/22/19 16:29 03/26/19 12:31 Isosorbide Mononitrate (Imdur) 30 mg DAILY ORAL 03/24/19 09:00 04/23/19 08:59 03/26/19 08:44 Lorazepam (Ativan 2mg/ml 1ml) 0.5 mg Q4H PRN IV For Anxiety 03/23/19 16:15 03/30/19 16:14 Nitroglycerin (Ntg) 0.4 mg Q5M PRN SL Prn Chest Pain 03/25/19 15:15 04/24/19 15:14 Ondansetron HCl (Zofran) 4 mg Q6H PRN IVP Nausea & Vomiting 03/23/19 16:15 04/22/19 16:14 03/25/19 03:53 Polyethylene Glycol (Miralax) 17 gm BEDTIME ORAL 03/25/19 21:00 04/24/19 20:59 03/25/19 20:48 Polyethylene Glycol (Miralax) 17 gm HSPRN PRN ORAL Constipation 03/23/19 21:00 04/22/19 20:59 Promethazine HCl 12.5 mg/Sodium Chloride 55.5 ml @ 222 mls/hr Q6H PRN IVPB nausea 03/24/19 12:30 04/23/19 12:29 03/25/19 08:39 Spironolactone (Aldactone) 25 mg DAILY ORAL 03/24/19 09:00 04/23/19 08:59 03/26/19 08:43 Zolpidem Tartrate (Ambien) 5 mg HSPRN PRN ORAL Insomnia 03/23/19 21:00 03/30/19 20:59 Allergies: Coded Allergies: LACTOSE (Verified Allergy, Unknown, 03/23/19) LISINOPRIL (Unverified Allergy, Unknown, 01/17/18) METHOTREXATE (Verified Allergy, Unknown, 08/30/15) NSAIDS (NON-STEROIDAL ANTI-INFLAMMA (Unverified Allergy, Unknown, 11/14/15) Subjective awake, alert, responsive, ED, No SOB, + Chest pain Objective Last Vital Signs Date Time Temp Pulse Resp B/P (MAP) Pulse Ox O2 Delivery O2 Flow Rate FiO2 03/26/19 12:00 98.2 67 16 114/77 (89) 97 03/26/19 12:00 1.0 03/26/19 09:00 Room Air Laboratory Tests Test 03/26/19 05:50 White Blood Count 8.3 K/UL (4.8-10.8) Red Blood Count 3.22 M/UL (4.70-6.10) L Hemoglobin 9.2 G/DL (14.2-18.0) L Hematocrit 27.9 % (42.0-52.0) L Mean Corpuscular Volume 87 FL (80-99) Mean Corpuscular Hemoglobin 28.7 PG (27.0-31.0) Mean Corpuscular Hemoglobin Concent 33.1 G/DL (32.0-36.0) Red Cell Distribution Width 13.7 % (11.6-14.8) Platelet Count 312 K/UL (150-450) Mean Platelet Volume 4.9 FL (6.5-10.1) L Neutrophils (%) (Auto) 72.4 % (45.0-75.0) Lymphocytes (%) (Auto) 13.6 % (20.0-45.0) L Monocytes (%) (Auto) 9.7 % (1.0-10.0) Eosinophils (%) (Auto) 3.5 % (0.0-3.0) H Basophils (%) (Auto) 0.8 % (0.0-2.0) Reticulocyte Count 0.8 % (0.5-2.0) Prothrombin Time 11.9 SEC (9.30-11.50) H Prothromb Time International Ratio 1.1 (0.9-1.1) Activated Partial Thromboplast Time 43 SEC (23-33) H Sodium Level 138 MMOL/L (136-145) Potassium Level 3.8 MMOL/L (3.5-5.1) Chloride Level 98 MMOL/L (98-107) Carbon Dioxide Level 32 MMOL/L (21-32) Anion Gap 8 mmol/L (5-15) Blood Urea Nitrogen 15 mg/dL (7-18) Creatinine 1.1 MG/DL (0.55-1.30) Estimat Glomerular Filtration Rate > 60 mL/min (>60) Glucose Level 159 MG/DL (74-106) H Calcium Level 8.7 MG/DL (8.5-10.1) Iron Level 39 ug/dL (50-175) L Total Iron Binding Capacity 184 ug/dL (250-450) L Percent Iron Saturation 21 % (15-50) Unsaturated Iron Binding 145 ug/dL (112-346) Ferritin 362 NG/ML (8-388) Total Bilirubin 0.5 MG/DL (0.2-1.0) Aspartate Amino Transf (AST/SGOT) 15 U/L (15-37) Alanine Aminotransferase (ALT/SGPT) 12 U/L (12-78) Alkaline Phosphatase 75 U/L (46-116) Total Protein 6.6 G/DL (6.4-8.2) Albumin 2.1 G/DL (3.4-5.0) L Globulin 4.5 g/dL Albumin/Globulin Ratio 0.5 (1.0-2.7) L Carcinoembryonic Antigen Pending Vitamin B12 Level 1234 PG/ML (193-986) H Folate 16.4 NG/ML (8.6-58.9) Thyroid Stimulating Hormone (TSH) 0.364 uiU/mL (0.358-3.740) Free Thyroxine 1.58 NG/DL (0.76-1.46) H Microbiology Date/Time Source Procedure Growth Status 03/23/19 16:00 Nasal Nares MRSA Culture - Final NO METHICILLIN RESISTANT STAPH AUREUS... Complete 03/23/19 16:00 Rectum VRE Culture - Final NO VANCOMYCIN RESISTANT ENTEROCOCCUS ... Complete Intake and Output 03/25/19 03/26/19 18:59 06:59 Output Total 200 ml Balance -200 ml Output Urine Total 200 ml # Voids 2 Objective General: No acute distress, awake and alert HEENT: NCAT, sclera anicteric, PERRL, EOMI. Neck: Supple, no significant jugular venous distention, Lungs: decrease air at bases, clear to auscultation bilaterally, no Rales, + expiratory wheezes. Heart: Regular rate and rhythm, normal S1/S2, no murmur, Abdomen: soft, nontender, nondistended. Normoactive bowel sounds, morbid obesity. Extremities: No Cyanosis , clubbing or edema. 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 Neuro: A&O x 3, Able to move all extremities Skin: warm, no rashes or lesions Psych: Normal mood and affect Assessment/Plan Assessment/Plan 1. Generalized weakness. 2. Elevated troponin. 3. Congestive heart failure. 4. Coronary artery disease. 5. Diabetes type 2. 6. Hypertension. 7. Ischemic cardiomyopathy. 8. Peripheral vascular disease. 9. Cerebrovascular disease, status post cerebrovascular accident. 10. Right hemiplegia. 11. Chronic obstructive pulmonary disease. 12. AICD in situ Plan: F/U with Dr. Sterling recommendations Monitor Labs PT Mobility Heparin SQ for DVT prophylaxis David Negron MD Mar 26, 2019 14:14
[2019-03-26 16:00] VITALS: BP 111/86
--- NOTE | 2019-03-26 19:29 | NUR ---
HAND-OFF: Report given to Latrice GAMEZ. Pt. remain stable.
--- NOTE | 2019-03-26 19:35 | NUR ---
NURSE NOTES: Received patient from FRANCO Ojeda. Will continue plan of care.
[2019-03-26 20:00] VITALS: BP 92/70
[2019-03-26] MEDS: Miralax 17gm pkt ORAL SCH (21:09)
[2019-03-27] VITALS: BP 124/57
[2019-03-27 04:00] VITALS: BP 105/59
[2019-03-27] MEDS: HydrALAZINE 50mg tab ORAL SCH ×3 (05:52→22:00)
[2019-03-27] MEDS: NovoLOG Insulin Flexpen SUBQ SCH ×4 (05:58→20:51)
--- NOTE | 2019-03-27 06:33 | Pulmonology Progress Note ---
Assessment/Plan Problems: (1) Acute coronary syndrome (2) S/P CABG (coronary artery bypass graft) (3) Pacemaker (4) Coronary heart disease (5) Diabetes mellitus (6) Nausea & vomiting (7) Intractable abdominal pain Assessment/Plan repeat cxr today, bnp in am on lasix qd iv add pepcid IV and reglan dc morphine sliding scale diabetic diet f/u cariology recommendations Subjective ROS Limited/Unobtainable: No Constitutional: Reports: no symptoms Respiratory: Reports: no symptoms Allergies: Coded Allergies: LACTOSE (Verified Allergy, Unknown, 03/23/19) LISINOPRIL (Unverified Allergy, Unknown, 01/17/18) METHOTREXATE (Verified Allergy, Unknown, 08/30/15) NSAIDS (NON-STEROIDAL ANTI-INFLAMMA (Unverified Allergy, Unknown, 11/14/15) Objective Last 24 Hour Vital Signs Date Time Temp Pulse Resp B/P (MAP) Pulse Ox O2 Delivery O2 Flow Rate FiO2 03/27/19 05:52 105/59 03/27/19 04:00 99.3 72 20 105/59 (74) 100 03/27/19 03:44 65 03/27/19 00:00 98.4 80 20 124/57 (79) 95 03/26/19 23:42 78 03/26/19 21:08 92/70 03/26/19 21:00 1.0 03/26/19 21:00 Room Air 03/26/19 21:00 72 92/70 03/26/19 20:00 98.5 80 20 92/70 (77) 97 03/26/19 19:59 79 03/26/19 16:00 98.8 61 17 111/86 (94) 97 03/26/19 16:00 1.0 03/26/19 15:43 73 03/26/19 12:01 74 03/26/19 12:00 98.2 67 16 114/77 (89) 97 03/26/19 12:00 1.0 03/26/19 09:00 Room Air 03/26/19 08:44 113/63 03/26/19 08:40 76 113/63 03/26/19 08:00 1.0 03/26/19 08:00 97.9 76 16 113/63 (80) 93 03/26/19 07:52 65 Intake and Output 03/26/19 03/27/19 19:00 07:00 Intake Total 400 ml Balance 400 ml Intake Oral 400 ml Objective General Appearance: WD/WN, no acute distress Respiratory/Chest: chest wall non-tender, rhonchi Cardiovascular: normal peripheral pulses, normal rate Abdomen: normal bowel sounds, non distended Extremities: no cyanosis, no clubbing Current Medications Medications (Trade) Dose Ordered Sig/Paola Route PRN Reason Start Time Stop Time Status Last Admin Dose Admin Acetaminophen (Tylenol) 650 mg Q4H PRN ORAL Mild Pain/Temp > 100.5 03/25/19 16:15 04/22/19 16:14 03/26/19 21:20 Atorvastatin Calcium (Lipitor) 10 mg BEDTIME ORAL 03/26/19 21:00 04/25/19 20:59 03/26/19 21:09 Baclofen (Lioresal) 10 mg THREE TIMES A DAY ORAL 03/23/19 18:00 04/22/19 17:59 03/26/19 17:14 Carvedilol (Coreg) 12.5 mg EVERY 12 HOURS ORAL 03/23/19 21:00 04/22/19 20:59 03/26/19 08:40 Dextrose (Dextrose 50%) 25 ml Q30M PRN IV Hypoglycemia 03/23/19 16:15 04/22/19 16:14 Dextrose (Dextrose 50%) 50 ml Q30M PRN IV Hypoglycemia 03/23/19 16:15 04/22/19 16:14 Docusate Sodium (Colace) 100 mg THREE TIMES A DAY ORAL 03/25/19 13:00 04/24/19 12:59 03/26/19 17:14 Furosemide (Lasix) 40 mg DAILY IV 03/24/19 09:00 04/23/19 08:59 03/26/19 08:43 Gabapentin (Neurontin) 300 mg THREE TIMES A DAY ORAL 03/23/19 18:00 04/22/19 17:59 03/26/19 17:14 Heparin Sodium (Porcine) (Heparin 5000 units/ml) 5,000 units EVERY 12 HOURS SUBQ 03/23/19 21:00 04/22/19 20:59 03/26/19 21:10 Hydralazine HCl (Apresoline) 50 mg EVERY 8 HOURS ORAL 03/23/19 22:00 04/22/19 21:59 03/26/19 05:57 Insulin Aspart (NovoLOG) BEFORE MEALS AND HS SUBQ 03/23/19 16:30 04/22/19 16:29 03/27/19 05:58 Isosorbide Mononitrate (Imdur) 30 mg DAILY ORAL 03/24/19 09:00 04/23/19 08:59 03/26/19 08:44 Lorazepam (Ativan 2mg/ml 1ml) 0.5 mg Q4H PRN IV For Anxiety 03/23/19 16:15 03/30/19 16:14 Nitroglycerin (Ntg) 0.4 mg Q5M PRN SL Prn Chest Pain 03/25/19 15:15 04/24/19 15:14 Ondansetron HCl (Zofran) 4 mg Q6H PRN IVP Nausea & Vomiting 03/23/19 16:15 04/22/19 16:14 03/25/19 03:53 Polyethylene Glycol (Miralax) 17 gm BEDTIME ORAL 03/25/19 21:00 04/24/19 20:59 03/26/19 21:09 Polyethylene Glycol (Miralax) 17 gm HSPRN PRN ORAL Constipation 03/23/19 21:00 04/22/19 20:59 Promethazine HCl 12.5 mg/Sodium Chloride 55.5 ml @ 222 mls/hr Q6H PRN IVPB nausea 03/24/19 12:30 04/23/19 12:29 03/25/19 08:39 Spironolactone (Aldactone) 25 mg DAILY ORAL 03/24/19 09:00 04/23/19 08:59 03/26/19 08:43 Zolpidem Tartrate (Ambien) 5 mg HSPRN PRN ORAL Insomnia 03/23/19 21:00 03/30/19 20:59 Pretty Sweet MD Mar 27, 2019 06:33
--- NOTE | 2019-03-27 07:27 | NUR ---
HAND-OFF: Report given to FRANCO Yeh.
--- NOTE | 2019-03-27 07:28 | NUR ---
NURSE NOTES: Received report from FRANCO Pollard. Pt. Patient is resting in bed, sleeping. No sign of acute distress at this time. IV at right FA #[id number] intact and asymptomatic. Bed in low position, with two side rails up, brake engaged. Call light and bed side table within reach. Will continue to monitor.
[2019-03-27 08:00] VITALS: BP 102/65
[2019-03-27] MEDS: Carvedilol 12.5mg tab ORAL SCH ×2 (08:24→20:48)
[2019-03-27] MEDS: Docusate 100mg cap ORAL SCH ×3 (08:24→17:07)
[2019-03-27] MEDS: Heparin 5000 units/ml inj SUBQ SCH ×2 (08:31→20:52)
[2019-03-27] MEDS: Imdur 30mg tab ORAL SCH (08:35)
[2019-03-27] MEDS: Spironolactone 25mg tab ORAL SCH (08:35)
--- NOTE | 2019-03-27 09:12 | Diagnostic Imaging Report ---
EXAM: XR Chest, 1 View CLINICAL HISTORY: DYSPNEA TECHNIQUE: Frontal view of the chest. COMPARISON: Chest x-ray dated 03/23/19 FINDINGS: Lungs: Unchanged diffusely increased interstitial markings, which may represent pulmonary vascular congestion or interstitial pneumonitis. Persistent low lung volumes, which may be related to shallow inspiration. Pleural space: Blunting of the left costophrenic angle may suggest a small left effusion. Heart: Unremarkable. No cardiomegaly. Mediastinum: Unremarkable. Bones/joints: Unremarkable. Vasculature: Atherosclerotic calcifications are noted within the aortic arch. Tubes, lines and devices: Cardiac pacer in the left chest wall with the lead tips in the right atrium and right ventricle regions. Telemetry leads overlie the thorax. IMPRESSION: No significant interval change compared to the prior exam. Unchanged diffusely increased interstitial markings, which may represent pulmonary vascular congestion or interstitial pneumonitis. Possible small left pleural effusion.
--- NOTE | 2019-03-27 11:12 | General Progress Note ---
Assessment/Plan Problem List: (1) S/P CABG (coronary artery bypass graft) ICD Codes: Z95.1 - Presence of aortocoronary bypass graft SNOMED: 517372536, 362629607 (2) CHF exacerbation ICD Codes: I50.9 - Heart failure, unspecified SNOMED: 503633103, 92605120882219, 944169581 (3) Nausea & vomiting ICD Codes: R11.2 - Nausea with vomiting, unspecified SNOMED: 51098865 (4) Iron deficiency anemia ICD Codes: D50.9 - Iron deficiency anemia, unspecified SNOMED: 85552731 (5) Pacemaker ICD Codes: Z95.0 - Presence of cardiac pacemaker SNOMED: 434078831, 143613233 (6) Diabetes mellitus ICD Codes: E11.9 - Type 2 diabetes mellitus without complications SNOMED: 96076719 (7) Constipation ICD Codes: K59.00 - Constipation, unspecified SNOMED: 20138333 Assessment/Plan: fu stool ob fu CBc given EF of 20% will hold GI procedures unless needed bowel regimen Subjective ROS Limited/Unobtainable: No Allergies: Coded Allergies: LACTOSE (Verified Allergy, Unknown, 03/23/19) LISINOPRIL (Unverified Allergy, Unknown, 01/17/18) METHOTREXATE (Verified Allergy, Unknown, 08/30/15) NSAIDS (NON-STEROIDAL ANTI-INFLAMMA (Unverified Allergy, Unknown, 11/14/15) Objective Last 24 Hour Vital Signs Date Time Temp Pulse Resp B/P (MAP) Pulse Ox O2 Delivery O2 Flow Rate FiO2 03/27/19 09:00 Room Air 03/27/19 08:35 102/65 03/27/19 08:24 75 102/65 03/27/19 08:00 98.2 75 20 102/65 (77) 100 03/27/19 05:52 105/59 03/27/19 04:00 99.3 72 20 105/59 (74) 100 03/27/19 03:44 65 03/27/19 00:00 98.4 80 20 124/57 (79) 95 03/26/19 23:42 78 03/26/19 21:08 92/70 03/26/19 21:00 1.0 03/26/19 21:00 Room Air 03/26/19 21:00 72 92/70 03/26/19 20:00 98.5 80 20 92/70 (77) 97 03/26/19 19:59 79 03/26/19 16:00 98.8 61 17 111/86 (94) 97 03/26/19 16:00 1.0 03/26/19 15:43 73 03/26/19 12:01 74 03/26/19 12:00 98.2 67 16 114/77 (89) 97 03/26/19 12:00 1.0 Intake and Output 03/26/19 03/27/19 19:00 07:00 Intake Total 400 ml Balance 400 ml Intake Oral 400 ml Height (Feet): 5 Height (Inches): 9.00 Weight (Pounds): 240 General Appearance: no apparent distress EENT: normal ENT inspection Neck: supple Cardiovascular: normal rate Respiratory/Chest: decreased breath sounds Abdomen: normal bowel sounds, non tender, soft Extremities: non-tender Med Shannon MD Mar 27, 2019 11:12
--- NOTE | 2019-03-27 11:15 | NUR ---
CASE MANAGEMENT:REVIEW 03/27/19 SI: ACS. CAD. S/P CABG. ELEVATED TROPONIN T 99.3 HR 72 RR 20 B/P 105/59 SATS 100% ON RA NO LABS TODAY IS: IMDUR PO QD ALDACTONE PO QD IV LASIX QD HYDRALAZINE PO Q8HRS COREG PO Q12 HEPARIN SQ Q12 CARAFATE PO QID : TELEMETRY STATUS [facility]
[2019-03-27 12:00] VITALS: BP 91/61
--- NOTE | 2019-03-27 13:02 | Cardiac Electrophysiology PN ---
Assessment/Plan Assessment/Plan 1. Severe cardiomyopathy. EF 20%. Continue Coreg 12.5 mg bid, lisinopril 20 mg daily, Aldactone and Lasix. EKG is 100% ventricularly paced. Benefits from upgrading to a biventricular ICD if insurance approves 2. Status post [employer] DDD defibrillator. Interrogated that showed Nl Fx 3. Hypertension. Continue current heart failure therapy. 4. Diabetes. 5. History of CVA. 6. Coronary artery disease, prior stent placement. Continue Coreg and Lipitor CARMEN RN Subjective Subjective No CP or SOB. V paced Objective Last 24 Hour Vital Signs Date Time Temp Pulse Resp B/P (MAP) Pulse Ox O2 Delivery O2 Flow Rate FiO2 03/27/19 09:00 Room Air 03/27/19 08:35 102/65 03/27/19 08:24 75 102/65 03/27/19 08:00 98.2 75 20 102/65 (77) 100 03/27/19 08:00 70 03/27/19 05:52 105/59 03/27/19 04:00 99.3 72 20 105/59 (74) 100 03/27/19 03:44 65 03/27/19 00:00 98.4 80 20 124/57 (79) 95 03/26/19 23:42 78 03/26/19 21:08 92/70 03/26/19 21:00 1.0 03/26/19 21:00 Room Air 03/26/19 21:00 72 92/70 03/26/19 20:00 98.5 80 20 92/70 (77) 97 03/26/19 19:59 79 03/26/19 16:00 98.8 61 17 111/86 (94) 97 03/26/19 16:00 1.0 03/26/19 15:43 73 Intake and Output 03/26/19 03/27/19 19:00 07:00 Intake Total 400 ml Balance 400 ml Intake Oral 400 ml Objective In AV paced rhythm.ICD interrogation showed Nl fx Silvio Sterling MD Mar 27, 2019 13:02
--- NOTE | 2019-03-27 14:10 | Internal Med Progress Note ---
Subjective Date of Service: Mar 27, 2019 Physician Name Olea,Javi Attending Physician David Negron MD Current Medications Medications (Trade) Dose Ordered Sig/Paola Route PRN Reason Start Time Stop Time Status Last Admin Dose Admin Acetaminophen (Tylenol) 650 mg Q4H PRN ORAL Mild Pain/Temp > 100.5 03/25/19 16:15 04/22/19 16:14 03/27/19 08:25 Atorvastatin Calcium (Lipitor) 10 mg BEDTIME ORAL 03/26/19 21:00 04/25/19 20:59 03/26/19 21:09 Baclofen (Lioresal) 10 mg THREE TIMES A DAY ORAL 03/23/19 18:00 04/22/19 17:59 03/27/19 12:16 Carvedilol (Coreg) 12.5 mg EVERY 12 HOURS ORAL 03/23/19 21:00 04/22/19 20:59 03/27/19 08:24 Dextrose (Dextrose 50%) 25 ml Q30M PRN IV Hypoglycemia 03/23/19 16:15 04/22/19 16:14 Dextrose (Dextrose 50%) 50 ml Q30M PRN IV Hypoglycemia 03/23/19 16:15 04/22/19 16:14 Docusate Sodium (Colace) 100 mg THREE TIMES A DAY ORAL 03/25/19 13:00 04/24/19 12:59 03/27/19 12:16 Furosemide (Lasix) 40 mg DAILY IV 03/24/19 09:00 04/23/19 08:59 03/27/19 08:23 Gabapentin (Neurontin) 300 mg THREE TIMES A DAY ORAL 03/23/19 18:00 04/22/19 17:59 03/27/19 12:16 Heparin Sodium (Porcine) (Heparin 5000 units/ml) 5,000 units EVERY 12 HOURS SUBQ 03/23/19 21:00 04/22/19 20:59 03/27/19 08:31 Hydralazine HCl (Apresoline) 50 mg EVERY 8 HOURS ORAL 03/23/19 22:00 04/22/19 21:59 03/26/19 05:57 Insulin Aspart (NovoLOG) BEFORE MEALS AND HS SUBQ 03/23/19 16:30 04/22/19 16:29 03/27/19 12:19 Isosorbide Mononitrate (Imdur) 30 mg DAILY ORAL 03/24/19 09:00 04/23/19 08:59 03/26/19 08:44 Lorazepam (Ativan 2mg/ml 1ml) 0.5 mg Q4H PRN IV For Anxiety 03/23/19 16:15 03/30/19 16:14 Nitroglycerin (Ntg) 0.4 mg Q5M PRN SL Prn Chest Pain 03/25/19 15:15 04/24/19 15:14 Ondansetron HCl (Zofran) 4 mg Q6H PRN IVP Nausea & Vomiting 03/23/19 16:15 04/22/19 16:14 03/25/19 03:53 Polyethylene Glycol (Miralax) 17 gm BEDTIME ORAL 03/25/19 21:00 04/24/19 20:59 03/26/19 21:09 Polyethylene Glycol (Miralax) 17 gm HSPRN PRN ORAL Constipation 03/23/19 21:00 04/22/19 20:59 Promethazine HCl 12.5 mg/Sodium Chloride 55.5 ml @ 222 mls/hr Q6H PRN IVPB nausea 03/24/19 12:30 04/23/19 12:29 03/25/19 08:39 Spironolactone (Aldactone) 25 mg DAILY ORAL 03/24/19 09:00 04/23/19 08:59 03/26/19 08:43 Zolpidem Tartrate (Ambien) 5 mg HSPRN PRN ORAL Insomnia 03/23/19 21:00 03/30/19 20:59 Allergies: Coded Allergies: LACTOSE (Verified Allergy, Unknown, 03/23/19) LISINOPRIL (Unverified Allergy, Unknown, 01/17/18) METHOTREXATE (Verified Allergy, Unknown, 08/30/15) NSAIDS (NON-STEROIDAL ANTI-INFLAMMA (Unverified Allergy, Unknown, 11/14/15) ROS Limited/Unobtainable: No Constitutional: Reports: no symptoms HEENT: Reports: no symptoms Cardiovascular: Reports: no symptoms Respiratory: Reports: no symptoms Gastrointestinal/Abdominal: Reports: no symptoms Genitourinary: Reports: no symptoms Neurologic/Psychiatric: Reports: no symptoms Subjective 69 YO M admitted with gen weakness. Now elevated troponin and CHF. Cover for Int Med-Dr Negron Objective Last Vital Signs Date Time Temp Pulse Resp B/P (MAP) Pulse Ox O2 Delivery O2 Flow Rate FiO2 03/27/19 12:00 93 03/27/19 12:00 98.2 20 91/61 (71) 100 03/27/19 09:00 Room Air 03/26/19 21:00 1.0 Intake and Output 03/26/19 03/27/19 19:00 07:00 Intake Total 400 ml Balance 400 ml Intake Oral 400 ml Objective PHYSICAL EXAMINATION: GENERAL: The patient is a well-developed and well-nourished, obese male, in no apparent distress. HEENT: Eyes, pupils are equal and responsive to light and accommodation. Extraocular movements are intact. NECK: Supple. No lymphadenopathy. CHEST: Lungs are clear to auscultation bilaterally without wheezes or rales. CARDIOVASCULAR: Regular rhythm and rate. S1, S2 normal without murmurs, rubs, or gallops. ABDOMEN: Soft, nontender, and nondistended. Positive bowel sounds. No evidence of hepatosplenomegaly. Currently, no rebound or guarding noted. EXTREMITIES: Negative for clubbing, cyanosis, or edema. RECTAL/GENITAL: Not performed. NEUROLOGIC: Cranial nerves II through XII are grossly intact without focal deficits. Motor strength is 4/5 bilaterally. Deep tendon reflexes are 2+ plantar. Assessment/Plan Assessment/Plan ASSESSMENT: This is a 69-year-old male with: 1. Generalized weakness. 2. Elevated troponin. 3. Congestive heart failure. 4. Coronary artery disease. 5. Diabetes type 2. 6. Hypertension. 7. Ischemic cardiomyopathy. 8. Peripheral vascular disease. 9. Cerebrovascular disease, status post cerebrovascular accident. 10. Right hemiplegia. 11. Chronic obstructive pulmonary disease. 12. AICD in situ TREATMENT: 1. Congestive heart failure/coronary artery disease. A Cardiology consultation has been obtained with Dr. Silvio Sterling. The patient's previous ejection fraction was 20% to 25%. An echocardiogram is pending. We will follow recommendations of Cardiology. See discussion concerning biventricular ICD 2. Generalized weakness. This may be secondary to congestive heart failure acute exacerbation. 3. Elevated troponin. 4. Diabetes type 2. Continue NovoLog sliding scale. 5. Hypertension. Continue Coreg as above. 6. Ischemic cardiomyopathy. 7. Peripheral vascular disease. Continue Plavix as above. 8. Cerebrovascular disease, status post cerebrovascular accident. 9. Right hemiplegia. 10. Chronic obstructive pulmonary disease. A Pulmonary consultation has been obtained with Dr. Pretty Sweet. 11. Discharge planning Javi Olea MD Mar 27, 2019 14:10
--- NOTE | 2019-03-27 14:51 | Hematology/Onc Progress Note ---
Assessment/Plan Assessment/Plan Assessment and Recs: # Bilateral DVT hx in 2018 noted on duplex lower extremity --> currently is only on heparin sq dosing --> repeat duplex of lower extremities could be cause of cellulitis recurrent-- > NO DVT NOW noted --> okay to continue on heparin or lmwh sq inhouse # Anemia of chronic disease due to underlying chronic medical issues, multifactorial --> Anemia workup has been reviewed. Ferritin 362 --> rule out gi bleed. Stool OB negative --> No evidence of hemolysis is noted, peripheral smear has been reviewed. --> Hgb goal >7. Transfuse prn. --> Epogen or iron at this time is not particularly indicated --> Medications have been reviewed --> bone marrow biopsy is not indicated given the other more likely causes --> Hgb trend: 9.2 # Hyperproteinemia - with elevated protein --> SPEP reviewed and does not show significant MSPIKE --> repeat cbc and bmp --> if elevated ca consider to get a pth # S/P CABG Acute myocardial infarction. Ischemic cardiomyopathy hx --> cards eval as needed with severe cardiomyopathy # Acute on chronic systolic congestive heart failure. --> may need upgrade of icd # Cardiac defibrillator. # Cellulitis of the lower ext --> on abx prnx The timing of this note does not necessarily reflect the time of the patient was seen. Greatly appreciate consultation! (1) Constipation (2) Nausea & vomiting (3) Iron deficiency anemia (4) Intractable abdominal pain Plan Will consider GI procedures pending work-up zofran prn, reglan for persistent N/V anemia work up OB stool r/o GI bleed monitor H&H, prn transfusions bowel regimen, colace + miralax ppi fu labs Subjective Hematologic/Lymphatic: Reports: anemia Allergies: Coded Allergies: LACTOSE (Verified Allergy, Unknown, 03/23/19) LISINOPRIL (Unverified Allergy, Unknown, 01/17/18) METHOTREXATE (Verified Allergy, Unknown, 08/30/15) NSAIDS (NON-STEROIDAL ANTI-INFLAMMA (Unverified Allergy, Unknown, 11/14/15) All Systems: reviewed and negative except above Subjective 03/26: Pt resting in bed, awake and alert. No acute events. H/H stable. Stool OB negative. Objective Objective Current Medications Medications (Trade) Dose Ordered Sig/Paola Route PRN Reason Start Time Stop Time Status Last Admin Dose Admin Acetaminophen (Tylenol) 650 mg Q4H PRN ORAL Mild Pain/Temp > 100.5 03/25/19 16:15 04/22/19 16:14 03/27/19 08:25 Atorvastatin Calcium (Lipitor) 10 mg BEDTIME ORAL 03/26/19 21:00 04/25/19 20:59 03/26/19 21:09 Baclofen (Lioresal) 10 mg THREE TIMES A DAY ORAL 03/23/19 18:00 04/22/19 17:59 03/27/19 12:16 Carvedilol (Coreg) 12.5 mg EVERY 12 HOURS ORAL 03/23/19 21:00 04/22/19 20:59 03/27/19 08:24 Dextrose (Dextrose 50%) 25 ml Q30M PRN IV Hypoglycemia 03/23/19 16:15 04/22/19 16:14 Dextrose (Dextrose 50%) 50 ml Q30M PRN IV Hypoglycemia 03/23/19 16:15 04/22/19 16:14 Docusate Sodium (Colace) 100 mg THREE TIMES A DAY ORAL 03/25/19 13:00 04/24/19 12:59 03/27/19 12:16 Furosemide (Lasix) 40 mg DAILY IV 03/24/19 09:00 04/23/19 08:59 03/27/19 08:23 Gabapentin (Neurontin) 300 mg THREE TIMES A DAY ORAL 03/23/19 18:00 04/22/19 17:59 03/27/19 12:16 Heparin Sodium (Porcine) (Heparin 5000 units/ml) 5,000 units EVERY 12 HOURS SUBQ 03/23/19 21:00 04/22/19 20:59 03/27/19 08:31 Hydralazine HCl (Apresoline) 50 mg EVERY 8 HOURS ORAL 03/23/19 22:00 04/22/19 21:59 03/26/19 05:57 Insulin Aspart (NovoLOG) BEFORE MEALS AND HS SUBQ 03/23/19 16:30 04/22/19 16:29 03/27/19 12:19 Isosorbide Mononitrate (Imdur) 30 mg DAILY ORAL 03/24/19 09:00 04/23/19 08:59 03/26/19 08:44 Lorazepam (Ativan 2mg/ml 1ml) 0.5 mg Q4H PRN IV For Anxiety 03/23/19 16:15 03/30/19 16:14 Nitroglycerin (Ntg) 0.4 mg Q5M PRN SL Prn Chest Pain 03/25/19 15:15 04/24/19 15:14 Ondansetron HCl (Zofran) 4 mg Q6H PRN IVP Nausea & Vomiting 03/23/19 16:15 04/22/19 16:14 03/25/19 03:53 Polyethylene Glycol (Miralax) 17 gm BEDTIME ORAL 03/25/19 21:00 04/24/19 20:59 03/26/19 21:09 Polyethylene Glycol (Miralax) 17 gm HSPRN PRN ORAL Constipation 03/23/19 21:00 04/22/19 20:59 Promethazine HCl 12.5 mg/Sodium Chloride 55.5 ml @ 222 mls/hr Q6H PRN IVPB nausea 03/24/19 12:30 04/23/19 12:29 03/25/19 08:39 Spironolactone (Aldactone) 25 mg DAILY ORAL 03/24/19 09:00 04/23/19 08:59 03/26/19 08:43 Zolpidem Tartrate (Ambien) 5 mg HSPRN PRN ORAL Insomnia 03/23/19 21:00 03/30/19 20:59 Last 24 Hour Vital Signs Date Time Temp Pulse Resp B/P (MAP) Pulse Ox O2 Delivery O2 Flow Rate FiO2 03/27/19 12:00 93 03/27/19 12:00 98.2 95 20 91/61 (71) 100 03/27/19 09:00 Room Air 03/27/19 08:35 102/65 03/27/19 08:24 75 102/65 03/27/19 08:00 98.2 75 20 102/65 (77) 100 03/27/19 08:00 70 03/27/19 05:52 105/59 03/27/19 04:00 99.3 72 20 105/59 (74) 100 03/27/19 03:44 65 03/27/19 00:00 98.4 80 20 124/57 (79) 95 03/26/19 23:42 78 03/26/19 21:08 92/70 03/26/19 21:00 1.0 03/26/19 21:00 Room Air 03/26/19 21:00 72 92/70 03/26/19 20:00 98.5 80 20 92/70 (77) 97 03/26/19 19:59 79 03/26/19 16:00 98.8 61 17 111/86 (94) 97 03/26/19 16:00 1.0 03/26/19 15:43 73 03/26/19 12:01 74 03/26/19 12:00 98.2 67 16 114/77 (89) 97 03/26/19 12:00 1.0 03/26/19 09:00 Room Air 03/26/19 08:44 113/63 03/26/19 08:40 76 113/63 03/26/19 08:00 1.0 03/26/19 08:00 97.9 76 16 113/63 (80) 93 03/26/19 07:52 65 03/26/19 05:57 146/88 03/26/19 04:00 1.0 03/26/19 04:00 97.7 77 19 140/88 (105) 95 03/26/19 04:00 69 03/26/19 00:00 78 03/26/19 00:00 97.5 84 20 105/60 (75) 98 03/26/19 00:00 1.0 03/25/19 22:00 109/66 03/25/19 21:00 Room Air 03/25/19 20:49 95 112/70 03/25/19 20:00 66 03/25/19 20:00 98.1 95 20 112/64 (80) 98 03/25/19 16:00 80 03/25/19 16:00 1.0 03/25/19 16:00 97.3 64 18 124/86 (99) 98 Intake and Output 03/26/19 03/27/19 19:00 07:00 Intake Total 400 ml Balance 400 ml Intake Oral 400 ml Labs Test 03/25/19 06:27 03/26/19 05:50 03/26/19 11:55 White Blood Count 9.4 K/UL (4.8-10.8) 8.3 K/UL (4.8-10.8) Red Blood Count 3.60 M/UL (4.70-6.10) 3.22 M/UL (4.70-6.10) Hemoglobin 10.3 G/DL (14.2-18.0) 9.2 G/DL (14.2-18.0) Hematocrit 31.2 % (42.0-52.0) 27.9 % (42.0-52.0) Mean Corpuscular Volume 87 FL (80-99) 87 FL (80-99) Mean Corpuscular Hemoglobin 28.6 PG (27.0-31.0) 28.7 PG (27.0-31.0) Mean Corpuscular Hemoglobin Concent 33.0 G/DL (32.0-36.0) 33.1 G/DL (32.0-36.0) Red Cell Distribution Width 13.5 % (11.6-14.8) 13.7 % (11.6-14.8) Platelet Count 330 K/UL (150-450) 312 K/UL (150-450) Mean Platelet Volume 5.0 FL (6.5-10.1) 4.9 FL (6.5-10.1) Neutrophils (%) (Auto) 75.4 % (45.0-75.0) 72.4 % (45.0-75.0) Lymphocytes (%) (Auto) 14.7 % (20.0-45.0) 13.6 % (20.0-45.0) Monocytes (%) (Auto) 7.1 % (1.0-10.0) 9.7 % (1.0-10.0) Eosinophils (%) (Auto) 2.3 % (0.0-3.0) 3.5 % (0.0-3.0) Basophils (%) (Auto) 0.5 % (0.0-2.0) 0.8 % (0.0-2.0) Sodium Level 141 MMOL/L (136-145) 138 MMOL/L (136-145) Potassium Level 3.9 MMOL/L (3.5-5.1) 3.8 MMOL/L (3.5-5.1) Chloride Level 98 MMOL/L (98-107) 98 MMOL/L (98-107) Carbon Dioxide Level 30 MMOL/L (21-32) 32 MMOL/L (21-32) Anion Gap 13 mmol/L (5-15) 8 mmol/L (5-15) Blood Urea Nitrogen 18 mg/dL (7-18) 15 mg/dL (7-18) Creatinine 1.2 MG/DL (0.55-1.30) 1.1 MG/DL (0.55-1.30) Estimat Glomerular Filtration Rate > 60 mL/min (>60) > 60 mL/min (>60) Glucose Level 163 MG/DL (74-106) 159 MG/DL (74-106) Calcium Level 9.0 MG/DL (8.5-10.1) 8.7 MG/DL (8.5-10.1) Reticulocyte Count 0.8 % (0.5-2.0) Prothrombin Time 11.9 SEC (9.30-11.50) Prothromb Time International Ratio 1.1 (0.9-1.1) Activated Partial Thromboplast Time 43 SEC (23-33) Iron Level 39 ug/dL (50-175) Total Iron Binding Capacity 184 ug/dL (250-450) Percent Iron Saturation 21 % (15-50) Unsaturated Iron Binding 145 ug/dL (112-346) Ferritin 362 NG/ML (8-388) Total Bilirubin 0.5 MG/DL (0.2-1.0) Aspartate Amino Transf (AST/SGOT) 15 U/L (15-37) Alanine Aminotransferase (ALT/SGPT) 12 U/L (12-78) Alkaline Phosphatase 75 U/L (46-116) Total Protein 6.6 G/DL (6.4-8.2) Albumin 2.1 G/DL (3.4-5.0) Globulin 4.5 g/dL Albumin/Globulin Ratio 0.5 (1.0-2.7) Carcinoembryonic Antigen 1.5 ng/mL (0.0-4.7) Vitamin B12 Level 1234 PG/ML (193-986) Folate 16.4 NG/ML (8.6-58.9) Thyroid Stimulating Hormone (TSH) 0.364 uiU/mL (0.358-3.740) Free Thyroxine 1.58 NG/DL (0.76-1.46) Stool Occult Blood Negative (NEGATIVE) Height (Feet): 5 Height (Inches): 9.00 Weight (Pounds): 240 Objective PHYSICAL EXAM General Appearance: well appearing, no apparent distress, alert, obese Head: normocephalic EENT: PERRL/EOMI, normal ENT inspection Neck: supple Respiratory: normal breath sounds, no respiratory distress Cardiovascular: normal rate Gastrointestinal: normal inspection, non tender, soft, normal bowel sounds, non -distended Rectal: deferred Psychiatric: normal inspection, judgement/insight normal, memory normal Skin: normal inspection, normal color, no rash, warm/dry Lymphatic: normal inspection, no adenopathy Linus Dan MD Mar 27, 2019 14:51
[2019-03-27 16:00] VITALS: BP 108/70
--- NOTE | 2019-03-27 19:18 | Cardiology Report ---
APPROVED REPORT EKG Measurement Heart [id number] IN 104P [id number] AV sequential pacemaker Ventricular bigeminy Abnormal ECG
--- NOTE | 2019-03-27 19:31 | NUR ---
HAND-OFF: Report given to FRANCO Bryant.
--- NOTE | 2019-03-27 19:35 | NUR ---
NURSE NOTES: Received report from FRANCO Marques. Patient sitting in bed awake showing no signs of acute distress. AOx4. Respiration even and non labored on 2L NC O2. No SOB noted. VS stable. secured entrance monitor showing V-pacing. IV line patent and intact. Bed in lowest position, wheels locked and alarm on. Call light within reach. All needs attended and met. Will continue plan of care.
[2019-03-27 20:00] VITALS: BP 115/97
[2019-03-27] MEDS: Miralax 17gm pkt ORAL SCH (20:52)
[2019-03-28] VITALS: BP 109/58
[2019-03-28 04:00] VITALS: BP 101/66
[2019-03-28] MEDS: HydrALAZINE 50mg tab ORAL SCH ×2 (05:24→14:00)
[2019-03-28] MEDS: NovoLOG Insulin Flexpen SUBQ SCH ×3 (06:04→16:30)
[2019-03-28 07:17] LABS: BASOPHILS % (AUTO) 0.9 % (0.0-2.0); HEMATOCRIT 31.7 % (42.0-52.0); HEMOGLOBIN 10.7 G/DL (14.2-18.0); MEAN CORPUSCULAR VOLUME 85 FL (80-99); MONOCYTES % (AUTO) 7.1 % (1.0-10.0); NEUTROPHILS % (AUTO) 78.9 % (45.0-75.0); PLATELET COUNT 381 K/UL (150-450); RED BLOOD COUNT 3.72 M/UL (4.70-6.10); RED CELL DISTRIBUTION WIDTH 13.9 % (11.6-14.8); WHITE BLOOD COUNT 13.3 K/UL (4.8-10.8)
--- NOTE | 2019-03-28 07:18 | NUR ---
HAND-OFF: Report given to FRANCO Marques.
--- NOTE | 2019-03-28 07:19 | NUR ---
NURSE NOTES: Received report from FRANCO Bryant. Pt. Patient is resting in bed, eating his breakfast. No sign of acute distress at this time. Breathing unlabored with 2 liter Nasal cannula. Bed in low position, with two side rails up, brake engaged. Call light and bed side table within reach. Will continue to monitor.
[2019-03-28 07:42] LABS: ALANINE AMINOTRANSFERASE 14 U/L (12-78); ALBUMIN 2.1 G/DL (3.4-5.0); ALBUMIN/GLOBULIN RATIO 0.4 (1.0-2.7); ALKALINE PHOSPHATASE 82 U/L (46-116); ANION GAP 12 mmol/L (5-15); ASPARTATE AMINO TRANSFERASE 18 U/L (15-37); BILIRUBIN,TOTAL 0.5 MG/DL (0.2-1.0); BLOOD UREA NITROGEN 11 mg/dL (7-18); CALCIUM 9.1 MG/DL (8.5-10.1); CARBON DIOXIDE 29 MMOL/L (21-32); CHLORIDE 97 MMOL/L (98-107); POTASSIUM 3.6 MMOL/L (3.5-5.1); SODIUM 138 MMOL/L (136-145)
[2019-03-28 07:59] VITALS: BP 111/70
[2019-03-28] MEDS: Imdur 30mg tab ORAL SCH (08:18)
[2019-03-28] MEDS: Spironolactone 25mg tab ORAL SCH (08:18)
[2019-03-28] MEDS: Carvedilol 12.5mg tab ORAL SCH (08:18)
[2019-03-28] MEDS: Heparin 5000 units/ml inj SUBQ SCH (08:25)
--- NOTE | 2019-03-28 08:30 | General Progress Note ---
Assessment/Plan Problem List: (1) S/P CABG (coronary artery bypass graft) ICD Codes: Z95.1 - Presence of aortocoronary bypass graft SNOMED: 838130080, 149499484 (2) CHF exacerbation ICD Codes: I50.9 - Heart failure, unspecified SNOMED: 311047450, 40286089849493, 236111687 (3) Nausea & vomiting ICD Codes: R11.2 - Nausea with vomiting, unspecified SNOMED: 45803803 (4) Iron deficiency anemia ICD Codes: D50.9 - Iron deficiency anemia, unspecified SNOMED: 02013490 (5) Pacemaker ICD Codes: Z95.0 - Presence of cardiac pacemaker SNOMED: 953160300, 084952298 (6) Diabetes mellitus ICD Codes: E11.9 - Type 2 diabetes mellitus without complications SNOMED: 02310585 (7) Constipation ICD Codes: K59.00 - Constipation, unspecified SNOMED: 72268979 Assessment/Plan: fu stool ob>>neg fu CBC>> stable given EF of 20% will hold GI procedures unless needed bowel regimen Subjective ROS Limited/Unobtainable: Yes Allergies: Coded Allergies: LACTOSE (Verified Allergy, Unknown, 03/23/19) LISINOPRIL (Unverified Allergy, Unknown, 01/17/18) METHOTREXATE (Verified Allergy, Unknown, 08/30/15) NSAIDS (NON-STEROIDAL ANTI-INFLAMMA (Unverified Allergy, Unknown, 11/14/15) Objective Last 24 Hour Vital Signs Date Time Temp Pulse Resp B/P (MAP) Pulse Ox O2 Delivery O2 Flow Rate FiO2 03/28/19 08:18 111/70 03/28/19 08:18 71 111/70 03/28/19 07:59 99.3 71 20 111/70 (84) 96 03/28/19 05:24 101/66 03/28/19 04:00 95 03/28/19 04:00 99.3 98 18 101/66 (78) 98 03/28/19 00:00 99.5 91 18 109/58 (75) 97 03/28/19 00:00 92 03/27/19 22:00 115/97 03/27/19 21:19 99.5 03/27/19 21:00 Room Air 03/27/19 20:48 85 115/97 03/27/19 20:00 86 03/27/19 20:00 101.6 85 18 115/97 (103) 97 03/27/19 16:00 99.8 96 25 108/70 (83) 94 03/27/19 16:00 94 03/27/19 14:00 91/61 03/27/19 12:00 93 03/27/19 12:00 98.2 95 20 91/61 (71) 100 03/27/19 09:00 Room Air 03/27/19 08:35 102/65 Intake and Output 03/27/19 03/28/19 19:00 07:00 Intake Total 480 ml Output Total 1300 ml Balance -820 ml Intake Oral 480 ml Output Urine Total 1300 ml # Bowel Movements 2 Laboratory Tests 03/27/19 15:15: Stool Occult Blood [Pending] 03/28/19 06:30: White Blood Count 13.3H, Red Blood Count 3.72L, Hemoglobin 10.7L, Hematocrit 31.7L, Mean Corpuscular Volume 85, Mean Corpuscular Hemoglobin 28.8, Mean Corpuscular Hemoglobin Concent 33.8, Red Cell Distribution Width 13.9, Platelet Count 381, Mean Platelet Volume 5.2L, Neutrophils (%) (Auto) 78.9H, Lymphocytes (%) (Auto) 11.0L, Monocytes (%) (Auto) 7.1, Eosinophils (%) (Auto) 2.0, Basophils (%) (Auto) 0.9, Sodium Level 138, Potassium Level 3.6, Chloride Level 97L, Carbon Dioxide Level 29, Anion Gap 12, Blood Urea Nitrogen 11, Creatinine 1.0, Estimat Glomerular Filtration Rate > 60, Glucose Level 106, Calcium Level 9.1, Total Bilirubin 0.5, Aspartate Amino Transf (AST/SGOT) 18, Alanine Aminotransferase (ALT/SGPT) 14, Alkaline Phosphatase 82, Pro-B-Type Natriuretic Peptide 7822H, Total Protein 7.1, Albumin 2.1L, Globulin 5.0, Albumin/Globulin Ratio 0.4L Height (Feet): 5 Height (Inches): 9.00 Weight (Pounds): 240 General Appearance: alert EENT: PERRL/EOMI Neck: supple Cardiovascular: normal rate Respiratory/Chest: decreased breath sounds Abdomen: normal bowel sounds, non tender, soft Extremities: non-tender Vosoghi,Med MD Mar 28, 2019 08:30
[2019-03-28] MEDS: Docusate 100mg cap ORAL SCH ×2 (09:00→13:00)
--- NOTE | 2019-03-28 09:39 | Diagnostic Imaging Report ---
EXAM: XR Chest, 1 View CLINICAL HISTORY: DYSPNEA TECHNIQUE: Frontal view of the chest. COMPARISON: Chest x-ray dated 03/27/19 FINDINGS: Lungs: Change in appearance of decreased lung volumes. Persistent increased interstitial markings, most prominent in the left lung. Pleural space: Unremarkable. The costophrenic angles are sharp. No visible pneumothorax. Heart: Unremarkable. No cardiomegaly. Mediastinum: Unremarkable. Bones/joints: Unremarkable. Vasculature: Atherosclerotic calcifications are noted within the aortic arch. Tubes, lines and devices: Cardiac pacer/ICD in the left chest wall with the lead tips in the right atrium and right ventricle regions. EKG leads overlie the thorax. IMPRESSION: No significant interval change compared to the prior exam.
[2019-03-28 12:00] VITALS: BP 100/59
--- NOTE | 2019-03-28 12:12 | NUR ---
RD ASSESSMENT & RECOMMENDATIONS SEE CARE ACTIVITY FOR COMPLETE ASSESSMENT DAILY ESTIMATED NEEDS: Needs based on Cardiac, DM, obese 81.8 kg adj 20-25 kcals/kg 3091-3712 total kcals 1-1.5 g protein/kg 82-123 g total protein Fluid per MD, on lasix NUTRITION DIAGNOSIS: 1) Decreased sodium needs r/t cardiac history as evidenced by pt with CHF, with elev BNP, BL LE edema, h/o CVA. 2) Altered nutrition related lab values R/T Diabetes as evidenced by mildly elev BG and elev POC CURRENT DIET:CCHO MED, puree moist PO DIET RECOMMENDATIONS -->> LOW NA + CCHO MED / TEXTURE TOLERATED ADDITIONAL RECOMMENDATIONS: 1) [employer] eval for appropriate texture for improved food acceptance 2) A1C for eval of glycemic control 3) Monitor lytes daily on lasix
--- NOTE | 2019-03-28 13:23 | NUR ---
CASE MANAGEMENT:REVIEW 03/28/19 SI: ACS. CAD. S/P CABG. ELEVATED TROPONIN T 98.2 HR 78 RR 20 B/P 100/59 SATS 93% ON RA WBC 13.3 CL 97 BNP 7822 IS: IMDUR PO QD ALDACTONE PO QD IV LASIX QD HYDRALAZINE PO Q8HRS COREG PO Q12 HEPARIN SQ Q12 CARAFATE PO QID : TELEMETRY STATUS DCP: [facility]WO[facility] MANOR
--- NOTE | 2019-03-28 13:28 | Hematology/Onc Progress Note ---
Assessment/Plan Assessment/Plan Assessment and Recs: # Bilateral DVT hx in 2018 noted on duplex lower extremity --> currently is only on heparin sq dosing --> repeat duplex of lower extremities could be cause of cellulitis recurrent-- > NO DVT NOW noted --> okay to continue on heparin or [facility] sq inhouse # Anemia of chronic disease due to underlying chronic medical issues, multifactorial --> Anemia workup has been reviewed. Ferritin 362 --> rule out gi bleed. Stool OB negative --> No evidence of hemolysis is noted, peripheral smear has been reviewed. --> Hgb goal >7. Transfuse prn. --> Epogen or iron at this time is not particularly indicated --> Medications have been reviewed --> bone marrow biopsy is not indicated given the other more likely causes --> Hgb trend: 9.2-->10.7 # Hyperproteinemia - with elevated protein --> SPEP reviewed and does not show significant MSPIKE --> repeat cbc and bmp --> if elevated ca consider to get a pth # S/P CABG Acute myocardial infarction. Ischemic cardiomyopathy hx --> cards eval as needed with severe cardiomyopathy # Acute on chronic systolic congestive heart failure. --> may need upgrade of icd # Cardiac defibrillator. # Cellulitis of the lower ext --> on abx prnx The timing of this note does not necessarily reflect the time of the patient was seen. Greatly appreciate consultation! (1) Constipation (2) Nausea & vomiting (3) Iron deficiency anemia (4) Intractable abdominal pain Plan Will consider GI procedures pending work-up zofran prn, reglan for persistent N/V anemia work up OB stool r/o GI bleed monitor H&H, prn transfusions bowel regimen, colace + miralax ppi fu labs Subjective Allergies: Coded Allergies: LACTOSE (Verified Allergy, Unknown, 03/23/19) LISINOPRIL (Unverified Allergy, Unknown, 01/17/18) METHOTREXATE (Verified Allergy, Unknown, 08/30/15) NSAIDS (NON-STEROIDAL ANTI-INFLAMMA (Unverified Allergy, Unknown, 11/14/15) Subjective 03/26: Pt resting in bed, awake and alert. No acute events. H/H stable. 03/28: Most recent Stool OB is positive. Pt awake and alert, eating breakfast. Objective Objective Current Medications Medications (Trade) Dose Ordered Sig/Paola Route PRN Reason Start Time Stop Time Status Last Admin Dose Admin Acetaminophen (Tylenol) 650 mg Q4H PRN ORAL Mild Pain/Temp > 100.5 03/25/19 16:15 04/22/19 16:14 03/28/19 08:19 Atorvastatin Calcium (Lipitor) 10 mg BEDTIME ORAL 03/26/19 21:00 04/25/19 20:59 03/27/19 20:48 Baclofen (Lioresal) 10 mg THREE TIMES A DAY ORAL 03/23/19 18:00 04/22/19 17:59 03/28/19 12:42 Carvedilol (Coreg) 12.5 mg EVERY 12 HOURS ORAL 03/23/19 21:00 04/22/19 20:59 03/28/19 08:18 Dextrose (Dextrose 50%) 25 ml Q30M PRN IV Hypoglycemia 03/23/19 16:15 04/22/19 16:14 Dextrose (Dextrose 50%) 50 ml Q30M PRN IV Hypoglycemia 03/23/19 16:15 04/22/19 16:14 Docusate Sodium (Colace) 100 mg THREE TIMES A DAY ORAL 03/25/19 13:00 04/24/19 12:59 03/27/19 17:07 Furosemide (Lasix) 40 mg DAILY IV 03/24/19 09:00 04/23/19 08:59 03/28/19 08:17 Gabapentin (Neurontin) 300 mg THREE TIMES A DAY ORAL 03/23/19 18:00 04/22/19 17:59 03/28/19 12:42 Heparin Sodium (Porcine) (Heparin 5000 units/ml) 5,000 units EVERY 12 HOURS SUBQ 03/23/19 21:00 04/22/19 20:59 03/28/19 08:25 Hydralazine HCl (Apresoline) 50 mg EVERY 8 HOURS ORAL 03/23/19 22:00 04/22/19 21:59 03/26/19 05:57 Insulin Aspart (NovoLOG) BEFORE MEALS AND HS SUBQ 03/23/19 16:30 04/22/19 16:29 03/28/19 11:45 Isosorbide Mononitrate (Imdur) 30 mg DAILY ORAL 03/24/19 09:00 04/23/19 08:59 03/28/19 08:18 Lorazepam (Ativan 2mg/ml 1ml) 0.5 mg Q4H PRN IV For Anxiety 03/23/19 16:15 03/30/19 16:14 Nitroglycerin (Ntg) 0.4 mg Q5M PRN SL Prn Chest Pain 03/25/19 15:15 04/24/19 15:14 Ondansetron HCl (Zofran) 4 mg Q6H PRN IVP Nausea & Vomiting 03/23/19 16:15 04/22/19 16:14 03/28/19 12:42 Polyethylene Glycol (Miralax) 17 gm BEDTIME ORAL 03/25/19 21:00 04/24/19 20:59 03/27/19 20:52 Polyethylene Glycol (Miralax) 17 gm HSPRN PRN ORAL Constipation 03/23/19 21:00 04/22/19 20:59 Promethazine HCl 12.5 mg/Sodium Chloride 55.5 ml @ 222 mls/hr Q6H PRN IVPB nausea 03/24/19 12:30 04/23/19 12:29 03/25/19 08:39 Spironolactone (Aldactone) 25 mg DAILY ORAL 03/24/19 09:00 04/23/19 08:59 03/28/19 08:18 Zolpidem Tartrate (Ambien) 5 mg HSPRN PRN ORAL Insomnia 03/23/19 21:00 03/30/19 20:59 Last 24 Hour Vital Signs Date Time Temp Pulse Resp B/P (MAP) Pulse Ox O2 Delivery O2 Flow Rate FiO2 03/28/19 12:00 98.2 78 20 100/59 (73) 93 03/28/19 09:00 Room Air 03/28/19 08:18 111/70 03/28/19 08:18 71 111/70 03/28/19 08:00 81 03/28/19 07:59 99.3 71 20 111/70 (84) 96 03/28/19 05:24 101/66 03/28/19 04:00 95 03/28/19 04:00 99.3 98 18 101/66 (78) 98 03/28/19 00:00 99.5 91 18 109/58 (75) 97 6/23/19 00:00 92 03/27/19 22:00 115/97 03/27/19 21:19 99.5 03/27/19 21:00 Room Air 03/27/19 20:48 85 115/97 03/27/19 20:00 86 03/27/19 20:00 101.6 85 18 115/97 (103) 97 03/27/19 16:00 99.8 96 25 108/70 (83) 94 03/27/19 16:00 94 03/27/19 14:00 91/61 03/27/19 12:00 93 03/27/19 12:00 98.2 95 20 91/61 (71) 100 03/27/19 09:00 Room Air 03/27/19 08:35 102/65 03/27/19 08:24 75 102/65 03/27/19 08:00 98.2 75 20 102/65 (77) 100 03/27/19 08:00 70 03/27/19 05:52 105/59 03/27/19 04:00 99.3 72 20 105/59 (74) 100 03/27/19 03:44 65 03/27/19 00:00 98.4 80 20 124/57 (79) 95 03/26/19 23:42 78 03/26/19 21:08 92/70 03/26/19 21:00 1.0 03/26/19 21:00 Room Air 03/26/19 21:00 72 92/70 03/26/19 20:00 98.5 80 20 92/70 (77) 97 03/26/19 19:59 79 03/26/19 16:00 98.8 61 17 111/86 (94) 97 03/26/19 16:00 1.0 03/26/19 15:43 73 Intake and Output 03/27/19 03/28/19 19:00 07:00 Intake Total 480 ml Output Total 1300 ml Balance -820 ml Intake Oral 480 ml Output Urine Total 1300 ml # Bowel Movements 2 Labs Test 03/26/19 05:50 03/26/19 11:55 03/27/19 15:15 03/28/19 06:30 White Blood Count 8.3 K/UL (4.8-10.8) 13.3 K/UL (4.8-10.8) Red Blood Count 3.22 M/UL (4.70-6.10) 3.72 M/UL (4.70-6.10) Hemoglobin 9.2 G/DL (14.2-18.0) 10.7 G/DL (14.2-18.0) Hematocrit 27.9 % (42.0-52.0) 31.7 % (42.0-52.0) Mean Corpuscular Volume 87 FL (80-99) 85 FL (80-99) Mean Corpuscular Hemoglobin 28.7 PG (27.0-31.0) 28.8 PG (27.0-31.0) Mean Corpuscular Hemoglobin Concent 33.1 G/DL (32.0-36.0) 33.8 G/DL (32.0-36.0) Red Cell Distribution Width 13.7 % (11.6-14.8) 13.9 % (11.6-14.8) Platelet Count 312 K/UL (150-450) 381 K/UL (150-450) Mean Platelet Volume 4.9 FL (6.5-10.1) 5.2 FL (6.5-10.1) Neutrophils (%) (Auto) 72.4 % (45.0-75.0) 78.9 % (45.0-75.0) Lymphocytes (%) (Auto) 13.6 % (20.0-45.0) 11.0 % (20.0-45.0) Monocytes (%) (Auto) 9.7 % (1.0-10.0) 7.1 % (1.0-10.0) Eosinophils (%) (Auto) 3.5 % (0.0-3.0) 2.0 % (0.0-3.0) Basophils (%) (Auto) 0.8 % (0.0-2.0) 0.9 % (0.0-2.0) Reticulocyte Count 0.8 % (0.5-2.0) Prothrombin Time 11.9 SEC (9.30-11.50) Prothromb Time International Ratio 1.1 (0.9-1.1) Activated Partial Thromboplast Time 43 SEC (23-33) Sodium Level 138 MMOL/L (136-145) 138 MMOL/L (136-145) Potassium Level 3.8 MMOL/L (3.5-5.1) 3.6 MMOL/L (3.5-5.1) Chloride Level 98 MMOL/L (98-107) 97 MMOL/L (98-107) Carbon Dioxide Level 32 MMOL/L (21-32) 29 MMOL/L (21-32) Anion Gap 8 mmol/L (5-15) 12 mmol/L (5-15) Blood Urea Nitrogen 15 mg/dL (7-18) 11 mg/dL (7-18) Creatinine 1.1 MG/DL (0.55-1.30) 1.0 MG/DL (0.55-1.30) Estimat Glomerular Filtration Rate > 60 mL/min (>60) > 60 mL/min (>60) Glucose Level 159 MG/DL (74-106) 106 MG/DL (74-106) Calcium Level 8.7 MG/DL (8.5-10.1) 9.1 MG/DL (8.5-10.1) Iron Level 39 ug/dL (50-175) Total Iron Binding Capacity 184 ug/dL (250-450) Percent Iron Saturation 21 % (15-50) Unsaturated Iron Binding 145 ug/dL (112-346) Ferritin 362 NG/ML (8-388) Total Bilirubin 0.5 MG/DL (0.2-1.0) 0.5 MG/DL (0.2-1.0) Aspartate Amino Transf (AST/SGOT) 15 U/L (15-37) 18 U/L (15-37) Alanine Aminotransferase (ALT/SGPT) 12 U/L (12-78) 14 U/L (12-78) Alkaline Phosphatase 75 U/L (46-116) 82 U/L (46-116) Total Protein 6.6 G/DL (6.4-8.2) 7.1 G/DL (6.4-8.2) Albumin 2.1 G/DL (3.4-5.0) 2.1 G/DL (3.4-5.0) Globulin 4.5 g/dL 5.0 g/dL Albumin/Globulin Ratio 0.5 (1.0-2.7) 0.4 (1.0-2.7) Carcinoembryonic Antigen 1.5 ng/mL (0.0-4.7) Vitamin B12 Level 1234 PG/ML (193-986) Folate 16.4 NG/ML (8.6-58.9) Thyroid Stimulating Hormone (TSH) 0.364 uiU/mL (0.358-3.740) Free Thyroxine 1.58 NG/DL (0.76-1.46) Stool Occult Blood Negative (NEGATIVE) Positive (NEGATIVE) Pro-B-Type Natriuretic Peptide 7822 pg/mL (0-125) Height (Feet): 5 Height (Inches): 9.00 Weight (Pounds): 240 Objective PHYSICAL EXAM General Appearance: well appearing, no apparent distress, alert, obese Head: normocephalic EENT: PERRL/EOMI, normal ENT inspection Neck: supple Respiratory: normal breath sounds, no respiratory distress Cardiovascular: normal rate Gastrointestinal: normal inspection, non tender, soft, normal bowel sounds, non -distended Rectal: deferred Psychiatric: normal inspection, judgement/insight normal, memory normal Skin: normal inspection, normal color, no rash, warm/dry Lymphatic: normal inspection, no adenopathy Linus Dan MD Mar 28, 2019 13:28
--- NOTE | 2019-03-28 13:31 | NUR ---
DISCHARGE PLANNING: NOTE CLINICALS FAXED TO [facility] Addendum: 03/28/19 at 1449 by Idalia Phillips CM ROOM 14C RECEIVED. DR EVGENY RICHARD. AWAITING DC ORDER.
--- NOTE | 2019-03-28 14:08 | Pulmonology Progress Note ---
Assessment/Plan Problems: (1) Acute coronary syndrome (2) S/P CABG (coronary artery bypass graft) (3) Pacemaker (4) Coronary heart disease (5) Diabetes mellitus (6) Nausea & vomiting (7) Intractable abdominal pain Assessment/Plan doing better on lasix qd iv add pepcid IV and reglan dc morphine sliding scale diabetic diet f/u cariology recommendations Subjective ROS Limited/Unobtainable: No Constitutional: Reports: no symptoms HEENT: Repors: no symptoms Respiratory: Reports: no symptoms Allergies: Coded Allergies: LACTOSE (Verified Allergy, Unknown, 03/23/19) LISINOPRIL (Unverified Allergy, Unknown, 01/17/18) METHOTREXATE (Verified Allergy, Unknown, 08/30/15) NSAIDS (NON-STEROIDAL ANTI-INFLAMMA (Unverified Allergy, Unknown, 11/14/15) Objective Last 24 Hour Vital Signs Date Time Temp Pulse Resp B/P (MAP) Pulse Ox O2 Delivery O2 Flow Rate FiO2 03/28/19 12:00 98.2 78 20 100/59 (73) 93 03/28/19 09:00 Room Air 03/28/19 08:18 111/70 03/28/19 08:18 71 111/70 03/28/19 08:00 81 03/28/19 07:59 99.3 71 20 111/70 (84) 96 03/28/19 05:24 101/66 03/28/19 04:00 95 03/28/19 04:00 99.3 98 18 101/66 (78) 98 03/28/19 00:00 99.5 91 18 109/58 (75) 97 03/28/19 00:00 92 03/27/19 22:00 115/97 03/27/19 21:19 99.5 03/27/19 21:00 Room Air 03/27/19 20:48 85 115/97 03/27/19 20:00 86 03/27/19 20:00 101.6 85 18 115/97 (103) 97 03/27/19 16:00 99.8 96 25 108/70 (83) 94 03/27/19 16:00 94 Intake and Output 03/27/19 03/28/19 19:00 07:00 Intake Total 480 ml Output Total 1300 ml Balance -820 ml Intake Oral 480 ml Output Urine Total 1300 ml # Bowel Movements 2 Objective General Appearance: WD/WN, no acute distress Respiratory/Chest: chest wall non-tender, rhonchi Cardiovascular: normal peripheral pulses, normal rate Abdomen: normal bowel sounds, non distended Extremities: no cyanosis, no clubbing Laboratory Tests 03/27/19 15:15: Stool Occult Blood Positive 03/28/19 06:30: White Blood Count 13.3H, Red Blood Count 3.72L, Hemoglobin 10.7L, Hematocrit 31.7L, Mean Corpuscular Volume 85, Mean Corpuscular Hemoglobin 28.8, Mean Corpuscular Hemoglobin Concent 33.8, Red Cell Distribution Width 13.9, Platelet Count 381, Mean Platelet Volume 5.2L, Neutrophils (%) (Auto) 78.9H, Lymphocytes (%) (Auto) 11.0L, Monocytes (%) (Auto) 7.1, Eosinophils (%) (Auto) 2.0, Basophils (%) (Auto) 0.9, Sodium Level 138, Potassium Level 3.6, Chloride Level 97L, Carbon Dioxide Level 29, Anion Gap 12, Blood Urea Nitrogen 11, Creatinine 1.0, Estimat Glomerular Filtration Rate > 60, Glucose Level 106, Calcium Level 9.1, Total Bilirubin 0.5, Aspartate Amino Transf (AST/SGOT) 18, Alanine Aminotransferase (ALT/SGPT) 14, Alkaline Phosphatase 82, Pro-B-Type Natriuretic Peptide 7822H, Total Protein 7.1, Albumin 2.1L, Globulin 5.0, Albumin/Globulin Ratio 0.4L Current Medications Medications (Trade) Dose Ordered Sig/Paola Route PRN Reason Start Time Stop Time Status Last Admin Dose Admin Acetaminophen (Tylenol) 650 mg Q4H PRN ORAL Mild Pain/Temp > 100.5 03/25/19 16:15 04/22/19 16:14 03/28/19 08:19 Atorvastatin Calcium (Lipitor) 10 mg BEDTIME ORAL 03/26/19 21:00 04/25/19 20:59 03/27/19 20:48 Baclofen (Lioresal) 10 mg THREE TIMES A DAY ORAL 03/23/19 18:00 04/22/19 17:59 03/28/19 12:42 Carvedilol (Coreg) 12.5 mg EVERY 12 HOURS ORAL 03/23/19 21:00 04/22/19 20:59 03/28/19 08:18 Dextrose (Dextrose 50%) 25 ml Q30M PRN IV Hypoglycemia 03/23/19 16:15 04/22/19 16:14 Dextrose (Dextrose 50%) 50 ml Q30M PRN IV Hypoglycemia 03/23/19 16:15 04/22/19 16:14 Docusate Sodium (Colace) 100 mg THREE TIMES A DAY ORAL 03/25/19 13:00 04/24/19 12:59 03/27/19 17:07 Furosemide (Lasix) 40 mg DAILY IV 03/24/19 09:00 04/23/19 08:59 03/28/19 08:17 Gabapentin (Neurontin) 300 mg THREE TIMES A DAY ORAL 03/23/19 18:00 04/22/19 17:59 03/28/19 12:42 Heparin Sodium (Porcine) (Heparin 5000 units/ml) 5,000 units EVERY 12 HOURS SUBQ 03/23/19 21:00 04/22/19 20:59 03/28/19 08:25 Hydralazine HCl (Apresoline) 50 mg EVERY 8 HOURS ORAL 03/23/19 22:00 04/22/19 21:59 03/26/19 05:57 Insulin Aspart (NovoLOG) BEFORE MEALS AND HS SUBQ 03/23/19 16:30 04/22/19 16:29 03/28/19 11:45 Isosorbide Mononitrate (Imdur) 30 mg DAILY ORAL 03/24/19 09:00 04/23/19 08:59 03/28/19 08:18 Lorazepam (Ativan 2mg/ml 1ml) 0.5 mg Q4H PRN IV For Anxiety 03/23/19 16:15 03/30/19 16:14 Nitroglycerin (Ntg) 0.4 mg Q5M PRN SL Prn Chest Pain 03/25/19 15:15 04/24/19 15:14 Ondansetron HCl (Zofran) 4 mg Q6H PRN IVP Nausea & Vomiting 03/23/19 16:15 04/22/19 16:14 03/28/19 12:42 Polyethylene Glycol (Miralax) 17 gm BEDTIME ORAL 03/25/19 21:00 04/24/19 20:59 03/27/19 20:52 Polyethylene Glycol (Miralax) 17 gm HSPRN PRN ORAL Constipation 03/23/19 21:00 04/22/19 20:59 Promethazine HCl 12.5 mg/Sodium Chloride 55.5 ml @ 222 mls/hr Q6H PRN IVPB nausea 03/24/19 12:30 04/23/19 12:29 03/25/19 08:39 Spironolactone (Aldactone) 25 mg DAILY ORAL 03/24/19 09:00 04/23/19 08:59 03/28/19 08:18 Zolpidem Tartrate (Ambien) 5 mg HSPRN PRN ORAL Insomnia 03/23/19 21:00 03/30/19 20:59 Pretty Sweet MD Mar 28, 2019 14:08
--- NOTE | 2019-03-28 14:11 | Internal Med Progress Note ---
Subjective Date of Service: Mar 28, 2019 Physician Name Olea,Javi Attending Physician David Negron MD Current Medications Medications (Trade) Dose Ordered Sig/Paola Route PRN Reason Start Time Stop Time Status Last Admin Dose Admin Acetaminophen (Tylenol) 650 mg Q4H PRN ORAL Mild Pain/Temp > 100.5 03/25/19 16:15 04/22/19 16:14 03/28/19 08:19 Atorvastatin Calcium (Lipitor) 10 mg BEDTIME ORAL 03/26/19 21:00 04/25/19 20:59 03/27/19 20:48 Baclofen (Lioresal) 10 mg THREE TIMES A DAY ORAL 03/23/19 18:00 04/22/19 17:59 03/28/19 12:42 Carvedilol (Coreg) 12.5 mg EVERY 12 HOURS ORAL 03/23/19 21:00 04/22/19 20:59 03/28/19 08:18 Dextrose (Dextrose 50%) 25 ml Q30M PRN IV Hypoglycemia 03/23/19 16:15 04/22/19 16:14 Dextrose (Dextrose 50%) 50 ml Q30M PRN IV Hypoglycemia 03/23/19 16:15 04/22/19 16:14 Docusate Sodium (Colace) 100 mg THREE TIMES A DAY ORAL 03/25/19 13:00 04/24/19 12:59 03/27/19 17:07 Furosemide (Lasix) 40 mg DAILY IV 03/24/19 09:00 04/23/19 08:59 03/28/19 08:17 Gabapentin (Neurontin) 300 mg THREE TIMES A DAY ORAL 03/23/19 18:00 04/22/19 17:59 03/28/19 12:42 Heparin Sodium (Porcine) (Heparin 5000 units/ml) 5,000 units EVERY 12 HOURS SUBQ 03/23/19 21:00 04/22/19 20:59 03/28/19 08:25 Hydralazine HCl (Apresoline) 50 mg EVERY 8 HOURS ORAL 03/23/19 22:00 04/22/19 21:59 03/26/19 05:57 Insulin Aspart (NovoLOG) BEFORE MEALS AND HS SUBQ 03/23/19 16:30 04/22/19 16:29 03/28/19 11:45 Isosorbide Mononitrate (Imdur) 30 mg DAILY ORAL 03/24/19 09:00 04/23/19 08:59 03/28/19 08:18 Lorazepam (Ativan 2mg/ml 1ml) 0.5 mg Q4H PRN IV For Anxiety 03/23/19 16:15 03/30/19 16:14 Nitroglycerin (Ntg) 0.4 mg Q5M PRN SL Prn Chest Pain 03/25/19 15:15 04/24/19 15:14 Ondansetron HCl (Zofran) 4 mg Q6H PRN IVP Nausea & Vomiting 03/23/19 16:15 04/22/19 16:14 03/28/19 12:42 Polyethylene Glycol (Miralax) 17 gm BEDTIME ORAL 03/25/19 21:00 04/24/19 20:59 03/27/19 20:52 Polyethylene Glycol (Miralax) 17 gm HSPRN PRN ORAL Constipation 03/23/19 21:00 04/22/19 20:59 Promethazine HCl 12.5 mg/Sodium Chloride 55.5 ml @ 222 mls/hr Q6H PRN IVPB nausea 03/24/19 12:30 04/23/19 12:29 03/25/19 08:39 Spironolactone (Aldactone) 25 mg DAILY ORAL 03/24/19 09:00 04/23/19 08:59 03/28/19 08:18 Zolpidem Tartrate (Ambien) 5 mg HSPRN PRN ORAL Insomnia 03/23/19 21:00 03/30/19 20:59 Allergies: Coded Allergies: LACTOSE (Verified Allergy, Unknown, 03/23/19) LISINOPRIL (Unverified Allergy, Unknown, 01/17/18) METHOTREXATE (Verified Allergy, Unknown, 08/30/15) NSAIDS (NON-STEROIDAL ANTI-INFLAMMA (Unverified Allergy, Unknown, 11/14/15) ROS Limited/Unobtainable: No Constitutional: Reports: no symptoms HEENT: Reports: no symptoms Cardiovascular: Reports: no symptoms Respiratory: Reports: no symptoms Gastrointestinal/Abdominal: Reports: no symptoms Genitourinary: Reports: no symptoms Neurologic/Psychiatric: Reports: no symptoms Subjective 69 YO M admitted with gen weakness. Now elevated troponin and CHF. Cover for Int Med-Dr Negron Objective Last Vital Signs Date Time Temp Pulse Resp B/P (MAP) Pulse Ox O2 Delivery O2 Flow Rate FiO2 03/28/19 12:00 98.2 78 20 100/59 (73) 93 03/28/19 09:00 Room Air 03/26/19 21:00 1.0 Laboratory Tests Test 03/27/19 15:15 03/28/19 06:30 Stool Occult Blood Positive (NEGATIVE) White Blood Count 13.3 K/UL (4.8-10.8) H Red Blood Count 3.72 M/UL (4.70-6.10) L Hemoglobin 10.7 G/DL (14.2-18.0) L Hematocrit 31.7 % (42.0-52.0) L Mean Corpuscular Volume 85 FL (80-99) Mean Corpuscular Hemoglobin 28.8 PG (27.0-31.0) Mean Corpuscular Hemoglobin Concent 33.8 G/DL (32.0-36.0) Red Cell Distribution Width 13.9 % (11.6-14.8) Platelet Count 381 K/UL (150-450) Mean Platelet Volume 5.2 FL (6.5-10.1) L Neutrophils (%) (Auto) 78.9 % (45.0-75.0) H Lymphocytes (%) (Auto) 11.0 % (20.0-45.0) L Monocytes (%) (Auto) 7.1 % (1.0-10.0) Eosinophils (%) (Auto) 2.0 % (0.0-3.0) Basophils (%) (Auto) 0.9 % (0.0-2.0) Sodium Level 138 MMOL/L (136-145) Potassium Level 3.6 MMOL/L (3.5-5.1) Chloride Level 97 MMOL/L (98-107) L Carbon Dioxide Level 29 MMOL/L (21-32) Anion Gap 12 mmol/L (5-15) Blood Urea Nitrogen 11 mg/dL (7-18) Creatinine 1.0 MG/DL (0.55-1.30) Estimat Glomerular Filtration Rate > 60 mL/min (>60) Glucose Level 106 MG/DL (74-106) Calcium Level 9.1 MG/DL (8.5-10.1) Total Bilirubin 0.5 MG/DL (0.2-1.0) Aspartate Amino Transf (AST/SGOT) 18 U/L (15-37) Alanine Aminotransferase (ALT/SGPT) 14 U/L (12-78) Alkaline Phosphatase 82 U/L (46-116) Pro-B-Type Natriuretic Peptide 7822 pg/mL (0-125) H Total Protein 7.1 G/DL (6.4-8.2) Albumin 2.1 G/DL (3.4-5.0) L Globulin 5.0 g/dL Albumin/Globulin Ratio 0.4 (1.0-2.7) L Intake and Output 03/27/19 03/28/19 19:00 07:00 Intake Total 480 ml Output Total 1300 ml Balance -820 ml Intake Oral 480 ml Output Urine Total 1300 ml # Bowel Movements 2 Objective PHYSICAL EXAMINATION: GENERAL: The patient is a well-developed and well-nourished, obese male, in no apparent distress. HEENT: Eyes, pupils are equal and responsive to light and accommodation. Extraocular movements are intact. NECK: Supple. No lymphadenopathy. CHEST: Lungs are clear to auscultation bilaterally without wheezes or rales. CARDIOVASCULAR: Regular rhythm and rate. S1, S2 normal without murmurs, rubs, or gallops. ABDOMEN: Soft, nontender, and nondistended. Positive bowel sounds. No evidence of hepatosplenomegaly. Currently, no rebound or guarding noted. EXTREMITIES: Negative for clubbing, cyanosis, or edema. RECTAL/GENITAL: Not performed. NEUROLOGIC: Cranial nerves II through XII are grossly intact without focal deficits. Motor strength is 4/5 bilaterally. Deep tendon reflexes are 2+ plantar. Assessment/Plan Assessment/Plan ASSESSMENT: This is a 69-year-old male with: 1. Generalized weakness. 2. Elevated troponin. 3. Congestive heart failure. 4. Coronary artery disease. 5. Diabetes type 2. 6. Hypertension. 7. Ischemic cardiomyopathy. 8. Peripheral vascular disease. 9. Cerebrovascular disease, status post cerebrovascular accident. 10. Right hemiplegia. 11. Chronic obstructive pulmonary disease. 12. AICD in situ TREATMENT: 1. Congestive heart failure/coronary artery disease. A Cardiology consultation has been obtained with Dr. Silvio Sterling. Left ventricular ejection fraction = 20% to 25%. We will follow recommendations of Cardiology. See discussion concerning biventricular ICD 2. Generalized weakness. This may be secondary to congestive heart failure acute exacerbation. 3. Elevated troponin. 4. Diabetes type 2. Continue NovoLog sliding scale. 5. Hypertension. Continue Coreg as above. 6. Ischemic cardiomyopathy. 7. Peripheral vascular disease. Continue Plavix as above. 8. Cerebrovascular disease, status post cerebrovascular accident. 9. Right hemiplegia. 10. Chronic obstructive pulmonary disease. A Pulmonary consultation has been obtained with Dr. Pretty Sweet. 11. Discharge planning: [facility] when bed available Javi Olea MD Mar 28, 2019 14:11
[2019-03-28] MEDS ORDERED: SPIRONOLACTONE25 MG ORAL (14:14)
[2019-03-28] MEDS ORDERED: APRESOLINE50 MG ORAL (14:14)
[2019-03-28] MEDS ORDERED: ISOSORBIDE MONO30 M1 ORAL (14:14)
--- NOTE | 2019-03-28 15:25 | NUR ---
DISCHARGE DISPOSITION: PLEASE READ PATIENT TO BE DISCHARGED TO [facility] [id number] [facility] ROOM [facility] T: [phone]>> CALL FOR REPORT [facility] ETA 1700 SKILLED LEFT FOR DAUGHTER JANINE AMIN
[2019-03-28] MEDS ORDERED: Tubing IV Secondary IV ONE (15:52)
[2019-03-28] MEDS ORDERED: NS 275ml ONE (15:52)
[2019-03-28 16:00] VITALS: BP 120/67
--- NOTE | 2019-03-28 16:30 | NUR ---
NURSE NOTES: Called to [facility] luong and report given to FRANCO ARAYA.
[2019-03-28] MEDS: Promethazine HCl 12.5 MG in NS 55 ML IVPB PRN (16:54)
--- NOTE | 2019-03-28 17:06 | NUR ---
HAND-OFF: Report given to Symone GAMEZ.
--- NOTE | 2019-03-28 19:50 | NUR ---
NURSE NOTES: Report given to Geronimo from [facility] and picked up to Noelle Felder. Patient stable. IV access and monitoring manager removed.
--- NOTE | 2019-03-30 13:52 | Discharge Summary ---
Discharge Summary Discharge Summary _ DATE OF ADMISSION: 03/23/2019 DATE OF DISCHARGE:03/28/2019 DISCHARGED BY: Dr. Negron REASON FOR ADMISSION: [] 69 years old male with past medical history of hypertension, chronic kidney disease, pacemaker, CHF, peripheral vascular disease diabetes mellitus, gastritis, CVA with right-sided hemiplegia diabetic neuropathy with chronic pain syndrome resident of custodial [facility] presented to emergency room for evaluation due to generalized weakness and body pain she denied fever and chills. He denied nausea vomiting diarrhea. Upon evaluation urinalysis revealed no evidence of urinary tract infection. Laboratory work-up revealed no leukocytosis hemoglobin 9.9 hematocrit 30.3 lactic acid 1.0. Stable electrolytes. UN 17, creatinine 1.2. Stable LFT. Troponin 0 0.161 with albumin 2.3. EKG revealed paced rhythm no acute changes chest x-ray demonstrated bilateral interstitial congestion possible left pleural effusion. Cardiomegaly. proBNP 3906. Patient subsequently admitted to telemetry floor with elevated troponin rule out acute coronary syndrome and CHF exacerbation CONSULTANTS: art gallery director Dr. Kearns neurologist pulmonary Dr. Sweet ID specialist GI specialist Dr. Shannon flight attendant/inflight supervisor pile driver engineer/oncologist Dr. Davila surgery psychiatrist HOSPITAL COURSE: [] Patient admitted to telemetry floor. Serial troponin trended second troponin elevated to 0.524. Hospital Fellow follow. Echocardiogram demonstrated global left ventricular hypokinesis with estimated left ventricular ejection fraction of 20 to 25%. No evidence of left ventricular hypertrophy. Right ventricular systolic pressure of 15. Lipid panel was stable. Patient started on guideline guideline medical management of congestive heart failure including beta-ilya SILVER inhibitor Aldactone and Lasix. EKG showed 100% ventricularly paced. Patient will benefit from upgrading to biventricular ICD if insurance approved. Existing defibrillator was interrogated and showed normal functioning. Blood pressure was managed with SILVER inhibitor beta-ilya and remained stable. Blood sugar was managed with a sliding scale of insulin. Lipid panel was stable. Statin was continued. With initiation of treatment for congestive heart failure patient was feeling better. No chest pain no shortness of breath. Supplemental oxygen was on board to keep pulse oximetry above 92%. Pulmonary toilet provided as needed Volumes and cardiorenal parameters were closely monitored. GI prep prophylaxis provided blood sugar was managed with sliding scale of insulin. Pain management was addressed.. GI specialist closely follow.GI consulted for anemia. Stool for occult blood was -1 time of positive another time hemoglobin hematocrit were closely monitor his goal to keep hemoglobin above 7. Anemia work-up revealed evidence of anemia of chronic disease ferritin 362. Patient started on GI prophylaxis. Antiemetic were on board as needed. Hemoglobin hematocrit remained stable. Given severe cardiomyopathy GI recommended to hold on GI procedure at this time since patient stable. Bowel regimen instituted. Prior to discharge hemoglobin 10.7 hematocrit 31.7. Statin continued. Patient started on long-acting nitrate Imdur 30 mg daily. Pressure was managed with hydralazine beta-ilya and SILVER inhibitor. DVT prophylaxis provided. Supportive care provided. Pain management address as needed. Patient clinically stabilized and was ready for transfer back to custodial facility for continuation of care Status post [employer] defibrillator Elevated troponin ischemic cardiomyopathy peripheral vascular disease cerebrovascular disease, status post cerebrovascular accident with right hemiplegia Chronic obstructive pulmonary disease Pacemaker in situ Hypertension Diabetes mellitus History of CVA Coronary artery disease status post stent placement FINAL DIAGNOSES: Severe cardiomyopathy ejection fraction 20- DISCHARGE MEDICATIONS: See Medication Reconciliation list. DISCHARGE INSTRUCTIONS: [] Patient was discharged to the custodial facility. Follow up with medical doctor at the facility. I have been assigned to dictate discharge summary for this account. I was not involved in the patient's management. Darlin Woodward NP Mar 30, 2019 13:52
== END 2019-03-28 20:00 | DRG 194 ==
LOC: EDBD 11:38 → EDUNIT# 11:38 → EMR 12:08 → EDBEDREQ 14:25 → 2E 15:12 → EDBEDREQ 15:37 → 2E 16:20
DX: I11.0 Hypertensive heart disease with heart failure (principal); I69.351 Hemiplegia and hemiparesis following cerebral infarction affecting right dominant side; I73.9 Peripheral vascular disease, unspecified; I25.810 Atherosclerosis of coronary artery bypass graft(s) without angina pectoris; E11.9 Type 2 diabetes mellitus without complications; D63.8 Anemia in other chronic diseases classified elsewhere; D50.9 Iron deficiency anemia, unspecified; I10 Essential (primary) hypertension; I50.23 Acute on chronic systolic (congestive) heart failure; L03.119 Cellulitis of unspecified part of limb; I25.10 Atherosclerotic heart disease of native coronary artery without angina pectoris; I25.2 Old myocardial infarction; Z86.73 Personal history of transient ischemic attack (TIA), and cerebral infarction without residual deficits; Z79.82 Long term (current) use of aspirin; Z79.4 Long term (current) use of insulin; Z95.1 Presence of aortocoronary bypass graft; J44.9 Chronic obstructive pulmonary disease, unspecified; I25.5 Ischemic cardiomyopathy; Z95.5 Presence of coronary angioplasty implant and graft; Z88.6 Allergy status to analgesic agent; Z88.8 Allergy status to other drugs, medicaments and biological substances; Z86.718 Personal history of other venous thrombosis and embolism; K59.00 Constipation, unspecified; R11.2 Nausea with vomiting, unspecified; Z95.810 Presence of automatic (implantable) cardiac defibrillator
CPT/HCPCS: 36415; 71045; 80048; 80053; 80061; 81003; 82270; 82378; 82550; 82553; 82607; 82728; 82746; 82962; 83540; 83550; 83605; 83880; 84439; 84443; 84484; 85025; 85044; 85610; 85730; 87040; 87081; 93005; 93306; 96361; 96374; 99285; J1815; J2405